=== PATIENT | female | born 1940 | race Two or more races ===

== ENCOUNTER 2021-12-07 15:15 | Emergency (ER) | payer SELFPAY ==
[~2021-12-07] VITALS: Ht 157.5 cm; Wt 65.9 kg
[2021-12-07] MEDS ORDERED: SODIUM CHLORIDE 0.9% 1,000 ML IV ONE (16:15)
[2021-12-07] MEDS ORDERED: ONDANSETRON HCL 4 MG/2 ML VIAL IV ONE (16:15)
[2021-12-07] MEDS ORDERED: SODIUM CHLORIDE 0.9% 500 ML IVB ONE (16:15)
[2021-12-07 17:02] LABS: Basophils # (auto) 0 10 ^3/uL (0-0.2); Basophils % (auto) 0.2 % (0.0-2.0); Eosinophils # (auto) 0.1 10 ^3/uL (0-0.8); Eosinophils % (auto) 0.4 % (0.0-7.0); Hematocrit 43.4 % (36.0-46.0); Hemoglobin 14.1 g/dL (12.2-16.2); Lymphocytes # (auto) 3.7 10 ^3/uL (0.4-5.4); Lymphocytes % (auto) 23.4 % (10.0-50.0); Mean Corpuscular Hemoglobin 28.7 pg (28.0-32.0); Mean Corpuscular Hgb Conc. 32.4 g/dL (32.0-36.0); Mean Corpuscular Volume 88.7 fL (80.0-100.0); Monocytes # (auto) 1.2 10 ^3/uL (0-1.3); Monocytes % (auto) 7.4 % (0.0-12.0); Neutrophils # (auto) 10.9 10 ^3/uL (1.6-8.6); Neutrophils % (auto) 68.6 % (37.0-80.0); Red Cell Distribution Width 13.7 % (11.8-14.3); White Blood Cell 15.9 10^3/uL (4.4-10.8)
[2021-12-07 17:17] LABS: Albumin 2.7 g/dL (3.4-5.0); BUN/Creatinine Ratio 23.4; Calcium 8.4 mg/dL (8.5-10.1); Magnesium 1.7 mg/dL (1.6-2.6); Potassium 4.5 mmol/L (3.5-5.1)
[2021-12-07 17:20] LABS: Bilirubin, Total 2.8 mg/dL (0.2-1.0); Total Protein 6.9 g/dL (6.4-8.2)
[2021-12-07] MEDS ORDERED: METO-281 PO (19:31)
[2021-12-07] MEDS ORDERED: PANT40TA2 PO (19:31)
[2021-12-07] MEDS ORDERED: CIPR-173 PO (19:50)
[2021-12-07 20:20] LABS: Urine Bacteria MANY /hpf (None Seen); Urine Blood TRACE /uL (Negative); Urine Budding Yeast OCCASIONAL /hpf (None Seen); Urine Specific Gravity 1.008 (1.001-1.035); Urine WBC 35 /hpf (0 - 5)
[2021-12-07 21:14] VITALS: BP 110/51
== END 2021-12-07 21:07 | disposition home or self-care (01) ==
LOC: ER 15:15
DX: K52.9 Noninfective gastroenteritis and colitis, unspecified (principal); E86.0 Dehydration; E87.1 Hypo-osmolality and hyponatremia; E11.21 Type 2 diabetes mellitus with diabetic nephropathy; E46 Unspecified protein-calorie malnutrition; N39.0 Urinary tract infection, site not specified; J84.10 Pulmonary fibrosis, unspecified; I10 Essential (primary) hypertension; Z85.3 Personal history of malignant neoplasm of breast; Z20.822 Contact with and (suspected) exposure to COVID-19
CPT/HCPCS: 36415; 70450; 71045; 74176; 80053; 81001; 83690; 83735; 85025; 87426; 93005; 96361; 96374; 99285; J2405; J7030; J7040

== ENCOUNTER 2021-12-08 16:43 | Inpatient (IN) | payer MEDICAID ==
[~2021-12-08] VITALS: Ht 152.4 cm; Wt 67.6 kg
[~2021-12-08 16:43] MED LIST: CIPR-173 PO; METO-281 PO; PANT40TA2 PO
[2021-12-08] MEDS ORDERED: ACCU-CHEK COMFORT CURVE STRIP VI ONE (18:15)
[2021-12-08] MEDS ORDERED: SODIUM CHLORIDE 0.9% 500 ML IV ONE (18:30)
[2021-12-08 19:37] LABS: Basophils # (auto) 0 10 ^3/uL (0-0.2); Basophils % (auto) 0.3 % (0.0-2.0); Eosinophils # (auto) 0.2 10 ^3/uL (0-0.8); Eosinophils % (auto) 1.1 % (0.0-7.0); Hematocrit 36.2 % (36.0-46.0); Hemoglobin 12.2 g/dL (12.2-16.2); Mean Corpuscular Hemoglobin 29.5 pg (28.0-32.0); Mean Corpuscular Hgb Conc. 33.7 g/dL (32.0-36.0); Mean Corpuscular Volume 87.6 fL (80.0-100.0); Monocytes # (auto) 0.9 10 ^3/uL (0-1.3); Monocytes % (auto) 6.3 % (0.0-12.0); Neutrophils # (auto) 11.1 10 ^3/uL (1.6-8.6); Neutrophils % (auto) 78.3 % (37.0-80.0); Red Blood Cells 4.13 10^6/uL (4.0-5.20); Red Cell Distribution Width 13.9 % (11.8-14.3); White Blood Cell 14.2 10^3/uL (4.4-10.8)
[2021-12-08] MEDS ORDERED: IODIXANOL 320MG/ML 100ML BTL IV ONE (19:53)
[2021-12-08 20:04] LABS: Albumin 2.4 g/dL (3.4-5.0); BUN/Creatinine Ratio 34.8; Calcium 7.7 mg/dL (8.5-10.1); Potassium 4.8 mmol/L (3.5-5.1)
[2021-12-08 20:07] LABS: Bilirubin, Total 1.5 mg/dL (0.2-1.0); Total Protein 6.1 g/dL (6.4-8.2)
[2021-12-08 20:15] LABS: Magnesium 1.7 mg/dL (1.6-2.6)
[2021-12-08] MEDS ORDERED: ALBUMIN 25% 100 ML IV ONE (22:15)
[2021-12-08] MEDS ORDERED: cefTRIAXone 1GM/50ML D5W 50 ML IV ONE (22:15)
[2021-12-08] MEDS ORDERED: ACETAMINOPHEN 325 MG TAB PO PRN (22:15)
[2021-12-08] MEDS ORDERED: DEXTROSE (50%) 50ML SYRG IV PRN (22:15)
[2021-12-08] MEDS ORDERED: AZITHROMYCIN 500MG/ 250ML 250 ML IV ONE (22:15)
[2021-12-08] MEDS ORDERED: ONDANSETRON HCL 4 MG/2 ML VIAL IV PRN (22:15)
[2021-12-08] MEDS ORDERED: HYDROcodone-ACET 5/325MG TAB PO PRN (22:15)
[2021-12-08] MEDS ORDERED: MORPHINE SULFATE INJ 2 MG/ml SYRG IV PRN (23:00)
[2021-12-08] MEDS ORDERED: NITROGLYCERIN 0.4 MG SL TAB SL PRN (23:00)
[2021-12-08] MEDS: SODIUM CHLORIDE 0.9% 1,000 ML IV SCH (23:18)
[2021-12-08 23:51] LABS: Urine Bacteria NONE SEEN /hpf (None Seen); Urine Blood 1+ /uL (Negative); Urine Hyaline Cast FEW /lpf (0 - 2); Urine Specific Gravity 1.042 (1.001-1.035); Urine WBC 117 /hpf (0 - 5)
[2021-12-09] MEDS: ACCU-CHEK COMFORT CURVE STRIP VI SCH ×4 (07:00→22:38)
[2021-12-09] MEDS: InsuLIN REG 1unit/0.01ml Soln (100units/ml) SC SCH ×4 (07:00→22:00)
[2021-12-09 07:17] LABS: Basophils # (auto) 0 10 ^3/uL (0-0.2); Basophils % (auto) 0.4 % (0.0-2.0); Eosinophils # (auto) 0.2 10 ^3/uL (0-0.8); Eosinophils % (auto) 2.3 % (0.0-7.0); Hematocrit 37.3 % (36.0-46.0); Hemoglobin 12.8 g/dL (12.2-16.2); Lymphocytes # (auto) 2.4 10 ^3/uL (0.4-5.4); Lymphocytes % (auto) 26.4 % (10.0-50.0); Mean Corpuscular Hemoglobin 30.1 pg (28.0-32.0); Mean Corpuscular Hgb Conc. 34.3 g/dL (32.0-36.0); Mean Corpuscular Volume 87.7 fL (80.0-100.0); Monocytes # (auto) 0.7 10 ^3/uL (0-1.3); Monocytes % (auto) 7.6 % (0.0-12.0); Neutrophils # (auto) 5.8 10 ^3/uL (1.6-8.6); Neutrophils % (auto) 63.3 % (37.0-80.0); Nucleated Red Blood Cells % 0.1 %; Red Blood Cells 4.25 10^6/uL (4.0-5.20); Red Cell Distribution Width 13.7 % (11.8-14.3); White Blood Cell 9.2 10^3/uL (4.4-10.8)
[2021-12-09 07:39] LABS: Potassium 4.4 mmol/L (3.5-5.1)
[2021-12-09 07:51] LABS: BUN/Creatinine Ratio 28.6; Bilirubin, Total 1.7 mg/dL (0.2-1.0); Calcium 8.6 mg/dL (8.5-10.1)
[2021-12-09 09:00] VITALS: BP 146/60
[2021-12-09] MEDS: cefTRIAXone 1GM/50ML D5W 50 ML IV SCH (09:40)
[2021-12-09] MEDS ORDERED: PANTOPRAZOLE 40 MG/10 ML VIAL INJ IV SCH (10:00)
[2021-12-09] MEDS: PANTOPRAZOLE 40 MG/10 ML VIAL INJ IV SCH ×2 (11:02→22:49)
[2021-12-09] MEDS: AZITHROMYCIN 500MG/ 250ML 250 ML IV SCH (11:02)
[2021-12-09 13:00] VITALS: BP 135/66
[2021-12-09 13:31] LABS: INR 1.13 (0.9-1.15)
[2021-12-09] MEDS: SODIUM CHLORIDE 0.9% 1,000 ML IV SCH (14:55)
[2021-12-09 16:12] VITALS: BP 132/60
[2021-12-09 22:00] VITALS: BP 116/56
[2021-12-10 05:00] VITALS: BP 112/48
[2021-12-10] MEDS: InsuLIN REG 1unit/0.01ml Soln (100units/ml) SC SCH ×4 (06:54→21:51)
[2021-12-10] MEDS: ACCU-CHEK COMFORT CURVE STRIP VI SCH ×4 (06:55→21:51)
[2021-12-10] MEDS: SODIUM CHLORIDE 0.9% 1,000 ML IV SCH (07:35)
[2021-12-10] MEDS ORDERED: NALOXONE HCL 0.4 MG/ML VIAL ONE (07:43)
[2021-12-10] MEDS ORDERED: FLUMAZENIL 0.1 MG/ML INJ 10ML MDV IV ONE (07:43)
[2021-12-10] MEDS ORDERED: EPINEPHrine HCL 1 MG/10 ML SYRG ONE (07:43)
[2021-12-10] MEDS ORDERED: MIDAZOLAM HCL 5 MG/ML-1ML VIAL ONE (07:44)
[2021-12-10] MEDS ORDERED: fentaNYL CITRATE 100 MCG/2 ML VL ONE (07:44)
[2021-12-10] MEDS ORDERED: diphenhdrAMINE HCL 50 MG/1 ML VL ONE (07:44)
[2021-12-10] MEDS ORDERED: SODIUM CHLORIDE LOCK 10 ML ONE (07:46)
[2021-12-10] MEDS ORDERED: LIDOCAINE VISCOUS 2% 15ML UD ONE (07:46)
[2021-12-10 09:00] VITALS: BP 130/75
[2021-12-10] MEDS: cefTRIAXone 1GM/50ML D5W 50 ML IV SCH (09:15)
[2021-12-10] MEDS: PANTOPRAZOLE 40 MG/10 ML VIAL INJ IV SCH (09:54)
[2021-12-10] MEDS: AZITHROMYCIN 500MG/ 250ML 250 ML IV SCH (09:55)
[2021-12-10] MEDS: SUCRALFATE 1 GM/10 ML ORAL SUSP PO SCH ×3 (12:18→21:59)
[2021-12-10 12:46] VITALS: BP 120/60
[2021-12-10 17:00] VITALS: BP 149/59
[2021-12-10] MEDS ORDERED: SPIR25TA PO (20:26)
[2021-12-10] MEDS ORDERED: VALS320T15 PO (20:26)
[2021-12-10] MEDS ORDERED: TIMO0.5S32 OP (20:30)
[2021-12-10] MEDS ORDERED: METF-370 PO (20:30)
[2021-12-10] MEDS: PANTOPRAZOLE 40 MG TAB PO SCH (21:59)
[2021-12-10 22:00] VITALS: BP 108/52
[2021-12-11] MEDS: SODIUM CHLORIDE 0.9% 1,000 ML IV SCH ×3 (00:15→17:58)
[2021-12-11 05:00] VITALS: BP 121/54
[2021-12-11] MEDS: ACCU-CHEK COMFORT CURVE STRIP VI SCH ×4 (06:29→22:17)
[2021-12-11] MEDS: InsuLIN REG 1unit/0.01ml Soln (100units/ml) SC SCH ×4 (06:29→22:16)
[2021-12-11] MEDS: SUCRALFATE 1 GM/10 ML ORAL SUSP PO SCH ×4 (06:32→22:14)
[2021-12-11 08:00] VITALS: BP_SYST 121; BP_SYST 135; BP_DIAS 62; BP_DIAS 76
[2021-12-11] MEDS: cefTRIAXone 1GM/50ML D5W 50 ML IV SCH (09:28)
[2021-12-11] MEDS: AZITHROMYCIN 500MG/ 250ML 250 ML IV SCH (10:36)
[2021-12-11] MEDS: PANTOPRAZOLE 40 MG TAB PO SCH ×2 (10:36→22:14)
[2021-12-11 12:00] VITALS: BP 123/60
[2021-12-11 16:00] VITALS: BP 137/68
[2021-12-11 21:52] VITALS: BP 104/65
[2021-12-12 05:00] VITALS: BP 119/61
[2021-12-12] MEDS: SUCRALFATE 1 GM/10 ML ORAL SUSP PO SCH ×4 (06:34→22:41)
[2021-12-12] MEDS: InsuLIN REG 1unit/0.01ml Soln (100units/ml) SC SCH ×4 (06:34→22:47)
[2021-12-12] MEDS: ACCU-CHEK COMFORT CURVE STRIP VI SCH ×4 (06:34→22:43)
[2021-12-12 08:00] VITALS: BP 126/61
[2021-12-12] MEDS: SODIUM CHLORIDE 0.9% 1,000 ML IV SCH (09:27)
[2021-12-12] MEDS: cefTRIAXone 1GM/50ML D5W 50 ML IV SCH (09:27)
[2021-12-12] MEDS: AZITHROMYCIN 500MG/ 250ML 250 ML IV SCH (10:14)
[2021-12-12] MEDS: PANTOPRAZOLE 40 MG TAB PO SCH ×2 (10:15→22:40)
[2021-12-12 12:00] VITALS: BP 132/64
[2021-12-12 16:00] VITALS: BP 135/68
[2021-12-12 20:00] VITALS: BP 114/50
[2021-12-12 22:00] VITALS: BP 114/50
[2021-12-13 05:00] VITALS: BP 111/72
[2021-12-13] MEDS: ACCU-CHEK COMFORT CURVE STRIP VI SCH ×2 (06:17→12:55)
[2021-12-13] MEDS: InsuLIN REG 1unit/0.01ml Soln (100units/ml) SC SCH ×2 (06:27→12:56)
[2021-12-13] MEDS: SODIUM CHLORIDE 0.9% 1,000 ML IV SCH (06:27)
[2021-12-13] MEDS: SUCRALFATE 1 GM/10 ML ORAL SUSP PO SCH ×2 (06:27→12:10)
[2021-12-13 09:00] VITALS: BP 130/55
[2021-12-13] MEDS: cefTRIAXone 1GM/50ML D5W 50 ML IV SCH (09:05)
[2021-12-13] MEDS: AZITHROMYCIN 500MG/ 250ML 250 ML IV SCH (09:49)
[2021-12-13] MEDS: PANTOPRAZOLE 40 MG TAB PO SCH (09:50)
[2021-12-13] MEDS ORDERED: SUCR1TAB PO (10:32)
[2021-12-13] MEDS ORDERED: PANT40T PO (10:32)
[2021-12-13] MEDS ORDERED: AZIT500T66 PO (10:32)
[2021-12-13 13:00] VITALS: BP 144/65
== END 2021-12-13 15:13 | disposition home or self-care (01) | DRG 241 ==
LOC: ER 16:43 → OVERFLOW 22:52 → WEST WING 23:42
PROVIDERS: ADMIT Nurse Practitioner Family; ATTEND Family Medicine
PROC: 0DB68ZX Excision of Stomach, Via Natural or Artificial Opening Endoscopic, Diagnostic (ICD-10-PCS; principal; 2021-12-10 10:19)
DX: K29.70 Gastritis, unspecified, without bleeding (principal); K85.90 Acute pancreatitis without necrosis or infection, unspecified; J18.9 Pneumonia, unspecified organism; E87.1 Hypo-osmolality and hyponatremia; E88.09 Other disorders of plasma-protein metabolism, not elsewhere classified; K52.9 Noninfective gastroenteritis and colitis, unspecified; I10 Essential (primary) hypertension; E11.65 Type 2 diabetes mellitus with hyperglycemia; K44.9 Diaphragmatic hernia without obstruction or gangrene; N28.1 Cyst of kidney, acquired; Z20.822 Contact with and (suspected) exposure to COVID-19; Z90.710 Acquired absence of both cervix and uterus; Z85.3 Personal history of malignant neoplasm of breast; Z90.10 Acquired absence of unspecified breast and nipple; Z88.8 Allergy status to other drugs, medicaments and biological substances
CPT/HCPCS: 36415; 43239; 70450; 72125; 74177; 80053; 81001; 82962; 83605; 83690; 83735; 84484; 85025; 85610; 87045; 87427; 96365; 96368; C9113; G0378; J0696; J1815; J2250; P9047; Q9967

== ENCOUNTER → 2022-05-10 | Outpatient (CLI) | payer MEDICAID ==
[~2022-05-10] MED LIST changes: +AZIT500T66 PO; +METF-370 PO; +PANT40T PO; +SPIR25TA PO; +SUCR1TAB PO; +TIMO0.5S32 OP; +VALS320T15 PO
== END | disposition home or self-care (01) ==
LOC: Rad HDHVI 14:54
PROVIDERS: ATTEND Internal Medicine Cardiovascular Disease
DX: I08.3 Combined rheumatic disorders of mitral, aortic and tricuspid valves (principal); R00.2 Palpitations; E78.5 Hyperlipidemia, unspecified
CPT/HCPCS: 93306

== ENCOUNTER → 2022-05-12 | Outpatient (CLI) | payer MEDICAID ==
[~2022-05-12] VITALS: Ht 157.5 cm; Wt 66.2 kg
[~2022-05-12] MED LIST changes: +ADENOSINE 56 MG in GIVE UN-DILUTED 0 ML IV ONE; +ADENOSINE 90 MG/30 ML INJ IV ONE
== END | disposition home or self-care (01) ==
LOC: Rad HDHVI 08:50
PROVIDERS: ATTEND Internal Medicine Cardiovascular Disease
DX: R07.9 Chest pain, unspecified (principal); R00.2 Palpitations; R06.02 Shortness of breath; I10 Essential (primary) hypertension; E11.65 Type 2 diabetes mellitus with hyperglycemia; E78.5 Hyperlipidemia, unspecified; Z82.49 Family history of ischemic heart disease and other diseases of the circulatory system
CPT/HCPCS: 78452; 93005; 96374; 96375; A9500; J0153

== ENCOUNTER 2022-06-13 21:53 | Inpatient (IN) | payer MEDICAID ==
[~2022-06-13] VITALS: Ht 149.9 cm; Wt 157.3 kg
[~2022-06-13 21:53] MED LIST changes: -ADENOSINE 56 MG in GIVE UN-DILUTED 0 ML IV ONE; -ADENOSINE 90 MG/30 ML INJ IV ONE
[2022-06-13 22:41] LABS: Basophils # (auto) 0 10 ^3/uL (0-0.2); Basophils % (auto) 0.1 % (0.0-2.0); Eosinophils # (auto) 0 10 ^3/uL (0-0.8); Hematocrit 38.3 % (36.0-46.0); Hemoglobin 12.5 g/dL (12.2-16.2); Lymphocytes # (auto) 0.8 10 ^3/uL (0.4-5.4); Lymphocytes % (auto) 8.4 % (10.0-50.0); Mean Corpuscular Hemoglobin 29.3 pg (28.0-32.0); Mean Corpuscular Hgb Conc. 32.6 g/dL (32.0-36.0); Monocytes # (auto) 0.1 10 ^3/uL (0-1.3); Monocytes % (auto) 1.6 % (0.0-12.0); Neutrophils # (auto) 8.2 10 ^3/uL (1.6-8.6); Neutrophils % (auto) 89.9 % (37.0-80.0); Nucleated Red Blood Cells % 0.1 %; Red Blood Cells 4.25 10^6/uL (4.0-5.20); Red Cell Distribution Width 14.9 % (11.8-14.3); White Blood Cell 9.1 10^3/uL (4.4-10.8)
[2022-06-13 23:00] LABS: Albumin 2.5 g/dL (3.4-5.0); Calcium 8.8 mg/dL (8.5-10.1); Magnesium 1.7 mg/dL (1.6-2.6); Potassium 4.2 mmol/L (3.5-5.1)
[2022-06-13] MEDS ORDERED: IPRATROPIUM BROM 0.5 MG/2.5ML INH SOL NEB ONE (23:00)
[2022-06-13] MEDS ORDERED: methylPREDNISolone SOD SUCC 125 MG/2 ML VL IV ONE (23:00)
[2022-06-13] MEDS ORDERED: ALBUTEROL SULF 2.5 MG/0.5ML(0.5%) NEB SOLN NEB ONE (23:00)
[2022-06-13 23:02] LABS: BUN/Creatinine Ratio 21.3 (10.0-20.0)
[2022-06-13 23:05] LABS: Bilirubin, Total 0.8 mg/dL (0.2-1.0); Total Protein 7.2 g/dL (6.4-8.2)
[2022-06-14] MEDS ORDERED: InsuLIN REG 1unit/0.01ml Soln (100units/ml) IV ONE (00:30)
[2022-06-14] MEDS ORDERED: cefTRIAXone SOD 1,000 MG VL IV ONE (00:45)
[2022-06-14] MEDS ORDERED: AZITHROMYCIN 250 MG TAB PO ONE (00:45)
[2022-06-14] MEDS ORDERED: ACETAMINOPHEN 325 MG TAB PO PRN (02:30)
[2022-06-14] MEDS ORDERED: ONDANSETRON HCL 4 MG/2 ML VIAL IV PRN (02:30)
[2022-06-14] MEDS ORDERED: HYDROcodone-ACET 5/325MG TAB PO PRN (02:30)
[2022-06-14] MEDS ORDERED: DEXTROSE (50%) 50ML SYRG IV PRN (02:30)
[2022-06-14] MEDS ORDERED: ALBUTEROL SULF 2.5 MG/0.5ML(0.5%) NEB SOLN NEB PRN (02:30)
[2022-06-14 02:39] VITALS: BP 140/68
[2022-06-14] MEDS: InsuLIN REG 1unit/0.01ml Soln (100units/ml) SC SCH ×5 (03:42→20:47)
[2022-06-14] MEDS: ACCU-CHEK COMFORT CURVE STRIP VI SCH ×5 (03:42→20:55)
[2022-06-14] MEDS: HCTZ 25 MG TAB PO SCH (10:02)
[2022-06-14] MEDS: FUROSEMIDE 40 MG TAB PO SCH (10:02)
[2022-06-14] MEDS: VALSARTAN 80 MG TAB PO SCH (10:02)
[2022-06-14] MEDS: methylPREDNISolone SOD SUCC 40 MG/ML VL IV SCH ×2 (10:03→22:16)
[2022-06-14] MEDS: ENOXAPARIN SOD 40 MG/0.4 ML SYRINGE SC SCH (10:04)
[2022-06-14 19:50] VITALS: BP 98/62
[2022-06-14 22:00] VITALS: BP 98/62
[2022-06-14] MEDS: AZITHROMYCIN 500MG/ 250ML 250 ML IV SCH (22:15)
[2022-06-14] MEDS: cefTRIAXone 1GM/50ML D5W 50 ML IV SCH (22:21)
[2022-06-15] MEDS: InsuLIN REG 1unit/0.01ml Soln (100units/ml) SC SCH ×6 (00:44→21:39)
[2022-06-15] MEDS: ACCU-CHEK COMFORT CURVE STRIP VI SCH ×6 (00:48→21:40)
[2022-06-15] MEDS: cloNIDine HCL 0.1 MG TAB PO PRN (04:56)
[2022-06-15 04:58] LABS: Basophils # (auto) 0 10 ^3/uL (0-0.2); Eosinophils # (auto) 0 10 ^3/uL (0-0.8); Hematocrit 36.5 % (36.0-46.0); Hemoglobin 12.1 g/dL (12.2-16.2); Lymphocytes # (auto) 1.6 10 ^3/uL (0.4-5.4); Lymphocytes % (auto) 12.8 % (10.0-50.0); Mean Corpuscular Hemoglobin 29.6 pg (28.0-32.0); Mean Corpuscular Hgb Conc. 33.1 g/dL (32.0-36.0); Mean Corpuscular Volume 89.5 fL (80.0-100.0); Monocytes # (auto) 0.3 10 ^3/uL (0-1.3); Monocytes % (auto) 2.6 % (0.0-12.0); Neutrophils # (auto) 10.5 10 ^3/uL (1.6-8.6); Neutrophils % (auto) 84.6 % (37.0-80.0); Nucleated Red Blood Cells % 0.1 %; Red Blood Cells 4.08 10^6/uL (4.0-5.20); White Blood Cell 12.4 10^3/uL (4.4-10.8)
[2022-06-15 05:00] VITALS: BP 166/61
[2022-06-15 05:15] LABS: Albumin 2.3 g/dL (3.4-5.0); Calcium 8.9 mg/dL (8.5-10.1); Potassium 3.4 mmol/L (3.5-5.1)
[2022-06-15 05:20] LABS: Bilirubin, Total 0.6 mg/dL (0.2-1.0); Total Protein 6.8 g/dL (6.4-8.2)
[2022-06-15 08:40] VITALS: BP 134/66
[2022-06-15] MEDS: ENOXAPARIN SOD 40 MG/0.4 ML SYRINGE SC SCH (08:50)
[2022-06-15] MEDS: VALSARTAN 80 MG TAB PO SCH (08:51)
[2022-06-15] MEDS: FUROSEMIDE 40 MG TAB PO SCH (08:52)
[2022-06-15] MEDS: methylPREDNISolone SOD SUCC 40 MG/ML VL IV SCH ×2 (08:53→21:48)
[2022-06-15] MEDS: HCTZ 25 MG TAB PO SCH (08:53)
[2022-06-15 12:56] VITALS: BP 138/95
[2022-06-15 19:40] VITALS: BP 157/77
[2022-06-15] MEDS: cefTRIAXone 1GM/50ML D5W 50 ML IV SCH (21:48)
[2022-06-15] MEDS: AZITHROMYCIN 500MG/ 250ML 250 ML IV SCH (21:48)
[2022-06-16] MEDS: InsuLIN REG 1unit/0.01ml Soln (100units/ml) SC SCH ×6 (00:58→20:41)
[2022-06-16] MEDS: ACCU-CHEK COMFORT CURVE STRIP VI SCH ×6 (01:02→20:40)
[2022-06-16 04:54] VITALS: BP 151/68
[2022-06-16 09:00] VITALS: BP 142/72
[2022-06-16] MEDS: VALSARTAN 80 MG TAB PO SCH (09:07)
[2022-06-16] MEDS: HCTZ 25 MG TAB PO SCH (09:07)
[2022-06-16] MEDS: FUROSEMIDE 40 MG TAB PO SCH (09:07)
[2022-06-16] MEDS: methylPREDNISolone SOD SUCC 40 MG/ML VL IV SCH ×2 (09:08→22:17)
[2022-06-16] MEDS: ENOXAPARIN SOD 40 MG/0.4 ML SYRINGE SC SCH (09:10)
[2022-06-16] MEDS: cloNIDine HCL 0.1 MG TAB PO PRN (12:57)
[2022-06-16 17:00] VITALS: BP 139/72
[2022-06-16] MEDS: cefTRIAXone 1GM/50ML D5W 50 ML IV SCH (20:52)
[2022-06-16 22:00] VITALS: BP 134/60
[2022-06-16] MEDS: AZITHROMYCIN 500MG/ 250ML 250 ML IV SCH (22:17)
[2022-06-17] MEDS: ACCU-CHEK COMFORT CURVE STRIP VI SCH ×7 (00:24→23:59)
[2022-06-17] MEDS: InsuLIN REG 1unit/0.01ml Soln (100units/ml) SC SCH ×6 (00:27→19:35)
[2022-06-17 04:33] VITALS: BP 134/60
[2022-06-17 05:00] VITALS: BP 150/66
[2022-06-17] MEDS: ENOXAPARIN SOD 40 MG/0.4 ML SYRINGE SC SCH (08:49)
[2022-06-17] MEDS: VALSARTAN 80 MG TAB PO SCH (08:51)
[2022-06-17] MEDS: methylPREDNISolone SOD SUCC 40 MG/ML VL IV SCH ×2 (08:51→22:30)
[2022-06-17] MEDS: FUROSEMIDE 40 MG TAB PO SCH (08:51)
[2022-06-17 09:00] VITALS: BP 147/68
[2022-06-17] MEDS: HCTZ 25 MG TAB PO SCH (09:07)
[2022-06-17 13:00] VITALS: BP 136/66
[2022-06-17 16:49] VITALS: BP 151/77
[2022-06-17] MEDS: cefTRIAXone 1GM/50ML D5W 50 ML IV SCH (20:10)
[2022-06-17 22:00] VITALS: BP 130/61
[2022-06-17] MEDS: AZITHROMYCIN 500MG/ 250ML 250 ML IV SCH (22:30)
[2022-06-18] MEDS: InsuLIN REG 1unit/0.01ml Soln (100units/ml) SC SCH ×7 (00:07→23:46)
[2022-06-18] MEDS: ACCU-CHEK COMFORT CURVE STRIP VI SCH ×6 (03:35→23:46)
[2022-06-18 05:00] VITALS: BP 144/72
[2022-06-18 09:00] VITALS: BP 138/67
[2022-06-18] MEDS: FUROSEMIDE 40 MG TAB PO SCH (10:08)
[2022-06-18] MEDS: VALSARTAN 80 MG TAB PO SCH (10:08)
[2022-06-18] MEDS: ENOXAPARIN SOD 40 MG/0.4 ML SYRINGE SC SCH (10:09)
[2022-06-18] MEDS: HCTZ 25 MG TAB PO SCH (10:09)
[2022-06-18] MEDS: methylPREDNISolone SOD SUCC 40 MG/ML VL IV SCH ×2 (10:10→21:47)
[2022-06-18 12:49] VITALS: BP 148/71
[2022-06-18 16:48] VITALS: BP 149/67
[2022-06-18] MEDS: cefTRIAXone 1GM/50ML D5W 50 ML IV SCH (20:33)
[2022-06-18] MEDS: AZITHROMYCIN 500MG/ 250ML 250 ML IV SCH (21:47)
[2022-06-18 22:00] VITALS: BP 138/71
[2022-06-19] MEDS: ACCU-CHEK COMFORT CURVE STRIP VI SCH ×6 (03:25→23:35)
[2022-06-19] MEDS: InsuLIN REG 1unit/0.01ml Soln (100units/ml) SC SCH ×6 (03:27→23:47)
[2022-06-19 06:29] VITALS: BP 154/69
[2022-06-19 08:26] VITALS: BP 150/60
[2022-06-19] MEDS: methylPREDNISolone SOD SUCC 40 MG/ML VL IV SCH ×2 (09:04→21:48)
[2022-06-19] MEDS: VALSARTAN 80 MG TAB PO SCH (09:06)
[2022-06-19] MEDS: HCTZ 25 MG TAB PO SCH (09:07)
[2022-06-19] MEDS: ENOXAPARIN SOD 40 MG/0.4 ML SYRINGE SC SCH (09:07)
[2022-06-19] MEDS: FUROSEMIDE 40 MG TAB PO SCH (09:08)
[2022-06-19 12:35] VITALS: BP 138/61
[2022-06-19 16:31] VITALS: BP 137/67
[2022-06-19] MEDS: cefTRIAXone 1GM/50ML D5W 50 ML IV SCH (20:30)
[2022-06-19] MEDS: AZITHROMYCIN 500MG/ 250ML 250 ML IV SCH (21:49)
[2022-06-19] MEDS: guaiFENesin-DM 100/10mg/5ml SYR PO PRN (23:35)
[2022-06-20] MEDS: ACCU-CHEK COMFORT CURVE STRIP VI SCH ×6 (03:59→23:12)
[2022-06-20] MEDS: InsuLIN REG 1unit/0.01ml Soln (100units/ml) SC SCH ×6 (03:59→23:33)
[2022-06-20] MEDS: LORazepam 0.5 MG TAB PO PRN ×2 (04:00→23:12)
[2022-06-20 05:00] VITALS: BP 142/61
[2022-06-20 09:00] VITALS: BP_SYST 137; BP_SYST 178; BP_DIAS 54; BP_DIAS 85
[2022-06-20] MEDS: ENOXAPARIN SOD 40 MG/0.4 ML SYRINGE SC SCH (09:05)
[2022-06-20] MEDS: methylPREDNISolone SOD SUCC 40 MG/ML VL IV SCH ×2 (09:05→23:11)
[2022-06-20] MEDS: VALSARTAN 80 MG TAB PO SCH (09:12)
[2022-06-20] MEDS: FUROSEMIDE 40 MG TAB PO SCH (09:13)
[2022-06-20] MEDS: HCTZ 25 MG TAB PO SCH (09:13)
[2022-06-20 12:45] VITALS: BP 165/69
[2022-06-20 16:55] VITALS: BP 150/76
[2022-06-20] MEDS: cefTRIAXone 1GM/50ML D5W 50 ML IV SCH (20:48)
[2022-06-20 22:00] VITALS: BP 121/59
[2022-06-20] MEDS: guaiFENesin-DM 100/10mg/5ml SYR PO PRN (23:12)
[2022-06-20] MEDS: AZITHROMYCIN 500MG/ 250ML 250 ML IV SCH (23:12)
[2022-06-21] MEDS: InsuLIN REG 1unit/0.01ml Soln (100units/ml) SC SCH ×6 (04:00→23:23)
[2022-06-21 05:24] VITALS: BP 154/70
[2022-06-21] MEDS: ACCU-CHEK COMFORT CURVE STRIP VI SCH ×6 (06:22→23:20)
[2022-06-21 09:00] VITALS: BP 159/73
[2022-06-21] MEDS: methylPREDNISolone SOD SUCC 40 MG/ML VL IV SCH ×2 (09:50→22:33)
[2022-06-21] MEDS: ENOXAPARIN SOD 40 MG/0.4 ML SYRINGE SC SCH (09:55)
[2022-06-21] MEDS: FUROSEMIDE 40 MG TAB PO SCH (09:57)
[2022-06-21] MEDS: HCTZ 25 MG TAB PO SCH (09:57)
[2022-06-21] MEDS: VALSARTAN 80 MG TAB PO SCH (09:57)
[2022-06-21 13:00] VITALS: BP 121/60
[2022-06-21] MEDS: guaiFENesin-DM 100/10mg/5ml SYR PO PRN (14:11)
[2022-06-21 16:38] VITALS: BP 127/62
[2022-06-21] MEDS: cefTRIAXone 1GM/50ML D5W 50 ML IV SCH (20:42)
[2022-06-21] MEDS: AZITHROMYCIN 500MG/ 250ML 250 ML IV SCH (22:34)
[2022-06-22] MEDS: InsuLIN REG 1unit/0.01ml Soln (100units/ml) SC SCH ×2 (04:00→12:12)
[2022-06-22] MEDS: ACCU-CHEK COMFORT CURVE STRIP VI SCH ×2 (04:17→12:14)
[2022-06-22 05:00] VITALS: BP 164/73
[2022-06-22 09:00] VITALS: BP 143/75
[2022-06-22] MEDS: ENOXAPARIN SOD 40 MG/0.4 ML SYRINGE SC SCH (09:02)
[2022-06-22] MEDS: VALSARTAN 80 MG TAB PO SCH (09:03)
[2022-06-22] MEDS: FUROSEMIDE 40 MG TAB PO SCH (09:03)
[2022-06-22] MEDS: HCTZ 25 MG TAB PO SCH (09:04)
[2022-06-22] MEDS: methylPREDNISolone SOD SUCC 40 MG/ML VL IV SCH (09:06)
[2022-06-22] MEDS ORDERED: DOXY-286 PO (10:00)
[2022-06-22 11:02] VITALS: BP 143/75
[2022-06-22 13:00] VITALS: BP 143/66
== END 2022-06-22 14:25 | disposition home or self-care (01) | DRG 139 ==
LOC: ER 21:53 → OVERFLOW 06-14 02:33 → WEST WING 06-14 17:22
PROVIDERS: ADMIT Nurse Practitioner; ATTEND Internal Medicine
DX: J18.9 Pneumonia, unspecified organism (principal); J96.01 Acute respiratory failure with hypoxia; Z68.44 Body mass index [BMI] 60.0-69.9, adult; J84.10 Pulmonary fibrosis, unspecified; E11.65 Type 2 diabetes mellitus with hyperglycemia; Z20.822 Contact with and (suspected) exposure to COVID-19; I10 Essential (primary) hypertension; Z88.6 Allergy status to analgesic agent; E66.01 Morbid (severe) obesity due to excess calories
CPT/HCPCS: 36415; 71045; 80053; 82962; 83735; 84484; 85025; 87426; 93005; 94640; 96374; 97110; 97116; 97163; 97530; 99291; G0378; J0696; J1815; J2405

== ENCOUNTER 2022-07-08 23:14 | Emergency (ER) | payer MEDICAID ==
[~2022-07-08] VITALS: Ht 157.5 cm; Wt 69.0 kg
[~2022-07-08 23:14] MED LIST changes: -AZIT500T66 PO; -CIPR-173 PO; +DOXY-286 PO
[2022-07-09 03:39] VITALS: BP 139/64
[2022-07-09] MEDS ORDERED: HYDROcodone-ACET 5/325MG TAB PO ONE (04:00)
[2022-07-09] MEDS ORDERED: HYDR-4902 PO (04:42)
== END 2022-07-09 05:37 | disposition home or self-care (01) ==
LOC: ER 23:14
DX: S92.341A Displaced fracture of fourth metatarsal bone, right foot, initial encounter for closed fracture (principal); E11.9 Type 2 diabetes mellitus without complications; I10 Essential (primary) hypertension; W22.8XXA Striking against or struck by other objects, initial encounter; Y93.89 Activity, other specified; Y92.89 Other specified places as the place of occurrence of the external cause; Y99.8 Other external cause status
CPT/HCPCS: 29125; 73130; 82962; 93005

== ENCOUNTER 2022-10-18 15:53 | Inpatient (IN) | payer MEDICAID ==
[~2022-10-18] VITALS: Ht 157.5 cm; Wt 75.1 kg
[~2022-10-18 15:53] MED LIST changes: +HYDR-4902 PO; +VALS320T PO; -VALS320T15 PO
[2022-10-18 16:57] LABS: Basophils # (auto) 0.1 10 ^3/uL (0-0.2); Basophils % (auto) 0.4 % (0.0-2.0); Eosinophils # (auto) 0.3 10 ^3/uL (0-0.8); Eosinophils % (auto) 1.6 % (0.0-7.0); Hematocrit 38.9 % (36.0-46.0); Hemoglobin 12.7 g/dL (12.2-16.2); Lymphocytes # (auto) 1.6 10 ^3/uL (0.4-5.4); Lymphocytes % (auto) 8.5 % (10.0-50.0); Mean Corpuscular Hemoglobin 27.9 pg (28.0-32.0); Mean Corpuscular Hgb Conc. 32.7 g/dL (32.0-36.0); Mean Corpuscular Volume 85.4 fL (80.0-100.0); Monocytes # (auto) 1.9 10 ^3/uL (0-1.3); Monocytes % (auto) 9.9 % (0.0-12.0); Neutrophils # (auto) 15.4 10 ^3/uL (1.6-8.6); Neutrophils % (auto) 79.6 % (37.0-80.0); Red Blood Cells 4.55 10^6/uL (4.0-5.20); Red Cell Distribution Width 15.7 % (11.8-14.3); White Blood Cell 19.3 10^3/uL (4.4-10.8)
[2022-10-18 17:11] LABS: INR 1.16 (0.9-1.15); Partial Thromboplastin Time 27.5 SEC (24.5-34.5)
[2022-10-18 17:17] LABS: Albumin 2.6 g/dL (3.4-5.0); Calcium 8.9 mg/dL (8.5-10.1); Magnesium 2.2 mg/dL (1.6-2.6); Potassium 5.2 mmol/L (3.5-5.1)
[2022-10-18 17:22] LABS: BUN/Creatinine Ratio 24.4 (10.0-20.0); Bilirubin, Total 1.1 mg/dL (0.2-1.0); Total Protein 7.3 g/dL (6.4-8.2)
[2022-10-18] MEDS ORDERED: methylPREDNISolone SOD SUCC 40 MG/ML VL IV ONE (19:30)
[2022-10-18] MEDS ORDERED: cefTRIAXone 1GM/50ML D5W 50 ML IV ONE (19:30)
[2022-10-18] MEDS ORDERED: AZITHROMYCIN 250 MG TAB PO ONE (19:30)
[2022-10-18] MEDS ORDERED: MORPHINE SULFATE INJ 2 MG/ml SYRG IV PRN (22:00)
[2022-10-18] MEDS ORDERED: ALBUTEROL SULF 2.5 MG/0.5ML(0.5%) NEB SOLN NEB PRN (22:00)
[2022-10-18] MEDS ORDERED: NITROGLYCERIN 0.4 MG SL TAB SL PRN (22:00)
[2022-10-18] MEDS ORDERED: HYDROcodone-ACET 5/325MG TAB PO PRN (22:00)
[2022-10-18] MEDS ORDERED: DEXTROSE (50%) 50ML SYRG IV PRN (22:00)
[2022-10-18] MEDS ORDERED: ONDANSETRON HCL 4 MG/2 ML VIAL IV PRN (22:00)
[2022-10-18 22:40] VITALS: BP 136/73; PULSE 102; RESP 18; O2SAT 95
[2022-10-18] MEDS: ATORVASTATIN 20 MG TAB PO SCH ×2 (23:11→23:20)
[2022-10-18] MEDS: ACCU-CHEK COMFORT CURVE STRIP VI SCH (23:12)
[2022-10-18] MEDS: InsuLIN REG 1unit/0.01ml Soln (100units/ml) SC SCH (23:21)
[2022-10-19] VITALS (8 sets, daily range): BP systolic 116–132; BP diastolic 76–78; PULSE 70–85; RESP 14–24; TEMP 97.5–97.8; O2SAT 94–98
[2022-10-19 00:25] LABS: BUN/Creatinine Ratio 22.7 (10.0-20.0); Calcium 9.6 mg/dL (8.5-10.1); Potassium 4.5 mmol/L (3.5-5.1)
[2022-10-19 07:01] LABS: Potassium 4.6 mmol/L (3.5-5.1)
[2022-10-19 07:02] LABS: Basophils # (auto) 0 10 ^3/uL (0-0.2); Basophils % (auto) 0.1 % (0.0-2.0); Eosinophils # (auto) 0 10 ^3/uL (0-0.8); Eosinophils % (auto) 0.1 % (0.0-7.0); Hematocrit 37.6 % (36.0-46.0); Hemoglobin 12.6 g/dL (12.2-16.2); Lymphocytes # (auto) 1.7 10 ^3/uL (0.4-5.4); Lymphocytes % (auto) 11.6 % (10.0-50.0); Mean Corpuscular Hemoglobin 28.6 pg (28.0-32.0); Mean Corpuscular Hgb Conc. 33.5 g/dL (32.0-36.0); Mean Corpuscular Volume 85.2 fL (80.0-100.0); Monocytes # (auto) 0.6 10 ^3/uL (0-1.3); Monocytes % (auto) 4.1 % (0.0-12.0); Neutrophils # (auto) 12.6 10 ^3/uL (1.6-8.6); Neutrophils % (auto) 84.1 % (37.0-80.0); Nucleated Red Blood Cells % 0.1 %; Red Blood Cells 4.41 10^6/uL (4.0-5.20); Red Cell Distribution Width 15.4 % (11.8-14.3)
[2022-10-19] MEDS: ACCU-CHEK COMFORT CURVE STRIP VI SCH ×3 (07:02→22:02)
[2022-10-19 07:11] LABS: Albumin 2.4 g/dL (3.4-5.0); BUN/Creatinine Ratio 32.1 (10.0-20.0); Bilirubin, Total 0.8 mg/dL (0.2-1.0); Calcium 9.4 mg/dL (8.5-10.1); Total Protein 7.7 g/dL (6.4-8.2)
[2022-10-19] MEDS: InsuLIN REG 1unit/0.01ml Soln (100units/ml) SC SCH ×2 (07:16→11:47)
[2022-10-19] MEDS: FUROSEMIDE 40 MG TAB PO SCH (10:00)
[2022-10-19] MEDS ORDERED: AZITHROMYCIN 500MG/ 250ML 250 ML IV SCH (10:00)
[2022-10-19] MEDS: cefTRIAXone 1GM/50ML D5W 50 ML IV SCH (10:00)
[2022-10-19] MEDS ORDERED: PANTOPRAZOLE 40 MG TAB PO SCH (10:00)
[2022-10-19] MEDS: ENOXAPARIN SOD 40 MG/0.4 ML SYRINGE SC SCH (10:01)
[2022-10-19] MEDS: VALSARTAN 80 MG TAB PO SCH (10:16)
[2022-10-19] MEDS ORDERED: DEXTROSE (50%) 50ML SYRG IV PRN (17:30)
[2022-10-19] MEDS ORDERED: INSULIN LANTUS (GLARGINE) 1 /0.01ml (100units/ml) SC SCH (17:30)
[2022-10-19 18:14] LABS: Cholesterol 152 mg/dL (< 200); HDL Cholesterol 33 mg/dL (40-59); LDL Cholesterol 111 mg/dL (< 100); Triglycerides 70 mg/dL (< 150)
[2022-10-19] MEDS ORDERED: methylPREDNISolone SOD SUCC 40 MG/ML VL IV SCH (22:00)
[2022-10-19] MEDS ORDERED: InsuLIN REG 1unit/0.01ml Soln (100units/ml) SC SCH (22:00)
[2022-10-19] MEDS: ATORVASTATIN 20 MG TAB PO SCH (22:02)
[2022-10-19] MEDS: methylPREDNISolone SOD SUCC 125 MG/2 ML VL IV SCH (22:03)
[2022-10-19] MEDS: INSULIN LANTUS (GLARGINE) 1 /0.01ml (100units/ml) SC SCH (22:07)
[2022-10-20] VITALS (10 sets, daily range): BP systolic 116–137; BP diastolic 50–63; PULSE 53–77; RESP 18–22; TEMP 97.3–98.1; O2SAT 96–99
[2022-10-20] MEDS: PROMETHAZINE-DM 5 ML ORAL SYRUP PO PRN (00:20)
[2022-10-20] MEDS: ACCU-CHEK COMFORT CURVE STRIP VI SCH ×5 (06:18→22:00)
[2022-10-20] MEDS: InsuLIN REG 1unit/0.01ml Soln (100units/ml) SC SCH ×5 (06:19→22:13)
[2022-10-20 06:58] LABS: BUN/Creatinine Ratio 49.5 (10.0-20.0); Potassium 4.4 mmol/L (3.5-5.1)
[2022-10-20] MEDS ORDERED: DEXTROSE (50%) 50ML SYRG IV PRN (07:30)
[2022-10-20] MEDS: cefTRIAXone 1GM/50ML D5W 50 ML IV SCH (08:50)
[2022-10-20] MEDS: methylPREDNISolone SOD SUCC 125 MG/2 ML VL IV SCH ×2 (10:35→22:04)
[2022-10-20] MEDS: ENOXAPARIN SOD 40 MG/0.4 ML SYRINGE SC SCH (10:35)
[2022-10-20] MEDS: AZITHROMYCIN 250 MG TAB PO SCH (10:36)
[2022-10-20] MEDS: FUROSEMIDE 40 MG TAB PO SCH (10:36)
[2022-10-20] MEDS: VALSARTAN 80 MG TAB PO SCH (10:37)
[2022-10-20] MEDS: INSULIN LANTUS (GLARGINE) 1 /0.01ml (100units/ml) SC SCH ×2 (10:46→22:21)
[2022-10-20 11:44] LABS: Urine Bacteria NONE SEEN /hpf (None Seen); Urine Blood Negative /uL (Negative); Urine WBC 3 /hpf (0 - 5)
[2022-10-20] MEDS: ACETAMINOPHEN 325 MG TAB PO PRN (19:59)
[2022-10-20] MEDS: ATORVASTATIN 20 MG TAB PO SCH (22:05)
[2022-10-21] VITALS (9 sets, daily range): BP systolic 128–137; BP diastolic 63–89; PULSE 53–82; RESP 17–18; TEMP 97.9–98.7; O2SAT 95–98
[2022-10-21] MEDS: PROMETHAZINE-DM 5 ML ORAL SYRUP PO PRN ×2 (02:40→16:58)
[2022-10-21 05:24] LABS: Albumin 2.3 g/dL (3.4-5.0); BUN/Creatinine Ratio 55.1 (10.0-20.0); Calcium 9.3 mg/dL (8.5-10.1); Magnesium 2.3 mg/dL (1.6-2.6); Potassium 4.9 mmol/L (3.5-5.1)
[2022-10-21 05:27] LABS: Bilirubin, Total 0.4 mg/dL (0.2-1.0); Total Protein 6.8 g/dL (6.4-8.2)
[2022-10-21 05:35] LABS: Basophils # (auto) 0 10 ^3/uL (0-0.2); Basophils % (auto) 0.2 % (0.0-2.0); Eosinophils # (auto) 0 10 ^3/uL (0-0.8); Hematocrit 39.2 % (36.0-46.0); Hemoglobin 12.8 g/dL (12.2-16.2); Lymphocytes # (auto) 1.7 10 ^3/uL (0.4-5.4); Lymphocytes % (auto) 10.9 % (10.0-50.0); Mean Corpuscular Hemoglobin 29.7 pg (28.0-32.0); Mean Corpuscular Hgb Conc. 32.6 g/dL (32.0-36.0); Mean Corpuscular Volume 91.3 fL (80.0-100.0); Monocytes # (auto) 0.6 10 ^3/uL (0-1.3); Monocytes % (auto) 3.8 % (0.0-12.0); Neutrophils # (auto) 13.1 10 ^3/uL (1.6-8.6); Neutrophils % (auto) 85.1 % (37.0-80.0); Red Cell Distribution Width 15.8 % (11.8-14.3); White Blood Cell 15.3 10^3/uL (4.4-10.8)
[2022-10-21] MEDS: InsuLIN REG 1unit/0.01ml Soln (100units/ml) SC SCH ×4 (06:33→21:55)
[2022-10-21] MEDS: ACCU-CHEK COMFORT CURVE STRIP VI SCH ×4 (06:35→22:00)
[2022-10-21] MEDS: cefTRIAXone 1GM/50ML D5W 50 ML IV SCH (08:13)
[2022-10-21] MEDS: ENOXAPARIN SOD 40 MG/0.4 ML SYRINGE SC SCH (10:13)
[2022-10-21] MEDS: AZITHROMYCIN 250 MG TAB PO SCH (10:14)
[2022-10-21] MEDS: VALSARTAN 80 MG TAB PO SCH (10:14)
[2022-10-21] MEDS: FUROSEMIDE 40 MG TAB PO SCH (10:14)
[2022-10-21] MEDS: methylPREDNISolone SOD SUCC 125 MG/2 ML VL IV SCH (10:15)
[2022-10-21] MEDS: INSULIN LANTUS (GLARGINE) 1 /0.01ml (100units/ml) SC SCH ×2 (10:22→21:56)
[2022-10-21] MEDS ORDERED: ALLO100T PO (17:09)
[2022-10-21] MEDS ORDERED: FURO40TA4 PO (17:10)
[2022-10-21] MEDS: ATORVASTATIN 20 MG TAB PO SCH (21:41)
[2022-10-21] MEDS: methylPREDNISolone SOD SUCC 40 MG/ML VL IV SCH (22:00)
[2022-10-22] VITALS (8 sets, daily range): BP systolic 112–137; BP diastolic 39–62; PULSE 59–76; RESP 17–19; TEMP 97.6–98.5; O2SAT 95–99
[2022-10-22] MEDS ORDERED: methylPREDNISolone SOD SUCC 125 MG/2 ML VL ONE ×2 (02:39→21:21)
[2022-10-22] MEDS: ACCU-CHEK COMFORT CURVE STRIP VI SCH ×4 (07:40→22:31)
[2022-10-22] MEDS: InsuLIN REG 1unit/0.01ml Soln (100units/ml) SC SCH ×4 (07:40→22:30)
[2022-10-22] MEDS: cefTRIAXone 1GM/50ML D5W 50 ML IV SCH (08:37)
[2022-10-22] MEDS: AZITHROMYCIN 250 MG TAB PO SCH (09:56)
[2022-10-22] MEDS: VALSARTAN 80 MG TAB PO SCH (09:56)
[2022-10-22] MEDS: ENOXAPARIN SOD 40 MG/0.4 ML SYRINGE SC SCH (09:56)
[2022-10-22] MEDS: FUROSEMIDE 40 MG TAB PO SCH (09:57)
[2022-10-22] MEDS: PROMETHAZINE-DM 5 ML ORAL SYRUP PO PRN (09:59)
[2022-10-22] MEDS: INSULIN LANTUS (GLARGINE) 1 /0.01ml (100units/ml) SC SCH ×2 (10:04→22:31)
[2022-10-22] MEDS: ATORVASTATIN 20 MG TAB PO SCH (21:30)
[2022-10-22] MEDS: methylPREDNISolone SOD SUCC 40 MG/ML VL IV SCH (22:27)
[2022-10-23] VITALS (7 sets, daily range): BP systolic 120–143; BP diastolic 52–69; PULSE 55–86; RESP 17–19; TEMP 97.8–98.4; O2SAT 98–100
[2022-10-23 05:28] LABS: Basophils # (auto) 0 10 ^3/uL (0-0.2); Basophils % (auto) 0.2 % (0.0-2.0); Eosinophils # (auto) 0 10 ^3/uL (0-0.8); Eosinophils % (auto) 0.1 % (0.0-7.0); Hematocrit 41.7 % (36.0-46.0); Hemoglobin 13.4 g/dL (12.2-16.2); Lymphocytes # (auto) 1.5 10 ^3/uL (0.4-5.4); Lymphocytes % (auto) 13.8 % (10.0-50.0); Mean Corpuscular Hemoglobin 27.9 pg (28.0-32.0); Mean Corpuscular Hgb Conc. 32.2 g/dL (32.0-36.0); Mean Corpuscular Volume 86.7 fL (80.0-100.0); Monocytes # (auto) 0.2 10 ^3/uL (0-1.3); Monocytes % (auto) 2.1 % (0.0-12.0); Neutrophils # (auto) 9.2 10 ^3/uL (1.6-8.6); Neutrophils % (auto) 83.8 % (37.0-80.0); Nucleated Red Blood Cells % 0.1 %; Red Blood Cells 4.81 10^6/uL (4.0-5.20); Red Cell Distribution Width 15.7 % (11.8-14.3)
[2022-10-23 06:08] LABS: BUN/Creatinine Ratio 43.8 (10.0-20.0); Calcium 9.2 mg/dL (8.5-10.1); Magnesium 2.1 mg/dL (1.6-2.6); Potassium 4.8 mmol/L (3.5-5.1)
[2022-10-23] MEDS: InsuLIN REG 1unit/0.01ml Soln (100units/ml) SC SCH ×4 (06:13→21:23)
[2022-10-23] MEDS: ACCU-CHEK COMFORT CURVE STRIP VI SCH ×4 (06:14→21:24)
[2022-10-23] MEDS: cefTRIAXone 1GM/50ML D5W 50 ML IV SCH (09:16)
[2022-10-23] MEDS: ENOXAPARIN SOD 40 MG/0.4 ML SYRINGE SC SCH (09:16)
[2022-10-23] MEDS: AZITHROMYCIN 250 MG TAB PO SCH (09:17)
[2022-10-23] MEDS: VALSARTAN 80 MG TAB PO SCH (09:30)
[2022-10-23] MEDS: FUROSEMIDE 40 MG TAB PO SCH (09:31)
[2022-10-23] MEDS: INSULIN LANTUS (GLARGINE) 1 /0.01ml (100units/ml) SC SCH (09:32)
[2022-10-23] MEDS: ACETAMINOPHEN 325 MG TAB PO PRN (09:38)
[2022-10-23] MEDS: methylPREDNISolone SOD SUCC 40 MG/ML VL IV SCH (09:38)
[2022-10-23] MEDS ORDERED: VANCOMYCIN PER PHARMACY 0 MG IV SCH (11:00)
[2022-10-23] MEDS ORDERED: VANCOMYCIN 1GM/250ML 250 ML IV ONE (13:45)
[2022-10-23] MEDS: ATORVASTATIN 20 MG TAB PO SCH (21:12)
[2022-10-24] MEDS: ACETAMINOPHEN 325 MG TAB PO PRN (04:33)
[2022-10-24 05:00] VITALS: BP 121/64; PULSE 65; RESP 18; TEMP 98.1; O2SAT 96
[2022-10-24 06:51] LABS: Basophils # (auto) 0 10 ^3/uL (0-0.2); Basophils % (auto) 0.2 % (0.0-2.0); Eosinophils # (auto) 0.3 10 ^3/uL (0-0.8); Eosinophils % (auto) 2.7 % (0.0-7.0); Hematocrit 41.7 % (36.0-46.0); Hemoglobin 13.7 g/dL (12.2-16.2); Lymphocytes # (auto) 4.1 10 ^3/uL (0.4-5.4); Lymphocytes % (auto) 34.4 % (10.0-50.0); Mean Corpuscular Hemoglobin 28.7 pg (28.0-32.0); Mean Corpuscular Hgb Conc. 32.9 g/dL (32.0-36.0); Mean Corpuscular Volume 87.2 fL (80.0-100.0); Monocytes # (auto) 0.7 10 ^3/uL (0-1.3); Monocytes % (auto) 5.8 % (0.0-12.0); Neutrophils # (auto) 6.8 10 ^3/uL (1.6-8.6); Neutrophils % (auto) 56.9 % (37.0-80.0); Nucleated Red Blood Cells % 0.2 %; Red Blood Cells 4.78 10^6/uL (4.0-5.20); Red Cell Distribution Width 15.6 % (11.8-14.3); White Blood Cell 11.9 10^3/uL (4.4-10.8)
[2022-10-24 06:59] LABS: BUN/Creatinine Ratio 43.5 (10.0-20.0); Calcium 9.1 mg/dL (8.5-10.1)
[2022-10-24] MEDS: ACCU-CHEK COMFORT CURVE STRIP VI SCH ×3 (07:00→17:00)
[2022-10-24] MEDS: InsuLIN REG 1unit/0.01ml Soln (100units/ml) SC SCH ×3 (07:00→17:00)
[2022-10-24] MEDS ORDERED: INSULIN LANTUS (GLARGINE) 1 /0.01ml (100units/ml) SC SCH (07:00)
[2022-10-24 08:00] VITALS: PULSE 62; PULSE 67
[2022-10-24 09:00] VITALS: BP 113/50; PULSE 76; RESP 19; TEMP 98.1; O2SAT 97
[2022-10-24] MEDS: ENOXAPARIN SOD 40 MG/0.4 ML SYRINGE SC SCH (09:55)
[2022-10-24] MEDS: VALSARTAN 80 MG TAB PO SCH (09:56)
[2022-10-24] MEDS: FUROSEMIDE 40 MG TAB PO SCH (09:56)
[2022-10-24] MEDS ORDERED: DexAMETHasone SOD PHOS 10MG/1ML VIAL INJ IV SCH (10:00)
[2022-10-24] MEDS ORDERED: PRED20TA2 PO (10:10)
[2022-10-24] MEDS ORDERED: SULF400T11 PO (10:10)
[2022-10-24] MEDS ORDERED: AZITHROMYCIN 250 MG TAB PO ONE (11:00)
[2022-10-24 13:00] VITALS: BP 139/77; PULSE 76; RESP 18; TEMP 97.9; O2SAT 98
[2022-10-24 13:04] VITALS: BP 113/50; TEMP 36.6
[2022-10-24] MEDS ORDERED: VANCOMYCIN 1GM/250ML 250 ML IV SCH (14:00)
== END 2022-10-24 17:30 | disposition home or self-care (01) | DRG 720 ==
LOC: ER 15:53 → TELE 22:01 → TELE-WESTW 10-19 16:42
PROVIDERS: ADMIT Internal Medicine Pulmonary Disease
DX: A41.9 Sepsis, unspecified organism (principal); J96.21 Acute and chronic respiratory failure with hypoxia; J15.212 Pneumonia due to Methicillin resistant Staphylococcus aureus; J84.10 Pulmonary fibrosis, unspecified; Z99.81 Dependence on supplemental oxygen; E87.1 Hypo-osmolality and hyponatremia; Z88.5 Allergy status to narcotic agent; E11.9 Type 2 diabetes mellitus without complications; Z20.822 Contact with and (suspected) exposure to COVID-19; I10 Essential (primary) hypertension; E87.5 Hyperkalemia; Z88.6 Allergy status to analgesic agent; Z88.8 Allergy status to other drugs, medicaments and biological substances
CPT/HCPCS: 36415; 71045; 71250; 80048; 80053; 80061; 81001; 82962; 83036; 83735; 83880; 84484; 85025; 85379; 85610; 85730; 87070; 87077; 87081; 87186; 87205; 87426; 93005; 93970; 96365; 96367; 96368; 96375; G0378; J0696; J1100; J1815

== ENCOUNTER 2023-01-08 15:33 | Inpatient (IN) | payer MEDICAID ==
[~2023-01-08] VITALS: Ht 167.6 cm; Wt 64.1 kg
[~2023-01-08 15:33] MED LIST changes: +ALLO100T PO; -DOXY-286 PO; +FURO40TA4 PO; -METF-370 PO; +PRED20TA2 PO; +SULF400T11 PO
[2023-01-08 16:35] LABS: Basophils # (auto) 0 10 ^3/uL (0-0.2); Basophils % (auto) 0.2 % (0.0-2.0); Eosinophils # (auto) 0.2 10 ^3/uL (0-0.8); Hematocrit 36.7 % (36.0-46.0); Lymphocytes # (auto) 2.2 10 ^3/uL (0.4-5.4); Lymphocytes % (auto) 11.7 % (10.0-50.0); Mean Corpuscular Hemoglobin 28.7 pg (28.0-32.0); Mean Corpuscular Hgb Conc. 32.8 g/dL (32.0-36.0); Mean Corpuscular Volume 87.7 fL (80.0-100.0); Monocytes # (auto) 1.3 10 ^3/uL (0-1.3); Monocytes % (auto) 6.8 % (0.0-12.0); Neutrophils # (auto) 14.9 10 ^3/uL (1.6-8.6); Neutrophils % (auto) 80.3 % (37.0-80.0); Red Blood Cells 4.18 10^6/uL (4.0-5.20); Red Cell Distribution Width 18.6 % (11.8-14.3); White Blood Cell 18.5 10^3/uL (4.4-10.8)
[2023-01-08 16:55] LABS: Alanine Aminotransferase 46 U/L (7-40); Albumin 3.3 g/dL (3.2-4.8); Alkaline Phosphatase 307 U/L (46-116); Anion Gap 8 (5-15); Aspartate Aminotransferase 42 U/L (13-40); Bilirubin, Total 2.1 mg/dL (0.2-1.0); Blood Urea Nitrogen 46 mg/dL (9-23); Calcium 9.1 mg/dL (8.7-10.4); Carbon Dioxide 21 mmol/L (20-30); Chloride 94 mmol/L (98-107); Glucose 232 mg/dL (74-106); Potassium 5.4 mmol/L (3.5-5.1); Sodium 123 mmol/L (136-145)
[2023-01-08] MEDS ORDERED: SODIUM BICARBONATE 8.4 % INJ 50ML VIAL IV ONE (22:30)
[2023-01-08] MEDS ORDERED: InsuLIN REG 1unit/0.01ml Soln (100units/ml) IV ONE (22:30)
[2023-01-08] MEDS ORDERED: PIPERACILLIN-TAZOB 3.375GM 100 ML IV ONE (22:30)
[2023-01-08] MEDS ORDERED: VANCOMYCIN 1GM/250ML 250 ML IV ONE (22:30)
[2023-01-08] MEDS ORDERED: metroNIDAZOLE 500MG/100ML 100 ML IV ONE (22:30)
[2023-01-08] MEDS ORDERED: DEXTROSE (50%) 50ML SYRG IV ONE (22:30)
[2023-01-08] MEDS ORDERED: CALCIUM GLUC 1,000mg/50ml-NS 50 ML IV ONE (22:30)
[2023-01-08] MEDS ORDERED: LACTATED RINGER'S 1,000 ML IV ONE (22:30)
[2023-01-08 23:59] LABS: INR 1.15 (0.9-1.15); Magnesium 1.8 mg/dL (1.6-2.6)
[2023-01-09] VITALS (10 sets, daily range): BP systolic 102–104; BP diastolic 50–52; PULSE 77–84; RESP 15–21; TEMP 98.1–98.3; O2SAT 97–100
[2023-01-09 02:30] LABS: COVID19 ANTIGEN SOFIA FIA NEGATIVE (NEGATIVE)
[2023-01-09 03:49] LABS: Urine Bacteria MANY /hpf (None Seen); Urine Blood 2+ /uL (Negative); Urine Budding Yeast LOADED /hpf (None Seen); Urine Clarity HAZY (Clear); Urine Color Colorless (Yellow); Urine Hyaline Cast MOD /lpf (0 - 2); Urine Mucus FEW (None Seen); Urine Protein, UAD Negative (Negative); Urine Specific Gravity 1.008 (1.001-1.035); Urine Urobilinogen Normal (Negative); Urine WBC 63 /hpf (0 - 5)
[2023-01-09] MEDS ORDERED: DEXTROSE (50%) 50ML SYRG IV PRN (05:45)
[2023-01-09] MEDS ORDERED: NITROGLYCERIN 0.4 MG SL TAB SL PRN (05:45)
[2023-01-09] MEDS ORDERED: MORPHINE SULFATE INJ 2 MG/ml SYRG IV PRN (05:45)
[2023-01-09] MEDS ORDERED: ONDANSETRON HCL 4 MG/2 ML VIAL IV PRN (05:45)
[2023-01-09 06:49] LABS: Alanine Aminotransferase 34 U/L (7-40); Alkaline Phosphatase 254 U/L (46-116); Anion Gap 7 (5-15); Carbon Dioxide 24 mmol/L (20-30); Chloride 96 mmol/L (98-107); Glucose 207 mg/dL (74-106); Potassium 4.4 mmol/L (3.5-5.1); Sodium 127 mmol/L (136-145)
[2023-01-09 06:50] LABS: Aspartate Aminotransferase 30 U/L (13-40); Bilirubin, Total 2.3 mg/dL (0.2-1.0); Total Protein 6.3 g/dL (5.7-8.2)
[2023-01-09 06:52] LABS: Basophils # (auto) 0 10 ^3/uL (0-0.2); Basophils % (auto) 0.2 % (0.0-2.0); Eosinophils # (auto) 0.1 10 ^3/uL (0-0.8); Eosinophils % (auto) 0.5 % (0.0-7.0); Hematocrit 32.5 % (36.0-46.0); Hemoglobin 10.9 g/dL (12.2-16.2); Lymphocytes # (auto) 2.1 10 ^3/uL (0.4-5.4); Lymphocytes % (auto) 12.1 % (10.0-50.0); Mean Corpuscular Hemoglobin 28.8 pg (28.0-32.0); Mean Corpuscular Hgb Conc. 33.6 g/dL (32.0-36.0); Mean Corpuscular Volume 85.9 fL (80.0-100.0); Monocytes # (auto) 1.3 10 ^3/uL (0-1.3); Monocytes % (auto) 7.7 % (0.0-12.0); Neutrophils # (auto) 13.6 10 ^3/uL (1.6-8.6); Neutrophils % (auto) 79.5 % (37.0-80.0); Red Blood Cells 3.79 10^6/uL (4.0-5.20); Red Cell Distribution Width 18.1 % (11.8-14.3); White Blood Cell 17.1 10^3/uL (4.4-10.8)
[2023-01-09 07:08] LABS: Blood Urea Nitrogen 35 mg/dL (9-23)
[2023-01-09] MEDS: ACCU-CHEK COMFORT CURVE STRIP VI SCH ×4 (07:22→21:36)
[2023-01-09] MEDS: InsuLIN REG 1unit/0.01ml Soln (100units/ml) SC SCH ×4 (07:31→22:04)
[2023-01-09] MEDS: cefTRIAXone 1GM/50ML D5W 50 ML IV SCH (09:24)
[2023-01-09] MEDS ORDERED: AZITHROMYCIN 500MG/ 250ML 250 ML IV SCH (10:00)
[2023-01-09] MEDS ORDERED: VALSARTAN 80 MG TAB PO SCH (10:00)
[2023-01-09] MEDS ORDERED: FUROSEMIDE 40 MG TAB PO SCH (10:00)
[2023-01-09] MEDS ORDERED: EMPA1TAB3 PO (10:55)
[2023-01-09] MEDS ORDERED: BENZ100C97 PO (10:58)
[2023-01-09] MEDS ORDERED: SUCR1TAB PO (17:51)
[2023-01-09 19:13] LABS: Rapid Influenza A Negative (Negative); Rapid Influenza B Negative (Negative)
[2023-01-10] MEDS: ACCU-CHEK COMFORT CURVE STRIP VI SCH ×4 (05:13→21:53)
[2023-01-10 05:22] LABS: Basophils # (auto) 0 10 ^3/uL (0-0.2); Basophils % (auto) 0.3 % (0.0-2.0); Eosinophils # (auto) 0.4 10 ^3/uL (0-0.8); Eosinophils % (auto) 3.3 % (0.0-7.0); Hematocrit 34.4 % (36.0-46.0); Hemoglobin 11.6 g/dL (12.2-16.2); Lymphocytes # (auto) 2.3 10 ^3/uL (0.4-5.4); Lymphocytes % (auto) 21.2 % (10.0-50.0); Mean Corpuscular Hemoglobin 29.3 pg (28.0-32.0); Mean Corpuscular Hgb Conc. 33.8 g/dL (32.0-36.0); Mean Corpuscular Volume 86.7 fL (80.0-100.0); Monocytes # (auto) 1.1 10 ^3/uL (0-1.3); Monocytes % (auto) 10.4 % (0.0-12.0); Neutrophils % (auto) 64.8 % (37.0-80.0); Nucleated Red Blood Cells % 0.1 %; Red Blood Cells 3.96 10^6/uL (4.0-5.20); White Blood Cell 10.7 10^3/uL (4.4-10.8)
[2023-01-10 05:40] LABS: Alanine Aminotransferase 39 U/L (7-40); Albumin 3.1 g/dL (3.2-4.8); Alkaline Phosphatase 237 U/L (46-116); Anion Gap 7 (5-15); Aspartate Aminotransferase 36 U/L (13-40); Bilirubin, Total 1.8 mg/dL (0.2-1.0); Carbon Dioxide 26 mmol/L (20-30); Chloride 96 mmol/L (98-107); Glucose 90 mg/dL (74-106); Potassium 4.3 mmol/L (3.5-5.1); Sodium 129 mmol/L (136-145)
[2023-01-10 05:45] VITALS: BP 95/48; PULSE 78; RESP 21; TEMP 97.9; O2SAT 99
[2023-01-10 06:18] LABS: Blood Urea Nitrogen 25 mg/dL (9-23)
[2023-01-10] MEDS: InsuLIN REG 1unit/0.01ml Soln (100units/ml) SC SCH ×4 (06:26→21:53)
[2023-01-10 06:39] LABS: Magnesium 1.9 mg/dL (1.6-2.6)
[2023-01-10 08:00] VITALS: BP 98/57; PULSE 77; PULSE 79; PULSE 89; RESP 18; TEMP 97.6; O2SAT 100; O2SAT 99
[2023-01-10] MEDS: cefTRIAXone 1GM/50ML D5W 50 ML IV SCH (08:46)
[2023-01-10] MEDS: amLODIPine BESYLATE 5 MG TAB PO SCH (10:00)
[2023-01-10] MEDS ORDERED: ENOXAPARIN SOD 30 MG/0.3 ML SYRINGE SC SCH ×2 (10:00)
[2023-01-10 12:00] VITALS: BP 108/53; PULSE 59; RESP 18; TEMP 97.5; O2SAT 99
[2023-01-10 16:00] VITALS: BP 104/53; PULSE 70; RESP 18; TEMP 97.3; O2SAT 100
[2023-01-10] MEDS: ACETAMINOPHEN 325 MG TAB PO PRN ×2 (16:37→20:18)
[2023-01-10 20:00] VITALS: PULSE 77; O2SAT 100
[2023-01-10] MEDS: DOCUSATE SOD 100 MG CAP PO SCH (21:43)
[2023-01-10 22:09] VITALS: BP 106/52; PULSE 65; RESP 20; TEMP 97.7; O2SAT 100
[2023-01-11 05:16] VITALS: BP 99/44; PULSE 63; RESP 20; TEMP 97.4; O2SAT 99
[2023-01-11 06:04] LABS: Basophils # (auto) 0 10 ^3/uL (0-0.2); Basophils % (auto) 0.2 % (0.0-2.0); Eosinophils # (auto) 0.3 10 ^3/uL (0-0.8); Hematocrit 34.2 % (36.0-46.0); Hemoglobin 11.4 g/dL (12.2-16.2); Lymphocytes # (auto) 2.2 10 ^3/uL (0.4-5.4); Lymphocytes % (auto) 28.5 % (10.0-50.0); Mean Corpuscular Hemoglobin 29.5 pg (28.0-32.0); Mean Corpuscular Hgb Conc. 33.3 g/dL (32.0-36.0); Mean Corpuscular Volume 88.7 fL (80.0-100.0); Monocytes # (auto) 0.7 10 ^3/uL (0-1.3); Monocytes % (auto) 9.4 % (0.0-12.0); Neutrophils # (auto) 4.5 10 ^3/uL (1.6-8.6); Neutrophils % (auto) 57.9 % (37.0-80.0); Nucleated Red Blood Cells % 0.1 %; Red Blood Cells 3.85 10^6/uL (4.0-5.20); Red Cell Distribution Width 17.9 % (11.8-14.3); White Blood Cell 7.7 10^3/uL (4.4-10.8)
[2023-01-11 06:10] LABS: Alanine Aminotransferase 29 U/L (7-40); Albumin 3.1 g/dL (3.2-4.8); Alkaline Phosphatase 256 U/L (46-116); Anion Gap 5 (5-15); Aspartate Aminotransferase 31 U/L (13-40); BUN/Creatinine Ratio 26.5 (10.0-20.0); Bilirubin, Total 1.2 mg/dL (0.2-1.0); Blood Urea Nitrogen 27 mg/dL (9-23); Calcium 8.7 mg/dL (8.7-10.4); Carbon Dioxide 27 mmol/L (20-30); Chloride 95 mmol/L (98-107); Magnesium 1.7 mg/dL (1.6-2.6); Potassium 4.2 mmol/L (3.5-5.1); Sodium 127 mmol/L (136-145); Total Protein 6.8 g/dL (5.7-8.2)
[2023-01-11] MEDS: InsuLIN REG 1unit/0.01ml Soln (100units/ml) SC SCH ×3 (06:17→17:00)
[2023-01-11] MEDS: ACCU-CHEK COMFORT CURVE STRIP VI SCH ×3 (06:17→17:31)
[2023-01-11 07:35] LABS: Glucose 135 mg/dL (74-106)
[2023-01-11 08:00] VITALS: BP 108/51; PULSE 54; PULSE 69; RESP 18; TEMP 98; O2SAT 100
[2023-01-11] MEDS ORDERED: NITR-52 PO (09:41)
[2023-01-11] MEDS: DOCUSATE SOD 100 MG CAP PO SCH (11:17)
[2023-01-11] MEDS: amLODIPine BESYLATE 5 MG TAB PO SCH (11:17)
[2023-01-11] MEDS: cefTRIAXone 1GM/50ML D5W 50 ML IV SCH (11:18)
[2023-01-11 12:00] VITALS: BP 102/52; PULSE 85; RESP 18; TEMP 97.6; O2SAT 100
[2023-01-11 14:11] VITALS: BP 102/52; PULSE 85; RESP 18; TEMP 97.6; O2SAT 100
[2023-01-11 16:00] VITALS: BP 102/55; PULSE 75; RESP 18; TEMP 98.2; O2SAT 100
[2023-01-11] MEDS ORDERED: MUPIROCIN 2% OINT 15gm or 22gm FOR MRSA NARES TOP SCH (22:00)
[2023-01-12] MEDS ORDERED: ENOXAPARIN SOD 40 MG/0.4 ML SYRINGE SC SCH (10:00)
== END 2023-01-11 17:00 | disposition home health service (06) | DRG 469 ==
LOC: ER 15:33 → TELE 01-09 05:38 → TELE-CENTR 01-09 10:15
PROVIDERS: ADMIT Nurse Practitioner; ATTEND Internal Medicine Pulmonary Disease
DX: N17.9 Acute kidney failure, unspecified (principal); J15.212 Pneumonia due to Methicillin resistant Staphylococcus aureus; I27.20 Pulmonary hypertension, unspecified; I11.0 Hypertensive heart disease with heart failure; E87.1 Hypo-osmolality and hyponatremia; I50.9 Heart failure, unspecified; D64.9 Anemia, unspecified; E11.65 Type 2 diabetes mellitus with hyperglycemia; E87.5 Hyperkalemia; J84.10 Pulmonary fibrosis, unspecified; N39.0 Urinary tract infection, site not specified; R59.1 Generalized enlarged lymph nodes; Z20.822 Contact with and (suspected) exposure to COVID-19; R19.7 Diarrhea, unspecified; Z85.3 Personal history of malignant neoplasm of breast; Z88.6 Allergy status to analgesic agent; Z88.5 Allergy status to narcotic agent
CPT/HCPCS: 36415; 70450; 71045; 71250; 74176; 76775; 80053; 81001; 82010; 82962; 83605; 83690; 83735; 83880; 83930; 84443; 84484; 85025; 85610; 85730; 87040; 87081; 87086; 87426; 87804; 93005; 93306; 99291; G0378; J0696; J1815; J2543; J3490

== ENCOUNTER 2023-07-27 14:01 | Emergency (ER) | payer MEDICAID ==
[~2023-07-27] VITALS: Ht 160 cm; Wt 63.4 kg
[~2023-07-27 14:01] MED LIST changes: +BENZ100C97 PO; +EMPA1TAB3 PO; +NITR-52 PO; -PRED20TA2 PO; -SULF400T11 PO
[2023-07-27] MEDS: SODIUM CHLORIDE 0.9% 1,000 ML IVB ONE (14:45)
[2023-07-27 15:29] VITALS: PULSE 77; RESP 18; O2SAT 97
[2023-07-27 15:37] LABS: Basophils # (auto) 0 10 ^3/uL (0-0.2); Basophils % (auto) 0.6 % (0.0-2.0); Eosinophils # (auto) 0.3 10 ^3/uL (0-0.8); Eosinophils % (auto) 3.5 % (0.0-7.0); Hematocrit 38.1 % (36.0-46.0); Hemoglobin 12.2 g/dL (12.2-16.2); Lymphocytes # (auto) 3.1 10 ^3/uL (0.4-5.4); Lymphocytes % (auto) 39.3 % (10.0-50.0); Mean Corpuscular Hemoglobin 28.4 pg (28.0-32.0); Mean Corpuscular Volume 88.6 fL (80.0-100.0); Monocytes # (auto) 0.9 10 ^3/uL (0-1.3); Monocytes % (auto) 11.2 % (0.0-12.0); Neutrophils # (auto) 3.5 10 ^3/uL (1.6-8.6); Neutrophils % (auto) 45.4 % (37.0-80.0); Red Cell Distribution Width 15.2 % (11.8-14.3); White Blood Cell 7.8 10^3/uL (4.4-10.8)
[2023-07-27 15:53] LABS: Alanine Aminotransferase 27 U/L (7-40); Albumin 3.3 g/dL (3.2-4.8); Alkaline Phosphatase 266 U/L (46-116); Aspartate Aminotransferase 41 U/L (13-40); BUN/Creatinine Ratio 19.7 (10.0-20.0); Blood Urea Nitrogen 26 mg/dL (9-23); Calcium 9.8 mg/dL (8.5-10.1); Carbon Dioxide 18 mmol/L (20-30); Glucose 159 mg/dL (74-106)
[2023-07-27 15:54] LABS: Bilirubin, Total 0.8 mg/dL (0.2-1.0); Total Protein 7.6 g/dL (5.7-8.2)
[2023-07-27 15:59] LABS: Chloride 101 mmol/L (98-107); Potassium 5.2 mmol/L (3.5-5.1)
[2023-07-27] MEDS: ONDANSETRON HCL 4 MG/2 ML VIAL IV ONE (16:15)
[2023-07-27 16:37] LABS: Lipase 67 U/L (12-53)
[2023-07-27 16:48] LABS: Magnesium 2.1 mg/dL (1.6-2.6)
[2023-07-27 17:28] LABS: Anion Gap 8 (5-15); Sodium 127 mmol/L (136-145)
[2023-07-27] MEDS ORDERED: ZOFR4T PO (17:39)
[2023-07-27 18:11] LABS: Urine Bacteria None Seen /hpf (None Seen)
[2023-07-27 18:52] LABS: Urine Blood 3+ /uL (Negative); Urine Clarity Ex.Turbid (Clear); Urine Color Light-Brown (Yellow); Urine Protein, UAD 1+ (Negative); Urine Specific Gravity 1.004 (1.001-1.035); Urine Urobilinogen Normal (Negative); Urine WBC 1546 /hpf (0 - 5); Urine WBC Clumps PRESENT /hpf (None Seen); Urine pH 5.5 (5.0-9.0)
[2023-07-27 19:23] VITALS: BP 110/65; PULSE 67; RESP 20; O2SAT 97
[2023-07-27] MEDS ORDERED: CEPH500C PO (19:27)
== END 2023-07-27 19:57 | disposition home or self-care (01) ==
LOC: ER 14:01
DX: R10.84 Generalized abdominal pain (principal); E87.1 Hypo-osmolality and hyponatremia; E86.0 Dehydration; I11.0 Hypertensive heart disease with heart failure; I50.9 Heart failure, unspecified; E11.9 Type 2 diabetes mellitus without complications; Z79.899 Other long term (current) drug therapy; Z88.5 Allergy status to narcotic agent; Z88.8 Allergy status to other drugs, medicaments and biological substances
CPT/HCPCS: 36415; 74176; 80053; 81001; 82140; 83605; 83690; 83735; 85025; 93005; 96361; 96374; 99285; J2405; J7030

== ENCOUNTER 2023-10-25 02:18 | Inpatient (IN) | payer MEDICAID ==
[~2023-10-25] VITALS: Ht 160 cm; Wt 81.2 kg
[2023-10-25] VITALS (29 sets, daily range): BP systolic 94–124; BP diastolic 25–87; PULSE 55–141; RESP 13–43; TEMP 97–102.6; O2SAT 95–100
[~2023-10-25 02:18] MED LIST changes: +AMOX500T92 PO; +CEPH500C PO; +SULF1TAB75 PO; +TIMO0.5S32 EACHEYE; -TIMO0.5S32 OP; +VALS160T82 PO; +ZOFR4T PO
[2023-10-25] MEDS: ONDANSETRON HCL 4 MG/2 ML VIAL IV ONE (03:15)
[2023-10-25 03:51] LABS: Basophils # (auto) 0 10 ^3/uL (0-0.2); Basophils % (auto) 0.2 % (0.0-2.0); Eosinophils # (auto) 0 10 ^3/uL (0-0.8); Hematocrit 35.1 % (36.0-46.0); Hemoglobin 11.7 g/dL (12.2-16.2); Lymphocytes # (auto) 0.9 10 ^3/uL (0.4-5.4); Lymphocytes % (auto) 13.3 % (10.0-50.0); Mean Corpuscular Hemoglobin 28.5 pg (28.0-32.0); Mean Corpuscular Hgb Conc. 33.3 g/dL (32.0-36.0); Mean Corpuscular Volume 85.7 fL (80.0-100.0); Monocytes # (auto) 0.8 10 ^3/uL (0-1.3); Monocytes % (auto) 11.2 % (0.0-12.0); Neutrophils # (auto) 5.3 10 ^3/uL (1.6-8.6); Neutrophils % (auto) 75.3 % (37.0-80.0); Platelet Count (auto) 192 10^3/uL (140-450); Red Cell Distribution Width 14.3 % (11.8-14.3); White Blood Cell 7.1 10^3/uL (4.4-10.8)
[2023-10-25 04:08] LABS: Alanine Aminotransferase 28 U/L (7-40); Albumin 3.1 g/dL (3.2-4.8); Alkaline Phosphatase 225 U/L (46-116); Anion Gap 5 (5-15); Aspartate Aminotransferase 71 U/L (13-40); BUN/Creatinine Ratio 15.1 (10.0-20.0); Blood Urea Nitrogen 18 mg/dL (9-23); Calcium 8.8 mg/dL (8.7-10.4); Carbon Dioxide 22 mmol/L (20-30); Chloride 96 mmol/L (98-107); Glucose 180 mg/dL (74-106); Potassium 4.2 mmol/L (3.5-5.1); Sodium 123 mmol/L (136-145)
[2023-10-25 04:09] LABS: Total Protein 7.1 g/dL (5.7-8.2)
[2023-10-25] MEDS: SODIUM CHLORIDE 0.9% 1,000 ML IV ONE (05:00)
[2023-10-25 06:21] LABS: COVID19 ANTIGEN SOFIA FIA NEGATIVE (NEGATIVE)
[2023-10-25 06:23] LABS: Rapid Influenza A Negative (Negative)
[2023-10-25 06:24] LABS: Rapid Influenza B Positive (Negative)
[2023-10-25 08:20] LABS: Urine Bacteria FEW /hpf (None Seen); Urine Blood 1+ /uL (Negative); Urine Clarity Ex.Turbid (Clear); Urine Protein, UAD 1+ (Negative); Urine Specific Gravity 1.008 (1.001-1.035); Urine Urobilinogen Normal (Negative); Urine WBC 1234 /hpf (0 - 5); Urine WBC Clumps PRESENT /hpf (None Seen)
[2023-10-25 08:21] LABS: Urine Color LIGHT-YELLOW (Yellow)
[2023-10-25] MEDS: cefTRIAXone 1GM/50ML D5W 50 ML IV ONE (08:29)
[2023-10-25] MEDS: AZITHROMYCIN 500MG/ 250ML 250 ML IV ONE (08:45)
[2023-10-25] MEDS ORDERED: guaiFENesin-CODEINE Liq 5 ML UD PO PRN (10:00)
[2023-10-25] MEDS: guaiFENesin-CODEINE Liq 5 ML UD PO ONE (10:01)
[2023-10-25] MEDS: ACETAMINOPHEN 325 MG TAB PO ONE ×2 (10:15→10:36)
[2023-10-25] MEDS ORDERED: DOCUSATE SOD 100 MG CAP PO PRN (10:15)
[2023-10-25] MEDS ORDERED: MORPHINE SULFATE INJ 2 MG/ml SYRG IV PRN (10:15)
[2023-10-25] MEDS: levoFLOXacin 500MG 100 ML IV ONE (10:15)
[2023-10-25] MEDS: dilTIAZem 25 MG/5 ML VIAL IV ONE ×2 (10:15→10:37)
[2023-10-25] MEDS ORDERED: DEXTROSE (50%) 50ML SYRG IV PRN (10:15)
[2023-10-25] MEDS ORDERED: NITROGLYCERIN 0.4 MG SL TAB SL PRN (10:15)
[2023-10-25] MEDS ORDERED: guaiFENesin-DM 100/10mg/5ml SYR PO PRN (10:30)
[2023-10-25] MEDS: dilTIAZem 125mg/125ml BAG KIT 100 ML IV SCH (10:30)
[2023-10-25] MEDS: guaiFENesin-DM 100/10mg/5ml SYR PO ONE (10:36)
[2023-10-25] MEDS: LEVALBUTEROL HCL 1.25 MG/3 ML NEB NEB ONE (10:58)
[2023-10-25] MEDS: dilTIAZem 125mg/125ml BAG KIT 125 ML IV SCH (11:00)
[2023-10-25] MEDS: SODIUM CHLORIDE 0.9% 1,000 ML IV SCH (11:11)
[2023-10-25] MEDS: OSELTAMIVIR 75 MG CAP PO ONE (11:16)
[2023-10-25] MEDS: methylPREDNISolone SOD SUCC 125 MG/2 ML VL IV ONE (11:17)
[2023-10-25] MEDS: IPRATROPIUM BROM 0.5 MG/2.5ML INH SOL NEB ONE (11:37)
[2023-10-25] MEDS: LEVALBUTEROL HCL 1.25 MG/3 ML NEB NEB SCH (11:37)
[2023-10-25] MEDS: ACCU-CHEK COMFORT CURVE STRIP VI SCH (12:00)
[2023-10-25] MEDS: InsuLIN REG 1unit/0.01ml Soln (100units/ml) SC SCH (12:00)
[2023-10-25] MEDS: methylPREDNISolone SOD SUCC 125 MG/2 ML VL IV SCH (13:00)
[2023-10-25] MEDS: METOPROLOL SUCCINATE XL 50 MG TAB PO ONE (13:00)
[2023-10-25] MEDS ORDERED: methylPREDNISolone SOD SUCC 125 MG/2 ML VL IV SCH (14:00)
[2023-10-25] MEDS: ACETAMINOPHEN IV 1000 MG/100ML (10MG/ML) IV ONE (14:10)
[2023-10-25] MEDS: SODIUM CHL 3% 500 ML IV ONE (14:25)
[2023-10-25 15:11] LABS: Base Excess -1.4 mmol/L (-2.0-2.0)
[2023-10-25] MEDS: OSELTAMIVIR 75 MG CAP PO SCH (22:11)
[2023-10-26] VITALS (48 sets, daily range): BP systolic 75–136; BP diastolic 16–104; PULSE 53–74; RESP 11–22; TEMP 96.1–98.3; O2SAT 96–100
[2023-10-26] MEDS: ALBUMIN 25% 50 ML IV ONE (00:20)
[2023-10-26] MEDS: ACETAMINOPHEN 325 MG TAB PO PRN (03:16)
[2023-10-26 05:52] LABS: Alkaline Phosphatase 169 U/L (46-116); Anion Gap 10 (5-15); Aspartate Aminotransferase 62 U/L (13-40); BUN/Creatinine Ratio 20.7 (10.0-20.0); Blood Urea Nitrogen 23 mg/dL (9-23); Calcium 8.5 mg/dL (8.7-10.4); Carbon Dioxide 19 mmol/L (20-30); Chloride 103 mmol/L (98-107); Glucose 160 mg/dL (74-106); Potassium 4.6 mmol/L (3.5-5.1)
[2023-10-26 05:53] LABS: Albumin 2.9 g/dL (3.2-4.8); Bilirubin, Total 0.8 mg/dL (0.2-1.0); Sodium 132 mmol/L (136-145); Total Protein 6.8 g/dL (5.7-8.2)
[2023-10-26 05:56] LABS: Basophils # (auto) 0 10 ^3/uL (0-0.2); Eosinophils # (auto) 0 10 ^3/uL (0-0.8); Hematocrit 33.6 % (36.0-46.0); Hemoglobin 11.1 g/dL (12.2-16.2); Lymphocytes % (auto) 11.3 % (10.0-50.0); Monocytes # (auto) 0.1 10 ^3/uL (0-1.3); Monocytes % (auto) 1.6 % (0.0-12.0); Neutrophils # (auto) 7.5 10 ^3/uL (1.6-8.6); Neutrophils % (auto) 87.1 % (37.0-80.0); Nucleated Red Blood Cells % 0.1 %; Platelet Count (auto) 167 10^3/uL (140-450); Red Blood Cells 3.82 10^6/uL (4.0-5.20); Red Cell Distribution Width 14.7 % (11.8-14.3); White Blood Cell 8.6 10^3/uL (4.4-10.8)
[2023-10-26 06:11] LABS: Alanine Aminotransferase 25 U/L (7-40)
[2023-10-26] MEDS ORDERED: levoFLOXacin 500MG 100 ML IV SCH (10:00)
[2023-10-26] MEDS: levoFLOXacin 250MG 50 ML IV SCH (10:45)
[2023-10-26] MEDS: METOPROLOL SUCCINATE XL 50 MG TAB PO SCH (10:49)
[2023-10-27] VITALS (20 sets, daily range): BP systolic 111–123; BP diastolic 45–86; PULSE 61–78; RESP 16–20; TEMP 97.7–98.3; O2SAT 97–100
[2023-10-27 06:14] LABS: Basophils # (auto) 0 10 ^3/uL (0-0.2); Basophils % (auto) 0.1 % (0.0-2.0); Eosinophils # (auto) 0 10 ^3/uL (0-0.8); Hematocrit 35.8 % (36.0-46.0); Hemoglobin 11.6 g/dL (12.2-16.2); Lymphocytes # (auto) 0.9 10 ^3/uL (0.4-5.4); Lymphocytes % (auto) 7.1 % (10.0-50.0); Mean Corpuscular Hemoglobin 28.4 pg (28.0-32.0); Mean Corpuscular Hgb Conc. 32.3 g/dL (32.0-36.0); Mean Corpuscular Volume 88.1 fL (80.0-100.0); Monocytes # (auto) 0.5 10 ^3/uL (0-1.3); Monocytes % (auto) 4.1 % (0.0-12.0); Neutrophils # (auto) 10.8 10 ^3/uL (1.6-8.6); Neutrophils % (auto) 88.7 % (37.0-80.0); Nucleated Red Blood Cells % 0.1 %; Platelet Count (auto) 181 10^3/uL (140-450); Red Blood Cells 4.07 10^6/uL (4.0-5.20); White Blood Cell 12.1 10^3/uL (4.4-10.8)
[2023-10-27 06:32] LABS: Anion Gap 8 (5-15); Carbon Dioxide 21 mmol/L (20-30); Chloride 104 mmol/L (98-107); Potassium 4.5 mmol/L (3.5-5.1); Sodium 133 mmol/L (136-145)
[2023-10-27 06:38] LABS: Glucose 213 mg/dL (74-106)
[2023-10-27 06:46] LABS: Blood Urea Nitrogen 33 mg/dL (9-23)
[2023-10-27 10:27] LABS: Base Excess -2.8 mmol/L (-2.0-2.0)
[2023-10-27] MEDS: MELATONIN 5 MG TAB PO ONE (21:23)
[2023-10-28] VITALS (17 sets, daily range): BP systolic 112–132; BP diastolic 51–76; PULSE 53–85; RESP 16–20; TEMP 97.1–98; O2SAT 92–100
[2023-10-28 06:21] LABS: Anion Gap 5 (5-15); Carbon Dioxide 26 mmol/L (20-30); Chloride 103 mmol/L (98-107); Potassium 5.2 mmol/L (3.5-5.1); Sodium 134 mmol/L (136-145)
[2023-10-28 06:23] LABS: Calcium 9.2 mg/dL (8.7-10.4)
[2023-10-28 06:27] LABS: Blood Urea Nitrogen 33 mg/dL (9-23); Glucose 173 mg/dL (74-106)
[2023-10-28 06:33] LABS: Basophils # (auto) 0 10 ^3/uL (0-0.2); Basophils % (auto) 0.1 % (0.0-2.0); Eosinophils # (auto) 0 10 ^3/uL (0-0.8); Hematocrit 34.7 % (36.0-46.0); Hemoglobin 11.6 g/dL (12.2-16.2); Lymphocytes % (auto) 10.1 % (10.0-50.0); Mean Corpuscular Hemoglobin 28.8 pg (28.0-32.0); Mean Corpuscular Hgb Conc. 33.3 g/dL (32.0-36.0); Mean Corpuscular Volume 86.4 fL (80.0-100.0); Monocytes # (auto) 0.4 10 ^3/uL (0-1.3); Monocytes % (auto) 3.9 % (0.0-12.0); Neutrophils # (auto) 8.8 10 ^3/uL (1.6-8.6); Neutrophils % (auto) 85.9 % (37.0-80.0); Platelet Count (auto) 171 10^3/uL (140-450); Red Blood Cells 4.02 10^6/uL (4.0-5.20); White Blood Cell 10.2 10^3/uL (4.4-10.8)
[2023-10-28] MEDS: ONDANSETRON HCL 4 MG/2 ML VIAL IV PRN (17:23)
[2023-10-29] VITALS (15 sets, daily range): BP systolic 129–137; BP diastolic 51–70; PULSE 48–66; RESP 14–20; TEMP 97.6–98.3; O2SAT 94–99
[2023-10-29 06:02] LABS: Calcium 8.9 mg/dL (8.7-10.4); Chloride 102 mmol/L (98-107); Potassium 4.7 mmol/L (3.5-5.1); Sodium 132 mmol/L (136-145)
[2023-10-29 06:03] LABS: Anion Gap 5 (5-15); Carbon Dioxide 25 mmol/L (20-30)
[2023-10-29 06:08] LABS: BUN/Creatinine Ratio 30.5 (10.0-20.0); Blood Urea Nitrogen 32 mg/dL (9-23); Glucose 233 mg/dL (74-106)
[2023-10-29 06:15] LABS: Basophils # (auto) 0 10 ^3/uL (0-0.2); Basophils % (auto) 0.1 % (0.0-2.0); Eosinophils # (auto) 0 10 ^3/uL (0-0.8); Hematocrit 33.2 % (36.0-46.0); Hemoglobin 11.1 g/dL (12.2-16.2); Lymphocytes # (auto) 1.1 10 ^3/uL (0.4-5.4); Mean Corpuscular Hemoglobin 28.9 pg (28.0-32.0); Mean Corpuscular Hgb Conc. 33.4 g/dL (32.0-36.0); Mean Corpuscular Volume 86.4 fL (80.0-100.0); Monocytes # (auto) 0.4 10 ^3/uL (0-1.3); Monocytes % (auto) 5.7 % (0.0-12.0); Neutrophils % (auto) 80.2 % (37.0-80.0); Platelet Count (auto) 157 10^3/uL (140-450); Red Blood Cells 3.84 10^6/uL (4.0-5.20); Red Cell Distribution Width 14.8 % (11.8-14.3); White Blood Cell 7.5 10^3/uL (4.4-10.8)
[2023-10-29] MEDS ORDERED: MORPHINE SULFATE INJ 2 MG/ml SYRG IV PRN (10:30)
[2023-10-29] MEDS: cefTRIAXone 1GM/50ML D5W 50 ML IV ONE (11:02)
[2023-10-30] VITALS (14 sets, daily range): BP systolic 68–156; BP diastolic 28–81; PULSE 47–87; RESP 14–20; TEMP 96.4–98; O2SAT 96–100
[2023-10-30] MEDS: cefTRIAXone 1GM/50ML D5W 50 ML IV SCH (09:37)
[2023-10-30] MEDS: predniSONE 20 MG TAB PO SCH (09:37)
[2023-10-30] MEDS: FLUCONAZOLE 200MG/100ML 100 ML IV ONE (11:30)
[2023-10-30] MEDS: NYSTATIN (MOUTH-THROAT) 500,000 UNITS/5 ML SUSP MT ONE (11:31)
[2023-10-30] MEDS ORDERED: INSU1INJ19 SC (11:45)
[2023-10-30] MEDS ORDERED: MECL-90 PO (11:45)
[2023-10-30] MEDS ORDERED: PROM1SOL4 PO (11:45)
[2023-10-30] MEDS ORDERED: ALBU0.084 NEB (11:45)
[2023-10-30] MEDS ORDERED: BUDE1AER5 INH (11:45)
[2023-10-30] MEDS ORDERED: PRAM0.757 PO (11:45)
[2023-10-30] MEDS ORDERED: GAB100C PO (11:45)
[2023-10-30] MEDS: NYSTATIN (MOUTH-THROAT) 500,000 UNITS/5 ML SUSP MT SCH (18:18)
[2023-10-31] VITALS (17 sets, daily range): BP systolic 137–157; BP diastolic 40–77; PULSE 50–62; RESP 15–18; TEMP 97.7–98.2; O2SAT 96–100
[2023-10-31] MEDS: ENOXAPARIN SOD 60 MG/0.6 ML SYRINGE SC SCH (06:25)
[2023-10-31] MEDS: METOPROLOL SUCCINATE XL 50 MG TAB PO SCH (10:00)
[2023-10-31] MEDS: predniSONE 20 MG TAB PO SCH (10:03)
[2023-10-31] MEDS: FLUCONAZOLE 200MG/100ML 100 ML IV SCH (10:03)
[2023-10-31] MEDS: SACUBITRIL-VALSARTAN 24mg/26mg TAB PO SCH (10:03)
[2023-10-31] MEDS ORDERED: VANCOMYCIN PER PHARMACY 0 MG IV SCH (14:30)
[2023-10-31] MEDS: VANCOMYCIN 1GM/200ML 200 ML IV ONE (16:02)
[2023-10-31] MEDS: ATORVASTATIN 20 MG TAB PO SCH (22:05)
[2023-11-01] VITALS (13 sets, daily range): BP systolic 114–146; BP diastolic 45–104; PULSE 52–71; RESP 14–18; TEMP 97.4–98.4; O2SAT 95–100
[2023-11-01 07:07] LABS: Basophils # (auto) 0 10 ^3/uL (0-0.2); Basophils % (auto) 0.3 % (0.0-2.0); Eosinophils # (auto) 0.2 10 ^3/uL (0-0.8); Eosinophils % (auto) 1.4 % (0.0-7.0); Hematocrit 41.9 % (36.0-46.0); Hemoglobin 13.7 g/dL (12.2-16.2); Lymphocytes # (auto) 2.6 10 ^3/uL (0.4-5.4); Lymphocytes % (auto) 20.5 % (10.0-50.0); Mean Corpuscular Hemoglobin 28.3 pg (28.0-32.0); Mean Corpuscular Hgb Conc. 32.6 g/dL (32.0-36.0); Mean Corpuscular Volume 86.6 fL (80.0-100.0); Monocytes # (auto) 0.9 10 ^3/uL (0-1.3); Monocytes % (auto) 7.1 % (0.0-12.0); Neutrophils % (auto) 70.7 % (37.0-80.0); Nucleated Red Blood Cells % 0.1 %; Platelet Count (auto) 199 10^3/uL (140-450); Red Blood Cells 4.84 10^6/uL (4.0-5.20); Red Cell Distribution Width 14.9 % (11.8-14.3); White Blood Cell 12.7 10^3/uL (4.4-10.8)
[2023-11-01 07:45] LABS: Alanine Aminotransferase 102 U/L (7-40); Albumin 2.8 g/dL (3.2-4.8); Alkaline Phosphatase 269 U/L (46-116); Anion Gap 2 (5-15); Aspartate Aminotransferase 130 U/L (13-40); BUN/Creatinine Ratio 23.8 (10.0-20.0); Blood Urea Nitrogen 19 mg/dL (9-23); Calcium 9.1 mg/dL (8.7-10.4); Carbon Dioxide 31 mmol/L (20-30); Chloride 101 mmol/L (98-107); Cholesterol 205 mg/dL (< 200); Glucose 126 mg/dL (74-106); LDL Cholesterol 150 mg/dL (< 100); Potassium 4.4 mmol/L (3.5-5.1); Sodium 134 mmol/L (136-145); Triglycerides 72 mg/dL (< 150)
[2023-11-01 07:46] LABS: Bilirubin, Total 0.8 mg/dL (0.2-1.0); HDL Cholesterol 38 mg/dL (40-59); Total Protein 6.2 g/dL (5.7-8.2)
[2023-11-01] MEDS: VANCOMYCIN 1GM/200ML 200 ML IV SCH (09:47)
[2023-11-01] MEDS: ASPirin 81 mg TAB PO SCH (09:48)
[2023-11-01] MEDS: predniSONE 20 MG TAB PO SCH (09:48)
[2023-11-02] VITALS (15 sets, daily range): BP systolic 111–148; BP diastolic 46–76; PULSE 58–70; RESP 14–22; TEMP 97.5–98; O2SAT 97–100
[2023-11-02] MEDS: ATORVASTATIN 20 MG TAB PO SCH (00:05)
[2023-11-02 09:23] LABS: Basophils # (auto) 0 10 ^3/uL (0-0.2); Basophils % (auto) 0.2 % (0.0-2.0); Eosinophils # (auto) 0.4 10 ^3/uL (0-0.8); Eosinophils % (auto) 2.5 % (0.0-7.0); Hematocrit 44.8 % (36.0-46.0); Hemoglobin 14.1 g/dL (12.2-16.2); Lymphocytes % (auto) 28.4 % (10.0-50.0); Mean Corpuscular Hemoglobin 27.8 pg (28.0-32.0); Mean Corpuscular Hgb Conc. 31.4 g/dL (32.0-36.0); Mean Corpuscular Volume 88.4 fL (80.0-100.0); Monocytes % (auto) 7.1 % (0.0-12.0); Neutrophils # (auto) 8.7 10 ^3/uL (1.6-8.6); Neutrophils % (auto) 61.8 % (37.0-80.0); Nucleated Red Blood Cells % 0.1 %; Platelet Count (auto) 177 10^3/uL (140-450); Red Blood Cells 5.07 10^6/uL (4.0-5.20); Red Cell Distribution Width 15.1 % (11.8-14.3); White Blood Cell 14.1 10^3/uL (4.4-10.8)
[2023-11-02 09:47] LABS: Alanine Aminotransferase 121 U/L (7-40); Alkaline Phosphatase 304 U/L (46-116); Anion Gap 2 (5-15); BUN/Creatinine Ratio 25.3 (10.0-20.0); Blood Urea Nitrogen 21 mg/dL (9-23); Calcium 9.2 mg/dL (8.7-10.4); Carbon Dioxide 27 mmol/L (20-30); Chloride 102 mmol/L (98-107); Glucose 135 mg/dL (74-106); Potassium 4.8 mmol/L (3.5-5.1); Sodium 131 mmol/L (136-145)
[2023-11-02 09:48] LABS: Albumin 2.6 g/dL (3.2-4.8); Aspartate Aminotransferase 123 U/L (13-40)
[2023-11-02] MEDS: APIXABAN 2.5 MG TAB PO SCH (21:29)
[2023-11-03] VITALS (19 sets, daily range): BP systolic 104–164; BP diastolic 44–68; PULSE 58–76; RESP 14–20; TEMP 97.7–98.1; O2SAT 98–100
[2023-11-03 05:49] LABS: Basophils # (auto) 0 10 ^3/uL (0-0.2); Basophils % (auto) 0.1 % (0.0-2.0); Eosinophils # (auto) 0.7 10 ^3/uL (0-0.8); Hematocrit 37.8 % (36.0-46.0); Hemoglobin 12.4 g/dL (12.2-16.2); Lymphocytes # (auto) 2.9 10 ^3/uL (0.4-5.4); Lymphocytes % (auto) 23.5 % (10.0-50.0); Mean Corpuscular Hemoglobin 28.1 pg (28.0-32.0); Mean Corpuscular Hgb Conc. 32.7 g/dL (32.0-36.0); Mean Corpuscular Volume 85.9 fL (80.0-100.0); Monocytes % (auto) 7.7 % (0.0-12.0); Neutrophils # (auto) 7.8 10 ^3/uL (1.6-8.6); Neutrophils % (auto) 62.7 % (37.0-80.0); Nucleated Red Blood Cells % 0.1 %; Platelet Count (auto) 176 10^3/uL (140-450); Red Cell Distribution Width 15.1 % (11.8-14.3); White Blood Cell 12.5 10^3/uL (4.4-10.8)
[2023-11-03 06:02] LABS: Anion Gap 2 (5-15); Carbon Dioxide 29 mmol/L (20-30); Chloride 99 mmol/L (98-107); Potassium 5.2 mmol/L (3.5-5.1); Sodium 130 mmol/L (136-145)
[2023-11-03 06:04] LABS: Calcium 8.8 mg/dL (8.7-10.4)
[2023-11-03 06:08] LABS: BUN/Creatinine Ratio 32.3 (10.0-20.0); Glucose 184 mg/dL (74-106)
[2023-11-03 06:09] LABS: Blood Urea Nitrogen 31 mg/dL (9-23); INR 1.18 (0.9-1.15); Partial Thromboplastin Time 27.1 SEC (24.5-34.5); Prothrombin Time 12.4 sec (9.3-11.8)
[2023-11-03] MEDS: VANCOMYCIN 1GM/200ML 200 ML IV SCH (11:53)
[2023-11-04] VITALS (15 sets, daily range): BP systolic 113–165; BP diastolic 40–114; PULSE 61–86; RESP 12–20; TEMP 97.7–98.9; O2SAT 97–100
[2023-11-04 14:14] LABS: Basophils # (auto) 0 10 ^3/uL (0-0.2); Basophils % (auto) 0.2 % (0.0-2.0); Eosinophils # (auto) 0.3 10 ^3/uL (0-0.8); Eosinophils % (auto) 3.4 % (0.0-7.0); Hematocrit 41.9 % (36.0-46.0); Hemoglobin 13.6 g/dL (12.2-16.2); Lymphocytes # (auto) 2.9 10 ^3/uL (0.4-5.4); Lymphocytes % (auto) 29.8 % (10.0-50.0); Mean Corpuscular Hemoglobin 27.8 pg (28.0-32.0); Mean Corpuscular Hgb Conc. 32.4 g/dL (32.0-36.0); Mean Corpuscular Volume 85.9 fL (80.0-100.0); Monocytes # (auto) 0.8 10 ^3/uL (0-1.3); Monocytes % (auto) 7.8 % (0.0-12.0); Neutrophils # (auto) 5.7 10 ^3/uL (1.6-8.6); Neutrophils % (auto) 58.8 % (37.0-80.0); Nucleated Red Blood Cells % 0.2 %; Platelet Count (auto) 145 10^3/uL (140-450); Red Blood Cells 4.88 10^6/uL (4.0-5.20); Red Cell Distribution Width 15.4 % (11.8-14.3); White Blood Cell 9.7 10^3/uL (4.4-10.8)
[2023-11-04 14:34] LABS: Alanine Aminotransferase 153 U/L (7-40); Albumin 2.6 g/dL (3.2-4.8); Alkaline Phosphatase 400 U/L (46-116); Anion Gap 1 (5-15); Aspartate Aminotransferase 165 U/L (13-40); BUN/Creatinine Ratio 30.2 (10.0-20.0); Blood Urea Nitrogen 26 mg/dL (9-23); Calcium 8.7 mg/dL (8.7-10.4); Carbon Dioxide 29 mmol/L (20-30); Chloride 101 mmol/L (98-107); Glucose 215 mg/dL (74-106); Lipase 51 U/L (12-53); Sodium 131 mmol/L (136-145)
[2023-11-04 14:35] LABS: Total Protein 6.1 g/dL (5.7-8.2)
[2023-11-04 15:04] LABS: Potassium 5.7 mmol/L (3.5-5.1)
[2023-11-04] MEDS: SODIUM ZIRCONIUM CYCL 10 GM PAK PO ONE (15:30)
[2023-11-04] MEDS ORDERED: AZITHROMYCIN 500MG/ 250ML 250 ML IV ONE (15:30)
[2023-11-04] MEDS: FUROSEMIDE 20 MG TAB PO ONE (15:30)
[2023-11-04] MEDS ORDERED: FUROSEMIDE 20 MG/2 ML VIAL IV ONE (15:45)
[2023-11-04] MEDS: DOXYCYCLINE 100MG/250ML 250 ML IV SCH (20:00)
[2023-11-04] MEDS: APIXABAN 2.5 MG TAB PO SCH (23:05)
[2023-11-05] VITALS (17 sets, daily range): BP systolic 91–138; BP diastolic 26–59; PULSE 61–85; RESP 14–20; TEMP 98–98.5; O2SAT 95–100
[2023-11-05 05:50] LABS: Basophils # (auto) 0 10 ^3/uL (0-0.2); Eosinophils # (auto) 0.3 10 ^3/uL (0-0.8); Eosinophils % (auto) 3.9 % (0.0-7.0); Hematocrit 33.4 % (36.0-46.0); Hemoglobin 11.1 g/dL (12.2-16.2); Lymphocytes # (auto) 2.1 10 ^3/uL (0.4-5.4); Lymphocytes % (auto) 30.4 % (10.0-50.0); Mean Corpuscular Hemoglobin 28.6 pg (28.0-32.0); Mean Corpuscular Hgb Conc. 33.2 g/dL (32.0-36.0); Mean Corpuscular Volume 86.1 fL (80.0-100.0); Monocytes # (auto) 0.7 10 ^3/uL (0-1.3); Monocytes % (auto) 9.5 % (0.0-12.0); Neutrophils # (auto) 3.9 10 ^3/uL (1.6-8.6); Neutrophils % (auto) 56.2 % (37.0-80.0); Platelet Count (auto) 167 10^3/uL (140-450); Red Blood Cells 3.89 10^6/uL (4.0-5.20); Red Cell Distribution Width 14.8 % (11.8-14.3); White Blood Cell 6.9 10^3/uL (4.4-10.8)
[2023-11-05 06:11] LABS: Alanine Aminotransferase 128 U/L (7-40); Albumin 2.3 g/dL (3.2-4.8); Alkaline Phosphatase 375 U/L (46-116); Anion Gap 3 (5-15); Aspartate Aminotransferase 143 U/L (13-40); BUN/Creatinine Ratio 26.7 (10.0-20.0); Bilirubin, Total 0.8 mg/dL (0.2-1.0); Blood Urea Nitrogen 24 mg/dL (9-23); Calcium 8.4 mg/dL (8.7-10.4); Carbon Dioxide 30 mmol/L (20-30); Chloride 99 mmol/L (98-107); Glucose 168 mg/dL (74-106); Potassium 4.8 mmol/L (3.5-5.1); Sodium 132 mmol/L (136-145); Total Protein 5.2 g/dL (5.7-8.2)
[2023-11-05] MEDS ORDERED: AZITHROMYCIN 500MG/ 250ML 250 ML IV SCH (10:00)
[2023-11-05] MEDS: FUROSEMIDE 40 MG TAB PO SCH (10:00)
[2023-11-05 15:28] LABS: Base Excess 4.1 mmol/L (-2.0-2.0)
[2023-11-05 16:10] LABS: Urine Bacteria None Seen /hpf (None Seen)
[2023-11-05 16:28] LABS: Urine Blood 2+ /uL (Negative); Urine Budding Yeast MODERATE /hpf (None Seen); Urine Clarity Turbid (Clear); Urine Color Light-Yellow (Yellow); Urine Hyaline Cast FEW /lpf (0 - 2); Urine Protein, UAD TRACE (Negative); Urine Specific Gravity 1.008 (1.001-1.035); Urine Urobilinogen Normal (Negative); Urine WBC 269 /hpf (0 - 5); Urine WBC Clumps PRESENT /hpf (None Seen); Urine pH 6.5 (5.0-9.0)
[2023-11-05] MEDS: CEPHALEXIN 250 MG CAP PO SCH (17:06)
[2023-11-05] MEDS: ENOXAPARIN SOD 80 MG/0.8ML SYRINGE SC ONE (17:07)
[2023-11-05] MEDS ORDERED: ENOXAPARIN SOD 100 MG/1 ML SYRINGE SC SCH (22:00)
[2023-11-06] VITALS (16 sets, daily range): BP systolic 110–143; BP diastolic 22–76; PULSE 66–85; RESP 16–20; TEMP 97.7–99.2; O2SAT 94–100
[2023-11-06] MEDS: CEPHALEXIN 250 MG CAP PO SCH (00:04)
[2023-11-06] MEDS: ENOXAPARIN SOD 80 MG/0.8ML SYRINGE SC SCH (05:57)
[2023-11-06 06:03] LABS: Alanine Aminotransferase 109 U/L (7-40); Albumin 2.4 g/dL (3.2-4.8); Alkaline Phosphatase 371 U/L (46-116); Anion Gap 3 (5-15); Aspartate Aminotransferase 103 U/L (13-40); BUN/Creatinine Ratio 23.4 (10.0-20.0); Bilirubin, Total 1.3 mg/dL (0.2-1.0); Blood Urea Nitrogen 18 mg/dL (9-23); Calcium 8.3 mg/dL (8.7-10.4); Carbon Dioxide 30 mmol/L (20-30); Chloride 100 mmol/L (98-107); Glucose 80 mg/dL (74-106); Potassium 4.6 mmol/L (3.5-5.1); Sodium 133 mmol/L (136-145); Total Protein 5.4 g/dL (5.7-8.2)
[2023-11-06] MEDS: FLUCONAZOLE 100 MG TAB PO ONE (14:13)
[2023-11-06] MEDS: APIXABAN 5 MG TAB PO SCH (21:46)
[2023-11-07] VITALS (10 sets, daily range): BP systolic 105–119; BP diastolic 23–57; PULSE 65–84; RESP 16–18; TEMP 97.6–98.6; O2SAT 97–100
[2023-11-07 07:14] LABS: Alanine Aminotransferase 99 U/L (7-40); Alkaline Phosphatase 387 U/L (46-116); Anion Gap 2 (5-15); Aspartate Aminotransferase 97 U/L (13-40); BUN/Creatinine Ratio 24.7 (10.0-20.0); Blood Urea Nitrogen 19 mg/dL (9-23); Calcium 8.5 mg/dL (8.7-10.4); Carbon Dioxide 32 mmol/L (20-30); Chloride 98 mmol/L (98-107); Glucose 96 mg/dL (74-106); Potassium 4.6 mmol/L (3.5-5.1); Sodium 132 mmol/L (136-145)
[2023-11-07 07:15] LABS: Albumin 2.6 g/dL (3.2-4.8); Bilirubin, Total 1.4 mg/dL (0.2-1.0)
[2023-11-07 07:16] LABS: Total Protein 5.5 g/dL (5.7-8.2)
[2023-11-07 08:12] LABS: Base Excess 1.5 mmol/L (-2.0-2.0)
[2023-11-07] MEDS: FLUCONAZOLE 100 MG TAB PO SCH (10:35)
[2023-11-07] MEDS ORDERED: FLUC200T50 PO (10:40)
[2023-11-07] MEDS ORDERED: METO-6 PO (10:40)
[2023-11-07] MEDS ORDERED: CEPH250C PO (10:40)
[2023-11-07] MEDS ORDERED: APIX5TAB PO (10:40)
[2023-11-13] MEDS ORDERED: APIXABAN 5 MG TAB PO SCH (22:00)
== END 2023-11-07 17:25 | disposition home health service (06) | DRG 720 ==
LOC: ER 02:18 → TELE 10:34 → DOU IN ICU 11:30 → TELE-EAST 10-26 17:09
PROVIDERS: ADMIT Nurse Practitioner Family; ATTEND Internal Medicine
PROC: 05HA33Z Insertion of Infusion Device into Left Brachial Vein, Percutaneous Approach (ICD-10-PCS; principal; 2023-10-25)
PROC: B54NZZA Ultrasonography of Left Upper Extremity Veins, Guidance (ICD-10-PCS; 2023-10-25)
PROC: 5A09357 Assistance with Respiratory Ventilation, Less than 24 Consecutive Hours, Continuous Positive Airway Pressure (ICD-10-PCS; 2023-10-25)
DX: A41.89 Other specified sepsis (principal); J96.21 Acute and chronic respiratory failure with hypoxia; I63.9 Cerebral infarction, unspecified; J10.08 Influenza due to other identified influenza virus with other specified pneumonia; J15.9 Unspecified bacterial pneumonia; I82.622 Acute embolism and thrombosis of deep veins of left upper extremity; I11.0 Hypertensive heart disease with heart failure; J12.9 Viral pneumonia, unspecified; I27.20 Pulmonary hypertension, unspecified; I50.32 Chronic diastolic (congestive) heart failure; E87.1 Hypo-osmolality and hyponatremia; J15.69 Pneumonia due to other Gram-negative bacteria; G81.94 Hemiplegia, unspecified affecting left nondominant side; N30.00 Acute cystitis without hematuria; E11.65 Type 2 diabetes mellitus with hyperglycemia; J84.10 Pulmonary fibrosis, unspecified; E86.0 Dehydration; I47.10 Supraventricular tachycardia, unspecified; K21.9 Gastro-esophageal reflux disease without esophagitis; K74.60 Unspecified cirrhosis of liver; E87.5 Hyperkalemia; E66.9 Obesity, unspecified; G51.0 Bell's palsy; I82.612 Acute embolism and thrombosis of superficial veins of left upper extremity; K82.8 Other specified diseases of gallbladder; I82.A12 Acute embolism and thrombosis of left axillary vein; Z20.822 Contact with and (suspected) exposure to COVID-19; R26.9 Unspecified abnormalities of gait and mobility; Z82.49 Family history of ischemic heart disease and other diseases of the circulatory system; Z85.3 Personal history of malignant neoplasm of breast; Z90.710 Acquired absence of both cervix and uterus; Z88.6 Allergy status to analgesic agent; Z86.73 Personal history of transient ischemic attack (TIA), and cerebral infarction without residual deficits; Z79.01 Long term (current) use of anticoagulants; Z79.82 Long term (current) use of aspirin; Z79.899 Other long term (current) drug therapy; Z68.31 Body mass index [BMI] 31.0-31.9, adult
CPT/HCPCS: 36415; 36600; 70450; 70551; 71045; 74176; 76705; 80048; 80053; 80061; 80202; 81001; 82805; 82962; 83690; 83880; 85025; 85610; 85730; 86850; 86900; 86901; 87040; 87081; 87086; 87088; 87186; 87426; 87804; 92610; 93005; 93306; 93886; 93971; 94640; 94660; 96365; 97110; 97116; 97163; 97530; G0378; J0131; J1450; J1815; J2405

== ENCOUNTER → 2023-12-03 | Outpatient (CLI) | payer MEDICAID ==
[~2023-12-03] VITALS: Ht 157.5 cm; Wt 64.0 kg
[~2023-12-03] MED LIST changes: +ADENOSINE 54 MG in GIVE UN-DILUTED 0 ML IV ONE; +ADENOSINE 90 MG/30 ML INJ IV ONE; +ALBU0.084 NEB; +APIX5TAB PO; +BUDE1AER5 INH; +CEPH250C PO; -CEPH500C PO; +FLUC200T50 PO; +GAB100C PO; -HYDR-4902 PO; +INSU1INJ19 SC; +MECL-90 PO; -METO-281 PO; +METO-6 PO; -NITR-52 PO; -PANT40T PO; +PRAM0.757 PO; +PROM1SOL4 PO; -VALS320T PO; -ZOFR4T PO
== END | disposition home or self-care (01) ==
LOC: Rad HDHVI 13:59
PROVIDERS: ATTEND Internal Medicine Cardiovascular Disease
DX: I11.0 Hypertensive heart disease with heart failure (principal); I50.33 Acute on chronic diastolic (congestive) heart failure; E78.00 Pure hypercholesterolemia, unspecified; J96.20 Acute and chronic respiratory failure, unspecified whether with hypoxia or hypercapnia; E11.21 Type 2 diabetes mellitus with diabetic nephropathy; Z88.6 Allergy status to analgesic agent; Z86.73 Personal history of transient ischemic attack (TIA), and cerebral infarction without residual deficits; Z79.01 Long term (current) use of anticoagulants; Z79.82 Long term (current) use of aspirin
CPT/HCPCS: 78452; 93005; 96374; A9500; J0153; 96375

== ENCOUNTER 2023-12-29 21:54 | Inpatient (IN) | payer MEDICAID ==
[~2023-12-29] VITALS: Ht 160 cm; Wt 168.6 kg
[2023-12-29] MEDS: KETAMINE 50mg/ML 10ml Vial (500mg/10ml) IV ONE (00:09)
[~2023-12-29 21:54] MED LIST changes: -ADENOSINE 54 MG in GIVE UN-DILUTED 0 ML IV ONE; -ADENOSINE 90 MG/30 ML INJ IV ONE; +AUG875T PO; +ERY05OO RIGHTEYE; +GABA-1308 PO; +LIDO1.8P TOP; +METO25TA93 PO; +POTA-228 PO
[2023-12-29 22:33] LABS: Eosinophils # (auto) 0.1 10 ^3/uL (0-0.8); Hemoglobin 11.8 g/dL (12.2-16.2); Lymphocytes # (auto) 2.8 10 ^3/uL (0.4-5.4)
[2023-12-29 22:34] LABS: Basophils # (auto) 0 10 ^3/uL (0-0.2); Basophils % (auto) 0.2 % (0.0-2.0); Eosinophils % (auto) 0.6 % (0.0-7.0); Hematocrit 36.5 % (36.0-46.0); Lymphocytes % (auto) 20.6 % (10.0-50.0); Mean Corpuscular Hemoglobin 25.9 pg (28.0-32.0); Mean Corpuscular Hgb Conc. 32.3 g/dL (32.0-36.0); Mean Corpuscular Volume 79.9 fL (80.0-100.0); Monocytes # (auto) 1.1 10 ^3/uL (0-1.3); Monocytes % (auto) 7.8 % (0.0-12.0); Neutrophils # (auto) 9.6 10 ^3/uL (1.6-8.6); Neutrophils % (auto) 70.8 % (37.0-80.0); Nucleated Red Blood Cells % 0.2 %; Platelet Count (auto) 307 10^3/uL (140-450); Red Blood Cells 4.56 10^6/uL (4.0-5.20); Red Cell Distribution Width 17.1 % (11.8-14.3); White Blood Cell 13.6 10^3/uL (4.4-10.8)
--- NOTE | 2023-12-29 22:41 | DVH ---
CHEST RADIOGRAPH Indication:SOB Technique: Single frontal view of the chest was obtained Comparison: XY CHEST PORTABLE on DOS: 11/05/23, XY CHEST PORTABLE on DOS: 11/03/23, XY CHEST PORTABLE o n DOS: 10/27/23, XY CHEST XRAY 1 VIEW on DOS: 10/25/23, XY CHEST XRAY 1 VIEW on DOS: 01/08/23 FINDINGS: Lines and Tubes: None Lungs: Diffuse bilateral pulmonary interstitial disease. Pleura: No effusion. 70-80% left pneumothorax Cardiomediastinal contours: Unremarkable Bones: No acute osseous abnormality. IMPRESSION: 1. 70-80% left pneumothorax. CRITICAL FINDINGS Critical Result: LARGE LEFT PNEUMOTHORAX Findings discussed with Dr MIN, at 12/29/2023 10:36 PM, and acknowledged receipt and understanding of the findings. ..
[2023-12-29 22:51] LABS: Alanine Aminotransferase 74 U/L (7-40); Albumin 3.4 g/dL (3.2-4.8); Alkaline Phosphatase 308 U/L (46-116); Anion Gap 7 (5-15); Aspartate Aminotransferase 61 U/L (13-40); BUN/Creatinine Ratio 20.7 (10.0-20.0); Blood Urea Nitrogen 19 mg/dL (9-23); Carbon Dioxide 28 mmol/L (20-31); Chloride 96 mmol/L (98-107); Glucose 182 mg/dL (74-106); Potassium 3.1 mmol/L (3.5-5.1); Sodium 131 mmol/L (136-145)
[2023-12-29 22:52] LABS: Bilirubin, Total 1.4 mg/dL (0.2-1.0); INR 1.27 (0.9-1.15); Partial Thromboplastin Time 30.4 SEC (24.5-34.5); Prothrombin Time 13.2 sec (9.3-11.8); Total Protein 7.4 g/dL (5.7-8.2)
--- NOTE | 2023-12-29 23:04 | ED.PDOC ---
SOB-HPI HPI Comments 83-year-old female who came to the ER for shortness of breath. Patient recently admitted for * Acute on chronic respiratory failure. * Influenza B with sepsis.* Urinary tract infection due to Escherichia coli and Enterococcus faecium.* Pulmonary fibrosis.* Diabetes mellitus.* Liver cirrhosis. * History of breast cancer. * Chronic diastolic heart failure.* Hypertension.* Supraventricular tachycardia.* Acute cerebrovascular accident.* History of old cerebrovascular accident. * Left arm DVT.. States for the past few days she has been having productive cough with shortness of breath and left-sided chest tightness comes to the emergency room. Patient is saturating 95% on room air and is slightly febrile at 100.5 F Chief Complaint: Shortness of Breath Time Seen by MD: 23:04 Primary Care Provider: JUNIOR Gamez notes: Nurses Notes Information Source: Patient, Emergency Med Personnel Mode of Arrival: EMS Severity: Moderate Timing: Days Duration: Since onset Context: At Rest, With Light Exertion PE Risk Factors: None History of: CHF, Recent Antibiotic, Other (Pneumonia) Prehospital treatment: Oxygen Modifying Factors: Nothing Associated Signs and Symptoms: Cough, Chest Pain Quality: Sharp, Pressure Radiation: No Radiation Location: Chest (L) If cough with SOB: Productive Past Medical History PAST MEDICAL HISTORY: Cancer, CHF, DM, HTN, Liver Past Medical History (Other): Pulmonary fibrosis, recurrent pneumonia Surgical History: Denies all surgeries TUBE MAKER History: Denies all TUBE MAKER Hx Family History Family History: Reviewed,noncontributory to illness Social History Smoker: Non-Smoker Alcohol: Denies ETOH Use Drugs: Denies Drug Use Lives In: Home Constitutional: reports: weakness; denies: chills, diaphoresis, fatigue, fever, malaise, sweats, others EENTM: denies: blurred vision, double vision, ear bleeding, ear discharge, ear drainage, ear pain, ear ringing, eye pain, eye redness, hearing loss, mouth pain, mouth swelling, nasal discharge, nose bleeding, nose congestion, nose pain, photophobia, tearing, throat pain, throat swelling, voice changes, others Respiratory: reports: cough, SOB at rest, shortness of breath; denies: hemoptysis, orthopnea, SOB with excertion, stridor, wheezing, others Cardiovascular: denies: chest pain, dizzy spells, diaphoresis, Dyspnea on exertion, edema, irregular heart beat, left arm pain, lightheadedness, palpitations, PND, syncope, others Gastrointestinal: denies: abdomen distended, abdominal pain, blood streaked bowels, constipated, diarrhea, dysphagia, difficulty swallowing, hematemesis, melena, nausea, poor appetite, poor fluid intake, rectal bleeding, rectal pain, vomiting, others Genitourinary: denies: abnormal vagina bleeding, burning, dyspareunia, dysuria, flank pain, frequency, hematuria, incontinence, pain, , vagina discharge, urgency, others Neurological: denies: dizziness, fainting, headache, left sided numbness, left sided weakness, numbness, paresthesia, pre-existing deficit, right sided numbness, right sided weakness, seizure, speech problems, tingling, tremors, weakness, others Musculoskeletal: denies: back pain, gout, joint pain, joint swelling, muscle pain, muscle stiffness, neck pain, others Integumetry: denies: bruises, change in color, change in hair/nails, dryness, laceration, lesions, lumps, rash, wounds, others Allergic/Immunocompromised: denies: Difficulty Healing, Frequent Infections, Hives, Itching, others Hematologic/Lymphatic: denies: anemia, blood clots, easy bleeding, easy bruising, swollen glands, others Endocrine: denies: excessive hunger, excessive sweating, excessive thirst, excessive urination, flushing, intolerance to cold, intolerance to heat, unexplained weight gain, unexplained weight loss, others Psychiatric: denies: anxiety, bipolar disorder, depression, hopeless, panic disorder, schizophrenia, sleepless, suicidal, others Physical Exam General Appearance: Moderate Distress HEENT: Normal ENT Inspection, Pharynx Normal, TMs Normal Neck: Full Range of Motion, Non-Tender, Normal, Normal Inspection Respiratory: Accessory Muscle Use, Chest Non-Tender, Crackles, Decreased Breath Sounds (left), Respiratory Distress Cardiovascular: No Edema, No JVD, No Murmur, No Gallop, Normal Peripheral Pulses, Regular Rate/Rhythm Breast Exam: Deferred Gastrointestinal: No Organomegaly, Non Tender, No Pulsatile Mass, Normal Bowel Sounds, Soft Genitalia: Deferred Pelvic: Deferred Rectal: Deferred Extremities: No calf tenderness, Normal capillary refill, Normal inspection, Normal range of motion, Non-tender, No pedal edema Musculoskeletal : Apperance: Normal Neurologic: Alert, assessment expert II-XII nml as Tested, No Motor Deficits, Normal Affect, Normal Mood, No Sensory Deficits Cerebellar Function: Normal Reflexes: Normal Skin: Dry, Normal Color, Warm Lymphatic: No Adenopathy Was a procedure done? Was a procedure done?: Yes Sedation Sedation?: Yes Informed consent obtained: Yes Sedation start time: 00:10 Sedation end time: 00:42 Sedation total time: 32min Sedation provider statement: Patient tolerated the procedure without issue. Patient was sedated using ketamine. Chest Tube Indication: Pneumothorax Procedure: Sterile preparation Anesthetic: Lidocaine Site: L 4th intercostal space Drainage: Air Informed consent obtained: Yes Risks/benefits/alt described: Yes Differential Dx Differential Diagnosis: Bronchitis, CHF, COPD, Myocardial infarction, Pneumonia, Pneumothorax, Respiratory Distress X-Ray, Labs, Meds, VS Vital Signs Date Time Temp Pulse Resp B/P (MAP) Pulse Ox O2 Delivery O2 Flow Rate FiO2 12/30/23 00:09 86 16 97 5.0 40 84 16 96 95 98 12/30/23 00:00 92 12/29/23 22:57 88 12/29/23 22:18 102 12/29/23 22:00 18 95 Room Air* 0 21 12/29/23 22:00 100.5 93 18 165/105 (125) 95 12/29/23 21:55 101 Lab Test 12/29/23 23:02 12/29/23 22:10 Range/Units Troponin I High Sensitivity 12 12 </=34 ng/L White Blood Count 13.6 H 4.4-10.8 10^3/uL Red Blood Count 4.56 4.0-5.20 10^6/uL Hemoglobin 11.8 L 12.2-16.2 g/dL Hematocrit 36.5 36.0-46.0 % Mean Corpuscular Volume 79.9 L 80.0-100.0 fL Mean Corpuscular Hemoglobin 25.9 L 28.0-32.0 pg Mean Corpuscular Hemoglobin Concent 32.3 32.0-36.0 g/dL Red Cell Distribution Width 17.1 H 11.8-14.3 % Platelet Count 307 140-450 10^3/uL Mean Platelet Volume 7.7 6.9-10.8 fL Neutrophils (%) (Auto) 70.8 37.0-80.0 % Lymphocytes (%) (Auto) 20.6 10.0-50.0 % Monocytes (%) (Auto) 7.8 0.0-12.0 % Eosinophils (%) (Auto) 0.6 0.0-7.0 % Basophils (%) (Auto) 0.2 0.0-2.0 % Neutrophils # (Auto) 9.6 H 1.6-8.6 10 ^3/uL Lymphocytes # (Auto) 2.8 0.4-5.4 10 ^3/uL Monocytes # (Auto) 1.1 0-1.3 10 ^3/uL Eosinophils # (Auto) 0.1 0-0.8 10 ^3/uL Basophils # (Auto) 0 0-0.2 10 ^3/uL Nucleated Red Blood Cells 0.2 % Prothrombin Time 13.2 H 9.3-11.8 sec Prothrombin Time INR 1.27 H 0.9-1.15 Activated Partial Thromboplast Time 30.4 24.5-34.5 SEC Sodium Level 131 L 136-145 mmol/L Potassium Level 3.1 L 3.5-5.1 mmol/L Chloride Level 96 L 98-107 mmol/L Carbon Dioxide Level 28 20-31 mmol/L Anion Gap 7 5-15 Blood Urea Nitrogen 19 9-23 mg/dL Creatinine 0.92 0.550-1.02 mg/dL Glomerular Filtration Rate Calc 61 >90 mL/min BUN/Creatinine Ratio 20.7 H 10.0-20.0 Serum Glucose 182 H 74-106 mg/dL Calcium Level 9.0 8.7-10.4 mg/dL Magnesium Level 2.0 1.6-2.6 mg/dL Total Bilirubin 1.4 H 0.2-1.0 mg/dL Aspartate Amino Transferase (AST) 61 H 13-40 U/L Alanine Aminotransferase (ALT) 74 H 7-40 U/L Alkaline Phosphatase 308 H 46-116 U/L Total Protein 7.4 5.7-8.2 g/dL Albumin 3.4 3.2-4.8 g/dL Current Medications Medications (Trade) Dose Ordered Sig/Chito Route Start Time Stop Time Status Last Admin Ketamine HCl (Ketalar) 100 mg ONCE ONCE IV 12/29/23 23:00 12/29/23 23:01 DC 12/29/23 00:09 Cefepime HCl 50 ml @ 12.5 mls/hr ONCE ONCE IV 12/29/23 23:30 12/30/23 03:29 12/30/23 00:33 Time of 1ST Reevaluation: 22:58 Reevaluation 1ST: Unchanged Patient Education/Counseling: Diagnosis, Treatment Family Education/Counseling: Diagnosis, Treatment, No Family Present Departure 1 Departure Time of Disposition: 00:41 (Patient presented with concern for sepsis and pneumothorax. Chest tube was placed in the ER under sedation. Patient tolerated the procedure well without complications and is doing better. We will admit patient to the hospital for further management) Impression: Primary Impression: Pneumothorax, acute Additional Impressions: Shortness of breath Fever Qualified Codes: R50.9 - Fever, unspecified Chest pain Qualified Codes: R07.89 - Other chest pain Disposition: ADMITTED INPATIENT Admit to: [facility] Condition: Guarded Critical Care Note Critical Care Time?: Yes Critical care comment: Authorized and Performed by: Thania Barron MD Total critical care time: Approximately 48 minutes Due to a high probability of clinically significant, life threatening deterioration, the patient required my highest level of preparedness to intervene emergently and I personally spent this critical care time directly and personally managing the patient. This critical care time included obtaining a history; examining the patient; pulse oximetry; ordering and review of studies; arranging urgent treatment with development of a management plan; evaluation of patient's response to treatment; frequent reassessment; and, discussions with other providers. This critical care time was performed to assess and manage the high probability of imminent, life-threatening deterioration that could result in multi-organ failure. It was exclusive of separately billable procedures and treating other patients and teaching time. Please see my other sections and the rest of the note for further information on patient assessment and treatment. Stability Stability form required: No Heart Score Heart Score: Heart Score Response (Comments) Value History N/A 0 EKG N/A 0 Age N/A 0 Risk Factors N/A 0 Troponin N/A 0 Total 0 I personally scribed for THANIA BARRON MD ([email or web address]) on 12/29/23 at 23:04. Electronically submitted by Claudio Wilson ([email or web address]). THANIA BARRON MD Dec 29, 2023 23:04
[2023-12-30] VITALS (15 sets, daily range): BP systolic 117–136; BP diastolic 37–73; PULSE 54–84; RESP 12–25; TEMP 98.1–99.6; O2SAT 94–100
[2023-12-30] MEDS: CEFEPIME 2GM/50ML NS 50 ML IV ONE (00:33)
--- NOTE | 2023-12-30 01:11 | ECG ---
[facility] Test Date: 2023-12-30 Test Time: 01:08:08 Pat Name: MENG BANGURADepartment: ER Room: 0249T Gender: F Fly Frame Tender: BETSY : 1940 Requested By: THANIA BARRON Order Number: [id number] Reading MD: Brandon Wen Measurements Intervals Bastian Rate: 65 P: -19 CT: 162 QRS: -35 QRSD: 81 T: 102 QT: 427 QTc: 444 Interpretive Statements Sinus rhythm Atrial premature complexes Abnormal R-wave progression, late transition LVH with secondary repolarization abnormality Electronically Signed On 01-02-2024 15:46:09 PDT by Brandon Wen Please click the below link to view image of tracing.
[2023-12-30] MEDS: ACETAMINOPHEN IV 1000 MG/100ML (10MG/ML) IV STA (01:12)
--- NOTE | 2023-12-30 01:15 | DVH ---
EXAM: XY CHEST XRAY 1 VIEW CLINICAL HISTORY: chest tube placement TECHNIQUE: Single AP view of the chest WID: COMPARISON: XY CHEST PORTABLE on DOS: 12/29/23, Lines and tubes: Pigtail left chest tube has been placed projecting over the left mid lung. Chest: The heart size and pulmonary vasculature is within normal limits. Calcified plaque projects over the aortic arch. Diffuse mixed airspace opacities bilaterally and interstitial prominence of the lungs. Significant de crease in a trace left pneumothorax. The osseous structures are grossly intact. IMPRESSION: 1. Significant decrease in trace left pneumothorax status post pigtail pleural drainage catheter plac ement. 2. Diffuse interstitial prominence in the lungs with patchy opacities. There could be a component of underlying fibrosis present, though superimposed pneumonia could also contribute to this appearance.
--- NOTE | 2023-12-30 03:36 | ECG ---
[facility] Test Date: 2023-12-29 Test Time: 22:57:42 Pat Name: MENG BANGURADepartment: ER Room: 0249T Gender: F Biology Tutor: BETSY : 1940 Requested By: THANIA BARRON Order Number: [id number] Reading MD: Brandon Wen Measurements Intervals Buckner Rate: 88 P: 29 MS: 191 QRS: 24 QRSD: 89 T: 67 QT: 389 QTc: 471 Interpretive Statements Sinus rhythm Multiple premature complexes, vent & supraven Low voltage, extremity and precordial leads Anteroseptal infarct, old Electronically Signed On 01-02-2024 15:40:46 PDT by Brandon Wen Please click the below link to view image of tracing.
[2023-12-30] MEDS ORDERED: ALBUTEROL SULF 2.5 MG/0.5ML(0.5%) NEB SOLN NEB PRN (09:45)
[2023-12-30] MEDS: AZITHROMYCIN 500MG/ 250ML 250 ML IV ONE (09:45)
[2023-12-30] MEDS ORDERED: NITROGLYCERIN 0.4 MG SL TAB SL PRN (09:45)
[2023-12-30] MEDS ORDERED: DEXTROSE (50%) 50ML SYRG IV PRN (09:45)
[2023-12-30] MEDS: ALBUTEROL SULF 2.5 MG/0.5ML(0.5%) NEB SOLN NEB SCH (10:09)
[2023-12-30] MEDS: IPRATROPIUM BROM 0.5 MG/2.5ML INH SOL NEB SCH (10:09)
--- NOTE | 2023-12-30 10:31 | DVHHP2 ---
History of Present Illness History of Present Illness 83-year-old female with history of breasts cancer, CHF, DM, hypertension, pulmonary fibrosis and liver disease who presents to ER for shortness of breath. Patient was recently admitted for acute on chronic respiratory failure, influenza B with sepsis, UTI due to E coli. She States for the past few days she has been having productive cough with shortness of breath and left-sided chest tightness comes to the emergency room. Patient is saturating 95% on room air and is slightly febrile at 100.5 F. in review of initial chest x-ray shows 70-80% large left pneumothorax in which a chest tube was placed by ER physician. Chest x-ray also shows patchy opacities. The patient will be admitted under hospitalist care to the telemetry unit for continuous monitoring. The patient denies headache, dizziness, blurred vision, chest pain, nausea, vomiting, diarrhea, constipation, abdominal pain and other associated symptoms. The plan has been discussed with the patient and primary RN in which all questions concerns have been addressed. Cardiovascular: CHF, HTN Hepatobiliary: Cirrhosis Endocrine: Diabetes Past Medical History Breast cancer Past Surgical History: None Family History: None Smoke: No ALCOHOL: none Drugs: None Lives: with Family Domestic Violence: Neg Review of Systems Respiratory: Shortness of breath Allergies: Coded Allergies: Codeine (Verified Allergy, Unknown, 06/20/22) Ibuprofen (Verified Allergy, Unknown, 12/07/21) Medications Current Medications Medications Dose Ordered Sig/Chito Route Start Time Stop Time Status Last Admin Dose Admin Sodium Chloride 1,000 ml @ 60 mls/hr [id number] IV 12/30/23 09:45 Ondansetron HCl 4 mg Q4HP PRN IV 12/30/23 09:45 Acetaminophen 650 mg Q6HP PRN PO 12/30/23 09:45 Nitroglycerin 0.4 mg Q5MINP PRN SL 12/30/23 09:45 Morphine Sulfate 2 mg Q30M PRN IV 12/30/23 09:45 Diagnostic Test (Pha) 1 strip ACHS 12/30/23 11:30 Insulin Human Regular ACHS SC 12/30/23 11:30 Dextrose 50 ml UD PRN IV 12/30/23 09:45 Ceftriaxone Sodium 50 ml @ 100 mls/hr DAILY@09 IV 12/30/23 09:43 Azithromycin 250 ml @ 125 mls/hr DAILY IV 12/30/23 10:00 Albuterol 2.5 mg Q4HR NEB 12/30/23 10:00 12/30/23 10:09 2.5 MG Albuterol 2.5 mg Q2HPRN PRN NEB 12/30/23 09:45 Ipratropium [place] 0.5 mg Q4HR NEB 12/30/23 10:00 12/30/23 10:09 0.5 MG Exam Vital Signs Vital Signs Date Time Temp Pulse Resp B/P (MAP) Pulse Ox O2 Delivery O2 Flow Rate FiO2 12/30/23 08:15 61 15 117/39 (65) 100 12/30/23 07:30 Nasal Cannula* 4 36 12/30/23 03:00 98.3 98.3 General Appearance: Alert, Oriented X3, Cooperative, No acute distress HEENT: Atraumatic, PERRLA, Mucous membr. moist/pink Respiratory: Normal air movement, Other (Diminished to bilateral lower lung condon) Cardiovascular: Normal S1, Normal S2, No murmurs Abdominal: Normal bowel sounds, Soft, No tenderness, No hepatospenomegaly, No masses Extremities: No clubbing, No cyanosis, No edema, Normal pulses, No tenderness/swelling Skin: No rashes, No breakdown Neuro: Normal gait, Normal speech, Strength at 5/5 X4 ext, Normal tone, Sensation intact, Cranial nerves 3-12 NL, Reflexes 2+ Psych/Mental Status: Mental status NL Labs/Xrays Labs Test 12/29/23 23:02 12/29/23 22:10 Range/Units Troponin I High Sensitivity 12 </=34 ng/L White Blood Count 13.6 H 4.4-10.8 10^3/uL Red Blood Count 4.56 4.0-5.20 10^6/uL Hemoglobin 11.8 L 12.2-16.2 g/dL Hematocrit 36.5 36.0-46.0 % Mean Corpuscular Volume 79.9 L 80.0-100.0 fL Mean Corpuscular Hemoglobin 25.9 L 28.0-32.0 pg Mean Corpuscular Hemoglobin Concent 32.3 32.0-36.0 g/dL Red Cell Distribution Width 17.1 H 11.8-14.3 % Platelet Count 307 140-450 10^3/uL Mean Platelet Volume 7.7 6.9-10.8 fL Neutrophils (%) (Auto) 70.8 37.0-80.0 % Lymphocytes (%) (Auto) 20.6 10.0-50.0 % Monocytes (%) (Auto) 7.8 0.0-12.0 % Eosinophils (%) (Auto) 0.6 0.0-7.0 % Basophils (%) (Auto) 0.2 0.0-2.0 % Neutrophils # (Auto) 9.6 H 1.6-8.6 10 ^3/uL Lymphocytes # (Auto) 2.8 0.4-5.4 10 ^3/uL Monocytes # (Auto) 1.1 0-1.3 10 ^3/uL Eosinophils # (Auto) 0.1 0-0.8 10 ^3/uL Basophils # (Auto) 0 0-0.2 10 ^3/uL Nucleated Red Blood Cells 0.2 % Prothrombin Time 13.2 H 9.3-11.8 sec Prothrombin Time INR 1.27 H 0.9-1.15 Activated Partial Thromboplast Time 30.4 24.5-34.5 SEC Sodium Level 131 L 136-145 mmol/L Potassium Level 3.1 L 3.5-5.1 mmol/L Chloride Level 96 L 98-107 mmol/L Carbon Dioxide Level 28 20-31 mmol/L Anion Gap 7 5-15 Blood Urea Nitrogen 19 9-23 mg/dL Creatinine 0.92 0.550-1.02 mg/dL Glomerular Filtration Rate Calc 61 >90 mL/min BUN/Creatinine Ratio 20.7 H 10.0-20.0 Serum Glucose 182 H 74-106 mg/dL Calcium Level 9.0 8.7-10.4 mg/dL Magnesium Level 2.0 1.6-2.6 mg/dL Total Bilirubin 1.4 H 0.2-1.0 mg/dL Aspartate Amino Transferase (AST) 61 H 13-40 U/L Alanine Aminotransferase (ALT) 74 H 7-40 U/L Alkaline Phosphatase 308 H 46-116 U/L Total Protein 7.4 5.7-8.2 g/dL Albumin 3.4 3.2-4.8 g/dL ORDERING PHYSICIAN: THANIA BARRON MD PROCEDURE(s): CXR1 - CHEST XRAY 1 VIEW REASON: chest tube placement ORDER NUMBER(s): [id number], ACCESSION NUMBER(s): [id number] EXAM: XY CHEST XRAY 1 VIEW CLINICAL HISTORY: chest tube placement TECHNIQUE: Single AP view of the chest WID: COMPARISON: XY CHEST PORTABLE on DOS: 12/29/23, Lines and tubes: Pigtail left chest tube has been placed projecting over the left mid lung. Chest: The heart size and pulmonary vasculature is within normal limits. Calcified plaque projects over the aortic arch. Diffuse mixed airspace opacities bilaterally and interstitial prominence of the lungs. Significant decrease in a trace left pneumothorax. The osseous structures are grossly intact. IMPRESSION: 1. Significant decrease in trace left pneumothorax status post pigtail pleural drainage catheter placement. 2. Diffuse interstitial prominence in the lungs with patchy opacities. There could be a component of underlying fibrosis present, though superimposed pneumonia could also contribute to this appearance. ATED BY: CYNTHIA AHUMADA MD DICTATED DATE/TIME: 12/30/23112 SIGNED BY: CYNTHIA AHUMADA MD SIGNED DATE/TIME: 12/30/23112 CC: ORDERING PHYSICIAN: THANIA BARRON MD PROCEDURE(s): CXRP - CHEST PORTABLE REASON: SOB ORDER NUMBER(s): [id number], ACCESSION NUMBER(s): [id number] CHEST RADIOGRAPH Indication:SOB Technique: Single frontal view of the chest was obtained Comparison: XY CHEST PORTABLE on DOS: 11/05/23, XY CHEST PORTABLE on DOS: 11/03/23, XY CHEST PORTABLE on DOS: 10/27/23, XY CHEST XRAY 1 VIEW on DOS: 10/25/23, XY CHEST XRAY 1 VIEW on DOS: 01/08/23 FINDINGS: Lines and Tubes: None Lungs: Diffuse bilateral pulmonary interstitial disease. Pleura: No effusion. 70-80% left pneumothorax Cardiomediastinal contours: Unremarkable Bones: No acute osseous abnormality. IMPRESSION: 1. 70-80% left pneumothorax. CRITICAL FINDINGS Critical Result: LARGE LEFT PNEUMOTHORAX Findings discussed with Dr IMN, at 12/29/2023 10:36 PM, and acknowledged receipt and understanding of the findings. .. ATED BY: SUSU FLORES Jr., DO DICTATED DATE/TIME: 12/29/232237 SIGNED BY: SUSU FLORES Jr., SIGNED DATE/TIME: 12/29/232237 CC: Assessment/Plan Assessment/Plan Shortness of breaths due to left pneumothorax---patient presents to ED with chief complaint of shortness of breaths with fever 100.5 to the ER Patient recently admitted for acute on chronic respiratory failure, influenza B with sepsis Left chest tube placement by ER physician in the ER Admit to telemetry unit for continuous monitoring Reviewed CBC shows elevated white blood cell count 13.6 Reviewed BMP sodium 131, potassium 3.1, elevated liver enzyme, BG 182 Coags within normal limits Cardiac enzyme negative x2 Reviewed chest x-ray shows patchy opacities Reviewed initial chest x-ray which shows large left pneumothorax 70-80% IV hydration IV antibiotic ceftriaxone and azithromycin initiated Consult Dr. Rios for evaluation and recommendation Chest x-ray in a.m. Med neb treatment q.4 hours Albuterol q.2h p.r.n. shortness of breath Transaminitis patient denies alcohol intake likely nonalcoholic fatty liver disease/medication Order liver ultrasound Acute hepatitis panel Follow-up liver enzymes in a.m. Avoid liver toxic drugs Consider GI specialist if needed Systolic/diastolic heart failure BNP pending Echocardiogram reviewed performed on 10/31/2023 shows EF of 60% Type 2 DM-uncontrolled HGB A1c pending Regular insulin mild SS a.c. and HS Accu-Cheks per protocol Hyponatremia 131 IV hydration Continue to monitor labs and replace as needed Hypokalemia 3.1 Ordered 50 mEq potassium x1 now Continue to monitor labs and replace as needed Hypertension-controlled Reconcile home medication and continue antihypertensive agents Continue to monitor BP Reconcile home meds DVT prophylaxis--SCD PUD prophylaxis not indicated no history of GERD Labs in a.m. Discussed plan of care with the patient and primary RN in which all questions concerns have been addressed Plan discussed with: Patient My Orders Orders - CHRISTIE WILL [employer] Procedure Category Date Status Time Admit ADMIT 12/30/23 Transmitted 09:33 2 Gm Sodium Diet DIET 12/30/23 Transmitted Lunch Sodium Chloride 0.9% PHA 12/30/23 In Process 09:45 Ondansetron Hcl PHA 12/30/23 In Process (Zofran) 09:45 Complete Blood Count LAB 12/31/23 Verified 04:00 Comprehensive LAB 12/31/23 Verified Metabolic Panel 04:00 Condition: Fair JULIO 12/30/23 In Process 09:33 Acetaminophen Tablet PHA 12/30/23 In Process (Tylenol Tablet) 09:45 Bedrest With Bathroom JULIO 12/30/23 In Process Privileg 09:33 Sequential JULIO 12/30/23 In Process Compression Device Nitroglycerin PHA 12/30/23 In Process Sublingual (Ntrostat 09:45 Morphine Sulfate PHA 12/30/23 In Process Injection 09:45 Stat Ekg For Chest JULIO 12/30/23 In Process Pain 09:33 Notify Of Changes JULIO 12/30/23 In Process From Base 09:33 Facility Coordinator For JULIO 12/30/23 In Process 24 Hours 09:33 Emergency Dysrhythmia JULIO 12/30/23 In Process Protocol 09:33 Rhythm Strips Once JULIO 12/30/23 In Process Every Shift 09:33 Oxygen By Nasal RT 12/30/23 Transmitted Cannula 09:33 Glucose Blood PHA 12/30/23 In Process (Accu-Chek Comfort 11:30 Insulin R (Human) PHA 12/30/23 In Process (Insulin R) 11:30 Dextrose 50% Syringe PHA 12/30/23 In Process 09:45 Hemoglobin A1c LAB 12/30/23 Logged 09:33 Blood Culture ROCIO 12/30/23 Logged 09:33 Azithromycin 500mg/ PHA 12/30/23 In Process 250ml (Zithromax 50 10:00 Azithromycin 500mg/ PHA 12/30/23 In Process 250ml (Zithromax 50 09:45 *Consult CONS 12/30/23 Transmitted / 09:36 Sodium Chloride 0.9% PHA 12/30/23 In Process 09:45 LIVER US 12/30/23 Logged 09:38 Chest Portable XY 12/31/23 Logged 04:00 Lactic Acid W/ Reflex LAB 12/30/23 Logged Order 09:39 Albuterol Medneb PHA 12/30/23 In Process (Ventolin Medneb) 10:00 Albuterol Medneb PHA 12/30/23 In Process (Ventolin Medneb) 09:45 Ipratropium Medneb PHA 12/30/23 In Process (Atrovent Medneb) 10:00 Ceftriaxone 1gm/50ml PHA 12/30/23 In Process D5w (Rocephin) 09:43 Date of Service: Dec 30, 2023 Billing Provider: CHRISTIE WILL Common Visit Codes: [id number] INP/OBS CARE (HIGH) CHRISTIE WILL Dec 30, 2023 10:31
[2023-12-30] MEDS ORDERED: SUCRALFATE 1 GM TAB PO PRN (10:45)
[2023-12-30] MEDS: POTASSIUM EFFERVESENT TAB 25 MEQ PO ONE (11:11)
[2023-12-30] MEDS: GABAPENTIN 100 MG CAP PO SCH (11:11)
[2023-12-30] MEDS: cefTRIAXone 1GM/50ML D5W 50 ML IV SCH (11:12)
[2023-12-30] MEDS: SODIUM CHLORIDE 0.9% 1,000 ML IV ONE (11:12)
[2023-12-30] MEDS: ACCU-CHEK COMFORT CURVE STRIP VI SCH (11:17)
[2023-12-30] MEDS: InsuLIN REG 1unit/0.01ml Soln (100units/ml) SC SCH (11:18)
--- NOTE | 2023-12-30 11:39 | DVH ---
INDICATION: elevated LE TECHNIQUE: Multiple real-time sonographic images were obtained of the right upper quadrant. COMPARISON: US LIVER on DOS: 11/02/23 FINDINGS: Technically difficult study due to patient positioning and overlying bowel gas. The right hepatic lobe is not well visualized. The liver demonstrates coarse echotexture without foca l mass lesions and has a nodular contour. The liver measures 11.3 cm. The main portal vein is not wel l seen. There is no intrahepatic or extrahepatic ductal dilatation. The gallbladder is not well seen. The right kidney measures 10.1 cm. There is no hydronephrosis. The pancreas is not well visualized due to overlying bowel gas. A right-sided pleural effusion is noted. Small volume ascites is noted. IMPRESSION: 1. Similar suggestion of cirrhosis. Small volume ascites. 2. Nonvisualization of the gallbladder due to patient positioning /overlying bowel gas. 3. Right-sided pleural effusion.
--- NOTE | 2023-12-30 13:38 | DVH ---
CHEST RADIOGRAPH Indication:CHEST TUBE REASSESSMENT Technique: Single frontal view of the chest was obtained COMPARISON: XY CHEST XRAY 1 VIEW on DOS: 12/30/23, FINDINGS: Lines and Tubes: Left chest tube appears to be retracted but continues to project over the left lung. Lungs: Redemonstration of diffuse multifocal airspace opacities bilaterally, similar to slightly impr myrtle overall when compared to prior. Pleura: No effusion. Increased size of a small left pneumothorax is noted. Cardiomediastinal contours: Stable Bones: Scattered degenerative changes. No acute osseous findings. IMPRESSION: 1. Increased size of a small left pneumothorax. The left chest tube appears to be retracted but madeleine nues to project over the left lung. 2. Similar to slightly improved diffuse multifocal airspace disease in part due to underlying fibroti c disease with superimposed infection not excluded. Critical Result: Pneumothorax Could not reach ordering provider to communicate results.
[2023-12-30] MEDS: MECLIZINE HCL 25 MG TAB PO SCH (14:35)
[2023-12-30] MEDS: ONDANSETRON HCL 4 MG/2 ML VIAL IV PRN (14:35)
[2023-12-30] MEDS: MORPHINE SULFATE INJ 2 MG/ml SYRG IV PRN (14:37)
[2023-12-30] MEDS ORDERED: HYDROcodone-ACET 5/325MG TAB PO PRN (16:00)
[2023-12-30] MEDS ORDERED: KETOROLAC TROMETH 30 MG/ML 1ML VIAL IV PRN (16:15)
[2023-12-30] MEDS: AZITHROMYCIN 500MG/ 250ML 250 ML IV SCH (16:49)
[2023-12-30] MEDS: SODIUM CHLORIDE 0.9% 1,000 ML IV SCH (16:50)
[2023-12-30] MEDS ORDERED: ALBU108A5 INH (19:20)
[2023-12-30] MEDS ORDERED: POTA-211 (19:20)
[2023-12-30] MEDS: TIMOLOL MAL 0.5% OPTH(EYE) SOL 5ML EACHEYE SCH (22:00)
--- NOTE | 2023-12-30 23:27 | DVHINCON2 ---
Date of service: Dec 30, 2023 Referring Physician Dawn Nugent NP Reason for Consultation Left pneumothorax. History of Present Illness An 83-year-old woman with past medical history of breast cancer, CHF, diabetes, hypertension, pulmonary fibrosis, and liver disease who presents to the ER with complaint of shortness of breath. Of note, she was recently admitted for acute on chronic respiratory failure, influenza B with sepsis, UTI due to E coli. Pt admits to productive cough with shortness of breath and left-sided chest tightness over the last few days. In the ER, O2 saturation was 95% on room air and pt was slightly febrile at 100.5 F. Initial chest x-ray showed 70-80% large left pneumothorax and chest tube was placed by ER physician. Chest x-ray also showed patchy opacities. Pt denies headache, dizziness, blurred vision, chest pain, N/V/D or any other associated symptoms. Patient was admitted for further care and pulmonary consultation is requested for evaluation and management due to the above findings. Review of Systems: 14-point review of systems negative unless otherwise noted above. Past Medical History: Breast cancer, CHF, diabetes, hypertension, pulmonary fibrosis, and liver cirrhosis. Past Surgical History: None. Medications: Reviewed. Allergies: Morphine Codeine Ibuprofen Family History: Father and mother with hypertension and heart disease. Social History: Nonsmoker. No alcohol or illicit drug use. Family History: Cardiovascular disease G8 MOTHER G8 FATHER Hypertension G8 MOTHER G8 FATHER Allergies: Coded Allergies: Morphine (Verified Allergy, Intermediate, Rash, 12/30/23) Codeine (Verified Allergy, Unknown, 06/20/22) Ibuprofen (Verified Allergy, Unknown, 12/07/21) Home Meds Active Scripts Apixaban Base (ELIQUIS) 5 Mg Tab, 5 MG PO BID for 30 Days, #60 TAB 2 Refills Prov:TYLER SOLANO MD 11/07/23 Metoprolol Succinate (Toprol Xl) 50 Mg Tab, 25 MG PO DAILY for 30 Days, #30 TAB 3 Refills Prov:TYLER SOLANO MD 11/07/23 Reported Medications Albuterol Sulfate (Albuterol Sulfate Hfa) 108 Mcg/Act Aer, INH 12/30/23 Potassium Chloride (Klor-Con 10) 10 Meq Tab 12/30/23 Budesonide-Formoterol Fumarate (Budesonide/Formoterol Fum 80-4.5 Mcg/Act) 1 Aer Aer, 2 PUFF INH BID 10/30/23 Benzonatate (Benzonatate) 100 Mg Cap, 1 CAP PO TID PRN for COUGH for 90 Days, #270 01/09/23 Empagliflozin (Jardiance) 25 Mg Tab, 1 TAB PO QAM 01/09/23 Furosemide (Furosemide) 40 Mg Tab, 40 MG PO DAILY for 30 Days 10/21/22 Timolol Maleate (Ophth) (Timolol Maleate) 0.5 % Dulce Maria, 1 DROP EACHEYE BID for 50 Days, #10 12/10/21 Discontinued Reported Medications Meclizine Hcl (Meclizine Hcl) 25 Mg Tab, 1 TAB PO TID 10/30/23 Albuterol Sulfate (Albuterol Sulfate) 0.083 % Neb, 1 VIAL NEB Q4HR PRN for WHEEZING/COUGH 10/30/23 Amoxicillin & Pot Clavulanate (Amoxicillin/Potassium Cla) 500 Mg Tab, 1 TAB PO BID for 10 Days, #20 10/30/23 Insulin Glargine (Basaglar Kwikpen) 100 Unit/Ml Inj, 18 UNIT SC QPM 10/30/23 Gabapentin (Gabapentin) 100 Mg Cap, 1 CAP PO DAILY 10/30/23 Allopurinol (Allopurinol) 100 Mg Tab, 1 TAB PO DAILY for 90 Days, #85 10/21/22 Current Medications Current Medications Medications (Trade) Dose Ordered Sig/Chito Route PRN Reason Start Time Stop Time Status Last Admin Sodium Chloride 1,000 ml @ 60 mls/hr [id number] IV 12/30/23 09:45 12/30/23 16:50 Ondansetron HCl (Zofran) 4 mg Q4HP PRN IV NAUSEA / VOMITING 12/30/23 09:45 Acetaminophen (Tylenol Tablet) 650 mg Q6HP PRN PO PAIN SCALE 1-3 OR TEMP>100.4 12/30/23 09:45 Nitroglycerin (Ntrostat Sublingual) 0.4 mg Q5MINP PRN SL FOR CHEST PAIN 12/30/23 09:45 Morphine Sulfate 2 mg Q30M PRN IV FOR CHEST PAIN 12/30/23 09:45 Diagnostic Test (Pha) (Accu-Chek Comfort Curve T) 1 strip ACHS 12/30/23 11:30 12/30/23 17:00 Insulin Human Regular (InsuLIN R) ACHS SC 12/30/23 11:30 12/30/23 17:03 Dextrose 50 ml UD PRN IV Blood Sugar LESS THAN 60 12/30/23 09:45 Ceftriaxone Sodium 50 ml @ 100 mls/hr DAILY@09 IV 12/30/23 09:43 12/30/23 11:12 Azithromycin 250 ml @ 125 mls/hr DAILY IV 12/30/23 10:00 12/30/23 16:49 Albuterol (Ventolin Medneb) 2.5 mg Q4HR NEB 12/30/23 10:00 12/30/23 19:22 Albuterol (Ventolin Medneb) 2.5 mg Q2HPRN PRN NEB SHORTNESS OF BREATH 12/30/23 09:[address] [place] (Atrovent Medneb) 0.5 mg Q4HR NEB 12/30/23 10:00 12/30/23 19:22 Allopurinol (Zyloprim Tablet) 100 mg DAILY PO 12/31/23 10:00 Apixaban (Eliquis) 5 mg BID PO 12/30/23 22:00 Furosemide (Lasix Tablet) 40 mg DAILY PO 12/31/23 10:00 Gabapentin (Neurontin Capsule) 100 mg DAILY PO 12/30/23 10:49 12/30/23 11:11 Meclizine HCl (Antivert Tablet) 25 mg TID PO 12/30/23 14:00 12/30/23 14:35 Metoprolol Succinate (Toprol Xl) 25 mg DAILY PO 12/31/23 10:00 Pantoprazole Sodium (Protonix Tablet) 40 mg DAILY PO 12/31/23 10:00 Spironolactone (Aldactone) 25 mg DAILY PO 12/31/23 10:00 Sucralfate (Carafate Tab) 1 gm BIDAC PRN PO ABDOMINAL PAIN BEFORE MEALS 12/30/23 10:45 Timolol Maleate (Timoptic 0.5%) 1 drop BID EACHEYE 12/30/23 22:00 Pramipexole Dihydrochloride (Mirapex Tablet) 0.5 mg HS PO 12/30/23 22:00 Patient Own Medication 1 tab DAILY PO 12/30/23 10:57 Acetaminophen/ Hydrocodone Bitart ([place] 5/325MG Tab) 1 tab Q4HPRN PRN PO MODERATE PAIN (4-6 PAIN SCALE) 12/30/23 16:00 12/30/23 16:27 DC Ketorolac Tromethamine (Toradol Injection) 15 mg Q8HPRN PRN IV MODERATE PAIN (4-6 PAIN SCALE) 12/30/23 16:15 01/02/24 16:15 Hold Vital Signs Vital Signs Date Time Temp Pulse Resp B/P (MAP) Pulse Ox O2 Delivery O2 Flow Rate FiO2 12/30/23 21:00 98.1 84 18 134/73 (93) 98 98.1 12/30/23 18:08 Nasal Cannula* 2 28 Physical Exam Gen.: Patient lying in bed in no apparent distress. On supplemental oxygen. Head: Normocephalic, atraumatic. Eyes: EOMI/PERRLA. Ears: Normal hearing. Normal anatomy. Neck/trachea: Trachea midline, supple. Nose: Normal external anatomy. Mouth: Moist mucous membranes. Chest: Decreased air entry bilaterally. No wheezing or rhonchi. Cardiovascular: Positive S1, positive S2. Regular rate and rhythm. Abdomen: Positive bowel sounds in all 4 quadrants. Soft, non-tender, non- distended. : Deferred. Rectal: Deferred. Skin: Warm, dry. Intact. Extremities: 2+ radial pulses bilaterally. No lower extremity edema. Neuro: Awake, alert, oriented x3. No gross motor or sensory deficits. Cranial nerves II through XII intact. Gait not assessed. Labs/Diagnostic Data Labs Test 12/30/23 21:23 12/30/23 10:09 12/29/23 23:02 12/29/23 22:10 Range/Units POC Glucose 234 H 70-106 mg/dl Hemoglobin A1c 8.3 H <5.7 % A1C Lactic Acid Level 1.3 0.4-2.0 mmol/L B-Type Natriuretic Peptide 153.46 0-100 pg/mL Troponin I High Sensitivity 12 </=34 ng/L White Blood Count 13.6 H 4.4-10.8 10^3/uL Red Blood Count 4.56 4.0-5.20 10^6/uL Hemoglobin 11.8 L 12.2-16.2 g/dL Hematocrit 36.5 36.0-46.0 % Mean Corpuscular Volume 79.9 L 80.0-100.0 fL Mean Corpuscular Hemoglobin 25.9 L 28.0-32.0 pg Mean Corpuscular Hemoglobin Concent 32.3 32.0-36.0 g/dL Red Cell Distribution Width 17.1 H 11.8-14.3 % Platelet Count 307 140-450 10^3/uL Mean Platelet Volume 7.7 6.9-10.8 fL Neutrophils (%) (Auto) 70.8 37.0-80.0 % Lymphocytes (%) (Auto) 20.6 10.0-50.0 % Monocytes (%) (Auto) 7.8 0.0-12.0 % Eosinophils (%) (Auto) 0.6 0.0-7.0 % Basophils (%) (Auto) 0.2 0.0-2.0 % Neutrophils # (Auto) 9.6 H 1.6-8.6 10 ^3/uL Lymphocytes # (Auto) 2.8 0.4-5.4 10 ^3/uL Monocytes # (Auto) 1.1 0-1.3 10 ^3/uL Eosinophils # (Auto) 0.1 0-0.8 10 ^3/uL Basophils # (Auto) 0 0-0.2 10 ^3/uL Nucleated Red Blood Cells 0.2 % Prothrombin Time 13.2 H 9.3-11.8 sec Prothrombin Time INR 1.27 H 0.9-1.15 Activated Partial Thromboplast Time 30.4 24.5-34.5 SEC Sodium Level 131 L 136-145 mmol/L Potassium Level 3.1 L 3.5-5.1 mmol/L Chloride Level 96 L 98-107 mmol/L Carbon Dioxide Level 28 20-31 mmol/L Anion Gap 7 5-15 Blood Urea Nitrogen 19 9-23 mg/dL Creatinine 0.92 0.550-1.02 mg/dL Glomerular Filtration Rate Calc 61 >90 mL/min BUN/Creatinine Ratio 20.7 H 10.0-20.0 Serum Glucose 182 H 74-106 mg/dL Calcium Level 9.0 8.7-10.4 mg/dL Magnesium Level 2.0 1.6-2.6 mg/dL Total Bilirubin 1.4 H 0.2-1.0 mg/dL Aspartate Amino Transferase (AST) 61 H 13-40 U/L Alanine Aminotransferase (ALT) 74 H 7-40 U/L Alkaline Phosphatase 308 H 46-116 U/L Total Protein 7.4 5.7-8.2 g/dL Albumin 3.4 3.2-4.8 g/dL Assessment Impression: Dyspnea due to left pneumothorax Left pneumothorax Systolic/diastolic congestive heart failure Hyponatremia Hypokalemia Type 2 diabetes mellitus, uncontrolled Acute hypoxic respiratory failure Plan: Chest x-ray report reviewed. Small left pneumothorax. Left chest tube in place. Slight improvement in diffuse multifocal airspace opacities. Likely due to underlying fibrotic disease with superimposed inspection can not be included. Of note, CXR noted increase in size of left pneumothorax, chest tube in place, diffuse multifocal airspace disease. Supplemental oxygen line keep O2 saturation above 92%. Incentive spirometry Pain control. Avoid over-sedation. Continue antibiotics Continue bronchodilators On Eliquis twice daily. On Lasix for diuresis. Maintain euvolemia. Monitor ins and outs. Monitor renal function purulent monitor electrolytes. Accu-Cheks, insulin sliding scale GI prophylaxis-Protonix DVT prophylaxis-Eliquis. Prognosis: Poor given patient's multiple co-morbidities. Rest of plan per hospitalist and other consultants. Thank you Dawn Nugent, JANIE, for allowing me to participate in this patient's care. Further recommendations will depend on the patient's clinical course. Please do not hesitate to contact me if you have any questions or concerns. This medical document was created using an electronic medical record system with [employer] dictation system. Although these documentations are being carefully reviewed, there may still be some phonetic and typographical changes. The errors are purely typographical, due to imperfection on the software program, and do not reflect any compromise in the patient's medical care. Plan discussed with: Patient, Other (RN, MD) RENETTA MCCOY MD Dec 30, 2023 23:27
[2023-12-31] VITALS (22 sets, daily range): BP systolic 101–157; BP diastolic 42–74; PULSE 62–83; RESP 14–20; TEMP 97.1–99.7; O2SAT 93–100
[2023-12-31] MEDS: PRAMIPEXOLE DIHYDROCHLORIDE MO 0.25 MG TAB PO SCH (00:38)
[2023-12-31] MEDS: ACETAMINOPHEN 325 MG TAB PO PRN (00:38)
[2023-12-31] MEDS: APIXABAN 5 MG TAB PO SCH (00:39)
--- NOTE | 2023-12-31 06:58 | DVH ---
CHEST RADIOGRAPH Indication: Follow up left pneumo Technique: Single frontal view of the chest was obtained Comparison: XY CHEST PORTABLE on DOS: 12/30/23 FINDINGS: Lines and Tubes: Left pigtail catheter is unchanged. Lungs: Diffuse bilateral pulmonary consolidation. Pleura: No effusion. Left apical pneumothorax, similar to prior study. Cardiomediastinal contours: Unremarkable Bones: No acute osseous abnormality. Chest wall: Subcutaneous emphysema. IMPRESSION: 1. Left apical pneumothorax is unchanged. Left pigtail catheter is unchanged. 2. Diffuse bilateral pulmonary consolidation.
[2023-12-31 08:40] LABS: Basophils # (auto) 0 10 ^3/uL (0-0.2); Basophils % (auto) 0.2 % (0.0-2.0); Eosinophils # (auto) 0.3 10 ^3/uL (0-0.8); Hemoglobin 10.9 g/dL (12.2-16.2); Neutrophils # (auto) 4.5 10 ^3/uL (1.6-8.6)
[2023-12-31 08:42] LABS: Eosinophils % (auto) 3.7 % (0.0-7.0); Lymphocytes # (auto) 2.2 10 ^3/uL (0.4-5.4); Lymphocytes % (auto) 27.6 % (10.0-50.0); Mean Corpuscular Hemoglobin 26.1 pg (28.0-32.0); Mean Corpuscular Hgb Conc. 32.1 g/dL (32.0-36.0); Mean Corpuscular Volume 81.3 fL (80.0-100.0); Monocytes % (auto) 12.1 % (0.0-12.0); Neutrophils % (auto) 56.4 % (37.0-80.0); Nucleated Red Blood Cells % 0.2 %; Platelet Count (auto) 233 10^3/uL (140-450); Red Blood Cells 4.18 10^6/uL (4.0-5.20); Red Cell Distribution Width 17.4 % (11.8-14.3)
[2023-12-31] MEDS: SPIRONOLACTONE 25 MG TAB PO SCH (08:57)
[2023-12-31] MEDS: PANTOPRAZOLE 40 MG TAB PO SCH (08:57)
[2023-12-31] MEDS: ALLOPURINOL 100 MG TAB PO SCH (08:58)
[2023-12-31] MEDS: METOPROLOL SUCCINATE XL 50 MG TAB PO SCH (08:59)
[2023-12-31 09:02] LABS: Alanine Aminotransferase 47 U/L (7-40); Alkaline Phosphatase 238 U/L (46-116); Anion Gap 4 (5-15); BUN/Creatinine Ratio 22.9 (10.0-20.0); Blood Urea Nitrogen 16 mg/dL (9-23); Calcium 8.8 mg/dL (8.7-10.4); Carbon Dioxide 29 mmol/L (20-31); Chloride 100 mmol/L (98-107); Glucose 120 mg/dL (74-106); Potassium 3.3 mmol/L (3.5-5.1); Sodium 133 mmol/L (136-145)
[2023-12-31 09:03] LABS: Albumin 2.8 g/dL (3.2-4.8); Aspartate Aminotransferase 40 U/L (13-40); Bilirubin, Total 1.3 mg/dL (0.2-1.0)
[2023-12-31 09:11] LABS: Hepatitis B Surface Antigen Negative (Negative)
[2023-12-31 09:32] LABS: Hepatitis A Ab IgM Negative
[2023-12-31 09:33] LABS: Hepatitis B Core IgM Negative; Hepatitis C Antibody Negative (Negative)
[2023-12-31] MEDS: FUROSEMIDE 40 MG TAB PO SCH (11:58)
[2023-12-31] MEDS: POTASSIUM EFFERVESENT TAB 25 MEQ PO ONE (11:59)
--- NOTE | 2023-12-31 12:45 | ECG ---
[facility] Test Date: 2023-12-29 Test Time: 21:55:39 Pat Name: MENG BANGURADepartment: ED Room: 0249T A Gender: F [employer] Department Head: PATY : 1940 Requested By: THANIA BARRON Order Number: [id number] Reading MD: Brandon Wen Measurements Intervals [place] Rate: 101 P: 64 IN: 171 QRS: -56 QRSD: 74 T: 71 QT: 390 QTc: 506 Interpretive Statements Sinus tachycardia Supraventricular bigeminy Left anterior fascicular block Electronically Signed On 01-02-2024 15:40:16 PDT by Brandon Wen Please click the below link to view image of tracing.
--- NOTE | 2023-12-31 13:00 | DVHPN2 ---
Subjective Patient reports that her difficulty breathing has improved. Reviewed: Care Plan, H&P, Labs Changes from previous H/P or p: No Changes Respiratory: Shortness of breath Objective Vitals Vital Signs Date Time Temp Pulse Resp B/P (MAP) Pulse Ox O2 Delivery O2 Flow Rate FiO2 12/31/23 11:58 150/82 12/31/23 10:45 75 14 100 12/31/23 09:00 97.1 97.1 12/31/23 06:41 Nasal Cannula* 2 28 Intake/Output Intake and Output 12/31/23 07:00 Intake Total 1445 ml Output Total 500 ml Balance 945 ml Intake Oral 395 ml IV Total 1050 ml Output Urine Total 500 ml General Appearance: Alert, Oriented X3, Cooperative HEENT: Atraumatic, PERRLA Neck: No Carotid Bruits [place], No Enlarged Thyroid, No JVD, No Lymphadenopathy, No Rigidity, No Supple, No Swelling, No Symmetry, No Tenderness, No Tracheal Deviation, No Full Range of Motion, No Other Lungs: Other (Course rhonchi bilaterally. Chest tube to 30 mm of suction.) Cardiovascular: Normal S1, Normal S2 Abdomen: Normal bowel sounds Musculoskeletal: Normal sensory function, Normal motor function Psych/Mental Status: Mental status NL, Mood NL Medications Current Medications Medications Dose Ordered Sig/Chito Route Start Time Stop Time Status Last Admin Dose Admin Sodium Chloride 1,000 ml @ 60 mls/hr [id number] IV 12/30/23 09:45 12/31/23 02:25 60 MLS/HR Ondansetron HCl 4 mg Q4HP PRN IV 12/30/23 09:45 12/31/23 09:17 4 MG Acetaminophen 650 mg Q6HP PRN PO 12/30/23 09:45 12/31/23 00:38 650 MG Nitroglycerin 0.4 mg Q5MINP PRN SL 12/30/23 09:45 Morphine Sulfate 2 mg Q30M PRN IV 12/30/23 09:45 Diagnostic Test (Pha) 1 strip ACHS 12/30/23 11:30 12/31/23 11:44 1 STRIP Insulin Human Regular ACHS SC 12/30/23 11:30 12/31/23 12:00 6 UNITS Dextrose 50 ml UD PRN IV 12/30/23 09:45 Ceftriaxone Sodium 50 ml @ 100 mls/hr DAILY@09 IV 12/30/23 09:43 12/31/23 08:59 100 MLS/HR Azithromycin 250 ml @ 125 mls/hr DAILY IV 12/30/23 10:00 12/31/23 09:00 125 MLS/HR Albuterol 2.5 mg Q4HR NEB 12/30/23 10:00 12/31/23 10:36 2.5 MG Albuterol 2.5 mg Q2HPRN PRN NEB 12/30/23 09:45 Ipratropium [place] 0.5 mg Q4HR NEB 12/30/23 10:00 12/31/23 10:36 0.5 MG Allopurinol 100 mg DAILY PO 12/31/23 10:00 12/31/23 08:58 100 MG Apixaban 5 mg BID PO 12/30/23 22:00 12/31/23 08:56 5 MG Furosemide 40 mg DAILY PO 12/31/23 10:00 12/31/23 11:58 40 MG Gabapentin 100 mg DAILY PO 12/30/23 10:49 12/31/23 08:58 100 MG Meclizine HCl 25 mg TID PO 12/30/23 14:00 12/31/23 07:13 25 MG Metoprolol Succinate 25 mg DAILY PO 12/31/23 10:00 12/31/23 08:59 25 MG Pantoprazole Sodium 40 mg DAILY PO 12/31/23 10:00 12/31/23 08:57 40 MG Spironolactone 25 mg DAILY PO 12/31/23 10:00 12/31/23 08:57 25 MG Sucralfate 1 gm BIDAC PRN PO 12/30/23 10:45 Timolol Maleate 1 drop BID EACHEYE 12/30/23 22:00 12/31/23 10:00 1 DROP Pramipexole Dihydrochloride 0.5 mg HS PO 12/30/23 22:00 12/31/23 00:38 0.5 MG Patient Own Medication 1 tab DAILY PO 12/30/23 10:57 Ketorolac Tromethamine 15 mg Q8HPRN PRN IV 12/30/23 16:15 01/02/24 16:15 Hold Laboratory Results Laboratory Tests 12/31/23 08:10 Chemistry Test 12/31/23 08:10 Albumin 2.8 g/dL (3.2-4.8) L Calcium Level 8.8 mg/dL (8.7-10.4) Total Protein 6.0 g/dL (5.7-8.2) LFT Test 12/31/23 08:10 Alanine Aminotransferase (ALT) 47 U/L (7-40) H Alkaline Phosphatase 238 U/L (46-116) H Aspartate Amino Transferase (AST) 40 U/L (13-40) Total Bilirubin 1.3 mg/dL (0.2-1.0) H Microbiology Microbiology Date/Time Source Procedure Growth Status 12/30/23 10:09 Blood Blood Culture - Preliminary NO GROWTH AFTER 24 HOURS OF INCUBATION. Resulted Labs and/or images reviewed: Labs reviewed by me, Image(s) reviewed by me Assessment/Plan Assessment/Plan Impression: -spontaneous large left pneumothorax, resolving -acute on chronic hypoxic respiratory failure -pulmonary fibrosis -diabetes mellitus -cirrhosis -primary hypertension Plan: -pulmonary consultation: Patient was status post pigtail catheter placement. Continues to have small left apical pneumothorax. Suctioned has been increased to negative 30 mm of water -bronchodilators, ICS -regular insulin sliding scale -pain management -potassium replacement -repeat chest x-ray in a.m. Total time spent with patient discussing and formulating plan of care: 35 minutes. This medical document was created using an electronic medical record system with [employer] dictation system. Although this document has been carefully reviewed, there may still be some phonetic and typographical errors. These areas are purely typographical due to imperfections of the software programs, and do not reflect any compromise in the patient's medical care. Plan discussed with: Patient, Other (RN) Date of Service: Dec 31, 2023 Billing Provider: PAULINA GANDHI NP Common Visit Codes: [id number] INP/OBS CARE(HIGH) PAULINA GANDHI NP Dec 31, 2023 13:00
--- NOTE | 2023-12-31 19:27 | DVHPN2 ---
Progress Note - Dictate Date Seen: Dec 31, 2023 Medical Necessity Reason Pt with a Central, PICC or Fol: No Subjective Patient seen and examined at bedside. Remains on supplemental oxygen Overnight events reviewed. vital signs Vital Sign Date Time Temp Pulse Resp B/P (MAP) Pulse Ox O2 Delivery O2 Flow Rate FiO2 12/31/23 18:59 83 18 98 12/31/23 18:49 Nasal Cannula 1.0 12/31/23 18:49 24 12/31/23 17:00 99.3 157/55 (89) 99.3 Total Intake and Output 12/30/23 12/30/23 12/31/23 15:00 23:00 07:00 Intake Total 945 ml 105 ml 395 ml Output Total 500 ml Balance 945 ml 105 ml -105 ml medications Current Medications Medications Dose Ordered Sig/Chito Route Start Time Stop Time Status Last Admin Dose Admin Sodium Chloride 1,000 ml @ 60 mls/hr [id number] IV 12/30/23 09:45 12/31/23 02:25 60 MLS/HR Ondansetron HCl 4 mg Q4HP PRN IV 12/30/23 09:45 12/31/23 09:17 4 MG Acetaminophen 650 mg Q6HP PRN PO 12/30/23 09:45 12/31/23 17:41 650 MG Nitroglycerin 0.4 mg Q5MINP PRN SL 12/30/23 09:45 Morphine Sulfate 2 mg Q30M PRN IV 12/30/23 09:45 Diagnostic Test (Pha) 1 strip ACHS 12/30/23 11:30 12/31/23 17:35 1 STRIP Insulin Human Regular ACHS SC 12/30/23 11:30 12/31/23 17:41 2 UNITS Dextrose 50 ml UD PRN IV 12/30/23 09:45 Ceftriaxone Sodium 50 ml @ 100 mls/hr DAILY@09 IV 12/30/23 09:43 12/31/23 08:59 100 MLS/HR Azithromycin 250 ml @ 125 mls/hr DAILY IV 12/30/23 10:00 12/31/23 09:00 125 MLS/HR Albuterol 2.5 mg Q4HR NEB 12/30/23 10:00 12/31/23 18:49 2.5 MG Albuterol 2.5 mg Q2HPRN PRN NEB 12/30/23 09:45 Ipratropium [place] 0.5 mg Q4HR NEB 12/30/23 10:00 12/31/23 18:49 0.5 MG Allopurinol 100 mg DAILY PO 12/31/23 10:00 12/31/23 08:58 100 MG Apixaban 5 mg BID PO 12/30/23 22:00 12/31/23 08:56 5 MG Furosemide 40 mg DAILY PO 12/31/23 10:00 12/31/23 11:58 40 MG Gabapentin 100 mg DAILY PO 12/30/23 10:49 12/31/23 08:58 100 MG Meclizine HCl 25 mg TID PO 12/30/23 14:00 12/31/23 14:41 25 MG Metoprolol Succinate 25 mg DAILY PO 12/31/23 10:00 12/31/23 08:59 25 MG Pantoprazole Sodium 40 mg DAILY PO 12/31/23 10:00 12/31/23 08:57 40 MG Spironolactone 25 mg DAILY PO 12/31/23 10:00 12/31/23 08:57 25 MG Sucralfate 1 gm BIDAC PRN PO 12/30/23 10:45 Timolol Maleate 1 drop BID EACHEYE 12/30/23 22:00 12/31/23 10:00 1 DROP Pramipexole Dihydrochloride 0.5 mg HS PO 12/30/23 22:00 12/31/23 00:38 0.5 MG Patient Own Medication 1 tab DAILY PO 12/30/23 10:57 Ketorolac Tromethamine 15 mg Q8HPRN PRN IV 12/30/23 16:15 01/02/24 16:15 Hold objective Gen.: Patient lying in bed in no apparent distress. On supplemental oxygen. Head: Normocephalic, atraumatic. Eyes: EOMI/PERRLA. Ears: Normal hearing. Normal anatomy. Neck/trachea: Trachea midline, supple. Nose: Normal external anatomy. Mouth: Moist mucous membranes. Chest: Decreased air entry bilaterally. No wheezing or rhonchi. Cardiovascular: Positive S1, positive S2. Regular rate and rhythm. Abdomen: Positive bowel sounds in all 4 quadrants. Soft, non-tender, non- distended. : Deferred. Rectal: Deferred. Skin: Warm, dry. Intact. Extremities: 2+ radial pulses bilaterally. No lower extremity edema. Neuro: Awake, alert, oriented x3. No gross motor or sensory deficits. Cranial nerves II through XII intact. Gait not assessed. laboratory and microbiology Laboratory Tests 12/31/23 08:10 Test 12/31/23 08:10 Range/Units Serum Glucose 120 H 74-106 mg/dL Assessment/Plan Impression: Dyspnea due to left pneumothorax Left pneumothorax Systolic/diastolic congestive heart failure Hyponatremia Hypokalemia Type 2 diabetes mellitus, uncontrolled Acute hypoxic respiratory failure Events: On supplemental oxygen, 2 LPM NC Taper O2 as tolerated. Left chest tube demonstrates air leak to 1. Increase suction to -30 cm H2O. Obtain daily CXR. Labs and imaging reviewed. Rest of plan as noted below. Plan: Chest x-ray report reviewed. Small left pneumothorax. Left chest tube in place. Slight improvement in diffuse multifocal airspace opacities. Likely due to underlying fibrotic disease with superimposed inspection can not be included. Of note, CXR noted increase in size of left pneumothorax, chest tube in place, diffuse multifocal airspace disease. Supplemental oxygen Keep O2 saturation above 92%. Incentive spirometry Pain control. Avoid over-sedation. Continue antibiotics Continue bronchodilators On Eliquis twice daily. On Lasix for diuresis. Maintain euvolemia. Monitor ins and outs. Monitor renal function purulent monitor electrolytes. Accu-Cheks, insulin sliding scale GI prophylaxis-Protonix DVT prophylaxis-Eliquis. Prognosis: Poor given patient's multiple co-morbidities. Rest of plan per hospitalist and other consultants. Thank you aDwn Nugent, JANIE, for allowing me to participate in this patient's care. Further recommendations will depend on the patient's clinical course. Please do not hesitate to contact me if you have any questions or concerns. This medical document was created using an electronic medical record system with [employer] dictation system. Although these documentations are being carefully reviewed, there may still be some phonetic and typographical changes. The errors are purely typographical, due to imperfection on the software program, and do not reflect any compromise in the patient's medical care. Plan discussed with: Patient, Other (LALITHA [place]en[place]) RENETTA MCCOY MD Dec 31, 2023 19:27
[2024-01-01] VITALS (17 sets, daily range): BP systolic 121–157; BP diastolic 44–83; PULSE 59–78; RESP 14–20; TEMP 97.5–99.1; O2SAT 90–100
--- NOTE | 2024-01-01 07:26 | DVH ---
CHEST RADIOGRAPH Indication:pneumothorax Technique: Single frontal view of the chest was obtained Comparison: XY CHEST PORTABLE on DOS: 12/31/23 FINDINGS: Lines and Tubes: Left pigtail catheter is unchanged. Lungs: Bilateral pulmonary interstitial and alveolar opacities demonstrated similar to prior study. Pleura: No effusion. No persistent pneumothorax. Cardiomediastinal contours: Stable cardiovascular silhouette. Bones: No acute osseous abnormality. Left chest wall emphysema. IMPRESSION: 1. No persistent left pneumothorax. Left pigtail catheter is unchanged. Bilateral interstitial and airspace disease.
--- NOTE | 2024-01-01 10:56 | DVHPN2 ---
Subjective Patient reports that her difficulty breathing has improved. Reviewed: Care Plan, H&P, Labs Changes from previous H/P or p: No Changes Respiratory: Shortness of breath Objective Vitals Vital Signs Date Time Temp Pulse Resp B/P (MAP) Pulse Ox O2 Delivery O2 Flow Rate FiO2 01/01/24 10:39 69 16 100 01/01/24 10:33 Nasal Cannula 1.0 01/01/24 10:33 24 01/01/24 10:21 154/88 01/01/24 05:00 99.1 99.1 Intake/Output Intake and Output 01/01/24 07:00 Intake Total 1375 ml Balance 1375 ml Intake Oral 1075 ml IV Total 300 ml # Voids 5 General Appearance: Alert, Oriented X3, Cooperative, No acute distress HEENT: Atraumatic, PERRLA Neck: No Carotid Bruits [place], No Enlarged Thyroid, No JVD, No Lymphadenopathy, No Rigidity, No Supple, No Swelling, No Symmetry, No Tenderness, No Tracheal Deviation, No Full Range of Motion, No Other Lungs: Other (Course rhonchi bilaterally. Chest tube to 30 mm of suction.) Cardiovascular: Normal S1, Normal S2 Abdomen: Normal bowel sounds Musculoskeletal: Normal sensory function, Normal motor function Psych/Mental Status: Mental status NL, Mood NL Medications Current Medications Medications Dose Ordered Sig/[place]ito Route Start Time Stop Time Status Last Admin Dose Admin Sodium Chloride 1,000 ml @ 60 mls/hr [id number] IV 12/30/23 09:45 12/31/23 02:25 60 MLS/HR Ondansetron HCl 4 mg Q4HP PRN IV 12/30/23 09:45 12/31/23 09:17 4 MG Acetaminophen 650 mg Q6HP PRN PO 12/30/23 09:45 01/01/24 08:40 650 MG Nitroglycerin 0.4 mg Q5MINP PRN SL 12/30/23 09:45 Morphine Sulfate 2 mg Q30M PRN IV 12/30/23 09:45 Diagnostic Test (Pha) 1 strip ACHS 12/30/23 11:30 01/01/24 05:59 1 STRIP Insulin Human Regular ACHS SC 12/30/23 11:30 12/31/23 22:11 4 UNITS Dextrose 50 ml UD PRN IV 12/30/23 09:45 Ceftriaxone Sodium 50 ml @ 100 mls/hr DAILY@09 IV 12/30/23 09:43 01/01/24 10:21 100 MLS/HR Azithromycin 250 ml @ 125 mls/hr DAILY IV 12/30/23 10:00 01/01/24 10:21 125 MLS/HR Albuterol 2.5 mg Q4HR NEB 12/30/23 10:00 01/01/24 10:33 2.5 MG Albuterol 2.5 mg Q2HPRN PRN NEB 12/30/23 09:45 Ipratropium [place] 0.5 mg Q4HR NEB 12/30/23 10:00 01/01/24 10:33 0.5 MG Allopurinol 100 mg DAILY PO 12/31/23 10:00 01/01/24 10:20 100 MG Apixaban 5 mg BID PO 12/30/23 22:00 01/01/24 10:32 5 MG Furosemide 40 mg DAILY PO 12/31/23 10:00 01/01/24 10:20 40 MG Gabapentin 100 mg DAILY PO 12/30/23 10:49 01/01/24 10:20 100 MG Meclizine HCl 25 mg TID PO 12/30/23 14:00 01/01/24 05:59 25 MG Metoprolol Succinate 25 mg DAILY PO 12/31/23 10:00 01/01/24 10:21 25 MG Pantoprazole Sodium 40 mg DAILY PO 12/31/23 10:00 01/01/24 10:20 40 MG Spironolactone 25 mg DAILY PO 12/31/23 10:00 01/01/24 10:20 25 MG Sucralfate 1 gm BIDAC PRN PO 12/30/23 10:45 Timolol Maleate 1 drop BID EACHEYE 12/30/23 22:00 01/01/24 10:21 1 DROP Pramipexole Dihydrochloride 0.5 mg HS PO 12/30/23 22:00 12/31/23 22:29 0.5 MG Patient Own Medication 1 tab DAILY PO 12/30/23 10:57 Ketorolac Tromethamine 15 mg Q8HPRN PRN IV 12/30/23 16:15 01/02/24 16:15 Hold Laboratory Results Laboratory Tests 12/31/23 08:10 Microbiology Microbiology Date/Time Source Procedure Growth Status 12/30/23 10:09 Blood Blood Culture - Preliminary NO GROWTH AFTER 48 HOURS OF INCUBATION. Resulted Labs and/or images reviewed: Labs reviewed by me, Image(s) reviewed by me Assessment/Plan Assessment/Plan Impression: -spontaneous large left pneumothorax, resolving -acute on chronic hypoxic respiratory failure -pulmonary fibrosis -diabetes mellitus -cirrhosis -primary hypertension Plan: Events: Chest x-ray from today reveals that apical pneumothorax has resolved. Verification will be performed with CT scan. Plan of care discussed with pulmonology, Dr. Rios. Plans for possibly placing patient to water seal. Discussed with the patient. -pulmonary consultation: Patient was status post pigtail catheter placement. Continues to have small left apical pneumothorax. Suctioned has been increased to negative 30 mm of water -bronchodilators, ICS -regular insulin sliding scale -pain management -potassium replacement -repeat labs, chest x-ray in a.m. Total time spent with patient discussing and formulating plan of care: 35 minutes. This medical document was created using an electronic medical record system with [employer] dictation system. Although this document has been carefully reviewed, there may still be some phonetic and typographical errors. These areas are purely typographical due to imperfections of the software programs, and do not reflect any compromise in the patient's medical care. Plan discussed with: Patient, Daughter, Other (RN) My Orders Orders - PAULINA GANDHI NP Procedure Category Date Status Time Chest Portable XY 01/01/24 Resulted 04:00 Apply Barrier Cream JULIO 12/31/23 In Process 15:30 Cleanse Wound With Ns JULIO 12/31/23 In Process 15:[address] 01/01/24 Logged 10:07 Date of Service: Jan 01, 2024 Billing Provider: PAULINA GANDHI NP Common Visit Codes: [id number] INP/OBS CARE(HIGH) PAULINA GANDHI NP Jan 01, 2024 10:56
--- NOTE | 2024-01-01 11:22 | DVH ---
Procedure: CT CHEST WITHOUT CONTRAST Reason for study/Clinical History: verify resolution of pneumothorax Comparison Study: Chest radiograph performed earlier same date Exam Date: 01/01/2024 10:50 AM TECHNIQUE: Multidetector CT of the chest was performed from the lung apices to the upper abdomen with out the use of intravenous contract. Axial, coronal and sagittal multiplanar reformats were performed . Radiation Dose Information: CT Dose: CTDI volume is 16.79 mGy. Dose-length product is 570.8 mGy*cm The dose indicators for CT are the volume Computed Tomography (CT) Dose Index (CTDIvol) and the Dose Length Product (DLP), and are measured in units of mGy and mGy-cm, respectively. These indicators are not patient dose, but values generated from the CT scanner acquisition factors. The report includes radiation exposure data for exposures received during this examination. FINDINGS: Lower neck: Normal thyroid. Lungs: There is severe paraseptal and centrilobular emphysema. There is consolidation versus atelecta sis in the left lower lobe. There is a pigtail catheter with its tip coiled in the left lower anterol ateral pleural space. Pleura: No pneumothorax. No pleural effusion. Heart/Vascular Structures: Normal heart size. There are coronary artery calcifications. No pericardia l effusion. Atherosclerotic calcifications in the thoracic aorta. No thoracic aortic aneurysm. Shahla l caliber main pulmonary artery. Lymph Nodes: No adenopathy Musculoskeletal: No acute osseous abnormality. Multilevel thoracic spondylosis. Soft tissues: Left chest wall and neck subcutaneous emphysema. Bilateral breast implants. Upper abdomen: Limited portions of the upper abdomen show lobular nodular contour of the liver, sheyla tible with cirrhosis. There is ascites. IMPRESSION: 1. No pneumothorax. Left pigtail catheter is appropriately positioned in the anterior left pleural s pace. 2. Severe centrilobular and paraseptal emphysema. Left lower lobe consolidation versus atelectasis. 3. Soft tissue emphysema Radiation optimization: All CT scans at this facility use at least one of these dose optimization danny hniques: automated exposure control mA and/or kV adjustment per patient size (includes targeted exam s where dose is matched to clinical indication) or iterative reconstruction.
--- NOTE | 2024-01-01 18:50 | DVHPN2 ---
Progress Note - Dictate Date Seen: Jan 01, 2024 Medical Necessity Reason Pt with a Central, PICC or Fol: No Subjective Patient seen and examined at bedside. Breathing on room air. Overnight events reviewed. vital signs Vital Sign Date Time Temp Pulse Resp B/P (MAP) Pulse Ox O2 Delivery O2 Flow Rate FiO2 01/01/24 17:00 97.5 59 16 121/70 (87) 95 97.5 01/01/24 14:20 Room Air* 0 21 Total Intake and Output 12/31/23 12/31/23 01/01/24 15:00 23:00 07:00 Intake Total 300 ml 725 ml 350 ml Balance 300 ml 725 ml 350 ml medications Current Medications Medications Dose Ordered Sig/Chito Route Start Time Stop Time Status Last Admin Dose Admin Sodium Chloride 1,000 ml @ 60 mls/hr [id number] IV 12/30/23 09:45 01/01/24 12:09 60 MLS/HR Ondansetron HCl 4 mg Q4HP PRN IV 12/30/23 09:45 12/31/23 09:17 4 MG Acetaminophen 650 mg Q6HP PRN PO 12/30/23 09:45 01/01/24 18:06 650 MG Nitroglycerin 0.4 mg Q5MINP PRN SL 12/30/23 09:45 Morphine Sulfate 2 mg Q30M PRN IV 12/30/23 09:45 Diagnostic Test (Pha) 1 strip ACHS 12/30/23 11:30 01/01/24 17:39 1 STRIP Insulin Human Regular ACHS SC 12/30/23 11:30 01/01/24 17:39 4 UNITS Dextrose 50 ml UD PRN IV 12/30/23 09:45 Ceftriaxone Sodium 50 ml @ 100 mls/hr DAILY@09 IV 12/30/23 09:43 01/01/24 10:21 100 MLS/HR Azithromycin 250 ml @ 125 mls/hr DAILY IV 12/30/23 10:00 01/01/24 10:21 125 MLS/HR Albuterol 2.5 mg Q4HR NEB 12/30/23 10:00 01/01/24 14:20 2.5 MG Albuterol 2.5 mg Q2HPRN PRN NEB 12/30/23 09:45 Ipratropium [place] 0.5 mg Q4HR NEB 12/30/23 10:00 01/01/24 14:20 0.5 MG Allopurinol 100 mg DAILY PO 12/31/23 10:00 01/01/24 10:20 100 MG Apixaban 5 mg BID PO 12/30/23 22:00 01/01/24 10:32 5 MG Furosemide 40 mg DAILY PO 12/31/23 10:00 01/01/24 10:20 40 MG Gabapentin 100 mg DAILY PO 12/30/23 10:49 01/01/24 10:20 100 MG Meclizine HCl 25 mg TID PO 12/30/23 14:00 01/01/24 14:17 25 MG Metoprolol Succinate 25 mg DAILY PO 12/31/23 10:00 01/01/24 10:21 25 MG Pantoprazole Sodium 40 mg DAILY PO 12/31/23 10:00 01/01/24 10:20 40 MG Spironolactone 25 mg DAILY PO 12/31/23 10:00 01/01/24 10:20 25 MG Sucralfate 1 gm BIDAC PRN PO 12/30/23 10:45 Timolol Maleate 1 drop BID EACHEYE 12/30/23 22:00 01/01/24 10:21 1 DROP Pramipexole Dihydrochloride 0.5 mg HS PO 12/30/23 22:00 12/31/23 22:29 0.5 MG Patient Own Medication 1 tab DAILY PO 12/30/23 10:57 Ketorolac Tromethamine 15 mg Q8HPRN PRN IV 12/30/23 16:15 01/02/24 16:15 Hold Docusate Sodium 100 mg BID PO 01/01/24 22:00 objective Gen.: Patient lying in bed in no apparent distress. Breathing on room air. Head: Normocephalic, atraumatic. Eyes: EOMI/PERRLA. Ears: Normal hearing. Normal anatomy. Neck/trachea: Trachea midline, supple. Nose: Normal external anatomy. Mouth: Moist mucous membranes. Chest: Decreased air entry bilaterally. No wheezing or rhonchi. Cardiovascular: Positive S1, positive S2. Regular rate and rhythm. Abdomen: Positive bowel sounds in all 4 quadrants. Soft, non-tender, non- distended. : Deferred. Rectal: Deferred. Skin: Warm, dry. Intact. Extremities: 2+ radial pulses bilaterally. No lower extremity edema. Neuro: Awake, alert, oriented x3. No gross motor or sensory deficits. Cranial nerves II through XII intact. Gait not assessed. laboratory and microbiology Laboratory Tests 12/31/23 08:10 Test 12/31/23 08:10 Range/Units Serum Glucose 120 H 74-106 mg/dL Assessment/Plan Impression: Dyspnea due to left pneumothorax Left pneumothorax Systolic/diastolic congestive heart failure Hyponatremia Hypokalemia Type 2 diabetes mellitus, uncontrolled Acute hypoxic respiratory failure Events: Breathing on room air. No respiratory distress. CXR reviewed, no pneumothorax. Left chest tube to suction, -30 cmH20 Obtain CXR in the AM If no pneumothorax, will place to water seal. Incentive spirometry Continue antibiotics Pain control Avoid oversedation Diurese w/ Lasix Monitor renal function DVT prophylaxis Labs and imaging reviewed. Rest of plan as noted below. Plan: Chest x-ray report reviewed. Small left pneumothorax. Left chest tube in place. Slight improvement in diffuse multifocal airspace opacities. Likely due to underlying fibrotic disease with superimposed inspection can not be included. Of note, CXR noted increase in size of left pneumothorax, chest tube in place, diffuse multifocal airspace disease. 12/31 - CXR shows resolution of pneumothorax. On room air. Incentive spirometry Pain control. Avoid over-sedation. Continue antibiotics Continue bronchodilators On Eliquis twice daily. On Lasix for diuresis. Maintain euvolemia. Monitor ins and outs. Monitor renal function purulent monitor electrolytes. Accu-Cheks, insulin sliding scale GI prophylaxis-Protonix DVT prophylaxis-Eliquis. Prognosis: Poor given patient's multiple co-morbidities. Rest of plan per hospitalist and other consultants. Thank you Dawn Nugent NP, for allowing me to participate in this patient's care. Further recommendations will depend on the patient's clinical course. Please do not hesitate to contact me if you have any questions or concerns. This medical document was created using an electronic medical record system with [employer] system. Although these documentations are being carefully reviewed, there may still be some phonetic and typographical changes. The errors are purely typographical, due to imperfection on the software program, and do not reflect any compromise in the patient's medical care. Plan discussed with: Patient, Other (RN RENETTA Mejias MD Jan 01, 2024 18:50
[2024-01-01] MEDS: DOCUSATE SOD 100 MG CAP PO SCH (22:23)
[2024-01-02] VITALS (20 sets, daily range): BP systolic 100–145; BP diastolic 42–66; PULSE 62–72; RESP 15–20; TEMP 98.1–98.9; O2SAT 94–100
[2024-01-02 07:27] LABS: Basophils # (auto) 0 10 ^3/uL (0-0.2); Basophils % (auto) 0.3 % (0.0-2.0); Eosinophils # (auto) 0.3 10 ^3/uL (0-0.8); Eosinophils % (auto) 3.6 % (0.0-7.0); Hematocrit 34.3 % (36.0-46.0); Hemoglobin 11.2 g/dL (12.2-16.2); Lymphocytes # (auto) 2.7 10 ^3/uL (0.4-5.4); Lymphocytes % (auto) 33.3 % (10.0-50.0); Mean Corpuscular Hemoglobin 26.5 pg (28.0-32.0); Mean Corpuscular Hgb Conc. 32.8 g/dL (32.0-36.0); Mean Corpuscular Volume 80.9 fL (80.0-100.0); Monocytes # (auto) 0.8 10 ^3/uL (0-1.3); Monocytes % (auto) 9.6 % (0.0-12.0); Neutrophils # (auto) 4.4 10 ^3/uL (1.6-8.6); Neutrophils % (auto) 53.2 % (37.0-80.0); Nucleated Red Blood Cells % 0.1 %; Platelet Count (auto) 261 10^3/uL (140-450); Red Blood Cells 4.23 10^6/uL (4.0-5.20); Red Cell Distribution Width 17.5 % (11.8-14.3); White Blood Cell 8.2 10^3/uL (4.4-10.8)
[2024-01-02 07:29] LABS: Chloride 96 mmol/L (98-107); Sodium 132 mmol/L (136-145)
[2024-01-02 07:30] LABS: Anion Gap 4 (5-15); Carbon Dioxide 32 mmol/L (20-31)
[2024-01-02 07:31] LABS: Calcium 9.3 mg/dL (8.7-10.4)
[2024-01-02 07:36] LABS: BUN/Creatinine Ratio 22.2 (10.0-20.0); Blood Urea Nitrogen 20 mg/dL (9-23); Glucose 133 mg/dL (74-106)
--- NOTE | 2024-01-02 08:49 | DVH ---
Procedure: XY CHEST XRAY 1 VIEW 01/02/2024 08:27 AM Indication: interval changes in pneumothorax and chest tube placement. Comparison: XY CHEST PORTABLE on DOS: 01/01/24, XY CHEST PORTABLE on DOS: 12/31/23, XY CHEST PORTABLE o n DOS: 12/30/23 TECHNIQUE: XY CHEST XRAY 1 VIEW FINDINGS: Medical devices: None. Cardiomediastinal: The heart is normal in size. Pulmonary vasculature is within normal limits. Athero sclerotic calcification of the aortic arch noted. Lungs: Bilateral peribronchial cuffing. Diffuse bilateral interstitial opacities noted. Stable patch y consolidation in the left lower lobe. The costophrenic angles are clear. No pneumothorax identifi ed. The left-sided small bore chest tube is stable in position. Bones/soft tissues: Small left lateral upper chest wall subcutaneous emphysema. IMPRESSION: 1. The left-sided small bore chest tube is stable in position. No pneumothorax is identified. Stable small left upper lateral chest wall subcutaneous emphysema. 2. Chronic interstitial lung disease with suggestion of superimposed left lower lobe pneumonia.
--- NOTE | 2024-01-02 12:56 | DVH ---
CHEST RADIOGRAPH Indication:reassess pneumothorax Technique: Single frontal view of the chest was obtained COMPARISON: XY CHEST XRAY 1 VIEW on DOS: 01/02/24, XY CHEST PORTABLE on DOS: 01/01/24, XY CHEST PORTABL E on DOS: 12/31/23 FINDINGS: Lines and Tubes: Left chest tube in-situ. Lungs: Multifocal airspace disease. Pleura: No effusion. No pneumothorax. Cardiomediastinal contours: Unremarkable Bones: Unremarkable IMPRESSION: No appreciable pneumothorax.
--- NOTE | 2024-01-02 14:16 | DVHPN2 ---
Subjective Patient reports that her difficulty breathing has improved. Reviewed: Care Plan, H&P, Labs Changes from previous H/P or p: No Changes Respiratory: Shortness of breath Objective Vitals Vital Signs Date Time Temp Pulse Resp B/P (MAP) Pulse Ox O2 Delivery O2 Flow Rate FiO2 01/02/24 11:30 98.2 67 16 110/45 (66) 98 98.2 01/02/24 11:04 Nasal Cannula* 2 28 Intake/Output Intake and Output 01/02/24 07:00 Intake Total 2025 ml Output Total 950 ml Balance 1075 ml Intake Oral 1725 ml IV Total 300 ml Output Urine Total 950 ml General Appearance: Alert, Oriented X3, Cooperative, No acute distress HEENT: Atraumatic, PERRLA Neck: No Carotid Bruits [place], No Enlarged Thyroid, No JVD, No Lymphadenopathy, No Rigidity, No Supple, No Swelling, No Symmetry, No Tenderness, No Tracheal Deviation, No Full Range of Motion, No Other Lungs: Other (Course rhonchi bilaterally. Chest tube to 30 mm of suction.) Cardiovascular: Normal S1, Normal S2 Abdomen: Normal bowel sounds Musculoskeletal: Normal sensory function, Normal motor function Psych/Mental Status: Mental status NL, Mood NL Medications Current Medications Medications Dose Ordered Sig/[place]ito Route Start Time Stop Time Status Last Admin Dose Admin Sodium Chloride 1,000 ml @ 60 mls/hr [id number] IV 12/30/23 09:45 01/01/24 12:09 60 MLS/HR Ondansetron HCl 4 mg Q4HP PRN IV 12/30/23 09:45 01/02/24 09:36 4 MG Acetaminophen 650 mg Q6HP PRN PO 12/30/23 09:45 01/01/24 18:06 650 MG Nitroglycerin 0.4 mg Q5MINP PRN SL 12/30/23 09:45 Morphine Sulfate 2 mg Q30M PRN IV 12/30/23 09:45 Diagnostic Test (Pha) 1 strip ACHS 12/30/23 11:30 01/02/24 12:33 1 STRIP Insulin Human Regular ACHS SC 12/30/23 11:30 01/02/24 12:33 3 UNITS Dextrose 50 ml UD PRN IV 12/30/23 09:45 Ceftriaxone Sodium 50 ml @ 100 mls/hr DAILY@09 IV 12/30/23 09:43 01/02/24 09:36 100 MLS/HR Azithromycin 250 ml @ 125 mls/hr DAILY IV 12/30/23 10:00 01/02/24 09:39 125 MLS/HR Albuterol 2.5 mg Q4HR NEB 12/30/23 10:00 01/02/24 11:04 2.5 MG Albuterol 2.5 mg Q2HPRN PRN NEB 12/30/23 09:45 Ipratropium [place] 0.5 mg Q4HR NEB 12/30/23 10:00 01/02/24 11:04 0.5 MG Allopurinol 100 mg DAILY PO 12/31/23 10:00 01/02/24 09:37 100 MG Apixaban 5 mg BID PO 12/30/23 22:00 01/02/24 09:38 5 MG Furosemide 40 mg DAILY PO 12/31/23 10:00 01/02/24 09:37 40 MG Gabapentin 100 mg DAILY PO 12/30/23 10:49 01/02/24 09:37 100 MG Meclizine HCl 25 mg TID PO 12/30/23 14:00 01/02/24 06:23 25 MG Metoprolol Succinate 25 mg DAILY PO 12/31/23 10:00 01/02/24 09:38 25 MG Pantoprazole Sodium 40 mg DAILY PO 12/31/23 10:00 01/02/24 09:37 40 MG Spironolactone 25 mg DAILY PO 12/31/23 10:00 01/02/24 09:38 25 MG Sucralfate 1 gm BIDAC PRN PO 12/30/23 10:45 Timolol Maleate 1 drop BID EACHEYE 12/30/23 22:00 01/02/24 09:39 1 DROP Pramipexole Dihydrochloride 0.5 mg HS PO 12/30/23 22:00 01/01/24 22:23 0.5 MG Patient Own Medication 1 tab DAILY PO 12/30/23 10:57 Ketorolac Tromethamine 15 mg Q8HPRN PRN IV 12/30/23 16:15 01/02/24 16:15 Hold Docusate Sodium 100 mg BID PO 01/01/24 22:00 01/02/24 09:38 100 MG Laboratory Results Laboratory Tests 01/02/24 06:44 Chemistry Test 01/02/24 06:44 Calcium Level 9.3 mg/dL (8.7-10.4) Microbiology Microbiology Date/Time Source Procedure Growth Status 12/30/23 10:09 Blood Blood Culture - Preliminary NO GROWTH AFTER 72 HOURS OF INCUBATION. Resulted Labs and/or images reviewed: Labs reviewed by me, Image(s) reviewed by me Assessment/Plan Assessment/Plan Impression: -spontaneous large left pneumothorax, resolving -acute on chronic hypoxic respiratory failure -pulmonary fibrosis -diabetes mellitus -cirrhosis -primary hypertension -constipation Plan: Events: Patient chest tube placed on water seal. Repeat x-ray negative for pneumothorax. Plans for removal of chest tube by pulmonology. DC planning for tomorrow -pulmonary consultation: Patient was status post pigtail catheter placement. Continues to have small left apical pneumothorax. Suctioned has been increased to negative 30 mm of water -bronchodilators, ICS -regular insulin sliding scale -pain management -potassium replacement -repeat chest x-ray in a.m. Total time spent with patient discussing and formulating plan of care: 35 minutes. This medical document was created using an electronic medical record system with [employer]ation system. Although this document has been carefully reviewed, there may still be some phonetic and typographical errors. These areas are purely typographical due to imperfections of the software programs, and do not reflect any compromise in the patient's medical care. Plan discussed with: Patient, Other (RN) My Orders Orders - PAULINA GANDHI NP Procedure Category Date Status Time Docusate Sodium PHA 01/01/24 In Process Capsule (Colace 22:00 2 Gm Sodium Diet DIET 01/02/24 Transmitted Lunch Date of Service: Jan 02, 2024 Billing Provider: PAULINA GANDHI NP Common Visit Codes: [id number] INP/OBS CARE(HIGH) PAULINA GANDHI NP Jan 02, 2024 14:16
--- NOTE | 2024-01-02 17:09 | MEDREC ---
FORMERLY [facility], [facility] Intervention Section I FORMERLY [facility], [facility] Intervention: Review courses of therapy (PLEASE CONSIDER D/C ANTIBIOTIC(S) IN ABSENCE OF BACTERIAL INFECTION ) DONNA KIMBLE PHARMACIST Jan 02, 2024 17:09
[2024-01-02] MEDS ORDERED: TIMO0.2524 OP (17:52)
[2024-01-02] MEDS ORDERED: TEMA15CA2 PO (17:52)
--- NOTE | 2024-01-02 18:34 | DVH ---
CHEST RADIOGRAPH Indication:S/P Chest tube removal Technique: Single frontal view of the chest was obtained Comparison: XY CHEST XRAY 1 VIEW on DOS: 01/02/24, XY CHEST XRAY 1 VIEW on DOS: 01/02/24, XY CHEST PORT ABLE on DOS: 01/01/24, XY CHEST PORTABLE on DOS: 12/31/23, XY CHEST PORTABLE on DOS: 12/30/23 Findings/IMPRESSION: Coarse bilateral diffuse interstitial opacities which appear relatively stable f rom prior and may be related to chronic interstitial lung disease /fibrotic changes with a superimpos ed infectious process not completely excluded. No pneumothorax. Interval removal of the left-sided ch est tube. Subtle subcutaneous emphysema along the left lateral thoracic wall.
--- NOTE | 2024-01-02 19:55 | DVHPN2 ---
Progress Note - Dictate Date Seen: Jan 02, 2024 Medical Necessity Reason Pt with a Central, PICC or Fol: No Subjective Patient seen and examined at bedside. On supplemental oxygen Overnight events reviewed. vital signs Vital Sign Date Time Temp Pulse Resp B/P (MAP) Pulse Ox O2 Delivery O2 Flow Rate FiO2 01/02/24 19:30 99 Nasal Cannula 2.0 01/02/24 19:30 67 18 01/02/24 19:30 28 01/02/24 17:14 98.4 118/49 (72) 98.4 Total Intake and Output 01/01/24 01/01/24 01/02/24 15:00 23:00 07:00 Intake Total 300 ml 925 ml 800 ml Output Total 950 ml Balance 300 ml 925 ml -150 ml medications Current Medications Medications Dose Ordered Sig/Chito Route Start Time Stop Time Status Last Admin Dose Admin Sodium Chloride 1,000 ml @ 60 mls/hr [id number] IV 12/30/23 09:45 01/01/24 12:09 60 MLS/HR Ondansetron HCl 4 mg Q4HP PRN IV 12/30/23 09:45 01/02/24 09:36 4 MG Acetaminophen 650 mg Q6HP PRN PO 12/30/23 09:45 01/02/24 18:40 650 MG Nitroglycerin 0.4 mg Q5MINP PRN SL 12/30/23 09:45 Morphine Sulfate 2 mg Q30M PRN IV 12/30/23 09:45 Diagnostic Test (Pha) 1 strip ACHS 12/30/23 11:30 01/02/24 17:51 1 STRIP Insulin Human Regular ACHS SC 12/30/23 11:30 01/02/24 18:12 4 UNITS Dextrose 50 ml UD PRN IV 12/30/23 09:45 Ceftriaxone Sodium 50 ml @ 100 mls/hr DAILY@09 IV 12/30/23 09:43 01/02/24 09:36 100 MLS/HR Azithromycin 250 ml @ 125 mls/hr DAILY IV 12/30/23 10:00 01/02/24 09:39 125 MLS/HR Albuterol 2.5 mg Q4HR NEB 12/30/23 10:00 01/02/24 19:30 2.5 MG Albuterol 2.5 mg Q2HPRN PRN NEB 12/30/23 09:45 Ipratropium [place] 0.5 mg Q4HR NEB 12/30/23 10:00 01/02/24 19:30 0.5 MG Allopurinol 100 mg DAILY PO 12/31/23 10:00 01/02/24 09:37 100 MG Apixaban 5 mg BID PO 12/30/23 22:00 01/02/24 09:38 5 MG Furosemide 40 mg DAILY PO 12/31/23 10:00 01/02/24 09:37 40 MG Gabapentin 100 mg DAILY PO 12/30/23 10:49 01/02/24 09:37 100 MG Meclizine HCl 25 mg TID PO 12/30/23 14:00 01/02/24 14:40 25 MG Metoprolol Succinate 25 mg DAILY PO 12/31/23 10:00 01/02/24 09:38 25 MG Pantoprazole Sodium 40 mg DAILY PO 12/31/23 10:00 01/02/24 09:37 40 MG Spironolactone 25 mg DAILY PO 12/31/23 10:00 01/02/24 09:38 25 MG Sucralfate 1 gm BIDAC PRN PO 12/30/23 10:45 Timolol Maleate 1 drop BID EACHEYE 12/30/23 22:00 01/02/24 09:39 1 DROP Pramipexole Dihydrochloride 0.5 mg HS PO 12/30/23 22:00 01/01/24 22:23 0.5 MG Patient Own Medication 1 tab DAILY PO 12/30/23 10:57 Docusate Sodium 100 mg BID PO 01/01/24 22:00 01/02/24 09:38 100 MG objective Gen.: Patient lying in bed in no apparent distress. On supplemental oxygen. Head: Normocephalic, atraumatic. Eyes: EOMI/PERRLA. Ears: Normal hearing. Normal anatomy. Neck/trachea: Trachea midline, supple. Nose: Normal external anatomy. Mouth: Moist mucous membranes. Chest: Decreased air entry bilaterally. No wheezing or rhonchi. Cardiovascular: Positive S1, positive S2. Regular rate and rhythm. Abdomen: Positive bowel sounds in all 4 quadrants. Soft, non-tender, non- distended. : Deferred. Rectal: Deferred. Skin: Warm, dry. Intact. Extremities: 2+ radial pulses bilaterally. No lower extremity edema. Neuro: Awake, alert, oriented x3. No gross motor or sensory deficits. Cranial nerves II through XII intact. Gait not assessed. laboratory and microbiology Laboratory Tests 01/02/24 06:44 Test 01/02/24 06:44 Range/Units Serum Glucose 133 H 74-106 mg/dL Assessment/Plan Impression: Dyspnea due to left pneumothorax Left pneumothorax Systolic/diastolic congestive heart failure Hyponatremia Hypokalemia Type 2 diabetes mellitus, uncontrolled Acute hypoxic respiratory failure Events: On supplemental oxygen, 2 LPM NC Taper O2 as tolerated CXR demonstrates no pneumothorax Placed chest tube to water seal. CXR to be done after 12:30 PM. Incentive spirometry Continue antibiotics Continue bronchodilators Pain control Avoid oversedation Diurese w/ Lasix Monitor renal function Removed chest tube CXR after water seal did not reveal any pneumothorax. Follow up CXR post chest tube removal. Labs and imaging reviewed. Rest of plan as noted below. Plan: Chest x-ray report reviewed. Small left pneumothorax. Left chest tube in place. Slight improvement in diffuse multifocal airspace opacities. Likely due to underlying fibrotic disease with superimposed inspection can not be included. Of note, CXR noted increase in size of left pneumothorax, chest tube in place, diffuse multifocal airspace disease. 12/31 - CXR shows resolution of pneumothorax. On supplemental oxygen, 2 LPM NC Titrate to keep O2 sats above 92%. Incentive spirometry Pain control. Avoid over-sedation. Continue antibiotics Continue bronchodilators On Eliquis twice daily. On Lasix for diuresis. Maintain euvolemia. Monitor ins and outs. Monitor renal function purulent monitor electrolytes. Accu-Cheks, insulin sliding scale GI prophylaxis-Protonix DVT prophylaxis-Eliquis. Prognosis: Poor given patient's multiple co-morbidities. Rest of plan per hospitalist and other consultants. Thank you Dawn Nugent NP, for allowing me to participate in this patient's care. Further recommendations will depend on the patient's clinical course. Please do not hesitate to contact me if you have any questions or concerns. This medical document was created using an electronic medical record system with [employer]ation system. Although these documentations are being carefully reviewed, there may still be some phonetic and typographical changes. The errors are purely typographical, due to imperfection on the software program, and do not reflect any compromise in the patient's medical care. Dietary Evaluation Review Comments: Continue current plan of care Expected Outcomes/Goals: F/U in 3-5 days Plan discussed with: Other (LALITHA Monten[place]) RENETTA MCCOY MD Jan 02, 2024 19:55
[2024-01-03] VITALS (14 sets, daily range): BP systolic 99–162; BP diastolic 42–66; PULSE 58–78; RESP 16–22; TEMP 97.9–98.7; O2SAT 90–100
--- NOTE | 2024-01-03 05:59 | DVH ---
CHEST RADIOGRAPH Indication:rule out pneumo post CT removal Technique: Single frontal view of the chest was obtained Comparison: XY CHEST XRAY 1 VIEW on DOS: 01/02/24 FINDINGS: Lines and Tubes: None Lungs: Bilateral interstitial and airspace disease is increased since prior study particularly in the left lung. Pleura: No effusion. No pneumothorax. Cardiomediastinal contours: Unremarkable Bones: No acute osseous abnormality. IMPRESSION: 1. Worsening bilateral airspace disease, [id number]. 2. No pneumothorax.
[2024-01-03] MEDS ORDERED: CEFD300C2 PO (15:02)
--- NOTE | 2024-01-03 15:05 | DVHDS2 ---
Discharge Summary Date of Admission Dec 30, 2023 at 09:36 Date of Discharge: Jan 03, 2024 Admitting Diagnosis Spontaneous pneumothorax Labs/Diagnostic Data: Laboratory Results Test 01/03/24 12:10 01/02/24 06:44 12/31/23 08:10 12/30/23 10:09 POC Glucose 219 mg/dl (70-106) White Blood Count 8.2 10^3/uL (4.4-10.8) Red Blood Count 4.23 10^6/uL (4.0-5.20) Hemoglobin 11.2 g/dL (12.2-16.2) Hematocrit 34.3 % (36.0-46.0) Mean Corpuscular Volume 80.9 fL (80.0-100.0) Mean Corpuscular Hemoglobin 26.5 pg (28.0-32.0) Mean Corpuscular Hemoglobin Concent 32.8 g/dL (32.0-36.0) Red Cell Distribution Width 17.5 % (11.8-14.3) Platelet Count 261 10^3/uL (140-450) Mean Platelet Volume 7.7 fL (6.9-10.8) Neutrophils (%) (Auto) 53.2 % (37.0-80.0) Lymphocytes (%) (Auto) 33.3 % (10.0-50.0) Monocytes (%) (Auto) 9.6 % (0.0-12.0) Eosinophils (%) (Auto) 3.6 % (0.0-7.0) Basophils (%) (Auto) 0.3 % (0.0-2.0) Neutrophils # (Auto) 4.4 10 ^3/uL (1.6-8.6) Lymphocytes # (Auto) 2.7 10 ^3/uL (0.4-5.4) Monocytes # (Auto) 0.8 10 ^3/uL (0-1.3) Eosinophils # (Auto) 0.3 10 ^3/uL (0-0.8) Basophils # (Auto) 0 10 ^3/uL (0-0.2) Nucleated Red Blood Cells 0.1 % Sodium Level 132 mmol/L (136-145) Potassium Level 4.0 mmol/L (3.5-5.1) Chloride Level 96 mmol/L (98-107) Carbon Dioxide Level 32 mmol/L (20-31) Anion Gap 4 (5-15) Blood Urea Nitrogen 20 mg/dL (9-23) Creatinine 0.90 mg/dL (0.550-1.02) Glomerular Filtration Rate Calc 63 mL/min (>90) BUN/Creatinine Ratio 22.2 (10.0-20.0) Serum Glucose 133 mg/dL (74-106) Calcium Level 9.3 mg/dL (8.7-10.4) Total Bilirubin 1.3 mg/dL (0.2-1.0) Aspartate Amino Transferase (AST) 40 U/L (13-40) Alanine Aminotransferase (ALT) 47 U/L (7-40) Alkaline Phosphatase 238 U/L (46-116) Total Protein 6.0 g/dL (5.7-8.2) Albumin 2.8 g/dL (3.2-4.8) Hemoglobin A1c 8.3 % A1C (<5.7) Lactic Acid Level 1.3 mmol/L (0.4-2.0) B-Type Natriuretic Peptide 153.46 pg/mL (0-100) Test 12/29/23 23:02 12/29/23 22:10 Troponin I High Sensitivity 12 ng/L (</=34) Prothrombin Time 13.2 sec (9.3-11.8) Prothrombin Time INR 1.27 (0.9-1.15) Activated Partial Thromboplast Time 30.4 SEC (24.5-34.5) Magnesium Level 2.0 mg/dL (1.6-2.6) Hepatitis A IgM Antibody Negative Hepatitis B Surface Antigen Negative (Negative) Hepatitis B Core IgM Antibody Negative Hepatitis C Antibody Negative (Negative) Other Laboratory Tests 01/02/24 06:44 Brief Hx & Hospital Course: istory of Present Illness 83-year-old female with history of breasts cancer, CHF, DM, hypertension, pulmonary fibrosis and liver disease who presents to ER for shortness of breath. Patient was recently admitted for acute on chronic respiratory failure, influenza B with sepsis, UTI due to E coli. She States for the past few days she has been having productive cough with shortness of breath and left-sided chest tightness comes to the emergency room. Patient is saturating 95% on room air and is slightly febrile at 100.5 F. in review of initial chest x-ray shows 70-80% large left pneumothorax in which a chest tube was placed by ER physician. Chest x-ray also shows patchy opacities. The patient will be admitted under hospitalist care to the telemetry unit for continuous monitoring. The patient denies headache, dizziness, blurred vision, chest pain, nausea, vomiting, diarrhea, constipation, abdominal pain and other associated symptoms. The plan has been discussed with the patient and primary RN in which all questions concerns have been addressed. Course of hospitalization: Pulmonology consultation was obtained. The patient had pigtail catheter placed. Patient had resolution of her pneumothorax. Chest tube was removed yesterday. Repeat chest x-ray today reveals that pneumothorax continues to be resolved. The patient continues to be on 2 liters/minute. The patient will be discharged home to continue all previous home medications as well as being prescribed cefdinir 300 mg p.o. twice a day for seven days given questionable superimposed pneumonia on her pulmonary fibrosis. Physical examination General: Alert and Oriented x3. No acute distress. Well-nourished. Obese Eyes: EOMI. Anicteric. HENT: Moist mucous membranes. Lungs: Clear to auscultation bilaterally. No accessory muscle use. Cardiovascular: Regular rate and rhythm. No murmur. No JVD. Abdomen: Soft, non-tender and non-distended. No palpable masses. Extremities: No edema. Non-tender. Skin: No rashes or lesions. Warm. Neurologic: No focal neurological deficits. CN II-XII grossly intact, but not individually tested. Psychiatric: Cooperative. Appropriate mood and affect. Total time spent with patient discussing and formulating plan of care: 35 minutes. This medical document was created using an electronic medical record system with [employer] dictation system. Although this document has been carefully reviewed, there may still be some phonetic and typographical errors. These areas are purely typographical due to imperfections of the software programs, and do not reflect any compromise in the patient's medical care. Consults/Reason for consult Pulmonology: Pneumothorax Operations or Procedures 12/30/2023: Chest tube placement Condition at Discharge: Poor Final Diagnosis/Problems List Spontaneous pneumothorax Secondary Diagnosis: -acute on chronic hypoxic respiratory failure -pulmonary fibrosis -diabetes mellitus -cirrhosis -primary hypertension -constipation Discharge Disposition: Home Discharge Instruct/Medications Diet: Consistent carbohydrate Activity: No Restrictions, As Tolerated Follow Up/Referral: Discharge Clinic in one week Follow up with PCP in 2-3 weeks Medications: Cefdinir 300 mg p.o. b.i.d. x7 days 39 Discharge Statement: "Patient was advised to return to the ER or call 911 if any headaches, dizziness, shortness of breath, chest pain, abdominal pain, bleeding, fevers, or worsening of medical condition. Patient was counseled about treatment plan, medications, possible side effects, patientverbalized understanding. All questions were answered to the best of my ability. This discharge took greater then 30 minutes in planning, reviewing documentation, counseling the patient, and discussing with other team members." ASSESSMENT ASSESSMENT Assessment Spontaneous pneumothorax Date of Service: Jan 03, 2024 Billing Provider: PAULINA GANDHI NP Common Visit Codes: 29317-GWR/OBS DISCH DAY >30min PAULINA GANDHI NP Jan 03, 2024 15:05
--- NOTE | 2024-01-03 21:22 | DVHPN2 ---
Progress Note - Dictate Date Seen: Jan 03, 2024 Medical Necessity Reason Pt with a Central, PICC or Fol: No Subjective Patient seen and examined at bedside. On supplemental oxygen Overnight events reviewed. vital signs Vital Sign Date Time Temp Pulse Resp B/P (MAP) Pulse Ox O2 Delivery O2 Flow Rate FiO2 01/03/24 16:41 97.9 58 16 162/52 (88) 100 97.9 01/03/24 10:00 Nasal Cannula 2.0 01/03/24 10:00 28 Total Intake and Output 01/02/24 01/02/24 01/03/24 15:00 23:00 07:00 Intake Total 300 ml 500 ml 900 ml Output Total 1000 ml 700 ml Balance 300 ml -500 ml 200 ml objective Gen.: Patient lying in bed in no apparent distress. On supplemental oxygen. Head: Normocephalic, atraumatic. Eyes: EOMI/PERRLA. Ears: Normal hearing. Normal anatomy. Neck/trachea: Trachea midline, supple. Nose: Normal external anatomy. Mouth: Moist mucous membranes. Chest: Decreased air entry bilaterally. No wheezing or rhonchi. Cardiovascular: Positive S1, positive S2. Regular rate and rhythm. Abdomen: Positive bowel sounds in all 4 quadrants. Soft, non-tender, non- distended. : Deferred. Rectal: Deferred. Skin: Warm, dry. Intact. Extremities: 2+ radial pulses bilaterally. No lower extremity edema. Neuro: Awake, alert, oriented x3. No gross motor or sensory deficits. Cranial nerves II through XII intact. Gait not assessed. laboratory and microbiology Laboratory Tests 01/02/24 06:44 Test 01/02/24 06:44 Range/Units Serum Glucose 133 H 74-106 mg/dL Assessment/Plan Impression: Dyspnea due to left pneumothorax Left pneumothorax Systolic/diastolic congestive heart failure Hyponatremia Hypokalemia Type 2 diabetes mellitus, uncontrolled Acute hypoxic respiratory failure Events: On supplemental oxygen, 2 LPM NC Taper O2 as tolerated Patient is stable for discharge from the pulmonary standpoint. CXR post chest tube removal revealed no pneumothorax. Incentive spirometry Continue antibiotics Continue bronchodilators Pain control Avoid oversedation Diurese w/ Lasix Monitor renal function Follow up in Pulmonary Clinic in 7-14 days. Labs and imaging reviewed. Rest of plan as noted below. Plan: Chest x-ray report reviewed. Small left pneumothorax. Left chest tube in place. Slight improvement in diffuse multifocal airspace opacities. Likely due to underlying fibrotic disease with superimposed inspection can not be included. Of note, CXR noted increase in size of left pneumothorax, chest tube in place, diffuse multifocal airspace disease. 12/31 - CXR shows resolution of pneumothorax. S/p removal of chest tube - CXR showing no pneumothorax. On supplemental oxygen, 2 LPM NC Titrate to keep O2 sats above 92%. Incentive spirometry Pain control. Avoid over-sedation. Continue antibiotics Continue bronchodilators On Eliquis twice daily. On Lasix for diuresis. Maintain euvolemia. Monitor ins and outs. Monitor renal function purulent monitor electrolytes. Accu-Cheks, insulin sliding scale GI prophylaxis-Protonix DVT prophylaxis-Eliquis. Prognosis: Poor given patient's multiple co-morbidities. Rest of plan per hospitalist and other consultants. Thank you Dawn Nugent, JANIE, for allowing me to participate in this patient's care. Further recommendations will depend on the patient's clinical course. Please do not hesitate to contact me if you have any questions or concerns. This medical document was created using an electronic medical record system with [employer] dictation system. Although these documentations are being carefully reviewed, there may still be some phonetic and typographical changes. The errors are purely typographical, due to imperfection on the software program, and do not reflect any compromise in the patient's medical care. Dietary Evaluation Review Comments: Continue current plan of care Expected Outcomes/Goals: F/U in 3-5 days Plan discussed with: Patient, Other (RN Summer) RENETTA MCCOY MD Jan 03, 2024 21:22
== END 2024-01-03 18:38 | disposition home or self-care (01) | DRG 133 ==
LOC: EDBD 21:54 → ER 21:54 → TELE 12-30 09:36 → TELE-EAST 12-30 17:43
PROVIDERS: ADMIT Nurse Practitioner Family; ATTEND Nurse Practitioner Acute Care
PROC: 0W9B30Z Drainage of Left Pleural Cavity with Drainage Device, Percutaneous Approach (ICD-10-PCS; principal; 2023-12-30)
PROC: 05HA33Z Insertion of Infusion Device into Left Brachial Vein, Percutaneous Approach (ICD-10-PCS; 2023-12-30)
PROC: B54NZZA Ultrasonography of Left Upper Extremity Veins, Guidance (ICD-10-PCS; 2023-12-30)
DX: J96.21 Acute and chronic respiratory failure with hypoxia (principal); J15.69 Pneumonia due to other Gram-negative bacteria; L89.152 Pressure ulcer of sacral region, stage 2; J15.9 Unspecified bacterial pneumonia; I11.0 Hypertensive heart disease with heart failure; I50.32 Chronic diastolic (congestive) heart failure; E87.1 Hypo-osmolality and hyponatremia; J93.82 Other air leak; J93.83 Other pneumothorax; J84.10 Pulmonary fibrosis, unspecified; E87.6 Hypokalemia; K74.60 Unspecified cirrhosis of liver; E11.9 Type 2 diabetes mellitus without complications; K59.00 Constipation, unspecified; Z85.3 Personal history of malignant neoplasm of breast; Z88.6 Allergy status to analgesic agent; Z88.5 Allergy status to narcotic agent; Z82.49 Family history of ischemic heart disease and other diseases of the circulatory system
CPT/HCPCS: 36415; 71045; 71250; 76705; 80048; 80053; 80074; 82962; 83036; 83605; 83735; 83880; 84484; 85025; 85610; 85730; 87040; 93005; 94640; 99291; G0378; J0131; J0692; J1815; J2405

== ENCOUNTER → 2024-03-03 | Outpatient (CLI) | payer MEDICAID ==
[~2024-03-03] MED LIST changes: +ACET-1881 PO; +ALBU108A5 IN; -AMOX500T92 PO; +ASCO500T11 PO; +CEFD300C2 PO; -CEPH250C PO; +CHOL200029 PO; +CIPR-173 PO; +COEN30CA10 PO; -FLUC200T50 PO; -GAB100C PO; -MECL-90 PO; -METO-6 PO; +METO25TA36 PO; +PANT40T PO; -PANT40TA2 PO; +POM; +POTA-215 PO; -PRAM0.757 PO; -PROM1SOL4 PO; -SPIR25TA PO; -SUCR1TAB PO; +SUCR1TAB31 PO; -SULF1TAB75 PO; +TEMA15CA2 PO; +TIMO0.2524 OP; -TIMO0.5S32 EACHEYE; -VALS160T82 PO
[2024-03-03 10:10] VITALS: BP 135/62; PULSE 76; RESP 16; O2SAT 94
[2024-03-03 10:30] VITALS: BP 145/67; PULSE 73; RESP 18; O2SAT 94
--- NOTE | 2024-03-03 14:08 | DVH ---
Chest x-ray Comparison: 01/03/2024 Technique: PA and lateral views REASON FOR EXAM: PRE OP INDICATION: PRE OP FINDINGS: Heart size enlarged. Aorta tortuous. Prominent interstitial lung markings. IMPRESSION: 1. Cardiomegaly. Patient has chronic interstitial lung disease.
== END | disposition home or self-care (01) ==
LOC: Rad HDHVI 10:04
PROVIDERS: ATTEND Internal Medicine Cardiovascular Disease
DX: Z01.810 Encounter for preprocedural cardiovascular examination (principal); I51.7 Cardiomegaly; J84.9 Interstitial pulmonary disease, unspecified; Q25.46 Tortuous aortic arch
CPT/HCPCS: 71046; 93005; G0463

== ENCOUNTER → 2024-03-03 | Outpatient (CLI) | payer MEDICAID ==
[~2024-03-03] VITALS: Ht 157.5 cm; Wt 64.4 kg
[2024-03-03 13:21] LABS: Urine Bacteria None Seen /hpf (None Seen)
[2024-03-03 13:28] LABS: Eosinophils # (auto) 0.4 10 ^3/uL (0-0.8); Lymphocytes # (auto) 2.7 10 ^3/uL (0.4-5.4); Neutrophils % (auto) 52.6 % (37.0-80.0); Platelet Count (auto) 306 10^3/uL (140-450)
[2024-03-03 13:30] LABS: Basophils # (auto) 0.1 10 ^3/uL (0-0.2); Basophils % (auto) 0.7 % (0.0-2.0); Eosinophils % (auto) 4.5 % (0.0-7.0); Hematocrit 30.7 % (36.0-46.0); Hemoglobin 9.9 g/dL (12.2-16.2); Lymphocytes % (auto) 33.1 % (10.0-50.0); Mean Corpuscular Hemoglobin 24.5 pg (28.0-32.0); Mean Corpuscular Hgb Conc. 32.4 g/dL (32.0-36.0); Mean Corpuscular Volume 75.7 fL (80.0-100.0); Monocytes # (auto) 0.7 10 ^3/uL (0-1.3); Monocytes % (auto) 9.1 % (0.0-12.0); Neutrophils # (auto) 4.2 10 ^3/uL (1.6-8.6); Red Blood Cells 4.05 10^6/uL (4.0-5.20); Red Cell Distribution Width 18.1 % (11.8-14.3)
[2024-03-03 13:32] LABS: Urine Blood TRACE /uL (Negative); Urine Clarity Turbid (Clear); Urine Color Colorless (Yellow); Urine Protein, UAD Negative (Negative); Urine Specific Gravity 1.009 (1.001-1.035); Urine Squamous Epithelial Cell FEW /hpf (<5); Urine Urobilinogen Normal (Negative); Urine WBC 582 /hpf (0 - 5); Urine pH 7.5 (5.0-9.0)
[2024-03-03 13:41] LABS: INR 1.22 (0.9-1.15); Partial Thromboplastin Time 31.7 SEC (24.5-34.5); Prothrombin Time 12.7 sec (9.3-11.8)
[2024-03-03 13:56] LABS: Chloride 98 mmol/L (98-107); Potassium 4.3 mmol/L (3.5-5.1)
[2024-03-03 13:57] LABS: Anion Gap 2 (5-15)
[2024-03-03 13:58] LABS: Calcium 9.6 mg/dL (8.7-10.4)
[2024-03-03 14:01] LABS: Carbon Dioxide 32 mmol/L (20-31); Sodium 132 mmol/L (136-145)
[2024-03-03 14:03] LABS: BUN/Creatinine Ratio 14.6 (10.0-20.0); Blood Urea Nitrogen 13 mg/dL (9-23)
[2024-03-03 14:10] LABS: Glucose 162 mg/dL (74-106)
== END | disposition home or self-care (01) ==
LOC: LAB 13:08 → EDSTATUS 03-06 08:55
PROVIDERS: ATTEND Internal Medicine Cardiovascular Disease
DX: Z01.812 Encounter for preprocedural laboratory examination (principal)
CPT/HCPCS: 36415; 80048; 81001; 85025; 85610; 85730; 87086; 87088; 87186

== ENCOUNTER → 2024-03-17 | Outpatient (CLI) | payer MEDICAID ==
[~2024-03-17] MED LIST changes: +ALBUTEROL SULF 2.5 MG/0.5ML(0.5%) NEB SOLN ONE; -ALLO100T PO; -AUG875T PO; -CEFD300C2 PO; -ERY05OO RIGHTEYE; -GABA-1308 PO; -INSU1INJ19 SC; -LIDO1.8P TOP; -METO25TA93 PO; -TIMO0.2524 OP
== END | disposition home or self-care (01) ==
LOC: RT 09:03
PROVIDERS: ATTEND Internal Medicine Pulmonary Disease
DX: J84.10 Pulmonary fibrosis, unspecified (principal)

== ENCOUNTER → 2024-07-07 | Outpatient (CLI) | payer MEDICAID ==
[~2024-07-07] MED LIST changes: -ALBUTEROL SULF 2.5 MG/0.5ML(0.5%) NEB SOLN ONE; +GABA-1308 PO; +METO25TA5 PO; +MIRA50TA PO; +TIMO0.5S28 EACHEYE
[2024-07-07 12:40] VITALS: BP 125/60; PULSE 71; RESP 18; O2SAT 98
[2024-07-07 13:03] VITALS: BP 123/58; PULSE 73; RESP 18; O2SAT 97
--- NOTE | 2024-07-07 13:47 | DVH ---
EXAM: XY CHEST TWO VIEWS ROUTINE HISTORY: PRE OP COMPARISON: XY CHEST TWO VIEWS ROUTINE on DOS: 03/03/24, XY CHEST TWO VIEWS ROUTINE on DOS: 06/13/22, C S2 on DOS: 12/10/21, chest CT dated 01/01/2024 TECHNIQUE: Frontal and lateral views of the chest were performed. FINDINGS: No pneumothorax, pulmonary edema, pleural effusions, or new infiltrates. There are diffuse bilateral interstitial opacities, similar to that seen previously. The heart is not enlarged. No fractures are identified about the bony thorax. There is thoracic degenerative disc disease with multiple bridging syndesmophytes present. There are bilateral breast implants. IMPRESSION: 1. No acute intrathoracic process. 2. Chronic interstitial fibrosis.
== END | disposition home or self-care (01) ==
LOC: Rad HDHVI 12:36
PROVIDERS: ATTEND Internal Medicine Cardiovascular Disease
DX: Z01.818 Encounter for other preprocedural examination (principal); I51.7 Cardiomegaly; J84.10 Pulmonary fibrosis, unspecified; R94.31 Abnormal electrocardiogram [ECG] [EKG]; M51.34 Other intervertebral disc degeneration, thoracic region; R07.9 Chest pain, unspecified
CPT/HCPCS: 71046; 93005; G0463

== ENCOUNTER 2024-07-10 06:29 | Day surgery (SDC) | payer MEDICAID ==
[2024-07-07 15:44] LABS: Basophils # (auto) 0.1 10 ^3/uL (0-0.2); Basophils % (auto) 0.7 % (0.0-2.0); Eosinophils # (auto) 0.2 10 ^3/uL (0-0.8); Eosinophils % (auto) 2.2 % (0.0-7.0); Mean Corpuscular Hemoglobin 23.1 pg (28.0-32.0); Neutrophils # (auto) 6.3 10 ^3/uL (1.6-8.6)
[2024-07-07 15:45] LABS: Hematocrit 28.7 % (36.0-46.0); Lymphocytes # (auto) 2.7 10 ^3/uL (0.4-5.4); Lymphocytes % (auto) 27.2 % (10.0-50.0); Mean Corpuscular Hgb Conc. 31.3 g/dL (32.0-36.0); Mean Corpuscular Volume 73.7 fL (80.0-100.0); Monocytes # (auto) 0.7 10 ^3/uL (0-1.3); Monocytes % (auto) 7.4 % (0.0-12.0); Neutrophils % (auto) 62.5 % (37.0-80.0); Nucleated Red Blood Cells % 0.1 %; Platelet Count (auto) 321 10^3/uL (140-450); Red Cell Distribution Width 19.6 % (11.8-14.3)
[2024-07-07 16:03] LABS: INR 1.21 (0.9-1.15); Partial Thromboplastin Time 30.1 SEC (24.5-34.5); Prothrombin Time 12.6 sec (9.3-11.8)
[2024-07-07 16:23] LABS: Potassium 3.9 mmol/L (3.5-5.1)
[2024-07-07 16:24] LABS: Anion Gap 7 (5-15); Carbon Dioxide 29 mmol/L (20-31)
[2024-07-07 16:25] LABS: Calcium 9.2 mg/dL (8.7-10.4)
[2024-07-07 16:29] LABS: Chloride 94 mmol/L (98-107); Sodium 130 mmol/L (136-145)
[2024-07-07 16:30] LABS: BUN/Creatinine Ratio 17.2 (10.0-20.0); Blood Urea Nitrogen 20 mg/dL (9-23)
[2024-07-07 16:31] LABS: Glucose 184 mg/dL (74-106)
[~2024-07-10] VITALS: Ht 157.5 cm; Wt 64.4 kg
[~2024-07-10 06:29] MED LIST changes: -CIPR-173 PO; -METO25TA36 PO; -POTA-215 PO
[2024-07-10] MEDS ORDERED: IOHEXOL 350 MG/ML 100ML IJ ONE ×2 (07:27→09:41)
[2024-07-10] MEDS ORDERED: ANGIOMAX 250 MG VIAL IV ONE (08:07)
[2024-07-10] MEDS ORDERED: fentaNYL CITRATE 100 MCG/2 ML VL ONE (08:07)
[2024-07-10] MEDS ORDERED: LIDOCAINE 2%HCL (LOCAL ANESTH.) INJ 20ML MDV ONE (08:08)
[2024-07-10] MEDS ORDERED: MIDAZOLAM HCL 2MG/2ML 2ml VIAL (1mg/ml) ONE (08:08)
[2024-07-10] MEDS ORDERED: CLOPIDOGREL BISULFATE 75 MG TAB ONE (10:10)
--- NOTE | 2024-07-10 11:03 | DVHOP ---
DATE OF SURGERY: 07/10/2024 PROCEDURES PERFORMED: * Selective left and right coronary angiography. * FFR of the proximal LAD and distal circumflex. * Shockwave thrombectomy of the left anterior descending artery and circumflex using two separate 2.5 x 12 mm Shockwave thrombectomy catheters. * PTCA with stent placement of the left anterior descending proximally with a 2.5 x 15 mm [place] stent. * Balloon angioplasty of the distal circumflex. * Balloon angioplasty of the obtuse marginal 1 at the bifurcation of the circumflex branch in the AV groove. Both with 2.0 mm balloons. * Conscious sedation also given. DESCRIPTION OF PROCEDURE: The patient was prepped and draped under sterile conditions. Xylocaine 1% used to anesthetize the right groin. The right femoral artery was engaged using a Seldinger technique. A 6-Malaysian sheath in the right femoral artery. Using a 6-Malaysian JL4 catheter, 6-Malaysian JR4 catheter, selective left and right coronary angiography were performed. A 6-Malaysian pigtail catheter, ventriculogram was done. Then, following the diagnostic 6-Malaysian XB 3.0 guide catheter was used to cannulate the left main using a ChoICE PT extra support wire, the left anterior descending artery lesion was then crossed. It was then shockwave thrombectomized using a 2.5 x 15 mm thrombectomy Shockwave catheter. Following that, then a 2.5 x 15 mm [place] stent was then deployed across the lesion at 14 atmospheres. Then, a second ChoICE PT extra support wire was deployed into the distal marginal 2. This was followed by angioplasty with a 2.0 x 15 mm [place] balloon. Then, this was followed by a second wire placed into the circumflex branch in the AV groove, branching of the obtuse marginal 2, and the AV groove marginal. Then both vessels were balloon angioplastied using the 2.0 x 12 mm Euphora balloons. Since it was not capable of crossing in terms of chronicity of the narrowing as well as long lesion and subtotal stenosis, at this time we elected to just balloon angioplasty without deployment of the stent because 1) the caliber of the vessel was small, 2) heavy calcification, 3) there is increased risk of rupture because of age, and 4) the patient's main culprit lesion was attended to with her left anterior descending artery. The procedure if needed will be staged at a later date for angioplasty with stent placement with rotational atherectomy. PROCEDURE RESULTS: * Left main patent calcified. * Left anterior descending artery proximal 80%-90% narrowing. FFR was 0.76. Underwent angioplasty, thrombectomy, and stent placement with a 2.5 x 15 mm Thomas stent with less than 10% residual stenosis. * Circumflex artery had moderate diffuse disease at the branching of the distal RV groove and obtuse marginal 2. There was a 99% narrowing. Both arteries underwent successful thrombectomy with a Shockwave balloon as well as balloon angioplasty but because of the caliber vessel, it was elected not to stent. If the patient needs intervention in that distribution, the patient will require rotational atherectomy to get through the heavy calcification. * Right coronary artery moderate diffuse disease without any flow-restrictive lesion. * Left ventricular function showed global hypokinesis with an estimated EF of around 40% post angioplasty. Bartolome Silva MD SA/NORAH/YOSEF TID: [id number] RECEIPT: [id number]
--- NOTE | 2024-07-10 12:25 | DVHDS ---
DATE OF DISCHARGE: 07/10/2024 The patient underwent successful angioplasty with stent placement of the left anterior descending artery, angioplasty of both the obtuse marginal 2 and the circumflex in the AV groove. But no stents were deployed because of distal nature of the vessel, heavy calcification, and less than 2 mm vessels. The patient's right coronary artery mild diffuse disease and a flow-restrictive lesion. At this time, the patient underwent revascularization of the LAD and circumflex territory, conservative medical management, aggressive risk modification, continue dual-antiplatelet therapy. Follow up with me in one week. Stable at the time of discharge. DISPOSITION: Home. ACTIVITY: As instructed. Bartolome Silva MD SA/NORAH/FRIEDA TID: [id number] RECEIPT: [id number]
[2024-07-10] MEDS: ACETAMINOPHEN 500 MG TAB or CAP PO PRN (12:28)
--- NOTE | 2024-07-11 08:44 | DVHHP ---
ADMIT DATE: 07/10/2024 HISTORY OF PRESENT ILLNESS: The patient is 84 years old with history of atrial fibrillation, hypercoagulable state, diabetes, hypertension, hyperlipidemia, now with sign and symptom complex of chest pain. Strong family history of coronary artery disease. Both parents had coronary artery disease. Furthermore, the patient also has diagnosis of pulmonary fibrosis. PERTINENT MEDICAL HISTORY: Also significant for hypertension, hyperlipidemia, history of diabetes, diabetic neuropathy, vasculopathy, nephropathy, chronic kidney disease stage 2 at this time. The patient, because of ongoing chest pain, abnormal stress, and diminished left ventricular ejection fraction, it is felt that the patient should undergo coronary angiography to define coronary anatomy. Risks and benefits were explained to the patient. The patient agrees to the procedure. She denies any fever, chills, melena, hematochezia, hematemesis, hemoptysis, or any hematuria. Denies any CVA in the past. Denies any trauma. No history of any seizure activity as well. Denies any history of irritable bowel syndrome, inflammatory bowel disease, or connective tissue disease. Denies any liver disease. No alcoholism. No tobacco use. PHYSICAL EXAMINATION: VITAL SIGNS: Blood pressure is 116/84, pulse 70, O2 saturation 96% on room air. HEENT: Pupils are reactive. Funduscopic exam shows AV nicking, some exudates, otherwise unremarkable. No papilledema. NECK: No JVD appreciated. Carotid pulses are 2+ symmetrical. No cervical adenopathy. No supraclavicular adenopathy. PULMONARY: Clear to auscultation. CARDIOVASCULAR: Regular rate. There is a 2/6 systolic murmur along the left sternal border. ABDOMEN: Obese. Unable to appreciate organomegaly. EXTREMITIES: 2+ pulses. 1+ edema. IMPRESSION: Thus, the patient with chest pain, shortness of breath, multiple risk factors for coronary artery disease including diabetes, hypertension, family history and now having a positive stress test. The patient is now to undergo coronary angiography to define coronary anatomy. Further recommendations after the angiogram. Bartolome Silva MD SA/NORAH/ALANA TID: [id number] RECEIPT: [id number]
== END 2024-07-10 13:32 | disposition home or self-care (01) ==
LOC: CATH 06:29
PROVIDERS: ATTEND Internal Medicine Cardiovascular Disease
DX: I25.10 Atherosclerotic heart disease of native coronary artery without angina pectoris (principal); I25.84 Coronary atherosclerosis due to calcified coronary lesion; R07.9 Chest pain, unspecified; R79.1 Abnormal coagulation profile; I48.91 Unspecified atrial fibrillation; I12.9 Hypertensive chronic kidney disease with stage 1 through stage 4 chronic kidney disease, or unspecified chronic kidney disease; E11.22 Type 2 diabetes mellitus with diabetic chronic kidney disease; N18.2 Chronic kidney disease, stage 2 (mild); E11.40 Type 2 diabetes mellitus with diabetic neuropathy, unspecified; E78.5 Hyperlipidemia, unspecified; Z82.49 Family history of ischemic heart disease and other diseases of the circulatory system
CPT/HCPCS: 0523T; 36415; 80048; 85025; 85610; 85730; 92920; 92921; 92972; 92973; 93458; C1725; C1760; C1761; C1769; C1874; C1887; C1894; C9600; J0583; J1644; J2250; J3010; J7030; Q9967; 99152; 99153

== ENCOUNTER → 2024-08-08 | Outpatient (CLI) | payer MEDICAID | END | disposition home or self-care (01) | LOC: Rad HDHVI 13:59 | PROVIDERS: ATTEND Internal Medicine Cardiovascular Disease | DX: I08.0 Rheumatic disorders of both mitral and aortic valves (principal); I11.0 Hypertensive heart disease with heart failure; I50.9 Heart failure, unspecified | CPT/HCPCS: 93306 ==

== ENCOUNTER 2024-09-18 00:08 | Inpatient (IN) | payer MEDICAID ==
[~2024-09-18] VITALS: Ht 165.1 cm; Wt 60.8 kg
[2024-09-18] VITALS (10 sets, daily range): BP systolic 115; BP diastolic 59; PULSE 63–94; RESP 17–30; O2SAT 97–100
[~2024-09-18 00:08] MED LIST changes: -ALBU108A5 IN; +ALBU108A5 INH; +BACL5TAB2 PO; +BUDE1AER4 INH; +CETI-120 PO; +CLOP75TA28 PO; +CLOP75TA70 PO; +GABA-1250 PO; +INSU1INJ19 SC; +IPR002IS NEB; +MELO7.5T7 PO; +MET25T PO; +METO25TA36 PO; +MUPI2OIN2 TOP; +NS45NSL NAS; +OXYB5TAB14 PO; +PRAM0.373 PO; +TIMO0.2524 EACHEYE; +VERI2.5T PO
--- NOTE | 2024-09-18 00:33 | ED.PDOC ---
History of Present Illness HPI Comments 84 y/o F is BIBA from home for c/c of ALOC. Per EMS report, patient has a history of breast cancer, CHF, DM, HTN, liver cirrhosis, pulmonary fibrosis, hypoxic respiratory failure, and pneumothorax. Board Worker called, due to patient acting unusual from her baseline self in addition to falling when being helped in changing clothing, last night. No further acute associated symptoms reported. Chief Complaint: General Weakness Time Seen by MD: 00:10 Primary Care Provider: JUNIOR Reviewed Notes: Nurses Notes, Line Maintenance Technician Notes, Medications, Allergies Allergies: Coded Allergies: Morphine (Verified Allergy, Intermediate, Rash, 07/07/24) Codeine (Verified Allergy, Unknown, 07/07/24) Ibuprofen (Verified Allergy, Unknown, 07/07/24) Home Meds Reported Medications Vericiguat (Verquvo) 2.5 Mg Tab, 2.5 MG PO BIDAC, TAB 09/17/24 Insulin Glargine (Basaglar Kwikpen) 100 Unit/Ml Inj, 20 UNIT SC DAILY, INJ 09/17/24 Clopidogrel Bisulfate (Plavix) 75 Mg Tab, 1 TAB PO DAILY, #90 TAB 1 Refill 09/17/24 Metoprolol Succinate (Toprol Xl) 25 Mg Tab, 1 TAB PO DAILY for HTN, #30 TAB 5 Refills 09/17/24 Timolol Maleate (Timolol Maleate Ophthalmi) 0.5 % Dulce Maria, 1 DROP EACHEYE BID, #5 ML 5 Refills 07/07/24 Gabapentin (Gabapentin) 100 Mg Cap, 100 MG PO DAILY for NEUROPATHY, MG 07/07/24 Mirabegron Base (Mirabegron ER) 50 Mg Tab, 50 MG PO DAILY for OVER ACTIVE BLADDER, TAB 07/07/24 Metoprolol Tartrate (Metoprolol Tartrate) 25 Mg Tab, 1 TAB PO BID for heart, #180 TAB 1 Refill 07/07/24 Acetaminophen (Acetaminophen) 325 Mg Tab, 325 MG PO Q4HP PRN for MILD PAIN, MG 0 Refills 03/03/24 Empagliflozin (Jardiance) 25 Mg Tab, 25 MG PO DAILY for DIABETES, TAB 03/03/24 Sucralfate (CARAFATE) 1 Gm Tab, 1 GM PO DAILY, TAB 03/03/24 Pantoprazole Sodium Sesquihydr (Pantoprazole Sodium) 40 Mg Tab, 40 MG PO DAILY, TAB 03/03/24 Apixaban Base (ELIQUIS) 5 Mg Tab, 5 MG PO BID for stopped on 07/06/24, TAB 03/03/24 Patients Own Medication (PATIENTS OWN MEDICATION) ., for [facility] 1GH QHS PTS OWN MED-OBTAIN FROM PT AND SEND TO RX DRUG: FREQ: RX# EXP: DATE DISP: TECH: RPH: 03/03/24 Albuterol Sulfate (Albuterol Sulfate Hfa) 108 Mcg/Act Aer, 108 MCG IN PRN for SOB, AER 03/03/24 Cholecalciferol (VITAMIN D3) 2,000 Unit Chw, 2000 UNIT PO DAILY, TAB.CHEW 03/03/24 Coenzyme Q10 (Coq-10) 30 Mg Cap, 30 MG PO DAILY, CAP 03/03/24 Ascorbic Acid (VITAMIN C TABLET) 500 Mg Tb, 2 TAB PO DAILY, #30 TAB 3 Refills 03/03/24 Temazepam (Restoril) 15 Mg Cp, 1 CAP PO QPM for 30 Days, #30 TAKE 1 CAPSULE BY MOUTH EVERY DAY AT BEDTIME NEEDED 01/02/24 Albuterol Sulfate (Albuterol Sulfate) 0.083 % Neb, 1 VIAL NEB Q4HPRN for 45 Days, #180 VIAL USE 1 VIAL VIA NEBULIZER FOUR TIMES DAILY NEEDED FOR WHEEZING OR COUGH 01/02/24 Potassium Chloride (Potassium Chloride ER) 10 Meq Tab, 1 TAB PO DAILY for 30 Days, #30 01/02/24 Budesonide-Formoterol Fumarate (Budesonide/Formoterol Fum 80-4.5 Mcg/Act) 1 Aer Aer, 2 PUFF INH BID 10/30/23 Benzonatate (Benzonatate) 100 Mg Cap, 1 CAP PO TID PRN for COUGH for 90 Days, #270 01/09/23 Furosemide (Furosemide) 40 Mg Tab, 2 TAB PO DAILY for 30 Days 10/21/22 Information Source: Emergency Med Personnel Mode of Arrival: EMS Severity: Moderate Timing: Hours Duration: Since onset Prehospital treatment: None Past Medical History PAST MEDICAL HISTORY: Cancer (breast cancer), CHF, DM, HTN, Liver (cirrhosis) Past Medical History (Other): pulmonary fibrosis spontaneous pneumothorax acute on chronic hypoxic respiratory failure constipation Surgical History: Denies all surgeries SEO SPECIALIST History: Denies all SEO SPECIALIST Hx Family History Family History: Reviewed,noncontributory to illness Social History Smoker: Non-Smoker Alcohol: Denies ETOH Use Drugs: Denies Drug Use Lives In: Home All Other Systems: Reviewed and Negative (As per HPI) Physical Exam General Appearance: No Apparent Distress, Normal HEENT: Normal ENT Inspection, Pharynx Normal, TMs Normal Neck: Full Range of Motion, Non-Tender, Normal, Normal Inspection Respiratory: Chest Non-Tender, Lungs Clear, No Accessory Muscle Use, No Respiratory Distress, Normal Breath Sounds Cardiovascular: No Edema, No JVD, No Murmur, No Gallop, Normal Peripheral Pulses, Regular Rate/Rhythm Breast Exam: Deferred Gastrointestinal: No Organomegaly, Non Tender, No Pulsatile Mass, Normal Bowel Sounds, Soft Genitalia: Deferred Pelvic: Deferred Rectal: Deferred Extremities: No calf tenderness, Normal capillary refill, Normal inspection, Normal range of motion, Non-tender, No pedal edema Musculoskeletal : Apperance: Normal Neurologic: Alert, agriculture extension specialist II-XII nml as Tested, No Motor Deficits, Normal Affect, Normal Mood, No Sensory Deficits Cerebellar Function: Normal Reflexes: Normal Skin: Dry, Normal Color, Warm Lymphatic: No Adenopathy Was a procedure done? Was a procedure done?: No Differential Dx Considerations may include: encephalopathy, electrolyte imbalance, dehydration, UTI, viral syndrome, among others. X-Ray, Labs, Meds, VS Vital Signs Date Time Temp Pulse Resp B/P (MAP) Pulse Ox O2 Delivery O2 Flow Rate FiO2 09/18/24 00:31 98 09/18/24 00:15 98.8 97 20 178/87 (117) 96 98.8 Lab Test 09/18/24 00:27 Range/Units White Blood Count 14.4 H 4.4-10.8 10^3/uL Red Blood Count 4.37 4.0-5.20 10^6/uL Hemoglobin 12.7 12.2-16.2 g/dL Hematocrit 37.5 36.0-46.0 % Mean Corpuscular Volume 85.9 80.0-100.0 fL Mean Corpuscular Hemoglobin 29.2 28.0-32.0 pg Mean Corpuscular Hemoglobin Concent 34.0 32.0-36.0 g/dL Red Cell Distribution Width 20.1 H 11.8-14.3 % Platelet Count 369 140-450 10^3/uL Mean Platelet Volume 7.2 6.9-10.8 fL Neutrophils (%) (Auto) 90.3 H 37.0-80.0 % Lymphocytes (%) (Auto) 5.6 L 10.0-50.0 % Monocytes (%) (Auto) 3.6 0.0-12.0 % Eosinophils (%) (Auto) 0.1 0.0-7.0 % Basophils (%) (Auto) 0.4 0.0-2.0 % Neutrophils # (Auto) 13.0 H 1.6-8.6 10 ^3/uL Lymphocytes # (Auto) 0.8 0.4-5.4 10 ^3/uL Monocytes # (Auto) 0.5 0-1.3 10 ^3/uL Eosinophils # (Auto) 0 0-0.8 10 ^3/uL Basophils # (Auto) 0.1 0-0.2 10 ^3/uL Nucleated Red Blood Cells 0.2 % Sodium Level 125 L 136-145 mmol/L Potassium Level 4.9 3.5-5.1 mmol/L Chloride Level 90 L 98-107 mmol/L Carbon Dioxide Level 27 20-31 mmol/L Anion Gap 8 5-15 Blood Urea Nitrogen 21 9-23 mg/dL Creatinine 1.21 H 0.550-1.02 mg/dL Glomerular Filtration Rate Calc 44 >90 mL/min BUN/Creatinine Ratio 17.4 10.0-20.0 Serum Glucose 174 H 74-106 mg/dL Lactic Acid Level 3.0 *H 0.4-2.0 mmol/L Calcium Level 9.1 8.7-10.4 mg/dL Total Bilirubin 1.6 H 0.2-1.0 mg/dL Aspartate Amino Transferase (AST) 44 H <34 U/L Alanine Aminotransferase (ALT) 27 7-40 U/L Alkaline Phosphatase 379 H 46-116 U/L Ammonia 28 11-32 umol/L Total Protein 9.0 H 5.7-8.2 g/dL Albumin 3.2 3.2-4.8 g/dL Lipase 43 12-53 U/L Current Medications Medications (Trade) Dose Ordered Sig/Chito Route Start Time Stop Time Status Last Admin Sodium Chloride 1,700 ml @ 1,700 mls/hr ONCE ONCE IV 09/18/24 01:15 09/18/24 02:14 09/18/24 01:54 X-Ray, Labs, Meds, VS Comment Patient will be admitted for metabolic encephalopathy Suspected urosepsis versus pneumonia Patient was started on vancomycin Pending urinalysis 30mg/kl saline bolus initiated Time of 1ST Reevaluation: 00:40 Reevaluation 1ST: Unchanged Patient Education/Counseling: Diagnosis, Treatment Family Education/Counseling: No Family Present SEPSIS Sepsis Screen Physician Orders Urinalysis (09/18/24 00:16) Chest Xray 1 View (09/18/24 00:16) Head Without Contrast (09/18/24 00:16) Electrocardigram (09/18/24 00:54) Blood Culture (09/18/24 01:10) Sodium Chloride 0.9% (09/18/24 01:15) Vancomycin 1gm/200ml Pm (09/18/24 01:15) Insert Rodriguez Catheter QSHIFT (09/18/24 01:10) Vital Signs Date Time Temp Pulse Resp B/P (MAP) Pulse Ox O2 Delivery O2 Flow Rate FiO2 09/18/24 00:31 98 09/18/24 00:15 98.8 97 20 178/87 (117) 96 98.8 Laboratory Tests Test 09/18/24 00:27 Lactic Acid Level 3.0 mmol/L (0.4-2.0) *H White Blood Count 14.4 10^3/uL (4.4-10.8) H Medications Medications Dose Ordered Sig/Chito Route Start Time Stop Time Status Last Admin Dose Admin Sodium Chloride 1,700 ml @ 1,700 mls/hr ONCE ONCE IV 09/18/24 01:15 09/18/24 02:14 09/18/24 01:54 Departure 1 Departure Time of Disposition: 02:01 Impression: Primary Impression: Leukocytosis Qualified Codes: D72.829 - Elevated white blood cell count, unspecified Additional Impressions: Pulmonary fibrosis Hypokalemia Metabolic encephalopathy Elevated lactic acid level Disposition: ADMITTED INPATIENT Condition: Stable Critical Care Note Critical Care Time?: Yes (30 min-critical care time only) Critical care comment: Due to a high probability of clinically significant, life threatening deterioration, the patient required my highest level of preparedness to intervene emergently and I personally spent this critical care time directly and personally managing the patient. This critical care time included obtaining a history; examining the patient; pulse oximetry; ordering and review of studies; arranging urgent treatment with development of a management plan; evaluation of patient's response to treatment; frequent reassessment; and, discussions with other providers. This critical care time was performed to assess and manage the high probability of imminent, life-threatening deterioration that could result in multi-organ failure. It was exclusive of separately billable procedures and treating other patients and teaching time. Stability Stability form required: No Heart Score Heart Score: Heart Score Response (Comments) Value History N/A 0 EKG N/A 0 Age N/A 0 Risk Factors N/A 0 Troponin N/A 0 Total 0 I personally scribed for BENNY BEDOLLA ([email or web address]) on 09/18/24 at 00:33. Electronically submitted by Dedrick Morris ([email or web address]). BENNY BEDOLLA Sep 18, 2024 00:33
[2024-09-18 01:05] LABS: Alanine Aminotransferase 27 U/L (7-40); Anion Gap 8 (5-15); BUN/Creatinine Ratio 17.4 (10.0-20.0); Blood Urea Nitrogen 21 mg/dL (9-23); Calcium 9.1 mg/dL (8.7-10.4); Carbon Dioxide 27 mmol/L (20-31); Lipase 43 U/L (12-53); Potassium 4.9 mmol/L (3.5-5.1)
--- NOTE | 2024-09-18 01:05 | DVH ---
CHEST RADIOGRAPH Indication: aloc Technique: Single frontal view of the chest was obtained COMPARISON: XY CHEST PORTABLE on DOS: 01/03/24, XY CHEST XRAY 1 VIEW on DOS: 01/02/24, XY CHEST XRAY 1 VIEW on DOS: 01/02/24, XY CHEST XRAY 1 VIEW on DOS: 01/02/24, XY CHEST PORTABLE on DOS: 01/01/24 FINDINGS: Lines and Tubes: None Lungs: Chronic interstitial pulmonary fibrosis. Superimposed pneumonia is difficult to exclude. Pleura: No effusion. No pneumothorax. Cardiomediastinal contours: Unremarkable Bones: Unremarkable IMPRESSION: 1. Chronic interstitial pulmonary fibrosis. Superimposed pneumonia is difficult to exclude.
[2024-09-18 01:06] LABS: Lactic Acid w/Reflex 3.0 mmol/L (0.4-2.0)
[2024-09-18 01:07] LABS: Albumin 3.2 g/dL (3.2-4.8); Alkaline Phosphatase 379 U/L (46-116); Bilirubin, Total 1.6 mg/dL (0.2-1.0); Chloride 90 mmol/L (98-107); Glucose 174 mg/dL (74-106); Sodium 125 mmol/L (136-145); Total Protein 9.0 g/dL (5.7-8.2)
--- NOTE | 2024-09-18 01:10 | DVH ---
EXAM: CT HEAD WITHOUT CONTRAST INDICATION: aloc TECHNIQUE: CT of the head without intravenous contrast. Radiation Dose : 1. Head: CT Dose: CTDI volume is 53 mGy. Dose-length product is 1042 mGy*cm The dose indicators for CT are the volume Computed Tomography (CT) Dose Index (CTDIvol) and the Dose Length Product (DLP), and are measured in units of mGy and mGy-cm, respectively. These indicators are not patient dose, but values generated from the CT scanner acquisition factors. The report includes radiation exposure data for exposures received during this examination. COMPARISON: CT HEAD WITHOUT CONTRAST on DOS: 10/31/23, CT HEAD WITHOUT CONTRAST on DOS: 01/08/23, HEAD WITHOUT CONTRAST on DOS: 12/10/21, HEAD WITHOUT CONTRAST on DOS: 12/07/21 FINDINGS: There is no evidence of acute intracranial hemorrhage, extra-axial collection, mass effect, midline s hift, herniation or hydrocephalus. The ventricles, sulci and cisterns are age appropriate. The roa-white differentiation is intact. Patchy periventricular and subcortical white matter hypoattenuation is nonspecific but may be related to small vessel ischemic disease. The visualized paranasal sinuses and mastoid air cells are clear. Postsurgical changes are seen in the right orbit. The surrounding soft tissues and osseous structures are unremarkable. IMPRESSION: 1. No acute intracranial abnormality. Radiation optimization: All CT scans at this facility use at least one of these dose optimization danny hniques: automated exposure control mA and/or kV adjustment per patient size (includes targeted exam s where dose is matched to clinical indication) or iterative reconstruction.
[2024-09-18 01:16] LABS: Hematocrit 37.5 % (36.0-46.0); Hemoglobin 12.7 g/dL (12.2-16.2); Mean Corpuscular Hemoglobin 29.2 pg (28.0-32.0); Mean Corpuscular Volume 85.9 fL (80.0-100.0); Nucleated Red Blood Cells % 0.2 %
[2024-09-18] MEDS: SODIUM CHLORIDE 0.9% 1,700 ML IV ONE (01:54)
[2024-09-18] MEDS: cefTRIAXone 1GM/50ML D5W 50 ML IV ONE (02:33)
[2024-09-18] MEDS: VANCOMYCIN 1GM/200ML PM 200 ML IV ONE (02:57)
[2024-09-18 03:10] LABS: Urine Protein, UAD TRACE (Negative); Urine WBC Clumps PRESENT /hpf (None Seen)
[2024-09-18] MEDS ORDERED: SODIUM CHLORIDE 0.9% 1,000 ML IV ONE (05:30)
[2024-09-18] MEDS ORDERED: DEXTROSE (50%) 50ML SYRG IV PRN (06:30)
[2024-09-18] MEDS: SUCRALFATE 1 GM/10 ML ORAL SUSP PO ONE (06:30)
[2024-09-18] MEDS: IPRATROPIUM BROM 0.5 MG/2.5ML INH SOL NEB SCH (06:34)
[2024-09-18] MEDS: ACETYLCYSTEINE 20%(200MG/ML) SOL 4ML NEB ONE (06:34)
[2024-09-18] MEDS: ALBUTEROL SULF 2.5 MG/0.5ML(0.5%) NEB SOLN NEB SCH (06:34)
[2024-09-18] MEDS: ACCU-CHEK COMFORT CURVE STRIP VI SCH (06:44)
[2024-09-18] MEDS: InsuLIN REG 1unit/0.01ml Soln (100units/ml) SC SCH (06:44)
--- NOTE | 2024-09-18 06:56 | DVHHPRES ---
History of Present Illness Resident Creating Document: KARI RICHARD RESIDENT History of Present Illness Patient is a 84-year-old female with a past medical history of atrial fibrillation, coronary artery disease s/p PCI with a 1 SAMUEL, insulin-dependent diabetes mellitus, hypertension, pulmonary fibrosis with 3 L oxygen at home, recurrent UTI was brought to the ED via EMS because of generalized weakness. Patient's daughter who is her caregiver reported that since the last 3-4 days she has been noticing the patient being more lethargic . Patient has been coughing more than usual associated with phlegm yellowish whitish to yellowish in color, increased amount of phlegm. Patient also reported of lower abdominal pain in the suprapubic region when she urinates. Daughter did not report any fever or chills. On the initial labs patient had elevated white count, elevated lactic acid and UA showing UTI. Past medical history: atrial fibrillation, coronary artery disease s/p PCI with a 1 SAMUEL, insulin-dependent diabetes mellitus, hypertension, pulmonary fibrosis w ith 3 L oxygen at home, recurrent UTI, constipation, GERD, hiatal hernia, breast cancer Past surgical history: PCI, right mastectomy Social history: Patient lives with a her daughter and does not smoke, drink alcohol or any drug use Home medications: Clopidogrel, sucralfate, metoprolol tartrate 25 b.i.d., benzonatate, mirabegron, timolol Review of Systems Review of Systems Patient seen and examined with the bedside Alert and oriented x2, is weak Responds to voice commands Reports mild suprapubic abdominal pain Denies chest pain, no shortness a breath while on oxygen, no signs of respiratory distress Allergies: Coded Allergies: Morphine (Verified Allergy, Intermediate, Rash, 07/07/24) Codeine (Verified Allergy, Unknown, 07/07/24) Ibuprofen (Verified Allergy, Unknown, 07/07/24) Medications Current Medications Medications Dose Ordered Sig/Chito Route Start Time Stop Time Status Last Admin Dose Admin Vancomycin HCl 0 ml @ 0 mls/hr UD IV 09/18/24 09:00 UNV Meropenem 50 ml @ 17 mls/hr Q12HR IV 09/18/24 10:00 Albuterol 2.5 mg Q6HR NEB 09/18/24 06:00 Ipratropium [place] 0.5 mg Q6HR NEB 09/18/24 06:00 Clopidogrel Bisulfate 75 mg DAILY PO 09/18/24 10:00 Pantoprazole Sodium 40 mg DAILY IV 09/18/24 10:00 Sucralfate 1 gm BID@0600,2200 PO 09/18/24 22:00 UNV Acetylcysteine 200 mg Q6HR NEB 09/18/24 12:00 UNV Exam Vital Signs Vital Signs Date Time Temp Pulse Resp B/P (MAP) Pulse Ox O2 Delivery O2 Flow Rate FiO2 09/18/24 04:00 84 09/18/24 01:05 30 113/52 (72) 99 09/18/24 01:00 Nasal Cannula* 4 36 09/18/24 00:15 98.8 98.8 Exam Gen - no pallor, no icterus, no cyanosis, no LAD, no edema . Skin - Patients skin is warm and dry. HEENT - normocephalic, atraumatic, moist mucous membranes. Neck - full ROM, no LAD, no jugular venous distention Pulmonary - B/L equal air entry with diffuse inspiratory coarse crackles, no wheezing, no stridor. cardiovascular - regular S1,S2 heard, no added sounds, no murmurs heard. GI - soft abdomen with tenderness to palpation in the suprapubic region. no hepatospleenomegaly. Bowel sounds normoactive Neurological - Patient is A/O X 2 . Bilateral upper extremity strength 3/5, bilateral lower extremity strength 3/5, no facial droop, normal speech, no tremor, no sensory deficiets. Labs/Xrays Labs Test 09/18/24 02:50 09/18/24 02:25 09/18/24 00:27 Range/Units Urine Color Yellow Yellow Urine Clarity Turbid H Clear Urine pH 6.0 5.0-9.0 Urine Specific [place] 1.012 1.001-1.035 Urine Protein Trace H Negative Urine Ketones Negative Negative Urine Blood 2+ H Negative /uL Urine Nitrite Negative Negative Urine Bilirubin Negative Negative Urine Urobilinogen Normal Negative mg/dL Urine Leukocyte Esterase 3+ Negative /uL Urine RBC 21 0 - 4 /hpf Urine WBC Clumps Present None Seen /hpf Urine Microscopic WBC 651 H 0-5 /HPF Urine Squamous Epithelial Cells Few <5 /hpf Urine Bacteria None seen None Seen /hpf Urine Glucose Normal Normal mg/dL Lactic Acid Level 1.9 0.4-2.0 mmol/L White Blood Count 14.4 H 4.4-10.8 10^3/uL Red Blood Count 4.37 4.0-5.20 10^6/uL Hemoglobin 12.7 12.2-16.2 g/dL Hematocrit 37.5 36.0-46.0 % Mean Corpuscular Volume 85.9 80.0-100.0 fL Mean Corpuscular Hemoglobin 29.2 28.0-32.0 pg Mean Corpuscular Hemoglobin Concent 34.0 32.0-36.0 g/dL Red Cell Distribution Width 20.1 H 11.8-14.3 % Platelet Count 369 140-450 10^3/uL Mean Platelet Volume 7.2 6.9-10.8 fL Neutrophils (%) (Auto) 90.3 H 37.0-80.0 % Lymphocytes (%) (Auto) 5.6 L 10.0-50.0 % Monocytes (%) (Auto) 3.6 0.0-12.0 % Eosinophils (%) (Auto) 0.1 0.0-7.0 % Basophils (%) (Auto) 0.4 0.0-2.0 % Neutrophils # (Auto) 13.0 H 1.6-8.6 10 ^3/uL Lymphocytes # (Auto) 0.8 0.4-5.4 10 ^3/uL Monocytes # (Auto) 0.5 0-1.3 10 ^3/uL Eosinophils # (Auto) 0 0-0.8 10 ^3/uL Basophils # (Auto) 0.1 0-0.2 10 ^3/uL Nucleated Red Blood Cells 0.2 % Sodium Level 125 L 136-145 mmol/L Potassium Level 4.9 3.5-5.1 mmol/L Chloride Level 90 L 98-107 mmol/L Carbon Dioxide Level 27 20-31 mmol/L Anion Gap 8 5-15 Blood Urea Nitrogen 21 9-23 mg/dL Creatinine 1.21 H 0.550-1.02 mg/dL Glomerular Filtration Rate Calc 44 >90 mL/min BUN/Creatinine Ratio 17.4 10.0-20.0 Serum Glucose 174 H 74-106 mg/dL Calcium Level 9.1 8.7-10.4 mg/dL Total Bilirubin 1.6 H 0.2-1.0 mg/dL Aspartate Amino Transferase (AST) 44 H <34 U/L Alanine Aminotransferase (ALT) 27 7-40 U/L Alkaline Phosphatase 379 H 46-116 U/L Ammonia 28 11-32 umol/L Total Protein 9.0 H 5.7-8.2 g/dL Albumin 3.2 3.2-4.8 g/dL Lipase 43 12-53 U/L Assessment/Plan Assessment/Plan Acute metabolic encephalopathy likely due to sepsis - CT shows no acute intracranial abnormality - vitamin B12, folic acid levels pending Acute on chronic hypoxic respiratory failure Possible pneumonia due to gram +/- bacteria Pulmonary fibrosis - IV antibiotics - duo nebs q.6 hours - Mucomyst - respiratory culture pending - previous sputum cultures growing MRSA H/O coronary artery disease s/p PCI with a 1 SAMUEL Congestive heart failure, no exacerbation H/o atrial fibrillation - echo from July 2024 shows LVEF more than 55% with mild AV sclerosis - Lasix currently held because of sepsis - continued on Plavix - Eliquis stopped by recreation technician recently - patient is scheduled for another PCI in the week of September with UTI, possible acute pyelonephritis Sepsis likely UTI/pneumonia - urine culture pending - IV vancomycin and Meropenam - previous urine cultures showing growth of ESBL E coli and Enterococcus faecium - judicious use of IV fluids since the patient has heart failure IRENE on CKD likely due to VMN 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 Full code Time spent: 41 minutes Plan discussed with Dr. Ayala Plan discussed with: Patient, Daughter My Orders Orders - KARI RICHARD RESIDENT Procedure Category Date Status Time Admit ADMIT 09/18/24 Transmitted 05:28 Oxygen By Nasal RT 09/18/24 Transmitted Cannula 05:28 Stat Ekg For Chest JULIO 09/18/24 In Process Pain 05:28 Notify Of Changes JULIO 09/18/24 In Process From Base 05:28 Griddle Cook For JULIO 09/18/24 In Process 24 Hours 05:28 Emergency Dysrhythmia JULIO 09/18/24 In Process Protocol 05:28 Urine Bacterial ROCIO 09/18/24 Logged Culture 05:28 Vancomycin Per PHA 09/18/24 Pending Pharmacy 09:00 Meropenem 1gm Ivpb PHA 09/18/24 In Process (Merrem 1gm/ Ns) 10:00 Rapid Influenza A&B LAB 09/18/24 Logged 05:28 Covid19 Antigen Stephanie LAB 09/18/24 Logged Mrsa Screen ROCIO 09/18/24 Logged 05:28 Albuterol Medneb PHA 09/18/24 In Process (Ventolin Medneb) 06:00 Ipratropium Medneb PHA 09/18/24 In Process (Atrovent Medneb) 06:00 Clopidogrel Bisulfate PHA 09/18/24 In Process (Plavix) 10:00 Sodium Chloride 0.9% PHA 09/18/24 In Process 08:00 Complete Blood Count LAB 09/19/24 Verified 04:00 Comprehensive LAB 09/19/24 Verified Metabolic Panel 04:00 Folate (Folic Acid) LAB 09/19/24 Verified 04:00 Magnesium LAB 09/19/24 Verified 04:00 Vitamin B12 LAB 09/19/24 Verified 04:00 Thyroid Stimulating LAB 09/19/24 Verified Hormone 04:00 Phosphorus LAB 09/19/24 Verified 04:00 Hemoglobin A1c LAB 09/19/24 Verified 04:00 Pantoprazole PHA 09/18/24 In Process (Protonix) 10:00 Sucralfate Susp PHA 09/18/24 Logged (Carafate Susp) 22:00 Pureed DIET 09/18/24 Transmitted Breakfast Consistent DIET 09/18/24 Transmitted Carb(Ccho)Diabetes Breakfast Acetylcysteine PHA 09/18/24 Logged Inhalation 20% 12:00 Acetylcysteine PHA 09/18/24 Logged Inhalation 20% 06:15 Respiratory Culture ROCIO 09/18/24 Logged W/ Gs 06:12 Date of Service: Sep 18, 2024 Billing Provider: GILBERTO AYALA MD Common Visit Codes: 09300-OTRJGSH INP/OBS CARE (HIGH) Secondary Visit Codes: 99765-[id number] CARE PLAN 30 MINUTES KARI RICHARD RESIDENT Sep 18, 2024 06:56
--- NOTE | 2024-09-18 07:09 | ECG ---
[facility] Test Date: 2024-09-18 Test Time: 00:31:49 Pat Name: MENG BANGURADepartment: ED Room: 0203T Gender: F Trolley Collector: GI : 1940 Requested By: BENNY BEDOLLA Order Number: [id number] Reading MD: Brandon Wen Measurements Intervals [place] Rate: 98 P: -12 [place]: 162 QRS: -40 QRSD: 81 T: 120 QT: 331 QTc: 423 Interpretive Statements Sinus rhythm Left anterior fascicular block LVH with secondary repolarization abnormality Anterior Q waves, possibly due to LVH Electronically Signed On 09-20-2024 20:04:08 PDT by Brandon Wen Please click the below link to view image of tracing.
[2024-09-18 08:21] LABS: COVID19 ANTIGEN SOFIA FIA NEGATIVE (NEGATIVE)
[2024-09-18] MEDS: SODIUM CHLORIDE 0.9% 1,000 ML IV ONE (08:23)
[2024-09-18 08:24] LABS: Protein, Urine 55.0 mg/dL (1-14)
[2024-09-18] MEDS ORDERED: VANCOMYCIN PER PHARMACY 0 MG IV SCH (09:00)
[2024-09-18] MEDS: CLOPIDOGREL BISULFATE 75 MG TAB PO SCH (09:39)
[2024-09-18] MEDS: DOXYCYCLINE 100MG/100ML 100 ML IV SCH (09:53)
[2024-09-18] MEDS: ENOXAPARIN SOD 40 MG/0.4 ML SYRINGE SC SCH (10:43)
[2024-09-18] MEDS: PANTOPRAZOLE 40 MG/10 ML VIAL INJ IV SCH (10:43)
[2024-09-18] MEDS: MEROPENEM 1GM IVPB 50 ML IV SCH (10:43)
--- NOTE | 2024-09-18 10:48 | DVHPN2 ---
Progress Note - Dictate Date Seen: Sep 18, 2024 Medical Necessity Reason Pt with a Central, PICC or Fol: No Subjective PT WITH AMS GENERALIZED WEAKNESS METABOLIC ENCEPHALOPATHY UTI HYPONATREMIA PMH PUL FIBROSIS ON HOME O2 THERAPY CAD S/P PTCA STENT AFIB DIABETES VASCULOPATHY NEPHROPATHY WITH PROTEINURIA vital signs Vital Sign Date Time Temp Pulse Resp B/P (MAP) Pulse Ox O2 Delivery O2 Flow Rate FiO2 09/18/24 08:00 72 09/18/24 07:50 20 97 Nasal Cannula* 4 36 09/18/24 07:50 98.4 105/53 (70) 98.4 medications Current Medications Medications Dose Ordered Sig/Chito Route Start Time Stop Time Status Last Admin Dose Admin Vancomycin HCl 0 ml @ 0 mls/hr UD IV 09/18/24 09:00 UNV Meropenem 50 ml @ 17 mls/hr Q12HR IV 09/18/24 10:00 09/18/24 10:43 17 MLS/HR Albuterol 2.5 mg Q6HR NEB 09/18/24 06:00 09/18/24 06:34 2.5 MG Ipratropium [place] 0.5 mg Q6HR NEB 09/18/24 06:00 09/18/24 06:34 0.5 MG Clopidogrel Bisulfate 75 mg DAILY PO 09/18/24 10:00 Pantoprazole Sodium 40 mg DAILY IV 09/18/24 10:00 09/18/24 10:43 40 MG Sucralfate 1 gm BID@0600,2200 PO 09/18/24 22:00 Acetylcysteine 200 mg Q6HR NEB 09/18/24 12:00 Diagnostic Test (Pha) 1 strip ACHS 09/18/24 07:00 09/18/24 06:44 1 STRIP Insulin Human Regular ACHS SC 09/18/24 07:00 Dextrose 50 ml UD PRN IV 09/18/24 06:30 Enoxaparin Sodium 40 mg DAILY SC 09/18/24 10:00 09/18/24 10:43 40 MG Doxycycline Hyclate 100 ml @ 50 mls/hr Q12H IV 09/18/24 09:00 09/18/24 09:53 50 MLS/HR laboratory and microbiology Laboratory Tests 09/18/24 00:27 Test 09/18/24 00:27 Range/Units Serum Glucose 174 H 74-106 mg/dL Problem List AMS GENERALIZED WEAKNESS METABOLIC ENCEPHALOPATHY UTI HYPONATREMIA PMH PUL FIBROSIS ON HOME O2 THERAPY CAD S/P PTCA STENT AFIB DIABETES VASCULOPATHY NEPHROPATHY WITH PROTEINURIA Assessment/Plan LEUKOCYTOSIS ABX CORRECT HYPONATREMIA Plan discussed with: Patient Critical Care Time(min): 35 SILVANA ADAIR MD Sep 18, 2024 10:48
[2024-09-18] MEDS: ACETYLCYSTEINE 20%(200MG/ML) SOL 4ML NEB SCH (11:19)
[2024-09-18] MEDS: SODIUM CHL 3% 500 ML IV ONE (13:02)
[2024-09-18 13:52] LABS: Chloride 100 mmol/L (98-107); Potassium 4.3 mmol/L (3.5-5.1)
[2024-09-18 13:53] LABS: Anion Gap 6 (5-15); Calcium 8.8 mg/dL (8.7-10.4); Carbon Dioxide 27 mmol/L (20-31); Sodium 133 mmol/L (136-145)
[2024-09-18 13:58] LABS: BUN/Creatinine Ratio 18.8 (10.0-20.0); Blood Urea Nitrogen 19 mg/dL (9-23); Glucose 89 mg/dL (74-106); INR 1.31 (0.9-1.15); Partial Thromboplastin Time 35.9 SEC (24.5-34.5); Prothrombin Time 13.5 sec (9.3-11.8)
--- NOTE | 2024-09-18 16:43 | DVHPNRES ---
Progress Note Date Seen: Sep 18, 2024 Resident Creating Document: KERRY FIGUEROA RESIDENT Medical Necessity Reason Pt with a Central, PICC or Fol: No Subjective Review of Systems Patient is a 84-year-old female with a past medical history of atrial fibrillation, coronary artery disease s/p PCI with a 1 SAMUEL, insulin-dependent diabetes mellitus, hypertension, pulmonary fibrosis with 3 L oxygen at home, recurrent UTI was brought to the ED via EMS because of generalized weakness and suprapubic pain. Patient's daughter who is her caregiver reported that since she had an MRI spine last week and sicnce then she has been experiencing abdominal pain, chills and gen weakness. Also says that the patient has sob, cough with clear phlegm for the same duration. She tried going up on O2 which didn't relieve her S/S. . Patient also reported of lower abdominal pain in the suprapubic region when she urinates. Daughter did not report any fever or chills. On the initial labs patient had elevated white count, elevated lactic acid and UA showing UTI. Past medical history: atrial fibrillation, coronary artery disease s/p PCI with a 1 SAMUEL, insulin-dependent diabetes mellitus, hypertension, pulmonary fibrosis with 3 L oxygen at home, recurrent UTI, constipation, GERD, hiatal hernia, breast cancer Past surgical history: PCI, right mastectomy Social history: Patient lives with a her daughter and does not smoke, drink alcohol or any drug use Home medications: Clopidogrel, sucralfate, metoprolol tartrate 25 b.i.d., benzonatate, mirabegron, timolol Patient seen and examined at bedside. Abdomen is tender. Objective vital signs Vital Sign Date Time Temp Pulse Resp B/P (MAP) Pulse Ox O2 Delivery O2 Flow Rate FiO2 09/18/24 16:00 65 09/18/24 12:00 14 108/49 (68) 98 09/18/24 11:19 Nasal Cannula 3.0 09/18/24 11:19 32 09/18/24 07:50 98.4 98.4 medications Current Medications Medications Dose Ordered Sig/Chito Route Start Time Stop Time Status Last Admin Dose Admin Vancomycin HCl 0 ml @ 0 mls/hr UD IV 09/18/24 09:00 UNV Meropenem 50 ml @ 17 mls/hr Q12HR IV 09/18/24 10:00 09/18/24 10:43 17 MLS/HR Albuterol 2.5 mg Q6HR NEB 09/18/24 06:00 09/18/24 11:19 2.5 MG Ipratropium [place] 0.5 mg Q6HR NEB 09/18/24 06:00 09/18/24 11:19 0.5 MG Clopidogrel Bisulfate 75 mg DAILY PO 09/18/24 10:00 Pantoprazole Sodium 40 mg DAILY IV 09/18/24 10:00 09/18/24 10:43 40 MG Sucralfate 1 gm BID@0600,2200 PO 09/18/24 22:00 Acetylcysteine 200 mg Q6HR NEB 09/18/24 12:00 09/18/24 11:19 200 MG Diagnostic Test (Pha) 1 strip ACHS 09/18/24 07:00 09/18/24 12:01 1 STRIP Insulin Human Regular ACHS SC 09/18/24 07:00 Dextrose 50 ml UD PRN IV 09/18/24 06:30 Enoxaparin Sodium 40 mg DAILY SC 09/18/24 10:00 09/18/24 10:43 40 MG Doxycycline Hyclate 100 ml @ 50 mls/hr Q12H IV 09/18/24 09:00 09/18/24 09:53 50 MLS/HR Examination Patient lying in bed, in no acute distress General: Overweight, afebrile, palor, mucosae are moist Cardiovascular: Regular S1 and S2. No murmurs, gallops or rubs. No JVD elevation. No pedal edema Respiratory: Bilateral rales heard on auscultation, no wheezing or stridor. On 3 L home oxygen Abdomen: Soft, nontender, suprapubic tenderness normoactive bowel sounds, no rebound tenderness, no organomegaly, no masses stage I decubitus ulcer Genitourinary: Deferred MSK/skin: Mobilizes 4 limbs. Skin is dry and warm Neurological: No motor, no sensitive deficits, normal speech. Pupils are isocoric and reactive. Psych/Mental Status: A/Ox2 laboratory and microbiology Laboratory Tests 09/18/24 13:28 09/18/24 00:27 Test 09/18/24 13:28 Range/Units Serum Glucose 89 74-106 mg/dL Labs and/or images reviewed: Labs reviewed by me, Image(s) reviewed by me Problem List/Assessment/Plan Problem List/Assessment/Plan Acute metabolic encephalopathy likely due to sepsis - CT shows no acute intracranial abnormality - vitamin B12, folic acid levels pending Acute on chronic hypoxic respiratory failure Possible pneumonia due to gram +/- bacteria Pulmonary fibrosis Lactic acidosis-resolved - IV meropenem and doxycycline - duo nebs q.6 hours - Mucomyst - respiratory culture pending - previous sputum cultures growing MRSA H/O coronary artery disease s/p PCI with a 1 SAMUEL Congestive heart failure, no exacerbation Uncontrolled hypertension H/o atrial fibrillation - echo from July 2024 shows LVEF more than 55% with mild AV sclerosis - Lasix currently held because of sepsis - continued on Plavix - Eliquis stopped by shipping clerk crating recently - patient is scheduled for another PCI in the week of September with UTI, possible acute pyelonephritis Sepsis likely UTI/pneumonia - urine culture pending -follow up with abdomen ultrasound - IV vancomycin and Meropenam - previous urine cultures showing growth of ESBL E coli and Enterococcus faecium - judicious use of IV fluids since the patient has heart failure IRENE on CKD likely due to VMN 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 MEMBRENO started 3% hypotonic saline, sodium corrected to 133, stopped 3% - urine studies pending GERD H/O hiatal hernia Mild hyperbilirubinemia Elevated alkaline phosphatase - abdominal ultrasound ordered - Protonix and sucralfate Stage I decubitus ulcer Wound consult Change position q.2 hours PUD prophylaxis: Protonix DVT prophylaxis: Enoxaparin Goals of care discussed with the patient's daughter at bedside for over 19 minutes. Full code Case discussed with Dr. Lehman Plan discussed with: Patient My Orders My Orders Orders - KERRY FIGUEROA Procedure Category Date Status Time *Consult Dr. Mancuso CONS 09/18/24 Transmitted [place] 08:47 Doxycycline PHA 09/18/24 In Process 100mg/100ml 09:00 Communication Order ORDERS 09/18/24 Transmitted 11:32 Npo (Nothing By DIET 09/18/24 Transmitted Mouth) Diet Dinner Date of Service: Sep 18, 2024 Billing Provider: POLO FISH MD Common Visit Codes: [id number] INP/OBS CARE(HIGH) KERRY FIGUEROA Sep 18, 2024 16:42 POLO FISH MD Sep 22, 2024 22:13
--- NOTE | 2024-09-18 17:31 | DVH ---
COMPLETE ABDOMINAL ULTRASOUND HISTORY: Transaminitis and rule out pyelonephritis TECHNIQUE: Grayscale and color-flow Doppler ultrasound examination of the abdomen was performed. COMPARISON: ABPLIV on DOS: 12/08/21, ABPL on DOS: 12/07/21 Findings: Liver measures 11.4 cm in length with heterogeneous echotexture and nodularcontours. No evidence of s olid or cystic hepatic lesions. Mild intrahepatic ductal dilatation. Common bile duct measures 0.3 cm in diameter. Mild to moderate perihepatic free fluid noted. Normal hepatopedal flow within the alanna l vein. Gallbladder distended with the wall measuring 0.4 cm in thickness. No evidence of biliary sludge, sh adowing calculi or pericholecystic fluid. Negative sonographic [place]'s sign. Visualized portions of the pancreas are grossly unremarkable. Spleen appears within normal limits measuring 8.3 x 7.9 x 3.1 cm with homogenous echotexture and norm al contours. Right kidney measures 9.5 cm. Left kidney measures 9.8 cm. Increased echogenicity of bilateral kidney s. Normal renal contours and cortical thickness bilaterally. No evidence of hydronephrosis, nephrolit hiasis, cystic or solid renal lesions. Visualized portions of the abdominal aorta are grossly unremarkable, measuring 1.6 cm proximal, 1.2 c m mid, and 0.6 cm distal. Partially visualized inferior vena cava is grossly unremarkable with normal flow on color Doppler imaging. Impression: 1. No acute abdominal abnormalities. 2. Cirrhotic liver morphology with mild intrahepatic ductal dilatation and perihepatic free fluid. 3. Distended gallbladder with associated wall thickening favored reactive to hepatic disease. 4. Increased echogenicity of bilateral kidneys. Correlate for medical renal disease. No evidence of pyelonephritis.
[2024-09-18 19:33] LABS: Chloride 102 mmol/L (98-107); Potassium 4.2 mmol/L (3.5-5.1)
[2024-09-18 19:34] LABS: Anion Gap 6 (5-15); Carbon Dioxide 27 mmol/L (20-31)
[2024-09-18 19:35] LABS: Calcium 9.0 mg/dL (8.7-10.4)
[2024-09-18 19:39] LABS: Glucose 86 mg/dL (74-106)
[2024-09-18 19:40] LABS: BUN/Creatinine Ratio 15.1 (10.0-20.0); Blood Urea Nitrogen 16 mg/dL (9-23)
[2024-09-18 19:51] LABS: Sodium 135 mmol/L (136-145)
[2024-09-18] MEDS: SUCRALFATE 1 GM/10 ML ORAL SUSP PO SCH (22:10)
[2024-09-19] VITALS (13 sets, daily range): BP systolic 126; BP diastolic 60; PULSE 62–83; RESP 16–26; TEMP 97.3; O2SAT 93–100
[2024-09-19] MEDS: VANCOMYCIN 1GM/200ML PM 200 ML IV SCH (03:10)
[2024-09-19 05:03] LABS: Alanine Aminotransferase 19 U/L (7-40); Anion Gap 8 (5-15); BUN/Creatinine Ratio 16.3 (10.0-20.0); Blood Urea Nitrogen 16 mg/dL (9-23); Carbon Dioxide 26 mmol/L (20-31); Chloride 100 mmol/L (98-107); Magnesium 1.8 mg/dL (1.6-2.6); Potassium 3.9 mmol/L (3.5-5.1); Total Protein 7.0 g/dL (5.7-8.2)
[2024-09-19 05:04] LABS: Bilirubin, Total 0.8 mg/dL (0.2-1.0)
[2024-09-19 05:07] LABS: Hematocrit 33.6 % (36.0-46.0); Hemoglobin 11.2 g/dL (12.2-16.2); Mean Corpuscular Hemoglobin 28.7 pg (28.0-32.0); Mean Corpuscular Volume 86.1 fL (80.0-100.0); Nucleated Red Blood Cells % 0.3 %
[2024-09-19 05:13] LABS: Albumin 2.4 g/dL (3.2-4.8); Alkaline Phosphatase 267 U/L (46-116); Calcium 8.3 mg/dL (8.7-10.4); Glucose 71 mg/dL (74-106); Sodium 134 mmol/L (136-145)
--- NOTE | 2024-09-19 13:26 | DVH ---
Indication: r/o retroperitoneal bleed Technique: CT axial images of the abdomen and pelvis are obtained without contrast. Coronal and sagit rossana reformats were obtained. Radiation Dose Information: CTDI volume is 10.6 mGy. Dose-length product is 570.99 mGy*cm Comparison: 07/27/2019 FINDINGS: There is limited interpretation of the abdomen and pelvis without administration of intravenous contr ast. Extensive pulmonary bronchiectatic changes, reticulation. Left lower lobe cavitary lesion measuring 2 .3 cm. Tiny bilateral pleural effusions. Extensive bilateral pulmonary nodularity. Adrenal glands unremarkable. Spleen is measuring 12 cm AP. Pancreas unremarkable in shape. Choleli thiasis. Hydropic/ distended gallbladder. Cirrhotic morphology liver. Small amount of ascites fluid. The kidneys demonstrate no hydronephrosis/ nephrolithiasis. Stomach partially distended. Small bowel loops are normal in caliber. Irregular thickening of the re ctal wall. Moderate volume stool within the colon. No secondary signs for appendicitis present. Mesenteric edema. Anterior abdominal wall soft tissue emphysema. Abdominal aortic atherosclerotic disease and tortuosity. Bladder is containing a Rodriguez catheter. Sm all amount of free pelvic fluid. Moderate to severe thoracolumbar degenerative disc disease. Acute to subacute appearing L3 compressio n fracture with depression of the superior endplate, 20% loss height. IMPRESSION: No retroperitoneal hematoma identified. Extensive pulmonary bronchiectatic, reticular changes, nodularity which could be secondary to infecti on/ chronic infection, underlying chronic lung disease /interstitial disease, neoplasm/metastatic dis ease. This is significantly more pronounced than on the previous examination. Left lower lobe partially cavitary lesion with solid component measuring 2.3 cm with differential con siderations including neoplasm, infection, inflammatory etiologies. Pulmonology consultation advised. Cirrhotic morphology liver. Small amount of ascites fluid extending to the pelvis Atherosclerotic disease. Acute to subacute L3 compression fracture with 20% loss height. This can be further characterized wit h MRI lumbar spine. Cholelithiasis. Other findings as described.
--- NOTE | 2024-09-19 14:00 | DVHPN2 ---
Progress Note - Dictate Date Seen: Sep 19, 2024 Medical Necessity Reason Pt with a Central, PICC or Fol: No Subjective PT WITH AMS GENERALIZED WEAKNESS METABOLIC ENCEPHALOPATHY UTI HYPONATREMIA PMH PUL FIBROSIS ON HOME O2 THERAPY CAD S/P PTCA STENT AFIB DIABETES VASCULOPATHY NEPHROPATHY WITH PROTEINURIA vital signs Vital Sign Date Time Temp Pulse Resp B/P (MAP) Pulse Ox O2 Delivery O2 Flow Rate FiO2 09/19/24 12:55 73 22 93 09/19/24 12:00 124/49 (74) 09/19/24 08:14 Nasal Cannula* 2 28 09/19/24 08:00 98.9 98.9 Total Intake and Output 09/18/24 09/18/24 09/19/24 15:00 23:00 07:00 Intake Total 150 ml 100 ml Output Total 1250 ml Balance 150 ml -1250 ml 100 ml medications Current Medications Medications Dose Ordered Sig/Chito Route Start Time Stop Time Status Last Admin Dose Admin Vancomycin HCl 0 ml @ 0 mls/hr UD IV 09/18/24 09:00 Meropenem 50 ml @ 17 mls/hr Q12HR IV 09/18/24 10:00 09/19/24 10:51 17 MLS/HR Albuterol 2.5 mg Q6HR NEB 09/18/24 06:00 09/19/24 12:50 2.5 MG Ipratropium [place] 0.5 mg Q6HR NEB 09/18/24 06:00 09/19/24 12:50 0.5 MG Clopidogrel Bisulfate 75 mg DAILY PO 09/18/24 10:00 Pantoprazole Sodium 40 mg DAILY IV 09/18/24 10:00 09/19/24 10:51 40 MG Sucralfate 1 gm BID@0600,2200 PO 09/18/24 22:00 09/18/24 22:10 1 GM Acetylcysteine 200 mg Q6HR NEB 09/18/24 12:00 09/19/24 12:51 200 MG Diagnostic Test (Pha) 1 strip ACHS 09/18/24 07:00 09/19/24 11:51 1 STRIP Insulin Human Regular ACHS SC 09/18/24 07:00 Dextrose 50 ml UD PRN IV 09/18/24 06:30 Enoxaparin Sodium 40 mg DAILY SC 09/18/24 10:00 09/19/24 10:52 40 MG Doxycycline Hyclate 100 ml @ 50 mls/hr Q12H IV 09/18/24 09:00 09/19/24 09:14 50 MLS/HR Vancomycin HCl 200 ml @ 200 mls/hr Q24H IV 09/19/24 03:00 09/19/24 03:10 200 MLS/HR laboratory and microbiology Laboratory Tests 09/19/24 04:21 Test 09/19/24 04:21 Range/Units Serum Glucose 71 L 74-106 mg/dL Problem List AMS GENERALIZED WEAKNESS METABOLIC ENCEPHALOPATHY UTI HYPONATREMIA PMH PUL FIBROSIS ON HOME O2 THERAPY CAD S/P PTCA STENT AFIB DIABETES VASCULOPATHY NEPHROPATHY WITH PROTEINURIA Assessment/Plan LEUKOCYTOSIS ABX CORRECT HYPONATREMIA HYPONATREMIA RESOLVED CORRECT HYPOTHYROIDISM LEUKOCYTOSIS RESOLVED Plan discussed with: Patient SILVANA ADAIR MD Sep 19, 2024 14:00
--- NOTE | 2024-09-19 16:20 | DVHPNRES ---
Progress Note Date Seen: Sep 19, 2024 Resident Creating Document: KERRY FIGUEROA RESIDENT Medical Necessity Reason Pt with a Central, PICC or Fol: No Subjective Review of Systems Patient is a 84-year-old female with a past medical history of atrial fibrillation, coronary artery disease s/p PCI with a 1 SAMUEL, insulin-dependent diabetes mellitus, hypertension, pulmonary fibrosis with 3 L oxygen at home, recurrent UTI was brought to the ED via EMS because of generalized weakness and suprapubic pain. Patient's daughter who is her caregiver reported that since she had an MRI spine last week and sicnce then she has been experiencing abdominal pain, chills and gen weakness. Also says that the patient has sob, cough with clear phlegm for the same duration. She tried going up on O2 which didn't relieve her S/S. . Patient also reported of lower abdominal pain in the suprapubic region when she urinates. Daughter did not report any fever or chills. On the initial labs patient had elevated white count, elevated lactic acid and UA showing UTI. Past medical history: atrial fibrillation, coronary artery disease s/p PCI with a 1 SAMUEL, insulin-dependent diabetes mellitus, hypertension, pulmonary fibrosis with 3 L oxygen at home, recurrent UTI, constipation, GERD, hiatal hernia, breast cancer Past surgical history: PCI, right mastectomy Social history: Patient lives with a her daughter and does not smoke, drink alcohol or any drug use Home medications: Clopidogrel, sucralfate, metoprolol tartrate 25 b.i.d., benzonatate, mirabegron, timolol 09/18-Patient seen and examined at bedside. Abdomen is tender. 09/19-patient seen and examined at bedside. Per daughter, patient is doing better, bedside swallow eval past, was started pureed diet Objective vital signs Vital Sign Date Time Temp Pulse Resp B/P (MAP) Pulse Ox O2 Delivery O2 Flow Rate FiO2 09/19/24 14:00 77 22 114/49 (70) 100 09/19/24 08:14 Nasal Cannula* 2 28 09/19/24 08:00 98.9 98.9 Total Intake and Output 09/18/24 09/18/24 09/19/24 15:00 23:00 07:00 Intake Total 150 ml 100 ml Output Total 1250 ml Balance 150 ml -1250 ml 100 ml medications Current Medications Medications Dose Ordered Sig/Chito Route Start Time Stop Time Status Last Admin Dose Admin Vancomycin HCl 0 ml @ 0 mls/hr UD IV 09/18/24 09:00 Meropenem 50 ml @ 17 mls/hr Q12HR IV 09/18/24 10:00 09/19/24 10:51 17 MLS/HR Albuterol 2.5 mg Q6HR NEB 09/18/24 06:00 09/19/24 12:50 2.5 MG Ipratropium [place] 0.5 mg Q6HR NEB 09/18/24 06:00 09/19/24 12:50 0.5 MG Clopidogrel Bisulfate 75 mg DAILY PO 09/18/24 10:00 Pantoprazole Sodium 40 mg DAILY IV 09/18/24 10:00 09/19/24 10:51 40 MG Sucralfate 1 gm BID@0600,2200 PO 09/18/24 22:00 09/18/24 22:10 1 GM Acetylcysteine 200 mg Q6HR NEB 09/18/24 12:00 09/19/24 12:51 200 MG Diagnostic Test (Pha) 1 strip ACHS 09/18/24 07:00 09/19/24 11:51 1 STRIP Insulin Human Regular ACHS SC 09/18/24 07:00 Dextrose 50 ml UD PRN IV 09/18/24 06:30 Enoxaparin Sodium 40 mg DAILY SC 09/18/24 10:00 09/19/24 10:52 40 MG Doxycycline Hyclate 100 ml @ 50 mls/hr Q12H IV 09/18/24 09:00 09/19/24 09:14 50 MLS/HR Vancomycin HCl 200 ml @ 200 mls/hr Q24H IV 09/19/24 03:00 09/19/24 03:10 200 MLS/HR Examination Patient lying in bed, in no acute distress General: Overweight, afebrile, palor, mucosae are moist Cardiovascular: Regular S1 and S2. No murmurs, gallops or rubs. No JVD elevation. No pedal edema Respiratory: Bilateral rales heard on auscultation, no wheezing or stridor. On 3 L home oxygen Abdomen: Soft, nontender, suprapubic tenderness normoactive bowel sounds, no rebound tenderness, no organomegaly, no masses stage I decubitus ulcer Genitourinary: Deferred MSK/skin: Mobilizes 4 limbs. Skin is dry and warm Neurological: No motor, no sensitive deficits, normal speech. Pupils are isocoric and reactive. Psych/Mental Status: A/Ox2 laboratory and microbiology Laboratory Tests 09/19/24 04:21 Test 09/19/24 04:21 Range/Units Serum Glucose 71 L 74-106 mg/dL Microbiology Date/Time Source Procedure Growth Status 09/18/24 02:25 Blood Blood Culture - Preliminary NO GROWTH AFTER 24 HOURS OF INCUBATION. Resulted Labs and/or images reviewed: Labs reviewed by me, Image(s) reviewed by me Problem List/Assessment/Plan Problem List/Assessment/Plan Acute metabolic encephalopathy likely due to sepsis - CT shows no acute intracranial abnormality - vitamin B12, folic acid levels pending Acute on chronic hypoxic respiratory failure Sepsis secondary to Possible pneumonia due to gram +/- bacteria Pulmonary fibrosis Lactic acidosis-resolved - IV meropenem and doxycycline - duo nebs q.6 hours - Mucomyst - respiratory culture pending - previous sputum cultures growing MRSA -WBC trending down -CT abdomen shows Extensive pulmonary bronchiectatic, reticular changes, nodularity which could be secondary to infection/ chronic infection, underlying chronic lung disease /interstitial disease, neoplasm/metastatic disease. This is significantly more pronounced than on the previous examination. Left lower lobe partially cavitary lesion with solid component measuring 2.3 cm with differential considerations including neoplasm, infection, inflammatory etiologies. Pulmonology consultation advised. Considering pulmonary consultation H/O coronary artery disease s/p PCI with a 1 SAMUEL Congestive heart failure, no exacerbation Uncontrolled hypertension H/o atrial fibrillation Ruled out retroperitoneal bleeding - echo from July 2024 shows LVEF more than 55% with mild AV sclerosis - Lasix currently held because of sepsis - continued on Plavix - Eliquis stopped by top frame maker recently - patient is scheduled for another PCI in the week of September with UTI, possible acute pyelonephritis Sepsis likely UTI/pneumonia - urine culture pending -follow up with abdomen ultrasound - IV vancomycin and Meropenam - previous urine cultures showing growth of ESBL E coli and Enterococcus faecium - judicious use of IV fluids since the patient has heart failure IRENE on CKD likely due to VMN 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 MEMBRENO started 3% hypotonic saline, sodium corrected to 133, stopped 3% - urine studies pending GERD H/O hiatal hernia Mild hyperbilirubinemia Elevated alkaline phosphatase - abdominal ultrasound ordered - Protonix and sucralfate Stage I decubitus ulcer Wound consult Change position q.2 hours Acute to subacute L3 compression fracture Vitamin-D/calcium supplemented 20% height loss, acute to subacute L3 compression fracture Passed swallow eval,. Pureed diet PUD prophylaxis: Protonix DVT prophylaxis: Enoxaparin Goals of care discussed with the patient's daughter at bedside for over 19 minutes. Full code Case discussed with Dr. Lehman Plan discussed with: Patient, Daughter (At the bedside) My Orders My Orders Orders - KERRY FIGUEROA Procedure Category Date Status Time Abdomen Complete US 09/18/24 Resulted Sonogram 16:35 Pureed DIET 09/19/24 Transmitted Lunch Bed Rest With Hob At [facility] 09/19/24 In Process 30-45 Deg 10:38 Oob To Chair [facility] 09/19/24 In Process 10:38 Pt Request For Service PT 09/19/24 Logged 10:38 Ct Ab Pel Wo Con-No CT 09/19/24 Resulted Oral Or Iv 12:20 * Dietary Consult CONS 09/19/24 Transmitted 13:38 Cleanse Wound With [facility] 09/19/24 In Process Wound Clean 09:57 Apply Z-Guard [facility] 09/19/24 In Process 09:57 Date of Service: Sep 19, 2024 Billing Provider: POLO FISH MD Common Visit Codes: [id number] INP/OBS CARE(HIGH) KERRY FIGUEROA RESIDENT Sep 19, 2024 16:20 POLO FISH MD Sep 22, 2024 22:21
[2024-09-19] MEDS: MUPIROCIN 2% OINT 15gm or 22gm FOR MRSA NARES EACHNOSTRI SCH (21:41)
[2024-09-20] VITALS (13 sets, daily range): BP systolic 126–148; BP diastolic 60–80; PULSE 69–104; RESP 16–18; TEMP 97.3–99.2; O2SAT 94–100
[2024-09-20 07:37] LABS: Hematocrit 34.4 % (36.0-46.0); Hemoglobin 11.4 g/dL (12.2-16.2); Mean Corpuscular Hemoglobin 29.3 pg (28.0-32.0); Mean Corpuscular Volume 88.7 fL (80.0-100.0); Nucleated Red Blood Cells % 0.4 %
[2024-09-20 07:53] LABS: Chloride 100 mmol/L (98-107); Potassium 4.1 mmol/L (3.5-5.1)
[2024-09-20 07:54] LABS: Anion Gap 7 (5-15); Calcium 9.0 mg/dL (8.7-10.4); Carbon Dioxide 27 mmol/L (20-31); Sodium 134 mmol/L (136-145)
[2024-09-20 07:59] LABS: BUN/Creatinine Ratio 16.1 (10.0-20.0); Blood Urea Nitrogen 15 mg/dL (9-23); Glucose 106 mg/dL (74-106); Magnesium 1.6 mg/dL (1.6-2.6)
--- NOTE | 2024-09-20 14:38 | DVHPNRES ---
Progress Note Date Seen: Sep 20, 2024 Resident Creating Document: KERRY FIGUEROA RESIDENT Medical Necessity Reason Pt with a Central, PICC or Fol: No Subjective Review of Systems Patient is a 84-year-old female with a past medical history of atrial fibrillation, coronary artery disease s/p PCI with a 1 SAMUEL, insulin-dependent diabetes mellitus, hypertension, pulmonary fibrosis with 3 L oxygen at home, recurrent UTI was brought to the ED via EMS because of generalized weakness and suprapubic pain. Patient's daughter who is her caregiver reported that since she had an MRI spine last week and sicnce then she has been experiencing abdominal pain, chills and gen weakness. Also says that the patient has sob, cough with clear phlegm for the same duration. She tried going up on O2 which didn't relieve her S/S. . Patient also reported of lower abdominal pain in the suprapubic region when she urinates. Daughter did not report any fever or chills. On the initial labs patient had elevated white count, elevated lactic acid and UA showing UTI. Past medical history: atrial fibrillation, coronary artery disease s/p PCI with a 1 SAMUEL, insulin-dependent diabetes mellitus, hypertension, pulmonary fibrosis with 3 L oxygen at home, recurrent UTI, constipation, GERD, hiatal hernia, breast cancer Past surgical history: PCI, right mastectomy Social history: Patient lives with a her daughter and does not smoke, drink alcohol or any drug use Home medications: Clopidogrel, sucralfate, metoprolol tartrate 25 b.i.d., benzonatate, mirabegron, timolol 09/18-Patient seen and examined at bedside. Abdomen is tender. 09/19-patient seen and examined at bedside. Per daughter, patient is doing better, bedside swallow eval past, was started pureed diet 09/20-patient seen and examined. Pending clipper machine consultation. Positive MRSA nares, mupirocin started. Objective vital signs Vital Sign Date Time Temp Pulse Resp B/P (MAP) Pulse Ox O2 Delivery O2 Flow Rate FiO2 09/20/24 13:19 97.3 75 17 148/80 (102) 95 97.3 09/20/24 11:25 Nasal Cannula 1.0 09/20/24 11:25 24 Total Intake and Output 09/19/24 09/19/24 09/20/24 15:00 23:00 07:00 Intake Total 150 ml 1130 ml Output Total 725 ml Balance 150 ml 405 ml medications Current Medications Medications Dose Ordered Sig/Chito Route Start Time Stop Time Status Last Admin Dose Admin Vancomycin HCl 0 ml @ 0 mls/hr UD IV 09/18/24 09:00 Meropenem 50 ml @ 17 mls/hr Q12HR IV 09/18/24 10:00 09/20/24 10:35 17 MLS/HR Albuterol 2.5 mg Q6HR NEB 09/18/24 06:00 09/20/24 11:23 2.5 MG Ipratropium [place] 0.5 mg Q6HR NEB 09/18/24 06:00 09/20/24 11:24 0.5 MG Clopidogrel Bisulfate 75 mg DAILY PO 09/18/24 10:00 09/20/24 09:22 75 MG Pantoprazole Sodium 40 mg DAILY IV 09/18/24 10:00 09/20/24 09:21 40 MG Sucralfate 1 gm BID@0600,2200 PO 09/18/24 22:00 09/20/24 05:58 1 GM Acetylcysteine 200 mg Q6HR NEB 09/18/24 12:00 09/20/24 11:27 200 MG Diagnostic Test (Pha) 1 strip ACHS 09/18/24 07:00 09/20/24 11:30 1 STRIP Insulin Human Regular ACHS SC 09/18/24 07:00 09/20/24 11:30 4 UNITS Dextrose 50 ml UD PRN IV 09/18/24 06:30 Enoxaparin Sodium 40 mg DAILY SC 09/18/24 10:00 09/20/24 09:22 40 MG Doxycycline Hyclate 100 ml @ 50 mls/hr Q12H IV 09/18/24 09:00 09/20/24 09:22 50 MLS/HR Vancomycin HCl 200 ml @ 200 mls/hr Q24H IV 09/19/24 03:00 09/20/24 03:08 200 MLS/HR Mupirocin 1 applic BID EACHNOSTRI 09/19/24 22:00 09/24/24 21:59 09/20/24 10:00 1 APPLIC Examination Patient lying in bed, in no acute distress General: Overweight, afebrile, palor, mucosae are moist Cardiovascular: Regular S1 and S2. No murmurs, gallops or rubs. No JVD elevation. No pedal edema Respiratory: Bilateral rales heard on auscultation, no wheezing or stridor. On 3 L/min home oxygen Abdomen: Soft, nontender, suprapubic tenderness normoactive bowel sounds, no rebound tenderness, no organomegaly, no masses stage I decubitus ulcer Genitourinary: Deferred MSK/skin: Mobilizes 4 limbs. Skin is dry and warm Neurological: No motor, no sensitive deficits, normal speech. Pupils are isocoric and reactive. Psych/Mental Status: A/Ox2 laboratory and microbiology Laboratory Tests 09/20/24 06:30 Test 09/20/24 06:30 Range/Units Serum Glucose 106 74-106 mg/dL Microbiology Date/Time Source Procedure Growth Status 09/19/24 08:00 Urine - [place] Urine Culture - Preliminary Resulted 09/18/24 21:30 Nose MRSA Screen - Final Methicillin Resistant S.aureus Complete 09/18/24 02:25 Blood Blood Culture - Preliminary NO GROWTH AFTER 48 HOURS OF INCUBATION. Resulted Labs and/or images reviewed: Labs reviewed by me, Image(s) reviewed by me Problem List/Assessment/Plan Problem List/Assessment/Plan Acute metabolic encephalopathy due to sepsis; resolving - CT shows no acute intracranial abnormality - vitamin B12, folic acid levels pending Acute on chronic hypoxic respiratory failure Sepsis secondary to Possible pneumonia due to Gram +/- bacteria Pulmonary fibrosis on 3 L/min home oxygen Lactic acidosis-resolved - IV meropenem and doxycycline - duo nebs q.6 hours - Mucomyst - respiratory culture pending - previous sputum cultures growing MRSA -WBC trending down -CT abdomen shows Extensive pulmonary bronchiectatic, reticular changes, nodularity which could be secondary to infection/ chronic infection, underlying chronic lung disease /interstitial disease, neoplasm/metastatic disease. This is significantly more pronounced than on the previous examination. Left lower lobe partially cavitary lesion with solid component measuring 2.3 cm with differential considerations including neoplasm, infection, inflammatory etiologies. Pulmonology consultation advised. Pending pulmonary consultation H/O coronary artery disease s/p PCI with a 1 SAMUEL Congestive heart failure, no exacerbation Uncontrolled hypertension H/o atrial fibrillation Ruled out retroperitoneal bleeding - echo from July 2024 shows LVEF more than 55% with mild AV sclerosis - Lasix currently held because of sepsis - continued on Plavix - Eliquis stopped by document manager recently - patient is scheduled for another PCI in the week of September with UTI, possible acute pyelonephritis Sepsis likely UTI/pneumonia - urine culture pending -follow up with abdomen ultrasound - IV vancomycin and Meropenam - previous urine cultures showing growth of ESBL E coli and Enterococcus faecium - judicious use of IV fluids since the patient has heart failure IRENE on CKD likely due to VMN 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 MEMBRENO started 3% hypotonic saline, sodium corrected to 133, stopped 3% - urine studies pending GERD H/O hiatal hernia Mild hyperbilirubinemia Elevated alkaline phosphatase - abdominal ultrasound ordered - Protonix and sucralfate Stage I decubitus ulcer Wound consult Change position q.2 hours Acute to subacute L3 compression fracture Vitamin-D/calcium supplemented 20% height loss, acute to subacute L3 compression fracture Passed swallow eval,. Advanced to Soft diet PUD prophylaxis: Protonix DVT prophylaxis: Enoxaparin Goals of care discussed with the patient's daughter at bedside for 20 minutes. Full code Case discussed with Dr. Reaves, pending clipper machine consultation Plan discussed with: Patient, Other (Nurse) My Orders My Orders Orders - KERRY FIGUEROA RESIDENT Procedure Category Date Status Time *Consult CONS 09/19/24 Transmitted / 16:37 Respiratory Culture ROCIO 09/19/24 Logged W/ Gs 16:38 Mupirocin 2% Oint PHA 09/19/24 In Process Mrsa Nares (Bactroban 22:00 Dietary NOTICE 09/20/24 Transmitted Recommendations 08:56 Dietary Evaluation Review Comments: 1) Initiate Pro-Stat @ 30 mL qd 2) Initiate MVI @ 1 tb qd 3) Initiate vitamin C @ 500 mg bid and zinc sulfate @ 220 mg qd for 7 days 4) Encourage optimal PO intake. If < 50%, initiate Glucerna qd 5) Follow-up with cardiology, pulmonology, and nephrology 6) Continue to monitor I&O, labs, and skin integrity Expected Outcomes/Goals: 1) appetite and labs to improve 2) wounds to improve 3) f/u in 3-5 days Addendum Addendum Addendum I was physically present for the [place] portions of the service provided to patient by THE RESIDENT. I have reviewed the documentation, discussed the case with resident and agree with the resident's documentation except as noted. Also the patient's clinical case was discussed with the patient's nurse. This medical document was created using an electronic medical record system with computerized dictation system. Although this document has been carefully reviewed, there might still be some phonetic and typographical errors. These areas are purely typographical due to imperfections of the software programs, and do not reflect any compromise in the patient's medical care. Late signature. Date of Service: Sep 20, 2024 Billing Provider: KAITLYNN REAVES MD Common Visit Codes: [id number] INP/OBS CARE(HIGH) Secondary Visit Codes: 48915-[id number] CARE PLAN 30 MINUTES (20 minutes) KERRY FIGUEROA RESIDENT Sep 20, 2024 14:38 KAITLYNN REAVES MD Sep 22, 2024 05:01
--- NOTE | 2024-09-20 23:16 | DVHINCON2 ---
Date of service: Sep 20, [address] Andre Campos Reason for Consultation Acute hypoxic respiratory failure, ILD and LLL cavitary lesion History of Present Illness An 84-year-old woman with past medical history of atrial fibrillation, CAD s/p PCI with 1 SAMUEL, insulin-dependent diabetes mellitus, hypertension, and pulmonary fibrosis with 3 L oxygen at home, recurrent UTIs, who was brought to the ED via EMS on 09/18/24 because of generalized weakness. Patient's daughter (who is her caregiver) reported that since the past 3-4 days, pt has been more lethargic. She was coughing more than usual associated with increased phlegm, whitish to yellowish in color. Patient also reported of lower abdominal pain in the suprapubic region when she urinates. Daughter did not report any fever or chills. Initial labs noted elevated white count, elevated lactic acid and UA showing UTI. Patient was admitted for further care and pulmonary consultation is requested for evaluation and management of acute hypoxic respiratory failure. Review of Systems: 14-point review of systems negative unless otherwise noted above. Past Medical History: Atrial fibrillation, coronary artery disease s/p PCI with 1 SAMUEL, insulin- dependent diabetes mellitus, hypertension, pulmonary fibrosis with 3 L oxygen at home, recurrent UTI, GERD, hiatal hernia, breast cancer Past Surgical History: PCI, right mastectomy Medications: Reviewed. Allergies: Morphine Codeine Ibuprofen Family History: HTN and heart disease. Social History: Nonsmoker. No alcohol or illicit drug use. Family History: Cardiovascular disease G8 MOTHER G8 FATHER Hypertension G8 MOTHER G8 FATHER Allergies: Coded Allergies: Morphine (Verified Allergy, Intermediate, Rash, 07/07/24) Codeine (Verified Allergy, Unknown, 07/07/24) Ibuprofen (Verified Allergy, Unknown, 07/07/24) Home Meds Reported Medications Pramipexole Dihydrochloride (Pramipexole Dihydrochlori) 0.375 Mg Tab, 0.5 MG PO HS for 90 Days, #180 TAKE 0.5 MG (2 TABLETS OF 0.25 MG) BY MOUTH BEFORE BEDTIME EVERY DAY. 09/20/24 Oxybutynin Chloride (Oxybutynin Chloride) 5 Mg Tab, 1 TAB PO BID for 90 Days, #180 09/20/24 Clopidogrel Bisulfate (CLOPIDOGREL) 75 Mg Tab, 1 TAB PO DAILY for 90 Days, #90 09/20/24 Saline (DEEP SEA NASAL SPRAY) 0.65 % Spr, 1 SPRAY ABBY 30 for 30 Days, #88 09/20/24 Cetirizine HCl (Cetirizine Hydrochloride) 10 Mg Tab, 1 TAB PO DAILY for 100 Days, #100 09/20/24 Timolol Maleate (Timolol Maleate) 0.25 % Dulce Maria, 1 DROP EACHEYE BID for 50 Days, #10 09/20/24 Mirabegron [place] (Mirabegron ER) 50 Mg Tab, 1 TAB PO DAILY for 90 Days, #90 09/20/24 Budesonide-Formoterol Fumarate (Budesonide/Formoterol Fum 160-4.5 Mcg/Act) 1 Aer Aer, 2 PUFF INH BID for 30 Days, #10.2 09/20/24 Meloxicam (Meloxicam) 7.5 Mg Tab, 1 TAB PO Q2D for 100 Days, #50 TAKE 1 TABLET BY MOUTH EVERY 2 DAYS. 09/20/24 Mupirocin (Pseudomonas Fluores (Mupirocin) 2 % Oin, 1 APPLIC TOP TID for 30 Days, #45 APPLY LIBERALLY TOPICALLY TO THE AFFECTED AREA 3 TIMES DAILY NEEDED DIRECTED. 09/20/24 Gabapentin (Gabapentin) 300 Mg Cap, 1 CAP PO DAILY for 90 Days, #90 09/20/24 Baclofen (Baclofen) 5 Mg Tab, 1 TAB PO HS for 30 Days, #30 09/20/24 Ipratropium [place] (Ipratropium [place]) 0.02 % Dulce Maria, 1 VIAL NEB BID for 90 Days, #450 09/20/24 Metoprolol Tartrate (Lopressor) 25 Mg Tb, 1 TAB PO BID for 30 Days, #60 0 Refills 09/20/24 Vericiguat (Verquvo) 2.5 Mg Tab, 2.5 MG PO BIDAC, TAB 09/17/24 Insulin Glargine (Basaglar Kwikpen) 100 Unit/Ml Inj, 20 UNIT SC DAILY for 68 Days, #15 09/17/24 Acetaminophen (Acetaminophen) 325 Mg Tab, 325 MG PO Q4HP PRN for MILD PAIN, MG 0 Refills 03/03/24 Empagliflozin (Jardiance) 25 Mg Tab, 1 TAB PO DAILY for DIABETES for 30 Days 03/03/24 Sucralfate (CARAFATE) 1 Gm Tab, 1 TAB PO BID PRN for STOMACH PAIN for 90 Days, #170 03/03/24 Pantoprazole Sodium Sesquihydr (Pantoprazole Sodium) 40 Mg Tab, 1 TAB PO DAILY for 90 Days, #90 03/03/24 Patients Own Medication (PATIENTS OWN MEDICATION) ., for [facility] 1GH QHS PTS OWN MED-OBTAIN FROM PT AND SEND TO RX DRUG: FREQ: RX# EXP: DATE DISP: TECH: RPH: 03/03/24 Albuterol Sulfate (Albuterol Sulfate Hfa) 108 Mcg/Act Aer, 2 PUFF INH Q4HR PRN for SHORTNESS OF BREATH for 50 Days, #25.5 03/03/24 Cholecalciferol (VITAMIN D3) 2,000 Unit Chw, 2000 UNIT PO DAILY, TAB.CHEW 03/03/24 Coenzyme Q10 (Coq-10) 30 Mg Cap, 30 MG PO DAILY, CAP 03/03/24 Ascorbic Acid (VITAMIN C TABLET) 500 Mg Tb, 2 TAB PO DAILY, #30 TAB 3 Refills 03/03/24 Temazepam (Restoril) 15 Mg Cp, 1 CAP PO HS PRN for 30 Days, #30 01/02/24 Albuterol Sulfate (Albuterol Sulfate) 0.083 % Neb, 1 VIAL NEB Q4HR PRN for WHEEZING OR COUGH for 45 Days, #180 01/02/24 Potassium Chloride (Potassium Chloride ER) 10 Meq Tab, 1 TAB PO DAILY for 90 Days, #90 01/02/24 Benzonatate (Benzonatate) 100 Mg Cap, 1 CAP PO TID PRN for COUGH for 90 Days, #270 01/09/23 Furosemide (Furosemide) 40 Mg Tab, 2 TAB PO DAILY for 90 Days, #270 10/21/22 Vital Signs Vital Signs Date Time Temp Pulse Resp B/P (MAP) Pulse Ox O2 Delivery O2 Flow Rate FiO2 09/20/24 21:00 97.4 80 17 126/60 (82) 96 97.4 09/20/24 18:41 Nasal Cannula 2.0 09/20/24 18:41 28 Physical Exam Gen.: Patient lying in bed in no apparent distress. On supplemental oxygen. Head: Normocephalic, atraumatic. Eyes: EOMI/PERRLA. Ears: Normal hearing. Normal anatomy. Neck/trachea: Trachea midline, supple. Nose: Normal external anatomy. Mouth: Moist mucous membranes. Chest: Decreased air entry bilaterally. No wheezing or rhonchi. Cardiovascular: Positive S1, positive S2. Regular rate and rhythm. Abdomen: Positive bowel sounds in all 4 quadrants. Soft, non-tender, non- distended. : Deferred. Rectal: Deferred. Skin: Warm, dry. Intact. Extremities: 2+ radial pulses bilaterally. No lower extremity edema. Neuro: Awake, alert, oriented x3. No gross motor or sensory deficits. Cranial nerves II through XII intact. Gait not assessed. Labs/Diagnostic Data Labs Test 09/20/24 21:48 09/20/24 06:30 09/19/24 04:21 09/18/24 13:28 Range/Units POC Glucose 167 H 70-106 mg/dl White Blood Count 7.1 4.4-10.8 10^3/uL Red Blood Count 3.88 L 4.0-5.20 10^6/uL Hemoglobin 11.4 L 12.2-16.2 g/dL Hematocrit 34.4 L 36.0-46.0 % Mean Corpuscular Volume 88.7 80.0-100.0 fL Mean Corpuscular Hemoglobin 29.3 28.0-32.0 pg Mean Corpuscular Hemoglobin Concent 33.0 32.0-36.0 g/dL Red Cell Distribution Width 20.2 H 11.8-14.3 % Platelet Count 252 140-450 10^3/uL Mean Platelet Volume 6.9 6.9-10.8 fL Neutrophils (%) (Auto) 49.9 37.0-80.0 % Lymphocytes (%) (Auto) 34.4 10.0-50.0 % Monocytes (%) (Auto) 10.3 0.0-12.0 % Eosinophils (%) (Auto) 5.0 0.0-7.0 % Basophils (%) (Auto) 0.4 0.0-2.0 % Neutrophils # (Auto) 3.5 1.6-8.6 10 ^3/uL Lymphocytes # (Auto) 2.4 0.4-5.4 10 ^3/uL Monocytes # (Auto) 0.7 0-1.3 10 ^3/uL Eosinophils # (Auto) 0.4 0-0.8 10 ^3/uL Basophils # (Auto) 0 0-0.2 10 ^3/uL Nucleated Red Blood Cells 0.4 % Erythrocyte Sedimentation Rate 85 H 0-20 mm/hr Sodium Level 134 L 136-145 mmol/L Potassium Level 4.1 3.5-5.1 mmol/L Chloride Level 100 98-107 mmol/L Carbon Dioxide Level 27 20-31 mmol/L Anion Gap 7 5-15 Blood Urea Nitrogen 15 9-23 mg/dL Creatinine 0.93 0.550-1.02 mg/dL Glomerular Filtration Rate Calc 60 >90 mL/min BUN/Creatinine Ratio 16.1 10.0-20.0 Serum Glucose 106 74-106 mg/dL Calcium Level 9.0 8.7-10.4 mg/dL Magnesium Level 1.6 1.6-2.6 mg/dL C-Reactive Protein High Sensitivity 5.31 H <1.0 mg/dL Hemoglobin A1c 6.4 H <5.7 % A1C Phosphorus Level 2.8 2.4-5.1 mg/dL Total Bilirubin 0.8 0.2-1.0 mg/dL Aspartate Amino Transferase (AST) 41 H <34 U/L Alanine Aminotransferase (ALT) 19 7-40 U/L Alkaline Phosphatase 267 H 46-116 U/L Total Protein 7.0 5.7-8.2 g/dL Albumin 2.4 L 3.2-4.8 g/dL Vitamin B12 Level 1886 H 211-911 pg/mL Folic Acid 12.39 >5.38 ng/mL Thyroid Stimulating Hormone (TSH) 4.81 H 0.55-4.78 uIU/mL Free Thyroxine (T4) Calculated 0.94 0.89-1.76 ng/dL Prothrombin Time 13.5 H 9.3-11.8 sec Prothrombin Time INR 1.31 H 0.9-1.15 Activated Partial Thromboplast Time 35.9 H 24.5-34.5 SEC Test 09/18/24 09:21 09/18/24 06:54 09/18/24 02:50 09/18/24 02:25 Range/Units Serum Osmolality 281 278-298 mOsm/kg Influenza Type A Antigen Negative Negative Influenza Type B Antigen Negative Negative SARS-CoV-2 Antigen (Rapid) Negative NEGATIVE Urine Color Yellow Yellow Urine Clarity Turbid H Clear Urine pH 6.0 5.0-9.0 Urine Specific [place] 1.012 1.001-1.035 Urine Protein Trace H Negative Urine Ketones Negative Negative Urine Blood 2+ H Negative /uL Urine Nitrite Negative Negative Urine Bilirubin Negative Negative Urine Urobilinogen Normal Negative mg/dL Urine Leukocyte Esterase 3+ Negative /uL Urine RBC 21 0 - 4 /hpf Urine WBC Clumps Present None Seen /hpf Urine Microscopic WBC 651 H 0-5 /HPF Urine Squamous Epithelial Cells Few <5 /hpf Urine Bacteria None seen None Seen /hpf Urine Creatinine 42.20 30.0-125.0 mg/dL Urine Protein/Creatinine Ratio 1.30 Urine Sodium 34 L 40-220 mmol/L Urine Glucose Normal Normal mg/dL Urine Total Protein 55.0 H 1-14 mg/dL Lactic Acid Level 1.9 0.4-2.0 mmol/L Test 09/18/24 00:27 Range/Units Ammonia 28 11-32 umol/L Lipase 43 12-53 U/L Microbiology Date/Time Source Procedure Growth Status 09/19/24 08:00 Urine - [place] Urine Culture - Preliminary Resulted 09/18/24 21:30 Nose MRSA Screen - Final Methicillin Resistant S.aureus Complete 09/18/24 02:25 Blood Blood Culture - Preliminary NO GROWTH AFTER 48 HOURS OF INCUBATION. 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 LLL cavitary lesion Pneumonia, MRSA Plan: Supplemental oxygen, on 1 LPM NC Titrate to keep O2 sats above 92%. Taper O2 as tolerated. LLL cavitary lesion appears to have evolved on imaging. Recommend to treat for MRSA pneumonia. Repeat CT chest in 6-8 weeks to document resolution. If no resolution, obtain PET CT vs. lung biopsy. Continue antibiotics. Send sputum for cultures Monitor renal function. Monitor electrolytes. Supplement as necessary. Monitor ins and outs. DVT prophylaxis. Prognosis: Poor given patient's multiple co-morbidities. Rest of plan per hospitalist and other consultants. Thank you Dr. Campos for allowing me to participate in this patient's care. Further recommendations will depend on the patient's clinical course. Please do not hesitate to contact me if you have any questions or concerns. This medical document was created using an electronic medical record system with [employer] dictation system. Although these documentations are being carefully reviewed, there may still be some phonetic and typographical changes. The errors are purely typographical, due to imperfection on the software pr ogram, and do not reflect any compromise in the patient's medical care. Plan discussed with: Patient, Other (RN/Dr. Campos) RENETTA MCCOY MD Sep 20, 2024 23:16
[2024-09-21] VITALS (17 sets, daily range): BP systolic 111–132; BP diastolic 62–66; PULSE 69–83; RESP 12–18; TEMP 97.3–98.6; O2SAT 95–100
[2024-09-21 02:12] LABS: Hematocrit 38.5 % (36.0-46.0); Hemoglobin 12.6 g/dL (12.2-16.2); Mean Corpuscular Hemoglobin 29.1 pg (28.0-32.0); Mean Corpuscular Volume 88.7 fL (80.0-100.0); Nucleated Red Blood Cells % 0.3 %
[2024-09-21 02:29] LABS: Chloride 101 mmol/L (98-107); Potassium 4.1 mmol/L (3.5-5.1)
[2024-09-21 02:30] LABS: Anion Gap 8 (5-15); Carbon Dioxide 25 mmol/L (20-31)
[2024-09-21 02:36] LABS: BUN/Creatinine Ratio 11.9 (10.0-20.0); Blood Urea Nitrogen 10 mg/dL (9-23)
[2024-09-21 02:38] LABS: Calcium 8.4 mg/dL (8.7-10.4); Glucose 65 mg/dL (74-106); Sodium 134 mmol/L (136-145)
--- NOTE | 2024-09-21 14:42 | DVHPNRES ---
Progress Note Date Seen: Sep 21, 2024 Resident Creating Document: SUKHDEV BRYANT RESIDENT Medical Necessity Reason Pt with a Central, PICC or Fol: No Subjective Review of Systems patient seen and examined. materials specialist consultation appreciated. Positive MRSA nares, mupirocin started. Objective vital signs Vital Sign Date Time Temp Pulse Resp B/P (MAP) Pulse Ox O2 Delivery O2 Flow Rate FiO2 09/21/24 12:45 98.4 82 17 128/64 (85) 97 98.4 09/21/24 07:18 Nasal Cannula* 2 28 Total Intake and Output 09/20/24 09/20/24 09/21/24 15:00 23:00 07:00 Intake Total 950 ml Output Total 1200 ml Balance -250 ml medications Current Medications Medications Dose Ordered Sig/Chito Route Start Time Stop Time Status Last Admin Dose Admin Vancomycin HCl 0 ml @ 0 mls/hr UD IV 09/18/24 09:00 Meropenem 50 ml @ 17 mls/hr Q12HR IV 09/18/24 10:00 09/21/24 12:19 17 MLS/HR Albuterol 2.5 mg Q6HR NEB 09/18/24 06:00 09/21/24 11:42 2.5 MG Ipratropium [place] 0.5 mg Q6HR NEB 09/18/24 06:00 09/21/24 11:42 0.5 MG Clopidogrel Bisulfate 75 mg DAILY PO 09/18/24 10:00 09/21/24 09:57 75 MG Pantoprazole Sodium 40 mg DAILY IV 09/18/24 10:00 09/21/24 09:57 40 MG Sucralfate 1 gm BID@0600,2200 PO 09/18/24 22:00 09/21/24 05:36 1 GM Acetylcysteine 200 mg Q6HR NEB 09/18/24 12:00 09/21/24 11:42 200 MG Diagnostic Test (Pha) 1 strip ACHS 09/18/24 07:00 09/21/24 11:30 1 STRIP Insulin Human Regular ACHS SC 09/18/24 07:00 09/21/24 11:30 2 UNITS Dextrose 50 ml UD PRN IV 09/18/24 06:30 Enoxaparin Sodium 40 mg DAILY SC 09/18/24 10:00 09/21/24 09:57 40 MG Doxycycline Hyclate 100 ml @ 50 mls/hr Q12H IV 09/18/24 09:00 09/21/24 09:56 50 MLS/HR Vancomycin HCl 200 ml @ 200 mls/hr Q24H IV 09/19/24 03:00 09/21/24 06:03 200 MLS/HR Mupirocin 1 applic BID EACHNOSTRI 09/19/24 22:00 09/24/24 21:59 09/21/24 09:58 1 APPLIC Examination Patient lying in bed, in no acute distress General: Overweight, afebrile, palor, mucosae are moist Cardiovascular: Regular S1 and S2. No murmurs, gallops or rubs. No JVD elevation. No pedal edema Respiratory: Bilateral rales heard on auscultation, no wheezing or stridor. On 3 L/min baseline home oxygen Abdomen: Soft, nontender, suprapubic tenderness normoactive bowel sounds, no rebound tenderness, no organomegaly, no masses stage I decubitus ulcer Genitourinary: Deferred MSK/skin: Mobilizes 4 limbs. Skin is dry and warm Neurological: No motor, no sensitive deficits, normal speech. Pupils are isocoric and reactive. Psych/Mental Status: A/Ox2 laboratory and microbiology Laboratory Tests 09/21/24 01:59 Test 09/21/24 01:59 Range/Units Serum Glucose 65 L 74-106 mg/dL Microbiology Date/Time Source Procedure Growth Status 09/19/24 08:00 Urine - [place] Urine Culture - Final Complete 09/18/24 21:30 Nose MRSA Screen - Final Methicillin Resistant S.aureus Complete 09/18/24 02:25 Blood Blood Culture - Preliminary NO GROWTH AFTER 72 HOURS OF INCUBATION. Resulted Labs and/or images reviewed: Labs reviewed by me, Image(s) reviewed by me Problem List/Assessment/Plan Problem List/Assessment/Plan Acute metabolic encephalopathy due to sepsis - CT shows no acute intracranial abnormality - vitamin B12, folic acid levels pending Acute on chronic hypoxic respiratory failure Sepsis secondary to Possible pneumonia due to Gram +/- bacteria Pulmonary fibrosis on 3 L/min baseline home oxygen Lactic acidosis-resolved - IV meropenem and doxycycline - duo nebs q.6 hours - Mucomyst - respiratory culture pending - previous sputum cultures growing MRSA -WBC trending down -CT abdomen shows Extensive pulmonary bronchiectatic, reticular changes, nodularity which could be secondary to infection/ chronic infection, underlying chronic lung disease /interstitial disease, neoplasm/metastatic disease. This is significantly more pronounced than on the previous examination. Left lower lobe partially cavitary lesion with solid component measuring 2.3 cm with differential considerations including neoplasm, infection, inflammatory etiologies. Pulmonology consultation advised. Pulmonology is following H/O coronary artery disease s/p PCI with a 1 SAMUEL Congestive heart failure, no exacerbation Uncontrolled hypertension H/o atrial fibrillation Ruled out retroperitoneal bleeding - echo from July 2024 shows LVEF more than 55% with mild AV sclerosis - Lasix currently held because of sepsis - continued on Plavix - Eliquis stopped by biomedical analytical scientist recently - patient is scheduled for another PCI in the week of September with UTI, possible acute pyelonephritis Sepsis likely UTI/pneumonia MRSA pneumonia Started vancomycin - urine culture pending -follow up with abdomen ultrasound - IV vancomycin and Meropenam - previous urine cultures showing growth of ESBL E coli and Enterococcus faecium - judicious use of IV fluids since the patient has heart failure IRENE on CKD likely due to VMN 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 MEMBRENO started 3% hypotonic saline, sodium corrected to 133, stopped 3% - urine studies pending GERD H/O hiatal hernia Mild hyperbilirubinemia Elevated alkaline phosphatase - abdominal ultrasound ordered - Protonix and sucralfate Stage I decubitus ulcer Wound consult Change position q.2 hours Acute to subacute L3 compression fracture Vitamin-D/calcium supplemented 20% height loss, acute to subacute L3 compression fracture Passed swallow eval,. Advanced to Soft diet PUD prophylaxis: Protonix DVT prophylaxis: Enoxaparin Case discussed with Dr. Reaves Plan discussed with: Patient, Other (Nurse) Dietary Evaluation Review Comments: 1) Initiate Pro-Stat @ 30 mL qd 2) Initiate MVI @ 1 tb qd 3) Initiate vitamin C @ 500 mg bid and zinc sulfate @ 220 mg qd for 7 days 4) Encourage optimal PO intake. If < 50%, initiate Glucerna qd 5) Follow-up with cardiology, pulmonology, and nephrology 6) Continue to monitor I&O, labs, and skin integrity Expected Outcomes/Goals: 1) appetite and labs to improve 2) wounds to improve 3) f/u in 3-5 days Addendum Addendum Addendum I was physically present for the [place] portions of the service provided to patient by THE RESIDENT. I have reviewed the documentation, discussed the case with resident and agree with the resident's documentation except as noted. Also the patient's clinical case was discussed with the patient's nurse. This medical document was created using an electronic medical record system with computerized dictation system. Although this document has been carefully reviewed, there might still be some phonetic and typographical errors. These areas are purely typographical due to imperfections of the software programs, and do not reflect any compromise in the patient's medical care. Late signature. Date of Service: Sep 21, 2024 Billing Provider: KAITLYNN REAVES MD Common Visit Codes: [id number] INP/OBS CARE(HIGH) SUKHDEV BRYANT RESIDENT Sep 21, 2024 14:42 KAITLYNN REAVES MD Sep 22, 2024 05:05
--- NOTE | 2024-09-21 23:13 | DVHPN2 ---
Progress Note - Dictate Date Seen: Sep 21, 2024 Medical Necessity Reason Pt with a Central, PICC or Fol: No Subjective tient seen and examined at bedside. Remains on supplemental oxygen Overnight events reviewed. vital signs Vital Sign Date Time Temp Pulse Resp B/P (MAP) Pulse Ox O2 Delivery O2 Flow Rate FiO2 09/21/24 21:00 97.9 75 17 132/65 (87) 97 97.9 09/21/24 19:01 Nasal Cannula 2.0 09/21/24 19:01 28 Total Intake and Output 09/20/24 09/20/24 09/21/24 15:00 23:00 07:00 Intake Total 950 ml Output Total 1200 ml Balance -250 ml medications Current Medications Medications Dose Ordered Sig/Chito Route Start Time Stop Time Status Last Admin Dose Admin Vancomycin HCl 0 ml @ 0 mls/hr UD IV 09/18/24 09:00 Meropenem 50 ml @ 17 mls/hr Q12HR IV 09/18/24 10:00 09/21/24 20:03 17 MLS/HR Albuterol 2.5 mg Q6HR NEB 09/18/24 06:00 09/21/24 19:03 2.5 MG Ipratropium [place] 0.5 mg Q6HR NEB 09/18/24 06:00 09/21/24 19:03 0.5 MG Clopidogrel Bisulfate 75 mg DAILY PO 09/18/24 10:00 09/21/24 09:57 75 MG Pantoprazole Sodium 40 mg DAILY IV 09/18/24 10:00 09/21/24 09:57 40 MG Sucralfate 1 gm BID@0600,2200 PO 09/18/24 22:00 09/21/24 20:04 1 GM Acetylcysteine 200 mg Q6HR NEB 09/18/24 12:00 09/21/24 19:03 200 MG Diagnostic Test (Pha) 1 strip ACHS 09/18/24 07:00 09/21/24 20:16 1 STRIP Insulin Human Regular ACHS SC 09/18/24 07:00 09/21/24 20:12 3 UNITS Dextrose 50 ml UD PRN IV 09/18/24 06:30 Enoxaparin Sodium 40 mg DAILY SC 09/18/24 10:00 09/21/24 09:57 40 MG Doxycycline Hyclate 100 ml @ 50 mls/hr Q12H IV 09/18/24 09:00 09/21/24 20:08 50 MLS/HR Vancomycin HCl 200 ml @ 200 mls/hr Q24H IV 09/19/24 03:00 09/21/24 06:03 200 MLS/HR Mupirocin 1 applic BID EACHNOSTRI 09/19/24 22:00 09/24/24 21:59 09/21/24 20:10 1 APPLIC objective Gen.: Patient lying in bed in no apparent distress. On supplemental oxygen. Head: Normocephalic, atraumatic. Eyes: EOMI/PERRLA. Ears: Normal hearing. Normal anatomy. Neck/trachea: Trachea midline, supple. Nose: Normal external anatomy. Mouth: Moist mucous membranes. Chest: Decreased air entry bilaterally. No wheezing or rhonchi. Cardiovascular: Positive S1, positive S2. Regular rate and rhythm. Abdomen: Positive bowel sounds in all 4 quadrants. Soft, non-tender, non- distended. : Deferred. Rectal: Deferred. Skin: Warm, dry. Intact. Extremities: 2+ radial pulses bilaterally. No lower extremity edema. Neuro: Awake, alert, oriented x3. No gross motor or sensory deficits. Cranial nerves II through XII intact. Gait not assessed. laboratory and microbiology Laboratory Tests 09/21/24 01:59 Test 09/21/24 01:59 Range/Units Serum Glucose 65 L 74-106 mg/dL Assessment/Plan Impression: Acute hypoxic respiratory failure Dependence on supplemental oxygen Urinary tract infection Interstitial lung disease, possible idiopathic pulmonary fibrosis. LLL cavitary lesion Events: Remains on supplemental oxygen, 2 LPM NC Taper O2 as tolerated Continue antibiotics Incentive spirometry Follow up sputum cultures Labs and imaging reviewed. Rest of plan as noted below. Plan: Supplemental oxygen Titrate to keep O2 sats above 92%. LLL cavitary lesion appears to have evolved on imaging. Recommend to treat for MRSA pneumonia. Repeat CT chest in 6-8 weeks to document resolution. If no resolution, obtain PET CT vs. lung biopsy. Continue antibiotics. Follow up sputum cultures Monitor renal function. Monitor electrolytes. Supplement as necessary. Monitor ins and outs. DVT prophylaxis. Prognosis: Guarded given patient's multiple co-morbidities. Rest of plan per hospitalist and other consultants. Thank you Dr. Campos for allowing me to participate in this patient's care. Further recommendations will depend on the patient's clinical course. Please do not hesitate to contact me if you have any questions or concerns. This medical document was created using an electronic medical record system with [employer] dictation system. Although these documentations are being carefully reviewed, there may still be some phonetic and typographical changes. The errors are purely typographical, due to imperfection on the software program, and do not reflect any compromise in the patient's medical care. Dietary Evaluation Review Comments: 1) Initiate Pro-Stat @ 30 mL qd 2) Initiate MVI @ 1 tb qd 3) Initiate vitamin C @ 500 mg bid and zinc sulfate @ 220 mg qd for 7 days 4) Encourage optimal PO intake. If < 50%, initiate Glucerna qd 5) Follow-up with cardiology, pulmonology, and nephrology 6) Continue to monitor I&O, labs, and skin integrity Expected Outcomes/Goals: 1) appetite and labs to improve 2) wounds to improve 3) f/u in 3-5 days Plan discussed with: Patient, Other (LALITHA Farnsworth) RENETTA MCCOY MD Sep 21, 2024 23:13
[2024-09-22] VITALS (18 sets, daily range): BP systolic 126–147; BP diastolic 50–83; PULSE 65–84; RESP 12–18; TEMP 97.8–98.6; O2SAT 92–100
[2024-09-22 06:15] LABS: Anion Gap 6 (5-15); Carbon Dioxide 29 mmol/L (20-31); Chloride 101 mmol/L (98-107); Potassium 4.1 mmol/L (3.5-5.1)
[2024-09-22 06:16] LABS: Calcium 8.7 mg/dL (8.7-10.4)
[2024-09-22 06:21] LABS: BUN/Creatinine Ratio 15.1 (10.0-20.0); Blood Urea Nitrogen 13 mg/dL (9-23); Glucose 89 mg/dL (74-106)
[2024-09-22 06:28] LABS: Sodium 136 mmol/L (136-145)
[2024-09-22 06:30] LABS: Hematocrit 32.3 % (36.0-46.0); Hemoglobin 10.9 g/dL (12.2-16.2); Mean Corpuscular Hemoglobin 29.0 pg (28.0-32.0); Mean Corpuscular Volume 86.1 fL (80.0-100.0); Nucleated Red Blood Cells % 0.6 %
--- NOTE | 2024-09-22 11:53 | DVHPN2 ---
Progress Note - Dictate Date Seen: Sep 21, 2024 Medical Necessity Reason Pt with a Central, PICC or Fol: No Subjective PT WITH AMS GENERALIZED WEAKNESS METABOLIC ENCEPHALOPATHY UTI HYPONATREMIA PMH PUL FIBROSIS ON HOME O2 THERAPY CAD S/P PTCA STENT AFIB DIABETES VASCULOPATHY NEPHROPATHY WITH PROTEINURIA vital signs Vital Sign Date Time Temp Pulse Resp B/P (MAP) Pulse Ox O2 Delivery O2 Flow Rate FiO2 09/22/24 11:23 74 14 100 09/22/24 08:37 97.9 147/78 (101) 97.9 09/22/24 06:07 Nasal Cannula 2.0 09/22/24 06:07 28 Total Intake and Output 09/21/24 09/21/24 09/22/24 15:00 23:00 07:00 Intake Total 240 ml 340 ml Output Total 1000 ml Balance 240 ml -660 ml medications Current Medications Medications Dose Ordered Sig/[place]ito Route Start Time Stop Time Status Last Admin Dose Admin Vancomycin HCl 0 ml @ 0 mls/hr UD IV 09/18/24 09:00 Meropenem 50 ml @ 17 mls/hr Q12HR IV 09/18/24 10:00 09/22/24 10:35 17 MLS/HR Albuterol 2.5 mg Q6HR NEB 09/18/24 06:00 09/22/24 11:13 2.5 MG Ipratropium [place] 0.5 mg Q6HR NEB 09/18/24 06:00 09/22/24 11:13 0.5 MG Clopidogrel Bisulfate 75 mg DAILY PO 09/18/24 10:00 09/22/24 10:35 75 MG Pantoprazole Sodium 40 mg DAILY IV 09/18/24 10:00 09/22/24 10:35 40 MG Sucralfate 1 gm BID@0600,2200 PO 09/18/24 22:00 09/22/24 06:21 1 GM Acetylcysteine 200 mg Q6HR NEB 09/18/24 12:00 09/22/24 11:13 200 MG Diagnostic Test (Pha) 1 strip ACHS 09/18/24 07:00 09/22/24 11:25 1 STRIP Insulin Human Regular ACHS SC 09/18/24 07:00 09/22/24 11:43 3 UNITS Dextrose 50 ml UD PRN IV 09/18/24 06:30 Enoxaparin Sodium 40 mg DAILY SC 09/18/24 10:00 09/22/24 10:35 40 MG Doxycycline Hyclate 100 ml @ 50 mls/hr Q12H IV 09/18/24 09:00 09/22/24 08:14 50 MLS/HR Vancomycin HCl 200 ml @ 200 mls/hr Q24H IV 09/19/24 03:00 09/22/24 02:09 200 MLS/HR Mupirocin 1 applic BID EACHNOSTRI 09/19/24 22:00 09/24/24 21:59 09/22/24 10:35 1 APPLIC laboratory and microbiology Laboratory Tests 09/22/24 04:46 Test 09/22/24 04:46 Range/Units Serum Glucose 89 74-106 mg/dL Problem List AMS GENERALIZED WEAKNESS METABOLIC ENCEPHALOPATHY UTI HYPONATREMIA PMH PUL FIBROSIS ON HOME O2 THERAPY CAD S/P PTCA STENT AFIB DIABETES VASCULOPATHY NEPHROPATHY WITH PROTEINURIA Assessment/Plan LEUKOCYTOSIS ABX CORRECT HYPONATREMIA HYPONATREMIA RESOLVED CORRECT HYPOTHYROIDISM LEUKOCYTOSIS RESOLVED LUNG MASS PUL CONSULT BRONCHOSCOPY WITH BX Dietary Evaluation Review Comments: 1) Initiate Pro-Stat @ 30 mL qd 2) Initiate MVI @ 1 tb qd 3) Initiate vitamin C @ 500 mg bid and zinc sulfate @ 220 mg qd for 7 days 4) Encourage optimal PO intake. If < 50%, initiate Glucerna qd 5) Follow-up with cardiology, pulmonology, and nephrology 6) Continue to monitor I&O, labs, and skin integrity Expected Outcomes/Goals: 1) appetite and labs to improve 2) wounds to improve 3) f/u in 3-5 days Plan discussed with: Patient SILVANA ADAIR MD Sep 22, 2024 11:53
--- NOTE | 2024-09-22 15:13 | DVHPNRES ---
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 The patient was brought to the ED via EMS because of generalized weakness and suprapubic pain. Patient's daughter who is her caregiver reported that the patient has been experiencing lower abdominal pain, chills and generalized weakness. Also says that the patient has sob, cough with clear phlegm for the same duration. She tried going up on O2 which didn't relieve her S/S. Upon admission the patient also reported of lower abdominal pain in the suprapubic region; daughter did not report any fever or chills. On the initial labs patient had elevated white count, elevated lactic acid and UA showing UTI. Patient seen and examined at bedside. Today, the patient report improvement on weakness and suprapubic pain. The patient denies chest pain, no nausea or vomiting. Vital signs were reviewed, there is no fever or chills overnight. Ceftriaxone 1gr IV was added today and discontinued vancomicyn and meropenem. We will continue to follow up closely with the patient. ROS Constitutional: Denies weight loss, fever and chills. HEENT: Cataract in right eye.Denies changes in vision and hearing. Respiratory: Denies shortness of breath and cough Cardiovascular: Denies chest discomfort or palpitations GI: reports improvement on suprapubic abdominal discomfort. : Denies dysuria and urinary frequency. Musculoskeletal: Denies myalgias and joint pain Skin: reports 2 sacral ulcers Neurological: Denies dizziness, headache, vision or hearing problems. Objective vital signs Vital Sign Date Time Temp Pulse Resp B/P (MAP) Pulse Ox O2 Delivery O2 Flow Rate FiO2 09/22/24 13:00 98.6 72 16 141/79 (99) 99 98.6 09/22/24 06:07 Nasal Cannula 2.0 09/22/24 06:07 28 Total Intake and Output 09/21/24 09/21/24 09/22/24 15:00 23:00 07:00 Intake Total 240 ml 340 ml Output Total 1000 ml Balance 240 ml -660 ml medications Current Medications Medications Dose Ordered Sig/[place] Route Start Time Stop Time Status Last Admin Dose Admin Albuterol 2.5 mg Q6HR NEB 09/18/24 06:00 09/22/24 11:13 2.5 MG Ipratropium [place] 0.5 mg Q6HR NEB 09/18/24 06:00 09/22/24 11:13 0.5 MG Clopidogrel Bisulfate 75 mg DAILY PO 09/18/24 10:00 09/22/24 10:35 75 MG Pantoprazole Sodium 40 mg DAILY IV 09/18/24 10:00 09/22/24 10:35 40 MG Sucralfate 1 gm BID@0600,2200 PO 09/18/24 22:00 09/22/24 06:21 1 GM Acetylcysteine 200 mg Q6HR NEB 09/18/24 12:00 09/22/24 11:13 200 MG Diagnostic Test (Pha) 1 strip ACHS 09/18/24 07:00 09/22/24 11:25 1 STRIP Insulin Human Regular ACHS SC 09/18/24 07:00 09/22/24 11:43 3 UNITS Dextrose 50 ml UD PRN IV 09/18/24 06:30 Enoxaparin Sodium 40 mg DAILY SC 09/18/24 10:00 09/22/24 10:35 40 MG Doxycycline Hyclate 100 ml @ 50 mls/hr Q12H IV 09/18/24 09:00 09/22/24 08:14 50 MLS/HR Mupirocin 1 applic BID EACHNOSTRI 09/19/24 22:00 09/24/24 21:59 09/22/24 10:35 1 APPLIC Nitrofurantoin Macrocrystals 100 mg BID PO 09/22/24 22:00 UNV Ceftriaxone Sodium 50 ml @ 100 mls/hr DAILY@09 IV 09/23/24 09:00 Examination Physical examination General: Patient alert and oriented in person, place and time. Patient following commands. HEENT: Normocephalic, atraumatic, moist mucous membranes Respiratory/pulmonary: bilateral rales, no associated crackles or wheezes. Cardiovascular: Normal heart sounds S1 and S2 with no associated murmurs Abdomen: Abdomen nondistended, pain on suprapubic area, no palpable masses. Extremities: There is no peripheral edema present at the lower extremities. Skin: Stage 1 sacrum 2 decubit ulcers. Neurological: Intact cranial nerves with no focal neurologic deficits laboratory and microbiology Laboratory Tests 09/22/24 04:46 Test 09/22/24 04:46 Range/Units Serum Glucose 89 74-106 mg/dL Microbiology Date/Time Source Procedure Growth Status 09/19/24 08:00 Urine - [place] Urine Culture - Final Complete 09/18/24 21:30 Nose MRSA Screen - Final Methicillin Resistant S.aureus Complete 09/18/24 02:25 Blood Blood Culture - Preliminary NO GROWTH AFTER 72 HOURS OF INCUBATION. Resulted Problem List/Assessment/Plan Problem List/Assessment/Plan Assessment/Plan Acute metabolic encephalopathy due to sepsis; resolving - CT shows no acute intracranial abnormality - vitamin B12, folic acid levels pending Acute on chronic hypoxic respiratory failure Sepsis secondary to UTI and Possible pneumonia due to Gram +/- bacteria Pulmonary fibrosis on 3 L/min home oxygen Lactic acidosis-resolved -IV Ceftriaxone 1gr IV QD - duo nebs q.6 hours - Mucomyst - respiratory culture pending - previous sputum cultures growing MRSA -WBC trending down -CT abdomen shows Extensive pulmonary bronchiectatic, reticular changes, nodularity which could be secondary to infection/ chronic infection, underlying chronic lung disease /interstitial disease, neoplasm/metastatic disease. This is significantly more pronounced than on the previous examination. Left lower lobe partially cavitary lesion with solid component measuring 2.3 cm with differential considerations including neoplasm, infection, inflammatory etiologies. Pulmonology consultation advised. -pulmonology recommended to follow up with a CT scan in 6-8 months after completing antibiotic therapy to watch for resolution of cavitary lesion. If not we will perform a biopsy at that time. H/O coronary artery disease s/p PCI with a 1 SAMUEL Congestive heart failure, no exacerbation Uncontrolled hypertension H/o atrial fibrillation - continued on Plavix Sepsis likely UTI/pneumonia - Ceftraxone 1gr IV - previous urine cultures showing growth of ESBL E coli and Enterococcus faecium - judicious use of IV fluids since the patient has heart failure GERD H/O hiatal hernia Mild hyperbilirubinemia Elevated alkaline phosphatase - abdominal ultrasound ordered - Protonix and sucralfate Stage I decubitus ulcer Wound consult Change position q.2 hours Acute to subacute L3 compression fracture Vitamin-D/calcium supplemented 20% height loss, acute to subacute L3 compression fracture Goals of care discussed with the patient at bedside for >35min, full code Patient discussed with Dr. Lehman Plan discussed with: Patient, Daughter My Orders My Orders Orders - LISA MARMOLEJO RESIDENT Procedure Category Date Status Time Ceftriaxone 1gm/50ml PHA 09/23/24 In Process D5w (Rocephin) 09:00 Dietary Evaluation Review Comments: 1) Initiate Pro-Stat @ 30 mL qd 2) Initiate MVI @ 1 tb qd 3) Initiate vitamin C @ 500 mg bid and zinc sulfate @ 220 mg qd for 7 days 4) Encourage optimal PO intake. If < 50%, initiate Glucerna qd 5) Follow-up with cardiology, pulmonology, and nephrology 6) Continue to monitor I&O, labs, and skin integrity Expected Outcomes/Goals: 1) appetite and labs to improve 2) wounds to improve 3) f/u in 3-5 days Date of Service: Sep 22, 2024 Billing Provider: POLO FISH MD Common Visit Codes: [id number] INP/OBS CARE(HIGH) LISA MARMOLEJO RESIDENT Sep 22, 2024 15:13 POLO FISH MD Sep 22, 2024 22:24
[2024-09-22] MEDS: cefTRIAXone 1GM/50ML D5W 50 ML IV ONE (19:33)
--- NOTE | 2024-09-22 23:39 | DVHPN2 ---
Progress Note - Dictate Date Seen: Sep 22, 2024 Has the PT tested + for MRSA If YES, has PT been informed?: No Medical Necessity Reason Pt with a Central, PICC or Fol: Yes The following are medically ne: Contreras Catheter Reason for contreras catheter: Strict I&O Subjective tient seen and examined at bedside. Remains on supplemental oxygen Overnight events reviewed. vital signs Vital Sign Date Time Temp Pulse Resp B/P (MAP) Pulse Ox O2 Delivery O2 Flow Rate FiO2 09/22/24 21:00 98.2 80 17 134/64 (87) 98 98.2 09/22/24 20:14 Nasal Cannula 2.0 09/22/24 20:14 28 Total Intake and Output 09/21/24 09/21/24 09/22/24 15:00 23:00 07:00 Intake Total 240 ml 340 ml Output Total 1000 ml Balance 240 ml -660 ml medications Current Medications Medications Dose Ordered Sig/Chito Route Start Time Stop Time Status Last Admin Dose Admin Albuterol 2.5 mg Q6HR NEB 09/18/24 06:00 09/22/24 20:15 2.5 MG Ipratropium [place] 0.5 mg Q6HR NEB 09/18/24 06:00 09/22/24 20:14 0.5 MG Clopidogrel Bisulfate 75 mg DAILY PO 09/18/24 10:00 09/22/24 10:35 75 MG Pantoprazole Sodium 40 mg DAILY IV 09/18/24 10:00 09/22/24 10:35 40 MG Sucralfate 1 gm BID@0600,2200 PO 09/18/24 22:00 09/22/24 21:18 1 GM Acetylcysteine 200 mg Q6HR NEB 09/18/24 12:00 09/22/24 20:15 200 MG Diagnostic Test (Pha) 1 strip ACHS 09/18/24 07:00 09/22/24 21:19 1 STRIP Insulin Human Regular ACHS SC 09/18/24 07:00 09/22/24 21:27 3 UNITS Dextrose 50 ml UD PRN IV 09/18/24 06:30 Enoxaparin Sodium 40 mg DAILY SC 09/18/24 10:00 09/22/24 10:35 40 MG Doxycycline Hyclate 100 ml @ 50 mls/hr Q12H IV 09/18/24 09:00 09/22/24 20:50 50 MLS/HR Mupirocin 1 applic BID EACHNOSTRI 09/19/24 22:00 09/24/24 21:59 09/22/24 21:19 1 APPLIC Nitrofurantoin Macrocrystals 100 mg BID PO 09/22/24 22:00 UNV Ceftriaxone Sodium 50 ml @ 100 mls/hr DAILY@09 IV 09/23/24 09:00 objective Gen.: Patient lying in bed in no apparent distress. On supplemental oxygen. Head: Normocephalic, atraumatic. Eyes: EOMI/PERRLA. Ears: Normal hearing. Normal anatomy. Neck/trachea: Trachea midline, supple. Nose: Normal external anatomy. Mouth: Moist mucous membranes. Chest: Decreased air entry bilaterally. No wheezing or rhonchi. Cardiovascular: Positive S1, positive S2. Regular rate and rhythm. Abdomen: Positive bowel sounds in all 4 quadrants. Soft, non-tender, non- distended. : Deferred. Rectal: Deferred. Skin: Warm, dry. Intact. Extremities: 2+ radial pulses bilaterally. No lower extremity edema. Neuro: Awake, alert, oriented x3. No gross motor or sensory deficits. Cranial nerves II through XII intact. Gait not assessed. laboratory and microbiology Laboratory Tests 09/22/24 04:46 Test 09/22/24 04:46 Range/Units Serum Glucose 89 74-106 mg/dL Assessment/Plan Impression: Acute hypoxic respiratory failure Dependence on supplemental oxygen Urinary tract infection Interstitial lung disease, possible idiopathic pulmonary fibrosis. LLL cavitary lesion Pneumonia, MRSA Events: Remains on supplemental oxygen, 2 LPM NC Taper O2 as tolerated Continue antibiotics Send sputum cultures Continue bronchodilators Incentive spirometry Plan for midline placement. DVT prophylaxis Recommend outpatient followup for repeat CT chest to document resolution of pneumonia. Labs and imaging reviewed. Rest of plan as noted below. Plan: Supplemental oxygen Titrate to keep O2 sats above 92%. LLL cavitary lesion appears to have evolved on imaging. Recommend to treat for MRSA pneumonia. Repeat CT chest in 6-8 weeks to document resolution. If no resolution, obtain PET CT vs. lung biopsy. Continue antibiotics. Follow up sputum cultures Monitor renal function. Monitor electrolytes. Supplement as necessary. Monitor ins and outs. DVT prophylaxis. Prognosis: Guarded given patient's multiple co-morbidities. Rest of plan per hospitalist and other consultants. Thank you Dr. Campos for allowing me to participate in this patient's care. Further recommendations will depend on the patient's clinical course. Please do not hesitate to contact me if you have any questions or concerns. This medical document was created using an electronic medical record system with [employer] dictation system. Although these documentations are being carefully reviewed, there may still be some phonetic and typographical changes. The errors are purely typographical, due to imperfection on the software program, and do not reflect any compromise in the patient's medical care. Dietary Evaluation Review Comments: 1) Initiate Pro-Stat @ 30 mL qd 2) Initiate MVI @ 1 tb qd 3) Initiate vitamin C @ 500 mg bid and zinc sulfate @ 220 mg qd for 7 days 4) Encourage optimal PO intake. If < 50%, initiate Glucerna qd 5) Follow-up with cardiology, pulmonology, and nephrology 6) Continue to monitor I&O, labs, and skin integrity Expected Outcomes/Goals: 1) appetite and labs to improve 2) wounds to improve 3) f/u in 3-5 days Plan discussed with: Patient, Other (LALITHA Beavers) RENETTA MCCOY MD Sep 22, 2024 23:39
[2024-09-23] VITALS (13 sets, daily range): BP systolic 130–157; BP diastolic 51–77; PULSE 60–78; RESP 14–18; TEMP 96.2–97.7; O2SAT 97–100
[2024-09-23] MEDS ORDERED: ACETAMINOPHEN 325 MG TAB PO PRN
[2024-09-23] MEDS: ACETAMINOPHEN 325 MG TAB PO ONE (00:26)
[2024-09-23] MEDS: ONDANSETRON HCL 4 MG/2 ML VIAL IM ONE (02:15)
[2024-09-23] MEDS ORDERED: ONDANSETRON HCL 4 MG/2 ML VIAL IV PRN (02:15)
[2024-09-23] MEDS: cefTRIAXone 1GM/50ML D5W 50 ML IV SCH (08:14)
[2024-09-23] MEDS: DOXYCYCLINE 100 MG TAB/CAP PO SCH (09:41)
[2024-09-23 09:49] LABS: Anion Gap 7 (5-15); Carbon Dioxide 27 mmol/L (20-31); Chloride 98 mmol/L (98-107); Potassium 4.7 mmol/L (3.5-5.1)
[2024-09-23 09:50] LABS: Calcium 9.0 mg/dL (8.7-10.4)
[2024-09-23 09:55] LABS: BUN/Creatinine Ratio 12.1 (10.0-20.0); Blood Urea Nitrogen 11 mg/dL (9-23); Glucose 151 mg/dL (74-106); Sodium 132 mmol/L (136-145)
--- NOTE | 2024-09-23 12:15 | DVHPN2 ---
Progress Note - Dictate Date Seen: Sep 23, 2024 Has the PT tested + for MRSA If YES, has PT been informed?: No Medical Necessity Reason Pt with a Central, PICC or Fol: Yes The following are medically ne: Contreras Catheter Reason for contreras catheter: Strict I&O Subjective PT WITH AMS GENERALIZED WEAKNESS METABOLIC ENCEPHALOPATHY UTI HYPONATREMIA PMH PUL FIBROSIS ON HOME O2 THERAPY CAD S/P PTCA STENT AFIB DIABETES VASCULOPATHY NEPHROPATHY WITH PROTEINURIA vital signs Vital Sign Date Time Temp Pulse Resp B/P (MAP) Pulse Ox O2 Delivery O2 Flow Rate FiO2 09/23/24 11:42 75 18 100 09/23/24 11:32 Nasal Cannula 2.0 09/23/24 11:32 28 09/23/24 09:00 96.2 132/51 (78) 96.2 Total Intake and Output 09/22/24 09/22/24 09/23/24 15:00 23:00 07:00 Intake Total 100 ml 100 ml 600 ml Output Total 675 ml Balance 100 ml 100 ml -75 ml medications Current Medications Medications Dose Ordered Sig/Chito Route Start Time Stop Time Status Last Admin Dose Admin Albuterol 2.5 mg Q6HR NEB 09/18/24 06:00 09/23/24 11:32 2.5 MG Ipratropium [place] 0.5 mg Q6HR NEB 09/18/24 06:00 09/23/24 11:32 0.5 MG Clopidogrel Bisulfate 75 mg DAILY PO 09/18/24 10:00 09/23/24 09:36 75 MG Pantoprazole Sodium 40 mg DAILY IV 09/18/24 10:00 09/23/24 09:35 40 MG Sucralfate 1 gm BID@0600,2200 PO 09/18/24 22:00 09/23/24 06:00 1 GM Acetylcysteine 200 mg Q6HR NEB 09/18/24 12:00 09/23/24 11:32 200 MG Diagnostic Test (Pha) 1 strip ACHS 09/18/24 07:00 09/23/24 11:38 1 STRIP Insulin Human Regular ACHS SC 09/18/24 07:00 09/22/24 21:27 3 UNITS Dextrose 50 ml UD PRN IV 09/18/24 06:30 Enoxaparin Sodium 40 mg DAILY SC 09/18/24 10:00 09/23/24 09:37 40 MG Mupirocin 1 applic BID EACHNOSTRI 09/19/24 22:00 09/24/24 21:59 09/23/24 09:41 1 APPLIC Nitrofurantoin Macrocrystals 100 mg BID PO 09/22/24 22:00 UNV Ceftriaxone Sodium 50 ml @ 100 mls/hr DAILY@09 IV 09/23/24 09:00 09/23/24 08:14 100 MLS/HR Acetaminophen 650 mg Q6HP PRN PO 09/23/24 00:00 Ondansetron HCl 4 mg Q6HPRN PRN IV 09/23/24 02:15 Nitrofurantoin Macrocrystals 100 mg BID PO 09/23/24 10:00 09/23/24 09:40 100 MG Doxycycline Monohydrate 100 mg Q12HR PO 09/23/24 10:00 09/23/24 09:41 100 MG laboratory and microbiology Laboratory Tests 09/23/24 09:18 Test 09/23/24 09:18 Range/Units Serum Glucose 151 H 74-106 mg/dL Problem List AMS GENERALIZED WEAKNESS METABOLIC ENCEPHALOPATHY UTI HYPONATREMIA PMH PUL FIBROSIS ON HOME O2 THERAPY CAD S/P PTCA STENT AFIB DIABETES VASCULOPATHY NEPHROPATHY WITH PROTEINURIA POSITIVE FOR CAVITARY LESION ABX Assessment/Plan LEUKOCYTOSIS ABX CORRECT HYPONATREMIA HYPONATREMIA RESOLVED CORRECT HYPOTHYROIDISM LEUKOCYTOSIS RESOLVED LUNG MASS PUL CONSULT BRONCHOSCOPY WITH BX CAVITARY LESION NOW RX WITH ABX PET CT OUT PATIENT [facility] ON SUNDAY Dietary Evaluation Review Comments: 1) Initiate Pro-Stat @ 30 mL qd 2) Initiate MVI @ 1 tb qd 3) Initiate vitamin C @ 500 mg bid and zinc sulfate @ 220 mg qd for 7 days 4) Encourage optimal PO intake. If < 50%, initiate Glucerna qd 5) Follow-up with cardiology, pulmonology, and nephrology 6) Continue to monitor I&O, labs, and skin integrity Expected Outcomes/Goals: 1) appetite and labs to improve 2) wounds to improve 3) f/u in 3-5 days Plan discussed with: Patient SILVANA ADAIR MD Sep 23, 2024 12:15
[2024-09-23] MEDS ORDERED: NITR-52 PO (12:26)
[2024-09-23] MEDS ORDERED: DOXY100C79 PO (12:26)
--- NOTE | 2024-09-23 13:54 | DVHDSRES ---
Discharge Summary Date of Admission Resident Creating Document: LISA MARMOLEJO RESIDENT Sep 18, 2024 at 05:28 Date of Discharge: Sep 23, 2024 Admitting Diagnosis Acute metabolic encephalopathy due to sepsis Labs/Diagnostic Data: Laboratory Results Test 09/23/24 09:41 09/23/24 09:18 09/23/24 06:02 09/22/24 04:46 Sodium Level 132 mmol/L (136-145) Potassium Level 4.7 mmol/L (3.5-5.1) Chloride Level 98 mmol/L (98-107) Carbon Dioxide Level 27 mmol/L (20-31) Anion Gap 7 (5-15) Blood Urea Nitrogen 11 mg/dL (9-23) Creatinine 0.91 mg/dL (0.550-1.02) Glomerular Filtration Rate Calc 61 mL/min (>90) BUN/Creatinine Ratio 12.1 (10.0-20.0) Serum Glucose 151 mg/dL (74-106) Calcium Level 9.0 mg/dL (8.7-10.4) POC Glucose 85 mg/dl (70-106) Eosinophils (%) (Auto) 6.6 % (0.0-7.0) Eosinophils # (Auto) 0.4 10 ^3/uL (0-0.8) Basophils # (Auto) 0 10 ^3/uL (0-0.2) Nucleated Red Blood Cells 0.6 % Test 09/21/24 01:59 09/20/24 06:30 09/19/24 04:21 09/18/24 13:28 Vancomycin Level Trough 15.3 ug/mL (5-10) Erythrocyte Sedimentation Rate 85 mm/hr (0-20) Magnesium Level 1.6 mg/dL (1.6-2.6) C-Reactive Protein High Sensitivity 5.31 mg/dL (<1.0) Hemoglobin A1c 6.4 % A1C (<5.7) Phosphorus Level 2.8 mg/dL (2.4-5.1) Total Bilirubin 0.8 mg/dL (0.2-1.0) Aspartate Amino Transferase (AST) 41 U/L (<34) Alanine Aminotransferase (ALT) 19 U/L (7-40) Alkaline Phosphatase 267 U/L (46-116) Total Protein 7.0 g/dL (5.7-8.2) Albumin 2.4 g/dL (3.2-4.8) Vitamin B12 Level 1886 pg/mL (211-911) Folic Acid 12.39 ng/mL (>5.38) Thyroid Stimulating Hormone (TSH) 4.81 uIU/mL (0.55-4.78) Free Thyroxine (T4) Calculated 0.94 ng/dL (0.89-1.76) Prothrombin Time 13.5 sec (9.3-11.8) Prothrombin Time INR 1.31 (0.9-1.15) Activated Partial Thromboplast Time 35.9 SEC (24.5-34.5) Test 09/18/24 09:21 09/18/24 06:54 09/18/24 02:50 09/18/24 02:25 Serum Osmolality 281 mOsm/kg (278-298) Influenza Type A Antigen Negative (Negative) Influenza Type B Antigen Negative (Negative) SARS-CoV-2 Antigen (Rapid) Negative (NEGATIVE) Urine Color Yellow (Yellow) Urine Clarity Turbid (Clear) Urine pH 6.0 (5.0-9.0) Urine Specific [place] 1.012 (1.001-1.035) Urine Protein Trace (Negative) Urine Ketones Negative (Negative) Urine Blood 2+ /uL (Negative) Urine Nitrite Negative (Negative) Urine Bilirubin Negative (Negative) Urine Urobilinogen Normal mg/dL (Negative) Urine Leukocyte Esterase 3+ /uL (Negative) Urine RBC 21 /hpf (0 - 4) Urine WBC Clumps Present /hpf (None Seen) Urine Microscopic WBC 651 /HPF (0-5) Urine Squamous Epithelial Cells Few /hpf (<5) Urine Bacteria None seen /hpf (None Seen) Urine Creatinine 42.20 mg/dL (30.0-125.0) Urine Protein/Creatinine Ratio 1.30 Urine Sodium 34 mmol/L (40-220) Urine Glucose Normal mg/dL (Normal) Urine Total Protein 55.0 mg/dL (1-14) Lactic Acid Level 1.9 mmol/L (0.4-2.0) Test 09/18/24 00:27 Ammonia 28 umol/L (11-32) Lipase 43 U/L (12-53) Other Laboratory Tests 09/23/24 09:18 Brief Hx & Hospital Course: Patient is a 84-year-old female with a past medical history of atrial fibrillation, coronary artery disease s/p PCI with a 1 SAMUEL, insulin-dependent diabetes mellitus, hypertension, 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 The patient was brought to the ED via EMS because of generalized weakness and suprapubic pain. Patient's daughter who is her caregiver reported that the patient has been experiencing lower abdominal pain, chills and generalized weakness. Also says that the patient has sob, cough with clear phlegm for the same duration. She tried going up on O2 which didn't relieve her S/S. Upon admission the patient also reported of lower abdominal pain in the suprapubic region; daughter did not report any fever or chills. On the initial labs patient had elevated white count, elevated lactic acid and UA showing UTI. The patient was admitted and seen and examined at bedside. The patient report improvement on weakness and suprapubic pain. On day 09/22/24 Ceftriaxone 1gr IV and Doxyciclin were added and discontinued vancomicyn and meropenem. Today, the patient shows improvement and reported feeling better. Discharge plan was discussed with the patient and family horseback riding instructor, patient will continue with: Doxyciclin 100 mg BID x 2 day, Nitrofurantoin 100 mg BID x 5 days, F/U with PCP in 1 week. The patient agreed to plan. ROS Constitutional: Denies weight loss, fever and chills. HEENT: Cataract in right eye.Denies changes in vision and hearing. Respiratory: Denies shortness of breath and cough Cardiovascular: Denies chest discomfort or palpitations GI: no abdominal pain. : Denies dysuria and urinary frequency. Musculoskeletal: Denies myalgias and joint pain Skin: reports 2 sacral ulcers Neurological: Denies dizziness, headache, vision or hearing problems. Physical examination General: Patient alert and oriented in person, place and time. Patient following commands. HEENT: Normocephalic, atraumatic, moist mucous membranes Respiratory/pulmonary: bilateral rales, no associated crackles or wheezes. Cardiovascular: Normal heart sounds S1 and S2 with no associated murmurs Abdomen: Abdomen nondistended, no palpable masses. Extremities: There is no peripheral edema present at the lower extremities. Skin: Stage 1 sacrum 2 decubit ulcers. Neurological: Intact cranial nerves with no focal neurologic deficits. Discharge plan: -Doxicicline 100 mg BID x 2 days -Nitrofurantoin 100 mg BID x 5 days -Continue with home medications -F/U with PCP in 1 week Condition at Discharge: Stable Final Diagnosis/Problems List Acute metabolic encephalopathy due to sepsis Acute on chronic hypoxic respiratory failure Sepsis secondary to UTI and Possible pneumonia due to Gram +/- bacteria Pulmonary fibrosis on 3 L/min home oxygen Lactic acidosis H/O coronary artery disease s/p PCI with a 1 SAMUEL Congestive heart failure, no exacerbation Uncontrolled hypertension H/o atrial fibrillation GERD H/O hiatal hernia Mild hyperbilirubinemia Stage I decubitus ulcer Acute to subacute L3 compression fracture Discharge Disposition: Home Discharge Instruct/Medications Diet: Cardiac 2g Na,low cholest Activity: No Restrictions, As Tolerated Follow Up/Referral: Follow up with PCP 1 week Medications: Doxicilin 100 mg BID x 2 days Nitrofurantoin 100 mg BID x 5 Days Scheduled Ascorbic Acid (Vitamin C Tablet), 2 TAB PO DAILY, (Reported) Baclofen (Baclofen), 1 TAB PO HS, (Reported) Budesonide-Formoterol Fumarate (Budesonide/Formoterol Fum 160-4.5 Mcg/Act), 2 PUFF INH BID, (Reported) Cetirizine HCl (Cetirizine Hydrochloride), 1 TAB PO DAILY, (Reported) Cholecalciferol (Vitamin D3), 2,000 UNIT PO DAILY, (Reported) Clopidogrel Bisulfate (Clopidogrel), 1 TAB PO DAILY, (Reported) Coenzyme Q10 (Coq-10), 30 MG PO DAILY, (Reported) Doxycycline (Monohydrate) (Doxycycline), 100 MG PO BID Empagliflozin (Jardiance), 1 TAB PO DAILY, (Reported) Furosemide (Furosemide), 2 TAB PO DAILY, (Reported) Gabapentin (Gabapentin), 1 CAP PO DAILY, (Reported) Insulin Glargine (Basaglar Kwikpen), 20 UNIT SC DAILY, (Reported) Ipratropium [place] (Ipratropium Springer), 1 VIAL NEB BID, (Reported) Meloxicam (Meloxicam), 1 TAB PO Q2D, (Reported) Metoprolol Tartrate (Lopressor), 1 TAB PO BID, (Reported) Mirabegron Base (Mirabegron ER), 1 TAB PO DAILY, (Reported) Mupirocin (Pseudomonas Fluores (Mupirocin), 1 APPLIC TOP TID, (Reported) Nitrofurantoin (Nitrofurantoin), 1 CAP PO BID Oxybutynin Chloride (Oxybutynin Chloride), 1 TAB PO BID, (Reported) Pantoprazole Sodium Sesquihydr (Pantoprazole Sodium), 1 TAB PO DAILY, (Reported) Potassium Chloride (Potassium Chloride ER), 1 TAB PO DAILY, (Reported) Pramipexole Dihydrochloride (Pramipexole Dihydrochlori), 0.5 MG PO HS, (Reported) Saline (Deep Sea Nasal [place]), 1 SPRAY ABBY 30, (Reported) Temazepam (Restoril), 1 CAP PO HS PRN, (Reported) Timolol Maleate (Timolol Maleate), 1 DROP EACHEYE BID, (Reported) Vericiguat (Verquvo), 2.5 MG PO BIDAC, (Reported) Scheduled PRN Acetaminophen (Acetaminophen), 325 MG PO Q4HP PRN for MILD PAIN, (Reported) Albuterol Sulfate (Albuterol Sulfate), 1 VIAL NEB Q4HR PRN for WHEEZING OR COUGH, (Reported) Albuterol Sulfate (Albuterol Sulfate Hfa), 2 PUFF INH Q4HR PRN for SHORTNESS OF BREATH, (Reported) Benzonatate (Benzonatate), 1 CAP PO TID PRN for COUGH, (Reported) Sucralfate (Carafate), 1 TAB PO BID PRN for STOMACH PAIN, (Reported) Miscellaneous Medications Patients Own Medication (Patients Own Medication), (Reported) Discharge Statement: "Patient was advised to return to the ER or call 911 if any headaches, dizziness, shortness of breath, chest pain, abdominal pain, bleeding, fevers, or worsening of medical condition. Patient was counseled about treatment plan, medications, possible side effects, patientverbalized understanding. All questions were answered to the best of my ability. This discharge took greater then 30 minutes in planning, reviewing documentation, counseling the patient, and discussing with other team members." ASSESSMENT ASSESSMENT Assessment Acute metabolic encephalopathy due to sepsis Acute on chronic hypoxic respiratory failure Sepsis secondary to UTI and Possible pneumonia due to Gram +/- bacteria Pulmonary fibrosis on 3 L/min home oxygen Lactic acidosis H/O coronary artery disease s/p PCI with a 1 SAMUEL Congestive heart failure, no exacerbation Uncontrolled hypertension H/o atrial fibrillation GERD H/O hiatal hernia Mild hyperbilirubinemia Stage I decubitus ulcer Acute to subacute L3 compression fracture LISA MARMOLEJO RESIDENT Sep 23, 2024 13:54
[2024-09-23 15:57] LABS: Hematocrit 34.2 % (36.0-46.0); Hemoglobin 11.5 g/dL (12.2-16.2); Mean Corpuscular Hemoglobin 29.4 pg (28.0-32.0); Mean Corpuscular Volume 87.0 fL (80.0-100.0); Nucleated Red Blood Cells % 0.5 %
--- NOTE | 2024-09-23 23:56 | DVHPN2 ---
Progress Note - Dictate Date Seen: Sep 23, 2024 Has the PT tested + for MRSA If YES, has PT been informed?: No Medical Necessity Reason Pt with a Central, PICC or Fol: Yes The following are medically ne: Contreras Catheter Reason for contreras catheter: Strict I&O Subjective tient seen and examined at bedside. Remains on supplemental oxygen Overnight events reviewed. vital signs Vital Sign Date Time Temp Pulse Resp B/P (MAP) Pulse Ox O2 Delivery O2 Flow Rate FiO2 09/23/24 14:29 97.1 78 16 97 09/23/24 12:34 135/63 (87) 09/23/24 11:32 Nasal Cannula 2.0 09/23/24 11:32 28 Total Intake and Output 09/22/24 09/22/24 09/23/24 15:00 23:00 07:00 Intake Total 100 ml 100 ml 600 ml Output Total 675 ml Balance 100 ml 100 ml -75 ml medications Current Medications Medications Dose Ordered Sig/Chito Route Start Time Stop Time Status Last Admin Dose Admin Nitrofurantoin Macrocrystals 100 mg BID PO 09/22/24 22:00 UNV objective Gen.: Patient lying in bed in no apparent distress. On supplemental oxygen. Head: Normocephalic, atraumatic. Eyes: EOMI/PERRLA. Ears: Normal hearing. Normal anatomy. Neck/trachea: Trachea midline, supple. Nose: Normal external anatomy. Mouth: Moist mucous membranes. Chest: Decreased air entry bilaterally. No wheezing or rhonchi. Cardiovascular: Positive S1, positive S2. Regular rate and rhythm. Abdomen: Positive bowel sounds in all 4 quadrants. Soft, non-tender, non- distended. : Deferred. Rectal: Deferred. Skin: Warm, dry. Intact. Extremities: 2+ radial pulses bilaterally. No lower extremity edema. Neuro: Awake, alert, oriented x3. No gross motor or sensory deficits. Cranial nerves II through XII intact. Gait not assessed. laboratory and microbiology Laboratory Tests 09/23/24 15:45 09/23/24 09:18 Test 09/23/24 09:18 Range/Units Serum Glucose 151 H 74-106 mg/dL Assessment/Plan Impression: Acute hypoxic respiratory failure Dependence on supplemental oxygen Urinary tract infection Interstitial lung disease, possible idiopathic pulmonary fibrosis. LLL cavitary lesion Pneumonia, MRSA Events: Remains on supplemental oxygen, 2 LPM NC Taper O2 as tolerated No new respiratory complaints. Continue antibiotics Send sputum cultures Continue bronchodilators/Mucomyst Incentive spirometry Outpatient followup in Pulmonary Clinic in 2-3 weeks; recommend repeat CT chest to document resolution of pneumonia. Labs and imaging reviewed. Rest of plan as noted below. Plan: Supplemental oxygen Titrate to keep O2 sats above 92%. LLL cavitary lesion appears to have evolved on imaging. Recommend to treat for MRSA pneumonia. Repeat CT chest in 6-8 weeks to document resolution. If no resolution, obtain PET CT vs. lung biopsy. Continue antibiotics. Follow up sputum cultures Monitor renal function. Monitor electrolytes. Supplement as necessary. Monitor ins and outs. DVT prophylaxis. Prognosis: Guarded given patient's multiple co-morbidities. Rest of plan per hospitalist and other consultants. Thank you Dr. Campos for allowing me to participate in this patient's care. Further recommendations will depend on the patient's clinical course. Please do not hesitate to contact me if you have any questions or concerns. This medical document was created using an electronic medical record system with [employer] dictation system. Although these documentations are being carefully reviewed, there may still be some phonetic and typographical changes. The errors are purely typographical, due to imperfection on the software program, and do not reflect any compromise in the patient's medical care. Dietary Evaluation Review Comments: 1) Initiate Pro-Stat @ 30 mL qd 2) Initiate MVI @ 1 tb qd 3) Initiate vitamin C @ 500 mg bid and zinc sulfate @ 220 mg qd for 7 days 4) Encourage optimal PO intake. If < 50%, initiate Glucerna qd 5) Follow-up with cardiology, pulmonology, and nephrology 6) Continue to monitor I&O, labs, and skin integrity Expected Outcomes/Goals: 1) appetite and labs to improve 2) wounds to improve 3) f/u in 3-5 days Plan discussed with: Patient, Other (RN) RENETTA MCCOY MD Sep 23, 2024 23:56
== END 2024-09-23 17:30 | disposition home or self-care (01) | DRG 720 ==
LOC: EDBD 00:08 → ER 00:08 → OVERFLOW 05:28 → TELE-CENTR 09-19 15:40
PROVIDERS: ADMIT Student in an Organized Health Care Education/Training Program; ATTEND Student in an Organized Health Care Education/Training Program
DX: A41.02 Sepsis due to Methicillin resistant Staphylococcus aureus (principal); J96.21 Acute and chronic respiratory failure with hypoxia; G93.41 Metabolic encephalopathy; J15.212 Pneumonia due to Methicillin resistant Staphylococcus aureus; I11.0 Hypertensive heart disease with heart failure; E87.20 Acidosis, unspecified; N17.9 Acute kidney failure, unspecified; I50.9 Heart failure, unspecified; J84.10 Pulmonary fibrosis, unspecified; N39.0 Urinary tract infection, site not specified; E87.1 Hypo-osmolality and hyponatremia; K21.9 Gastro-esophageal reflux disease without esophagitis; E80.6 Other disorders of bilirubin metabolism; E03.9 Hypothyroidism, unspecified; I25.10 Atherosclerotic heart disease of native coronary artery without angina pectoris; I48.91 Unspecified atrial fibrillation; N28.9 Disorder of kidney and ureter, unspecified; E87.6 Hypokalemia; L89.891 Pressure ulcer of other site, stage 1; M48.56XA Collapsed vertebra, not elsewhere classified, lumbar region, initial encounter for fracture; K74.60 Unspecified cirrhosis of liver; E11.9 Type 2 diabetes mellitus without complications; Z88.6 Allergy status to analgesic agent; Z88.3 Allergy status to other anti-infective agents; Z88.5 Allergy status to narcotic agent; Z85.3 Personal history of malignant neoplasm of breast; Z79.4 Long term (current) use of insulin; Z79.01 Long term (current) use of anticoagulants; Z79.84 Long term (current) use of oral hypoglycemic drugs; Z98.61 Coronary angioplasty status; Z90.11 Acquired absence of right breast and nipple; Z82.49 Family history of ischemic heart disease and other diseases of the circulatory system; Z87.440 Personal history of urinary (tract) infections; Z99.81 Dependence on supplemental oxygen
CPT/HCPCS: 36415; 70450; 71045; 74176; 76700; 80048; 80053; 80202; 81001; 82140; 82570; 82607; 82746; 82962; 83036; 83605; 83690; 83735; 83930; 84100; 84156; 84300; 84439; 84443; 85025; 85610; 85652; 85730; 86141; 87040; 87081; 87086; 87426; 87804; 92610; 93005; 94640; 96361; 96365; 97163; 99291; G0378; J1815; J2185; J2470

== ENCOUNTER 2024-12-30 19:55 | Inpatient (IN) | payer MEDICAID ==
[~2024-12-30] VITALS: Ht 160 cm; Wt 64.1 kg
[~2024-12-30 19:55] MED LIST changes: -APIX5TAB PO; -BUDE1AER5 INH; -CLOP75TA28 PO; +DOXY100C79 PO; -GABA-1308 PO; -METO25TA36 PO; -METO25TA5 PO; +NITR-52 PO; -TIMO0.5S28 EACHEYE
--- NOTE | 2024-12-30 20:17 | ED.PDOC ---
Altered Mental Status HPI Comments discharge diagnosis from 09/23/2024 Acute metabolic encephalopathy due to sepsis Acute on chronic hypoxic respiratory failure Sepsis secondary to UTI and Possible pneumonia due to Gram +/- bacteria Pulmonary fibrosis on 3 L/min home oxygen Lactic acidosis H/O coronary artery disease s/p PCI with a 1 SAMUEL Congestive heart failure, no exacerbation Uncontrolled hypertension H/o atrial fibrillation GERD H/O hiatal hernia Mild hyperbilirubinemia Stage I decubitus ulcer Acute to subacute L3 compression fracture HPI: 84 year old female presents to the ED via EMS with a chief compliant of ALOC onset today (12/30/24). Per EMS, 911 was called by family due to patient being altered,failure to thrive, A&O x1, patient is usually able to have full conversations, ambulate with assistance. Patient currently has PICC line, is on antibiotics for UTI. Patient states she has been experiencing suprapubic pain, headache, weakness and nausea. Patient is a poor historian. No other symptoms or modifying factors present at this time. Initial Vitals BP: 178/89 HR: 73 RR: 20 O2: 94% Temp: 97.8 F Past Medical History: cancer, CHF, HTN, DM, liver disease, CAD Past Surgical History: Denies Social History: Denies ETOH, smoking, and drug use. Medications: Plavix, Lasix Allergies: Ibuprofen, Morphine, Codeine Rbuce: ALOC, UTI IV ABX. WEAK FAILURE TO THRIVE. HPI: Poor Historian. REVIEW OF SYSTEMS: CONSTITUTIONAL: Denies acute: fever, diaphoresis, chills, HEAD: Denies acute: headache, photophobia Eyes: Denies acute: Double vision, vision loss, eye pain, eye discharge. EARS: Denies acute: tinnitus, hearing loss, ear discharge, ear pain, THROAT: Denies acute: sore throat, swelling, difficulty swallowing , pain with swallowing, change in voice. NECK: Denies acute: neck pain, neck swelling, stiff neck. HEART: Denies acute : chest pain, palpitations, LUNGS: Denies acute: SOB, wheezing, cough, hemoptysis ABDOMEN: Denies acute: Vomiting, diarrhea, melena , hematemesis, hematochezia SKIN: Denies acute: rash, redness, lesions, itchiness. EXTREMITIES: Denies acute: calf pain, numbness, tingling, weakness, denies pain in extremity. Denies acute: Low back pain. Neuro: Denies acute: focal neurological deficit, motor or sensory focal neurological deficit, tremors, seizure like activity, , , change in mental status, loss of bowel or bladder function, cauda equina like symptoms. : Denies acute: dysuria, hematuria, flank pain, increase in urinary frequency. PSYCH: Denies acute: hallucination, suicidal ideation, homicidal ideation. FEMALE: Denies acute: abnormal vaginal bleeding, foul odor, unusual discharge. PHYSICAL EXAM: General: ---moderate-----acute distress, awake and alert. Head: normocephalic, atraumatic. Neck: supple, trachea is midline, no swelling. Throat: Normal phonation. Eyes:, no erythema, no purulent discharge, no proptosis, no icterus. Heart: regular rate, regular rhythm, no significant murmur appreciated. Lungs: no apparent respiratory distress, Able to speak in full sentences. No wheezing, no rhonchi, no crackles. No stridors Clear to auscultation bilaterally. Abdomen: Mild nonspecific generalized tender to palpation, non distended, soft, no guarding, no rebound, + bowel sounds. Noted left upper extremity IV access from home health for daily IV antibiotics infusion. Neuro: Awake, Alert, oriented to name, self, situation, follows commands Skin: no petechia, no purpura, no cyanosis, non-pale, not jaundice. Lower extremities: --trace bilateral- Pitting edema no deformity, no focal swelling, no calf TTP. Makes eye contact. moves all four extremities. Face: no apparent facial droop. ED COURSE: DISCLAIMER: This medical document was created using an electronic medical record system with voice recognition software and computerized dictation system. Although this document has been carefully reviewed, there might still be some phonetic and typographical errors. Occasional wrong-word or "sound-alike" substitutions may have occurred due to the inherent limitations of voice recognition software. These areas are purely typographical due to imperfections of the software pr ograms and do not reflect any compromise in the patient's medical care. Please read the chart carefully and recognize, using context, where these substitutions have occurred. Chief Complaint: ALOC Time Seen by MD: 20:00 Primary Care Provider: JUNIOR Reviewed Notes: Medications, Allergies Allergies: Coded Allergies: Morphine (Verified Allergy, Intermediate, Rash, 07/07/24) Codeine (Verified Allergy, Unknown, 07/07/24) Ibuprofen (Verified Allergy, Unknown, 07/07/24) Home Meds Active Scripts Cefdinir (Cefdinir) 300 Mg Cap, 1 CAP PO BID, #14 CAP Prov:RUFUS DELACRUZ DO 01/02/25 Doxycycline (Monohydrate) (Doxycycline) 100 Mg Cap, 100 MG PO BID for 2 Days, #4 CAP Prov:NANO RAMIREZ RESIDENT 09/23/24 Nitrofurantoin (Nitrofurantoin) 100 Mg Cap, 1 CAP PO BID for 5 Days, #10 CAP Prov:NANO RAMIREZ RESIDENT 09/23/24 Reported Medications Pramipexole Dihydrochloride (Pramipexole Dihydrochlori) 0.375 Mg Tab, 0.5 MG PO HS for 90 Days, #180 TAKE 0.5 MG (2 TABLETS OF 0.25 MG) BY MOUTH BEFORE BEDTIME EVERY DAY. 09/20/24 Oxybutynin Chloride (Oxybutynin Chloride) 5 Mg Tab, 1 TAB PO BID for 90 Days, #180 09/20/24 Clopidogrel Bisulfate (CLOPIDOGREL) 75 Mg Tab, 1 TAB PO DAILY for 90 Days, #90 09/20/24 Saline (DEEP SEA NASAL SPRAY) 0.65 % Spr, 1 SPRAY ABBY 30 for 30 Days, #88 09/20/24 Cetirizine HCl (Cetirizine Hydrochloride) 10 Mg Tab, 1 TAB PO DAILY for 100 Days, #100 09/20/24 Timolol Maleate (Timolol Maleate) 0.25 % Dulce Maria, 1 DROP EACHEYE BID for 50 Days, # 10 09/20/24 Mirabegron Base (Mirabegron ER) 50 Mg Tab, 1 TAB PO DAILY for 90 Days, #90 09/20/24 Budesonide-Formoterol Fumarate (Budesonide/Formoterol Fum 160-4.5 Mcg/Act) 1 Aer Aer, 2 PUFF INH BID for 30 Days, #10.2 09/20/24 Meloxicam (Meloxicam) 7.5 Mg Tab, 1 TAB PO Q2D for 100 Days, #50 TAKE 1 TABLET BY MOUTH EVERY 2 DAYS. 09/20/24 Mupirocin (Pseudomonas Fluores (Mupirocin) 2 % Oin, 1 APPLIC TOP TID for 30 Days, #45 APPLY LIBERALLY TOPICALLY TO THE AFFECTED AREA 3 TIMES DAILY NEEDED DIRECTED. 09/20/24 Gabapentin (Gabapentin) 300 Mg Cap, 1 CAP PO DAILY for 90 Days, #90 09/20/24 Baclofen (Baclofen) 5 Mg Tab, 1 TAB PO HS for 30 Days, #30 09/20/24 Ipratropium [place] (Ipratropium [place]) 0.02 % Dulce Maria, 1 VIAL NEB BID for 90 Days, #450 09/20/24 Metoprolol Tartrate (Lopressor) 25 Mg Tb, 1 TAB PO BID for 30 Days, #60 0 Refills 09/20/24 Vericiguat (Verquvo) 2.5 Mg Tab, 2.5 MG PO BIDAC, TAB 09/17/24 Insulin Glargine (Basaglar Kwikpen) 100 Unit/Ml Inj, 20 UNIT SC DAILY for 68 Days, #15 09/17/24 Acetaminophen (Acetaminophen) 325 Mg Tab, 325 MG PO Q4HP PRN for MILD PAIN, MG 0 Refills 03/03/24 Empagliflozin (Jardiance) 25 Mg Tab, 1 TAB PO DAILY for DIABETES for 30 Days 03/03/24 Sucralfate (CARAFATE) 1 Gm Tab, 1 TAB PO BID PRN for STOMACH PAIN for 90 Days, #170 03/03/24 Pantoprazole Sodium Sesquihydr (Pantoprazole Sodium) 40 Mg Tab, 1 TAB PO DAILY for 90 Days, #90 03/03/24 Patients Own Medication (PATIENTS OWN MEDICATION) ., for [facility] PTS OWN MED-OBTAIN FROM PT AND SEND TO RX DRUG: FREQ: RX# EXP: DATE DISP: TECH: RPH: 03/03/24 Albuterol Sulfate (Albuterol Sulfate Hfa) 108 Mcg/Act Aer, 2 PUFF INH Q4HR PRN for SHORTNESS OF BREATH for 50 Days, #25.5 03/03/24 Cholecalciferol (VITAMIN D3) 2,000 Unit Chw, 2000 UNIT PO DAILY, TAB.CHEW 03/03/24 Coenzyme Q10 (Coq-10) 30 Mg Cap, 30 MG PO DAILY, CAP 03/03/24 Ascorbic Acid (VITAMIN C TABLET) 500 Mg Tb, 2 TAB PO DAILY, #30 TAB 3 Refills 03/03/24 Temazepam (Restoril) 15 Mg Cp, 1 CAP PO HS PRN for 30 Days, #30 01/02/24 Albuterol Sulfate (Albuterol Sulfate) 0.083 % Neb, 1 VIAL NEB Q4HR PRN for WHEEZING OR COUGH for 45 Days, #180 01/02/24 Potassium Chloride (Potassium Chloride ER) 10 Meq Tab, 1 TAB PO DAILY for 90 Days, #90 01/02/24 Benzonatate (Benzonatate) 100 Mg Cap, 1 CAP PO TID PRN for COUGH for 90 Days, #270 01/09/23 Furosemide (Furosemide) 40 Mg Tab, 2 TAB PO DAILY for 90 Days, #270 10/21/22 Information Source: Patient, Emergency Med Personnel Mode of Arrival: EMS Severity: Moderate Timing: Days Duration: Since onset Prehospital treatment: Treatment (antibiotics) Quality: Decreased Alertness, Change in Behavior Past Medical History PAST MEDICAL HISTORY: Cancer, CHF, DM, HTN, Liver Surgical History: Denies all surgeries 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 Was a procedure done?: No Differential Diagnosis (ALOC) Differential Diagnosis: Other (DDX include CVA, TGA, cerebellar ischemia/infarct, carotid stenosis, Intracranial mass/infection/bleed, encephalopathy, electrolyte abnormality, thyroid disease, hydrocephalus, hypoglycemia, drug toxicity, cardiac arrhythmia, seizure, infection in the elderly, Hyperammonemia., kidney failure., sepsis.) X-Ray, Labs, Meds, VS Vital Signs Date Time Temp Pulse Resp B/P (MAP) Pulse Ox O2 Delivery O2 Flow Rate FiO2 12/30/24 22:00 97.6 61 20 114/65 (81) 97 97.6 12/30/24 20:37 97.4 63 17 139/57 (84) 97 97.4 12/30/24 20:37 Room Air* 0 21 12/30/24 20:31 66 12/30/24 20:21 66 12/30/24 20:12 97.8 73 28 178/89 94 97.8 Lab Test 12/30/24 21:32 12/30/24 21:25 12/30/24 20:28 Range/Units Troponin I High Sensitivity 10 9 </=34 ng/L Urine Color Yellow Yellow Urine Clarity Clear Clear Urine pH 6.5 5.0-9.0 Urine Specific [place] 1.009 1.001-1.035 Urine Protein Negative Negative Urine Ketones Negative Negative Urine Blood +1 Negative /uL Urine Nitrite +1 Negative Urine Bilirubin +1 Negative Urine Urobilinogen +1 Negative mg/dL Urine Leukocyte Esterase 1+ Negative /uL Urine RBC 4 0 - 4 /hpf Urine WBC Clumps Present None Seen /hpf Urine Microscopic WBC 20 H 0-5 /HPF Urine Squamous Epithelial Cells Mod <5 /hpf Urine Amorphous Sediment Few /hpf Urine Bacteria Few H None Seen /hpf Urine Glucose Normal Normal mg/dL White Blood Count 9.9 4.4-10.8 10^3/uL Red Blood Count 3.70 L 4.0-5.20 10^6/uL Hemoglobin 11.3 L 12.2-16.2 g/dL Hematocrit 33.9 L 36.0-46.0 % Mean Corpuscular Volume 91.6 80.0-100.0 fL Mean Corpuscular Hemoglobin 30.5 28.0-32.0 pg Mean Corpuscular Hemoglobin Concent 33.3 32.0-36.0 g/dL Red Cell Distribution Width 13.8 11.8-14.3 % Platelet Count 279 140-450 10^3/uL Mean Platelet Volume 7.4 6.9-10.8 fL Neutrophils (%) (Auto) 60.7 37.0-80.0 % Lymphocytes (%) (Auto) 28.7 10.0-50.0 % Monocytes (%) (Auto) 7.4 0.0-12.0 % Eosinophils (%) (Auto) 2.7 0.0-7.0 % Basophils (%) (Auto) 0.5 0.0-2.0 % Neutrophils # (Auto) 6.0 1.6-8.6 10 ^3/uL Lymphocytes # (Auto) 2.8 0.4-5.4 10 ^3/uL Monocytes # (Auto) 0.7 0-1.3 10 ^3/uL Eosinophils # (Auto) 0.3 0-0.8 10 ^3/uL Basophils # (Auto) 0.1 0-0.2 10 ^3/uL Nucleated Red Blood Cells 0.2 % Prothrombin Time 12.4 H 9.3-11.8 sec Prothrombin Time INR 1.19 H 0.9-1.15 Activated Partial Thromboplast Time 28.9 24.5-34.5 SEC Sodium Level 131 L 136-145 mmol/L Potassium Level 4.5 3.5-5.1 mmol/L Chloride Level 92 L 98-107 mmol/L Carbon Dioxide Level 33 H 20-31 mmol/L Anion Gap 6 5-15 Blood Urea Nitrogen 15 9-23 mg/dL Creatinine 1.09 H 0.550-1.02 mg/dL Glomerular Filtration Rate Calc 49 >90 mL/min BUN/Creatinine Ratio 13.8 10.0-20.0 Serum Glucose 117 H 74-106 mg/dL Lactic Acid Level 1.9 0.4-2.0 mmol/L Calcium Level 8.5 L 8.7-10.4 mg/dL Total Bilirubin 1.2 H 0.2-1.0 mg/dL Aspartate Amino Transferase (AST) 65 H 13-40 U/L Alanine Aminotransferase (ALT) 34 7-40 U/L Alkaline Phosphatase 293 H 46-116 U/L Total Protein 7.3 5.7-8.2 g/dL Albumin 2.5 L 3.2-4.8 g/dL Microbiology Date/Time Source Procedure Growth Status 12/30/24 21:32 Blood Blood Culture - Final NO GROWTH AFTER 5 DAYS OF INCUBATION. Complete 12/30/24 21:26 Blood Blood Culture - Final NO GROWTH AFTER 5 DAYS OF INCUBATION. Complete 12/30/24 21:25 Voided Urine Urine Culture - Final Complete [place] [address] Ph: [phone] DIAGNOSTIC IMAGING Diagnostic Imaging Report : [id number] Addendum PATIENT: MENG CARL ACCT: [id number] UNIT: [id number] : 1940 LOC: [facility] ROOM / BED: [facility] / A AGE / SEX: 84 / F ADM STATUS: DIS IN SERVICE 47 ORDERING PHYSICIAN: SAVANNA GALVAN DO PROCEDURE(s): HWOCT - HEAD WITHOUT CONTRAST REASON: ALOC ORDER NUMBER(s): [id number], ACCESSION NUMBER(s): [id number] ADDENDUM CLINICAL HISTORY: Mental status change. TECHNIQUE: Helical scanning was performed of the head from the skull base to the vertex. Multiplanar reconstructions were performed. This exam was performed according to our departmental dose optimization program. Up-to-date CT equipment and radiation dose reduction techniques are utilized as appropriate. CTDI 8.9 DLP 1270 COMPARISON: CT HEAD WITHOUT CONTRAST on DOS: 09/18/24, MRI BRAIN HEAD WO CONTRAST on DOS: 10/31/23, CT HEAD WITHOUT CONTRAST on DOS: 10/31/23, CT HEAD WITHOUT CONTRAST on DOS: 01/08/23, HEAD WITHOUT CONTRAST on DOS: 12/10/21 FINDINGS: There is no evidence for acute intracranial hemorrhage, acute ischemic changes, mass, mass effect, or extra-axial fluid collection. There is no hydrocephalus or midline shift. There is no effacement of the cerebral sulci and basal subarachnoid cisterns. The roa-white matter differentiation is well maintained. There are chronic right globe injury. There is mild brain volume loss and chronic small vessel ischemic change. The imaged paranasal sinuses are clear. IMPRESSION: NO ACUTE INTRACRANIAL ABNORMALITY SEEN. 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 TECHNIQUE: Helical scanning was performed of the head from the skull base to the vertex. Multiplanar reconstructions were performed. This exam was performed according to our departmental dose optimization program. Up-to-date CT equipment and radiation dose reduction techniques are utilized as appropriate. CTDI 8.9 DLP 1270 COMPARISON: CT HEAD WITHOUT CONTRAST on DOS: 09/18/24, MRI BRAIN HEAD WO CONTRAST on DOS: 10/31/23, CT HEAD WITHOUT CONTRAST on DOS: 10/31/23, CT HEAD WITHOUT CONTRAS T on DOS: 01/08/23, HEAD WITHOUT CONTRAST on DOS: 12/10/21 FINDINGS: There is no evidence for acute intracranial hemorrhage, acute ischemic changes, mass, mass effect, or extra-axial fluid collection. There is no hydrocephalus or midline shift. There is no effacement of the cerebral sulci and basal subarachnoid cisterns. The roa-white matter differentiation is well maintained. There are chronic right globe injury. There is mild brain volume loss and chronic small vessel ischemic change. The imaged paranasal sinuses are clear. IMPRESSION: NO ACUTE INTRACRANIAL ABNORMALITY SEEN. ATED BY: LIZZY BACA MD DICTATED DATE/TIME: 12/30/242119 SIGNED BY: LIZZY BACA MD SIGNED DATE/TIME: 12/30/242119 CC: [place] [address] Ph: [phone] DIAGNOSTIC IMAGING Diagnostic Imaging Report : [id number] Signed PATIENT: MENG CARL ACCT: [id number] UNIT: [id number] : 1940 LOC: ER ROOM / BED: / AGE / SEX: 84 / F ADM STATUS: REG ER SERVICE 09 ORDERING PHYSICIAN: SAVANNA GALVAN DO PROCEDURE(s): CXRP - CHEST PORTABLE REASON: abd pain ORDER NUMBER(s): [id number], ACCESSION NUMBER(s): [id number] CHEST RADIOGRAPH Indication: abd pain Technique: 1 view Comparison: XR CHEST 1 VIEW on DOS: 12/24/24, XY CHEST XRAY 1 VIEW on DOS: 09/18/24, XY CHEST PORTABLE on DOS: 01/03/24, XY CHEST XRAY 1 VIEW on DOS: 01/02/24, XY CHEST XRAY 1 VIEW on DOS: 01/02/24 FINDINGS: Lines and Tubes: External leads. Lungs/Pleura: No evidence of acute consolidation or pleural abnormality. Simil ar diffuse bilateral coarse interstitial and reticular opacities. Cardiomediastinum: Unremarkable. Other: No acute osseous abnormality. IMPRESSION: 1. No acute cardiopulmonary abnormality. 2. Unchanged diffuse coarse interstitial and reticular opacities throughout both lungs. ATED BY: ALYSSA STRICKLAND MD DICTATED DATE/TIME: 12/30/242123 SIGNED BY: ALYSSA STRICKLAND MD SIGNED DATE/TIME: 12/30/242123 CC: [place] [address] Ph: [phone] DIAGNOSTIC IMAGING Diagnostic Imaging Report : [id number] Signed PATIENT: MENG CARL ACCT: [id number] UNIT: [id number] : 1940 LOC: ER ROOM / BED: / AGE / SEX: 84 / F ADM STATUS: REG ER SERVICE 09 ORDERING PHYSICIAN: SAVANNA GALVAN DO PROCEDURE(s): ABPL - CT AB PEL WO CON-NO ORAL OR IV REASON: abd pain ORDER NUMBER(s): [id number], ACCESSION NUMBER(s): [id number] CLINICAL HISTORY: abd pain TECHNIQUE: CT of the abdomen and pelvis was performed without IV contrast. This exam was performed according to our departmental dose optimization program. Up-to-date CT equipment and radiation dose reduction techniques are utilized as appropriate. CTDI 8.9 DLP 1270 COMPARISON: CT CT AB PEL WO CON-NO ORAL OR IV on DOS: 09/19/24, CT CT AB PEL WO CON-NO ORAL OR IV on DOS: 10/25/23, CT CT AB PEL WO CON-NO ORAL OR IV on DOS: 07/27/23, CT CHST AB PEL WO CON-NO IV/ORAL on DOS: 01/08/23, CT ABD PELVIS WO CONTRAST on DOS: 12/07/21 FINDINGS: Abdomen/Pelvis: The pancreas, gallbladder, adrenal glands, kidneys, bladder, and spleen are grossly unremarkable. The liver is cirrhotic in morphology with significant contour nodularity. The uterus is absent. The abdominal aorta is normal in course and caliber. There are [id number] aortic atherosclerotic calcifications. There is no free intraperitoneal air or fluid. There is no enlarged abdominal pelvic lymph node. There is no bowel wall thickening or dilatation. Other: The imaged lower thorax demonstrates partially imaged bilateral breast implants. There is extensive diffuse interstitial thickening with reticular opacities, pensive cystic change within the lingula, and diffuse bronchial wall thickening / mucous plugging. There is a similar size 2.2 cm left lower lobe cavity with increasing internal soft tissue thickening. There are 3-vessel coronary artery and aortic valvular calcifications. No acute osseous abnormality is evident. There is severe L3-L4 spinal stenosis secondary diffuse disc bulge, ligamentum flavum thickening, and facet hypertrophy. There is a mild chronic L3 vertebral body compression fracture. Impression: No acute noncontrast CT abnormality in the abdomen or pelvis. Cirrhosis. Hysterectomy. Extensive lung disease, suspect combination of chronic infection and fibrosis. Other possibilities are not excluded. Similar size 2.3 cm left lower lobe cavity with increasing soft tissue thickening, which may represent a mycetoma. ATED BY: LIZZY BACA MD DICTATED DATE/TIME: 12/30/242158 SIGNED BY: LIZZY BACA MD SIGNED DATE/TIME: 12/30/242158 CC: Time of 1ST Reevaluation: 20:30 Reevaluation 1ST: Unchanged Patient Education/Counseling: Other Family Education/Counseling: No Family Present Comments MDM: patient presented with the above HPI.-ALOC-----workup was initiated. nelsy mustafa was found with the above mentioned diagnosis. the following medications were ordered: please refer to order lists of meds and tests obtained by myself Dr. Galvan. Patient ED course and VS have been stabilized. Patient has been reassessed in [facility] ED and remained in a stable condition. Pertinent incidental findings were discussed with the patient and/or family. Patient/family voices understanding and is agreeable with plan. Patient has been observed in the ED adequate length of time to insure improvement/stability. Escalation of care considered: Consideration of escalation to observation or admission Sepsis protocol was initiated. Patient was ADMITTED to the medicine team for further evaluation and treatment of their presentation. All the reports of any imaging studies that were ordered by myself were reviewed by myself. Departure 1 Departure Time of Disposition: 22:09 Impression: Primary Impression: Altered mental status Additional Impressions: Metabolic encephalopathy Generalized weakness Hypoalbuminemia UTI (urinary tract infection) Disposition: ADMITTED INPATIENT Condition: Guarded e-Prescriptions Cefdinir (Cefdinir) 300 Mg Cap 1 CAP PO BID, #14 CAP Prov: DELACRUZRUFUS Mathur 01/02/25 Discharged With: Self Critical Care Note Critical Care Time?: Yes (55 min-critical care time only) I personally scribed for SAVANNA GALVAN DO ([email or web address]) on 12/30/24 at 20:17. Electronically submitted by Estefany Savage ([email or web address]). I personally scribed for SAVANNA GALVAN DO ([email or web address]) on 12/30/24 at 20:31. Electronically submitted by Estefany Savage ([email or web address]). I personally scribed for SAVANNA GALVAN DO ([email or web address]) on 12/30/24 at 20:55. Electronically submitted by Estefany Savage ([email or web address]). SAVANNA GALVAN DO Dec 30, 2024 20:17
--- NOTE | 2024-12-30 20:49 | ECG ---
[facility] Test Date: 2024-12-30 Test Time: 20:21:54 Pat Name: MENG BANGURADepartment: [facility] ED Room: 0235 Gender: F Abstracter: PATY : 1940 Requested By: SAVANNA GALVAN Order Number: [id number] Reading MD: Brandon Wen Measurements Intervals Cameron Rate: 66 P: -30 PA: 158 QRS: -44 QRSD: 99 T: 43 QT: 434 QTc: 455 Interpretive Statements Sinus rhythm Atrial premature complex Left anterior fascicular block Left ventricular hypertrophy Anterior Q waves, possibly due to LVH Electronically Signed On 01-03-2025 20:29:48 PDT by Brandon Wen Please click the below link to view image of tracing.
[2024-12-30 21:06] LABS: Hematocrit 33.9 % (36.0-46.0); Hemoglobin 11.3 g/dL (12.2-16.2); Mean Corpuscular Hemoglobin 30.5 pg (28.0-32.0); Mean Corpuscular Volume 91.6 fL (80.0-100.0); Nucleated Red Blood Cells % 0.2 %
--- NOTE | 2024-12-30 21:23 | DVH ---
CLINICAL HISTORY: Mental status change. TECHNIQUE: Helical scanning was performed of the head from the skull base to the vertex. Multiplanar reconstructions were performed. This exam was performed according to our departmental dose optimizat ion program. Up-to-date CT equipment and radiation dose reduction techniques are utilized as appropri ate. CTDI 8.9 DLP 1270 COMPARISON: CT HEAD WITHOUT CONTRAST on DOS: 09/18/24, MRI BRAIN HEAD WO CONTRAST on DOS: 10/31/23, CT H EAD WITHOUT CONTRAST on DOS: 10/31/23, CT HEAD WITHOUT CONTRAST on DOS: 01/08/23, HEAD WITHOUT CONTRAST on DOS: 12/10/21 FINDINGS: There is no evidence for acute intracranial hemorrhage, acute ischemic changes, mass, mass effect, or extra-axial fluid collection. There is no hydrocephalus or midline shift. There is no effacement of the cerebral sulci and basal subarachnoid cisterns. The roa-white matter differentiation is well tyelr ntained. There are chronic right globe injury. There is mild brain volume loss and chronic small vessel ischem ic change. The imaged paranasal sinuses are clear. IMPRESSION: NO ACUTE INTRACRANIAL ABNORMALITY SEEN.
--- NOTE | 2024-12-30 21:26 | DVH ---
CHEST RADIOGRAPH Indication: abd pain Technique: 1 view Comparison: XR CHEST 1 VIEW on DOS: 12/24/24, XY CHEST XRAY 1 VIEW on DOS: 09/18/24, XY CHEST PORTABLE on DOS: 01/03/24, XY CHEST XRAY 1 VIEW on DOS: 01/02/24, XY CHEST XRAY 1 VIEW on DOS: 01/02/24 FINDINGS: Lines and Tubes: External leads. Lungs/Pleura: No evidence of acute consolidation or pleural abnormality. Similar diffuse bilateral c oarse interstitial and reticular opacities. Cardiomediastinum: Unremarkable. Other: No acute osseous abnormality. IMPRESSION: 1. No acute cardiopulmonary abnormality. 2. Unchanged diffuse coarse interstitial and reticular opacities throughout both lungs.
[2024-12-30 21:28] LABS: INR 1.19 (0.9-1.15); Partial Thromboplastin Time 28.9 SEC (24.5-34.5); Prothrombin Time 12.4 sec (9.3-11.8)
[2024-12-30] MEDS: CEFEPIME 1GM/50ML 50 ML IV SCH (21:39)
--- NOTE | 2024-12-30 22:02 | DVH ---
CLINICAL HISTORY: abd pain TECHNIQUE: CT of the abdomen and pelvis was performed without IV contrast. This exam was performed ac cording to our departmental dose optimization program. Up-to-date CT equipment and radiation dose red uction techniques are utilized as appropriate. CTDI 8.9 DLP 1270 COMPARISON: CT CT AB PEL WO CON-NO ORAL OR IV on DOS: 09/19/24, CT CT AB PEL WO CON-NO ORAL OR IV on D OS: 10/25/23, CT CT AB PEL WO CON-NO ORAL OR IV on DOS: 07/27/23, CT [facility]ST AB PEL WO CON-NO IV/ORAL on DOS : 01/08/23, CT ABD PELVIS WO CONTRAST on DOS: 12/07/21 FINDINGS: Abdomen/Pelvis: The pancreas, gallbladder, adrenal glands, kidneys, bladder, and spleen are grossly unremarkable. The liver is cirrhotic in morphology with significant contour nodularity. The uterus is absent. The abdominal aorta is normal in course and caliber. There are [id number] aortic atheroscleroti c calcifications. There is no free intraperitoneal air or fluid. There is no enlarged abdominal pelvic lymph node. There is no bowel wall thickening or dilatation. Other: The imaged lower thorax demonstrates partially imaged bilateral breast implants. There is extensive d iffuse interstitial thickening with reticular opacities, pensive cystic change within the lingula, an d diffuse bronchial wall thickening / mucous plugging. There is a similar size 2.2 cm left lower lobe cavity with increasing internal soft tissue thickening. There are 3-vessel coronary artery and aorti c valvular calcifications. No acute osseous abnormality is evident. There is severe L3-L4 spinal stenosis secondary diffuse disc bulge, ligamentum flavum thickening, and facet hypertrophy. There is a mild chronic L3 vertebral bod y compression fracture. Impression: No acute noncontrast CT abnormality in the abdomen or pelvis. Cirrhosis. Hysterectomy. Extensive lung disease, suspect combination of chronic infection and fibrosis. Other possibilities a re not excluded. Similar size 2.3 cm left lower lobe cavity with increasing soft tissue thickening, which may represen t a mycetoma.
[2024-12-30 22:11] LABS: Alanine Aminotransferase 34 U/L (7-40); Anion Gap 6 (5-15); Potassium 4.5 mmol/L (3.5-5.1); Total Protein 7.3 g/dL (5.7-8.2)
[2024-12-30 22:12] LABS: BUN/Creatinine Ratio 13.8 (10.0-20.0); Blood Urea Nitrogen 15 mg/dL (9-23)
[2024-12-30 22:12] LABS: Urine Protein, UAD Negative (Negative)
[2024-12-30 22:21] LABS: Albumin 2.5 g/dL (3.2-4.8); Alkaline Phosphatase 293 U/L (46-116); Bilirubin, Total 1.2 mg/dL (0.2-1.0); Calcium 8.5 mg/dL (8.7-10.4); Carbon Dioxide 33 mmol/L (20-31); Chloride 92 mmol/L (98-107); Glucose 117 mg/dL (74-106); Sodium 131 mmol/L (136-145)
[2024-12-30 22:45] LABS: Urine WBC Clumps PRESENT /hpf (None Seen)
[2024-12-30] MEDS ORDERED: ONDANSETRON HCL 4 MG/2 ML VIAL IV PRN (23:30)
[2024-12-30] MEDS ORDERED: DEXTROSE (50%) 50ML SYRG IV PRN (23:30)
--- NOTE | 2024-12-30 23:35 | DVHHP2 ---
History of Present Illness Reason for Visit: Altered mental status History of Present Illness 84-year-old female presents for evaluation of altered mental status. Daughter was at the bedside reports patient is antibiotic for UTI four days ago. She reports noticing the patient becoming progressively more confused since yesterday. Today the patient was acting more altered and weaker. Patient not having appetite. No slurred speech or unilateral weakness. Past Medical History Diabetes mellitus, liver disease, CAD, hypertension, CHF Past Surgical History None Family History Noncontributory Smoke: No ALCOHOL: none Drugs: None Review of Systems Review of Systems Review of systems are limited due to the patient's altered mental status. Allergies: Coded Allergies: Morphine (Verified Allergy, Intermediate, Rash, 07/07/24) Codeine (Verified Allergy, Unknown, 07/07/24) Ibuprofen (Verified Allergy, Unknown, 07/07/24) Medications Current Medications Medications Dose Ordered Sig/Chito Route Start Time Stop Time Status Last Admin Dose Admin Cefepime HCl 50 ml @ 12.5 mls/hr Q12HR IV 12/30/24 22:00 12/30/24 21:39 12.5 MLS/HR Albuterol 2.5 mg Q6HPRN PRN NEB 12/30/24 23:30 Clopidogrel Bisulfate 75 mg DAILY PO 12/31/24 10:00 UNV Empaglifozin 25 mg DAILY PO 12/31/24 10:00 UNV Furosemide 40 mg DAILY PO 12/31/24 10:00 UNV Metoprolol Succinate 25 mg DAILY PO 12/31/24 10:00 UNV Ondansetron HCl 4 mg Q4HP PRN IV 12/30/24 23:30 UNV Enoxaparin Sodium 30 mg DAILY SC 12/31/24 10:00 UNV Acetaminophen 650 mg Q6HP PRN PO 12/30/24 23:30 UNV Diagnostic Test (Pha) 1 strip ACHS 12/31/24 07:00 UNV Insulin Human Regular ACHS SC 12/31/24 07:00 UNV Dextrose 50 ml UD PRN IV 12/30/24 23:30 UNV Exam Vital Signs Vital Signs Date Time Temp Pulse Resp B/P (MAP) Pulse Ox O2 Delivery O2 Flow Rate FiO2 12/30/24 22:00 97.6 61 20 114/65 (81) 97 97.6 12/30/24 20:37 Room Air* 0 21 Exam Gen: 84-year-old female in mild distress. Skin: Warm, dry, normal color and texture, no rash. HEENT: Normocephalic atraumatic, mucous membranes moist and pink. Neck: Cervical and supraclavicular nodes normal without enlargement, trachea is midline, thyroid gland is normal without masses. Pulmonary: Clear to auscultation and percussion bilaterally. Cardiac: Regular rate and rhythm. No murmur Abdomen: Soft, nontender, nondistended, bowel sounds present all 4 quadrants, no guarding, no rigidity, no organomegaly. Extremities: No cyanosis, clubbing, no edema Neuro: Cranial nerves II through XII grossly intact, normal affect and speech, no focal motor deficits. Labs/Xrays ORDERING PHYSICIAN: SAVANNA GALVAN DO PROCEDURE(s): ABPL - CT AB PEL WO CON-NO ORAL OR IV REASON: abd pain ORDER NUMBER(s): [id number], ACCESSION NUMBER(s): [id number] CLINICAL HISTORY: abd pain TECHNIQUE: CT of the abdomen and pelvis was performed without IV contrast. This exam was performed according to our departmental dose optimization program. Up-to-date CT equipment and radiation dose reduction techniques are utilized as appropriate. CTDI 8.9 DLP 1270 COMPARISON: CT CT AB PEL WO CON-NO ORAL OR IV on DOS: 09/19/24, CT CT AB PEL WO CON-NO ORAL OR IV on DOS: 10/25/23, CT CT AB PEL WO CON-NO ORAL OR IV on DOS: 07/27/23, CT [facility] AB PEL WO CON-NO IV/ORAL on DOS: 01/08/23, CT ABD PELVIS WO CONTRAST on DOS: 12/07/21 FINDINGS: Abdomen/Pelvis: The pancreas, gallbladder, adrenal glands, kidneys, bladder, and spleen are grossly unremarkable. The liver is cirrhotic in morphology with significant contour nodularity. The uterus is absent. The abdominal aorta is normal in course and caliber. There are [id number] aortic atherosclerotic calcifications. There is no free intraperitoneal air or fluid. There is no enlarged abdominal pelvic lymph node. There is no bowel wall thickening or dilatation. Other: The imaged lower thorax demonstrates partially imaged bilateral breast implants. There is extensive diffuse interstitial thickening with reticular opacities, pensive cystic change within the lingula, and diffuse bronchial wall thickening / mucous plugging. There is a similar size 2.2 cm left lower lobe cavity with increasing internal soft tissue thickening. There are 3-vessel coronary artery and aortic valvular calcifications. No acute osseous abnormality is evident. There is severe L3-L4 spinal stenosis secondary diffuse disc bulge, ligamentum flavum thickening, and facet hypertrophy. There is a mild chronic L3 vertebral body compression fracture. Impression: No acute noncontrast CT abnormality in the abdomen or pelvis. Cirrhosis. Hysterectomy. Extensive lung disease, suspect combination of chronic infection and fibrosis. Other possibilities are not excluded. Similar size 2.3 cm left lower lobe cavity with increasing soft tissue thickening, which may represent a mycetoma. RING PHYSICIAN: SAVANNA GALVAN DO PROCEDURE(s): CXRP - CHEST PORTABLE REASON: abd pain ORDER NUMBER(s): [id number], ACCESSION NUMBER(s): [id number] CHEST RADIOGRAPH Indication: abd pain Technique: 1 view Comparison: XR CHEST 1 VIEW on DOS: 12/24/24, XY CHEST XRAY 1 VIEW on DOS: 09/18/24, XY CHEST PORTABLE on DOS: 01/03/24, XY CHEST XRAY 1 VIEW on DOS: 01/02/24, XY CHEST XRAY 1 VIEW on DOS: 01/02/24 FINDINGS: Lines and Tubes: External leads. Lungs/Pleura: No evidence of acute consolidation or pleural abnormality. Similar diffuse bilateral coarse interstitial and reticular opacities. Cardiomediastinum: Unremarkable. Other: No acute osseous abnormality. IMPRESSION: 1. No acute cardiopulmonary abnormality. 2. Unchanged diffuse coarse interstitial and reticular opacities throughout both lungs. RING PHYSICIAN: SAVANNA GALVAN DO PROCEDURE(s): HWOCT - HEAD WITHOUT CONTRAST REASON: ALOC ORDER NUMBER(s): [id number], ACCESSION NUMBER(s): [id number] CLINICAL HISTORY: Mental status change. TECHNIQUE: Helical scanning was performed of the head from the skull base to the vertex. Multiplanar reconstructions were performed. This exam was performed according to our departmental dose optimization program. Up-to-date CT equipment and radiation dose reduction techniques are utilized as appropriate. CTDI 8.9 DLP 1270 COMPARISON: CT HEAD WITHOUT CONTRAST on DOS: 09/18/24, MRI BRAIN HEAD WO CONTRAST on DOS: 10/31/23, CT HEAD WITHOUT CONTRAST on DOS: 10/31/23, CT HEAD WITHOUT CONTRAST on DOS: 01/08/23, HEAD WITHOUT CONTRAST on DOS: 12/10/21 FINDINGS: There is no evidence for acute intracranial hemorrhage, acute ischemic changes, mass, mass effect, or extra-axial fluid collection. There is no hydrocephalus or midline shift. There is no effacement of the cerebral sulci and basal subarachnoid cisterns. The roa-white matter differentiation is well maintained. There are chronic right globe injury. There is mild brain volume loss and chronic small vessel ischemic change. The imaged paranasal sinuses are clear. IMPRESSION: NO ACUTE INTRACRANIAL ABNORMALITY SEEN. Labs Test 12/30/24 23:20 12/30/24 21:25 12/30/24 20:28 Range/Units Urine Color Yellow Yellow Urine Clarity Clear Clear Urine pH 6.5 5.0-9.0 Urine Specific [place] 1.009 1.001-1.035 Urine Protein Negative Negative Urine Ketones Negative Negative Urine Blood +1 Negative /uL Urine Nitrite +1 Negative Urine Bilirubin +1 Negative Urine Urobilinogen +1 Negative mg/dL Urine Leukocyte Esterase 1+ Negative /uL Urine RBC 4 0 - 4 /hpf Urine WBC Clumps Present None Seen /hpf Urine Microscopic WBC 20 H 0-5 /HPF Urine Squamous Epithelial Cells Mod <5 /hpf Urine Amorphous Sediment Few /hpf Urine Bacteria Few H None Seen /hpf Urine Glucose Normal Normal mg/dL White Blood Count 9.9 4.4-10.8 10^3/uL Red Blood Count 3.70 L 4.0-5.20 10^6/uL Hemoglobin 11.3 L 12.2-16.2 g/dL Hematocrit 33.9 L 36.0-46.0 % Mean Corpuscular Volume 91.6 80.0-100.0 fL Mean Corpuscular Hemoglobin 30.5 28.0-32.0 pg Mean Corpuscular Hemoglobin Concent 33.3 32.0-36.0 g/dL Red Cell Distribution Width 13.8 11.8-14.3 % Platelet Count 279 140-450 10^3/uL Mean Platelet Volume 7.4 6.9-10.8 fL Neutrophils (%) (Auto) 60.7 37.0-80.0 % Lymphocytes (%) (Auto) 28.7 10.0-50.0 % Monocytes (%) (Auto) 7.4 0.0-12.0 % Eosinophils (%) (Auto) 2.7 0.0-7.0 % Basophils (%) (Auto) 0.5 0.0-2.0 % Neutrophils # (Auto) 6.0 1.6-8.6 10 ^3/uL Lymphocytes # (Auto) 2.8 0.4-5.4 10 ^3/uL Monocytes # (Auto) 0.7 0-1.3 10 ^3/uL Eosinophils # (Auto) 0.3 0-0.8 10 ^3/uL Basophils # (Auto) 0.1 0-0.2 10 ^3/uL Nucleated Red Blood Cells 0.2 % Prothrombin Time 12.4 H 9.3-11.8 sec Prothrombin Time INR 1.19 H 0.9-1.15 Activated Partial Thromboplast Time 28.9 24.5-34.5 SEC Sodium Level 131 L 136-145 mmol/L Potassium Level 4.5 3.5-5.1 mmol/L Chloride Level 92 L 98-107 mmol/L Carbon Dioxide Level 33 H 20-31 mmol/L Anion Gap 6 5-15 Blood Urea Nitrogen 15 9-23 mg/dL Creatinine 1.09 H 0.550-1.02 mg/dL Glomerular Filtration Rate Calc 49 >90 mL/min BUN/Creatinine Ratio 13.8 10.0-20.0 Serum Glucose 117 H 74-106 mg/dL Lactic Acid Level 1.9 0.4-2.0 mmol/L Calcium Level 8.5 L 8.7-10.4 mg/dL Total Bilirubin 1.2 H 0.2-1.0 mg/dL Aspartate Amino Transferase (AST) 65 H 13-40 U/L Alanine Aminotransferase (ALT) 34 7-40 U/L Alkaline Phosphatase 293 H 46-116 U/L Total Protein 7.3 5.7-8.2 g/dL Albumin 2.5 L 3.2-4.8 g/dL SEPSIS Sepsis Screen Date sepsis recognized/suspect: Dec 30, 2024 Time Sepsis recognized/suspect: 2036 Recent Procedure: No On Antibiotic Therapy: Yes Respiratory Rate >20: No Heart Rate >90: No Temp<36 C (96.8 F) or >38.3 C: No SBP <90 or MAP <65 mmHG: No New Acute Mental Status Change: Yes Is the patient on CPAP, BIPAP,: No Physician Orders Critical Care Nurse (12/30/24 ) Ct Ab Pel Wo Con-No Oral Or Iv (12/30/24 20:10) Chest Portable (12/30/24 20:10) Troponin-I Hs (12/30/24 23:10) Head Without Contrast (12/30/24 20:48) Accucheck (12/30/24 20:52) Blood Culture (12/30/24 20:52) Cefepime 1gm/50ml (Maxipime 1gm/50ml) (12/30/24 22:00) Notify Md If Map <65 Or Bp<90 (12/30/24 20:52) If Map<65 Start Vasopressor (12/30/24 20:52) Sepsis Fluid Exclusion: (12/30/24 20:52) Sepsis Reassesment After Fluid (12/30/24 21:52) Ammonia (12/30/24 22:43) Urine Bacterial Culture (12/30/24 23:18) Albuterol Medneb (Ventolin Medneb) (12/30/24 23:30) Clopidogrel Bisulfate (Plavix) (12/31/24 10:00) Empagliflozin (Jardiance) (12/31/24 10:00) Furosemide Tablet (Lasix Tablet) (12/31/24 10:00) Metoprolol Xl Succinate (Toprol Xl) (12/31/24 10:00) Consistent Carb(Ccho)Diabetes (12/31/24 Breakfast) Basic Metabolic Panel (12/31/24 04:00) Admit (12/30/24 23:18) Ondansetron Hcl (Zofran) (12/30/24 23:30) Complete Blood Count (12/31/24 04:00) Condition: Stable (12/30/24 23:18) Enoxaparin Sodium (Lovenox) (12/31/24 10:00) Acetaminophen Tablet (Tylenol Tablet) (12/30/24 23:30) Bedrest With Bathroom Privileg (12/30/24 23:18) Glucose Blood (Accu-Chek Comfort Curve T (12/31/24 07:00) Insulin R (Human) (Insulin R) (12/31/24 07:00) Dextrose 50% Syringe (12/30/24 23:30) Vital Signs Date Time Temp Pulse Resp B/P (MAP) Pulse Ox O2 Delivery O2 Flow Rate FiO2 12/30/24 22:00 97.6 61 20 114/65 (81) 97 97.6 12/30/24 20:37 97.4 63 17 139/57 (84) 97 97.4 12/30/24 20:37 Room Air* 0 21 12/30/24 20:31 66 12/30/24 20:21 66 12/30/24 20:12 97.8 73 28 178/89 94 97.8 Laboratory Tests Test 12/30/24 20:28 Lactic Acid Level 1.9 mmol/L (0.4-2.0) White Blood Count 9.9 10^3/uL (4.4-10.8) Medications Medications Dose Ordered Sig/Chito Route Start Time Stop Time Status Last Admin Dose Admin Cefepime HCl 50 ml @ 12.5 mls/hr Q12HR IV 12/30/24 22:00 12/30/24 21:39 12.5 MLS/HR Assessment/Plan Assessment/Plan Assessment Metabolic encephalopathy Recurrent UTI Diabetes mellitus Generalized weakness Liver disease Plan Admit the patient to [facility] [place] to the hospitalist Cefepime Urine bacterial culture pending Resume home medications Continue treatment per orders. Plan discussed with: Patient My Orders Orders - TYLER PALOMINO AGACN Procedure Category Date Status Time Ammonia LAB 12/30/24 In Process 22:43 Urine Bacterial ROCIO 12/30/24 Logged Culture 23:18 Albuterol Medneb PHA 12/30/24 In Process (Ventolin Medneb) 23:30 Clopidogrel Bisulfate PHA 12/31/24 Logged (Plavix) 10:00 Empagliflozin PHA 12/31/24 Logged (Jardiance) 10:00 Furosemide Tablet PHA 12/31/24 Logged (Lasix Tablet) 10:00 Metoprolol Xl PHA 12/31/24 Logged Succinate (Toprol Xl) 10:00 Consistent DIET 12/31/24 Transmitted Carb(Ccho)Diabetes Breakfast Basic Metabolic Panel LAB 12/31/24 Verified 04:00 Admit ADMIT 12/30/24 Transmitted 23:18 Ondansetron Hcl PHA 12/30/24 Logged (Zofran) 23:30 Complete Blood Count LAB 12/31/24 Verified 04:00 Condition: Stable JULIO 12/30/24 In Process 23:18 Enoxaparin Sodium PHA 12/31/24 Logged (Lovenox) 10:00 Acetaminophen Tablet PHA 12/30/24 Logged (Tylenol Tablet) 23:30 Bedrest With Bathroom JULIO 12/30/24 In Process Privileg 23:18 Glucose Blood PHA 12/31/24 Logged (Accu-Chek Comfort 07:00 Insulin R (Human) PHA 12/31/24 Logged (Insulin R) 07:00 Dextrose 50% Syringe PHA 12/30/24 Logged 23:30 Date of Service: Dec 30, 2024 Billing Provider: TYLER PALOMINO Common Visit Codes: [id number] INP/OBS CARE (HIGH) TYLER PALOMINO Dec 30, 2024 23:35
[2024-12-30 23:54] VITALS: BP 114/65; PULSE 61; RESP 20; TEMP 97.6; O2SAT 97
[2024-12-31] VITALS (8 sets, daily range): BP systolic 128–138; BP diastolic 62–70; PULSE 67–75; RESP 16–22; TEMP 97.5–98.3; O2SAT 95–100
[2024-12-31 05:28] LABS: Potassium 4.5 mmol/L (3.5-5.1)
[2024-12-31 05:29] LABS: Anion Gap 8 (5-15); Carbon Dioxide 31 mmol/L (20-31)
[2024-12-31 05:34] LABS: Calcium 8.7 mg/dL (8.7-10.4); Chloride 93 mmol/L (98-107); Sodium 132 mmol/L (136-145)
[2024-12-31 05:35] LABS: BUN/Creatinine Ratio 15.6 (10.0-20.0); Blood Urea Nitrogen 14 mg/dL (9-23); Glucose 130 mg/dL (74-106)
[2024-12-31 08:58] LABS: Hematocrit 35.1 % (36.0-46.0); Hemoglobin 11.8 g/dL (12.2-16.2); Mean Corpuscular Hemoglobin 30.8 pg (28.0-32.0); Mean Corpuscular Volume 91.7 fL (80.0-100.0); Nucleated Red Blood Cells % 0.2 %
[2024-12-31] MEDS: InsuLIN REG 1unit/0.01ml Soln (100units/ml) SC SCH (09:11)
[2024-12-31] MEDS: ACCU-CHEK COMFORT CURVE STRIP VI SCH (09:12)
[2024-12-31] MEDS: ENOXAPARIN SOD 30 MG/0.3 ML SYRINGE SC SCH (09:13)
[2024-12-31] MEDS: EMPAGLIFLOZIN 10 MG TAB PO SCH (09:14)
[2024-12-31] MEDS: FUROSEMIDE 40 MG TAB PO SCH (09:15)
[2024-12-31] MEDS: METOPROLOL SUCCINATE XL 50 MG TAB PO SCH (09:16)
[2024-12-31] MEDS: CLOPIDOGREL BISULFATE 75 MG TAB PO SCH (09:16)
[2024-12-31] MEDS: ACETAMINOPHEN 325 MG TAB PO PRN (17:46)
[2025-01-01] VITALS (9 sets, daily range): BP systolic 121–141; BP diastolic 50–74; PULSE 67–74; RESP 16–19; TEMP 97.1–98.2; O2SAT 95–99
--- NOTE | 2025-01-01 13:52 | DVHPN2 ---
Reviewed: Care Plan, H&P, Labs, Medications, Previous Orders Changes from previous H/P or p: No Changes General: Per HPI Objective Vitals Vital Signs Date Time Temp Pulse Resp B/P (MAP) Pulse Ox O2 Delivery O2 Flow Rate FiO2 01/01/25 10:16 130/56 01/01/25 10:12 73 01/01/25 09:45 95 Nasal Cannula* 3 32 01/01/25 09:00 97.1 19 97.1 Intake/Output Intake and Output 01/01/25 07:00 Intake Total 1380 ml Balance 1380 ml Intake Oral 1280 ml IV Total 100 ml # Voids 6 General Appearance: Alert, Oriented X3, Cooperative Cardiovascular: Regular rate, Normal S1, Normal S2 Extremities: No edema Medications Current Medications Medications Dose Ordered Sig/Chito Route Start Time Stop Time Status Last Admin Dose Admin Cefepime HCl 50 ml @ 12.5 mls/hr Q12HR IV 12/30/24 22:00 01/01/25 10:06 12.5 MLS/HR Albuterol 2.5 mg Q6HPRN PRN NEB 12/30/24 23:30 Clopidogrel Bisulfate 75 mg DAILY PO 12/31/24 10:00 01/01/25 10:13 75 MG Empaglifozin 25 mg DAILY PO 12/31/24 10:00 01/01/25 10:15 25 MG Furosemide 40 mg DAILY PO 12/31/24 10:00 01/01/25 10:16 40 MG Metoprolol Succinate 25 mg DAILY PO 12/31/24 10:00 01/01/25 10:12 25 MG Ondansetron HCl 4 mg Q4HP PRN IV 12/30/24 23:30 Enoxaparin Sodium 30 mg DAILY SC 12/31/24 10:00 01/01/25 10:16 30 MG Acetaminophen 650 mg Q6HP PRN PO 12/30/24 23:30 12/31/24 17:46 650 MG Diagnostic Test (Pha) 1 strip ACHS 12/31/24 07:00 01/01/25 11:40 1 STRIP Insulin Human Regular ACHS SC 12/31/24 07:00 01/01/25 11:42 2 UNITS Dextrose 50 ml UD PRN IV 12/30/24 23:30 Laboratory Results Laboratory Tests 12/31/24 04:40 12/31/24 08:09 Urinalysis Test 12/30/24 21:25 Urine Color Yellow (Yellow) Urine Clarity Clear (Clear) Urine pH 6.5 (5.0-9.0) Urine Specific [place] 1.009 (1.001-1.035) Urine Protein Negative (Negative) Urine Ketones Negative (Negative) Urine Blood +1 /uL (Negative) Urine Nitrite +1 (Negative) Urine Bilirubin +1 (Negative) Urine Urobilinogen +1 mg/dL (Negative) Urine Leukocyte Esterase 1+ /uL (Negative) Urine RBC 4 /hpf (0 - 4) Urine WBC Clumps Present /hpf (None Seen) Urine Microscopic WBC 20 /HPF (0-5) H Urine Squamous Epithelial Cells Mod /hpf (<5) Urine Amorphous Sediment Few /hpf Urine Bacteria Few /hpf (None Seen) H Urine Glucose Normal mg/dL (Normal) Microbiology Microbiology Date/Time Source Procedure Growth Status 12/30/24 21:32 Blood Blood Culture - Preliminary NO GROWTH AFTER 24 HOURS OF INCUBATION. Resulted 12/30/24 21:25 Voided Urine Urine Culture - Preliminary Resulted Labs and/or images reviewed: Labs reviewed by me, Image(s) reviewed by me Assessment/Plan Assessment/Plan 84-year-old female presents for evaluation of altered mental status. Daughter was at the bedside reports patient is antibiotic for UTI four days ago. She reports noticing the patient becoming progressively more confused since yesterday. Today the patient was acting more altered and weaker. Patient not having appetite. No slurred speech or unilateral weakness. Metabolic encephalopathy Recurrent UTI Diabetes mellitus Generalized weakness Liver disease flank pain Plan discussed with: Patient Date of Service: Dec 31, 2024 Billing Provider: RUFUS DELACRUZ DO Common Visit Codes: [id number] INP/OBS CARE(HIGH) RUFUS DELACRUZ DO Jan 01, 2025 13:52
[2025-01-02] VITALS (8 sets, daily range): BP systolic 116–131; BP diastolic 55–84; PULSE 68–74; RESP 18–20; TEMP 37; O2SAT 88–98
[2025-01-02] MEDS: ALBUTEROL SULF 2.5 MG/0.5ML(0.5%) NEB SOLN NEB PRN (07:18)
[2025-01-02] MEDS ORDERED: CEFD300C2 PO (12:14)
--- NOTE | 2025-01-02 12:16 | DVHDS2 ---
Discharge Summary Date of Admission Dec 30, 2024 at 23:18 Date of Discharge: Jan 02, 2025 Labs/Diagnostic Data: Laboratory Results Test 01/02/25 11:04 12/31/24 08:09 12/31/24 04:40 12/30/24 23:20 POC Glucose 136 mg/dl (70-106) White Blood Count 8.8 10^3/uL (4.4-10.8) Red Blood Count 3.83 10^6/uL (4.0-5.20) Hemoglobin 11.8 g/dL (12.2-16.2) Hematocrit 35.1 % (36.0-46.0) Mean Corpuscular Volume 91.7 fL (80.0-100.0) Mean Corpuscular Hemoglobin 30.8 pg (28.0-32.0) Mean Corpuscular Hemoglobin Concent 33.7 g/dL (32.0-36.0) Red Cell Distribution Width 13.7 % (11.8-14.3) Platelet Count 276 10^3/uL (140-450) Mean Platelet Volume 6.9 fL (6.9-10.8) Neutrophils (%) (Auto) 65.2 % (37.0-80.0) Lymphocytes (%) (Auto) 23.7 % (10.0-50.0) Monocytes (%) (Auto) 7.9 % (0.0-12.0) Eosinophils (%) (Auto) 2.7 % (0.0-7.0) Basophils (%) (Auto) 0.5 % (0.0-2.0) Neutrophils # (Auto) 5.7 10 ^3/uL (1.6-8.6) Lymphocytes # (Auto) 2.1 10 ^3/uL (0.4-5.4) Monocytes # (Auto) 0.7 10 ^3/uL (0-1.3) Eosinophils # (Auto) 0.2 10 ^3/uL (0-0.8) Basophils # (Auto) 0 10 ^3/uL (0-0.2) Nucleated Red Blood Cells 0.2 % Sodium Level 132 mmol/L (136-145) Potassium Level 4.5 mmol/L (3.5-5.1) Chloride Level 93 mmol/L (98-107) Carbon Dioxide Level 31 mmol/L (20-31) Anion Gap 8 (5-15) Blood Urea Nitrogen 14 mg/dL (9-23) Creatinine 0.90 mg/dL (0.550-1.02) Glomerular Filtration Rate Calc 62 mL/min (>90) BUN/Creatinine Ratio 15.6 (10.0-20.0) Serum Glucose 130 mg/dL (74-106) Calcium Level 8.7 mg/dL (8.7-10.4) Ammonia 12 umol/L (11-32) Troponin I High Sensitivity 10 ng/L (</=34) Test 12/30/24 21:25 12/30/24 20:28 Urine Color Yellow (Yellow) Urine Clarity Clear (Clear) Urine pH 6.5 (5.0-9.0) Urine Specific [place] 1.009 (1.001-1.035) Urine Protein Negative (Negative) Urine Ketones Negative (Negative) Urine Blood +1 /uL (Negative) Urine Nitrite +1 (Negative) Urine Bilirubin +1 (Negative) Urine Urobilinogen +1 mg/dL (Negative) Urine Leukocyte Esterase 1+ /uL (Negative) Urine RBC 4 /hpf (0 - 4) Urine WBC Clumps Present /hpf (None Seen) Urine Microscopic WBC 20 /HPF (0-5) Urine Squamous Epithelial Cells Mod /hpf (<5) Urine Amorphous Sediment Few /hpf Urine Bacteria Few /hpf (None Seen) Urine Glucose Normal mg/dL (Normal) Prothrombin Time 12.4 sec (9.3-11.8) Prothrombin Time INR 1.19 (0.9-1.15) Activated Partial Thromboplast Time 28.9 SEC (24.5-34.5) Lactic Acid Level 1.9 mmol/L (0.4-2.0) Total Bilirubin 1.2 mg/dL (0.2-1.0) Aspartate Amino Transferase (AST) 65 U/L (13-40) Alanine Aminotransferase (ALT) 34 U/L (7-40) Alkaline Phosphatase 293 U/L (46-116) Total Protein 7.3 g/dL (5.7-8.2) Albumin 2.5 g/dL (3.2-4.8) Other Laboratory Tests 12/31/24 08:09 12/31/24 04:40 Brief Hx & Hospital Course: Metabolic encephalopathy Recurrent UTI Diabetes mellitus Generalized weakness Liver disease flank pain dishcarged to home with oral abx Condition at Discharge: Fair Final Diagnosis/Problems List see above Discharge Disposition: Home Discharge Instruct/Medications Diet: Cardiac 2g Na,low cholest Activity: No Restrictions, As Tolerated Scheduled Ascorbic Acid (Vitamin C Tablet), 2 TAB PO DAILY, (Reported) Baclofen (Baclofen), 1 TAB PO HS, (Reported) Budesonide-Formoterol Fumarate (Budesonide/Formoterol Fum 160-4.5 Mcg/Act), 2 PUFF INH BID, (Reported) Cefdinir (Cefdinir), 1 CAP PO BID Cetirizine HCl (Cetirizine Hydrochloride), 1 TAB PO DAILY, (Reported) Cholecalciferol (Vitamin D3), 2,000 UNIT PO DAILY, (Reported) Clopidogrel Bisulfate (Clopidogrel), 1 TAB PO DAILY, (Reported) Coenzyme Q10 (Coq-10), 30 MG PO DAILY, (Reported) Doxycycline (Monohydrate) (Doxycycline), 100 MG PO BID Empagliflozin (Jardiance), 1 TAB PO DAILY, (Reported) Furosemide (Furosemide), 2 TAB PO DAILY, (Reported) Gabapentin (Gabapentin), 1 CAP PO DAILY, (Reported) Insulin Glargine (Basaglar Kwikpen), 20 UNIT SC DAILY, (Reported) Ipratropium [place] (Ipratropium [place]), 1 VIAL NEB BID, (Reported) Meloxicam (Meloxicam), 1 TAB PO Q2D, (Reported) Metoprolol Tartrate (Lopressor), 1 TAB PO BID, (Reported) Mirabegron Base (Mirabegron ER), 1 TAB PO DAILY, (Reported) Mupirocin (Pseudomonas Fluores (Mupirocin), 1 APPLIC TOP TID, (Reported) Nitrofurantoin (Nitrofurantoin), 1 CAP PO BID Oxybutynin Chloride (Oxybutynin Chloride), 1 TAB PO BID, (Reported) Pantoprazole Sodium Sesquihydr (Pantoprazole Sodium), 1 TAB PO DAILY, (Reported) Potassium Chloride (Potassium Chloride ER), 1 TAB PO DAILY, (Reported) Pramipexole Dihydrochloride (Pramipexole Dihydrochlori), 0.5 MG PO HS, (Reported) Saline (Deep Sea Nasal [place]), 1 SPRAY ABBY 30, (Reported) Temazepam (Restoril), 1 CAP PO HS PRN, (Reported) Timolol Maleate (Timolol Maleate), 1 DROP EACHEYE BID, (Reported) Vericiguat (Verquvo), 2.5 MG PO BIDAC, (Reported) Scheduled PRN Acetaminophen (Acetaminophen), 325 MG PO Q4HP PRN for MILD PAIN, (Reported) Albuterol Sulfate (Albuterol Sulfate), 1 VIAL NEB Q4HR PRN for WHEEZING OR COUGH, (Reported) Albuterol Sulfate (Albuterol Sulfate Hfa), 2 PUFF INH Q4HR PRN for SHORTNESS OF BREATH, (Reported) Benzonatate (Benzonatate), 1 CAP PO TID PRN for COUGH, (Reported) Sucralfate (Carafate), 1 TAB PO BID PRN for STOMACH PAIN, (Reported) Miscellaneous Medications Patients Own Medication (Patients Own Medication), (Reported) Discharge Statement: "Patient was advised to return to the ER or call 911 if any headaches, dizziness, shortness of breath, chest pain, abdominal pain, bleeding, fevers, or worsening of medical condition. Patient was counseled about treatment plan, medications, possible side effects, patientverbalized understanding. All questions were answered to the best of my ability. This discharge took greater then 30 minutes in planning, reviewing documentation, counseling the patient, and discussing with other team members." ASSESSMENT ASSESSMENT Assessment Date of Service: Jan 02, 2025 Billing Provider: RUFUS DELACRUZ DO Common Visit Codes: 67704-SNP/OBS DISCH DAY >30min Date of Service: Jan 02, 2025 Billing Provider: RUFUS DELACRUZ DO Common Visit Codes: 50062-CMB/OBS DISCH DAY >30min RUFUS DELACRUZ DO Jan 02, 2025 12:15
--- NOTE | 2025-01-04 09:27 | ECG ---
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
== END 2025-01-02 16:39 | disposition home or self-care (01) | DRG 463 ==
LOC: EDBD 19:55 → ER 19:55 → OVERFLOW 23:18 → EAST 12-31 05:11
PROVIDERS: ADMIT Internal Medicine; ATTEND Internal Medicine
DX: N30.01 Acute cystitis with hematuria (principal); J96.01 Acute respiratory failure with hypoxia; G93.41 Metabolic encephalopathy; I11.0 Hypertensive heart disease with heart failure; I50.9 Heart failure, unspecified; E11.9 Type 2 diabetes mellitus without complications; K76.9 Liver disease, unspecified; I25.10 Atherosclerotic heart disease of native coronary artery without angina pectoris; Z87.440 Personal history of urinary (tract) infections; Z88.5 Allergy status to narcotic agent; Z88.6 Allergy status to analgesic agent; Z79.899 Other long term (current) drug therapy; Z68.25 Body mass index [BMI] 25.0-25.9, adult; E88.09 Other disorders of plasma-protein metabolism, not elsewhere classified
CPT/HCPCS: 36415; 70450; 71045; 74176; 80048; 80053; 81001; 82140; 82962; 83605; 84484; 85025; 85610; 85730; 87040; 87086; 93005; 94640; 96372; G0378; J1815